=== PATIENT | male | born 1945 | race Caucasian/White ===

== ENCOUNTER 2017-01-19 01:19 | Emergency (ER) | payer OTHER ==
[~2017-01-19] VITALS: Ht 170.2 cm; Wt 82.2 kg
[~2017-01-19 01:19] MED LIST: ASPI81TA28 PO; ATEN50TA PO; CETI10TA10 PO; CYCL10TA6 PO; EPP3/2 INJ; IPRA17AE2 INH; MULTCHW PO; OMEP20CA9 PO; OXYC-57 PO; RIVA1TAB4 PO; TRIA0.1C20 TOP; XRL15 PO
[2017-01-19 01:32] VITALS: TEMP 36.7; Ht 170.2 cm; Wt 82.2 kg
--- NOTE | 2017-01-19 02:01 | EMERGENCY ROOM VISIT NOTE ---
History Report prepared by Ericka: Brian Douglas Under the Supervision of: Dr. Brynn Kinney D.O. First contact with patient: 01:38 Chief Complaint: CALF PAIN Stated Complaint: RIGHT CALF BRUISED History of Present Illness The patient is a 71 year old male who presents to the Emergency Room with complaints of right calf pain that he recently noticed. He describes this pain as a soreness. 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 Since his prior DVT, he was started on Xarelto. He states that he has not missed any dosages. He denies any chest pain or shortness of breath. He does not remember injuring this area. He denies any other bruising to other areas. Source of History: patient Onset: recently Position: leg (right) Symptom Intensity: mild Quality: other (Soreness) Timing: constant Associated Symptoms: No chest pain, No SOB Note: He denies any other abnormal bruising to his body or other symptoms. Review of Systems See HPI for pertinent positives & negatives. A total of 10 systems reviewed and were otherwise negative. Past Medical & Surgical Medical Problems: (1) Hypertension Family History Patient reports no known family medical history. Social History Smoking Status: Never Smoker Smokeless Tobacco Use: No Alcohol Use: occasionally Drug Use: none Marital Status: Housing Status: lives with significant other Occupation Status: retired Current/Historical Medications Scheduled Aspirin (Aspirin Ec), 81 MG PO 3XWK Atenolol (Tenormin), 25 MG PO BID Cetirizine Hcl (Zyrtec), 10 MG PO DAILY Multiple Vitamins W/ Minerals (Centrum Silver), 1 TAB PO DAILY Omeprazole (Prilosec), 20 MG PO DAILY Rivaroxaban (Xarelto), 20 MG PO DAILY Scheduled PRN Triamcinolone Acet 0.1% (Aristocort 0.1%), 1 APPLN TOP BID PRN for Allergies Coded Allergies: BEE STING (Verified Allergy, Severe, HIVES, 12/03/14) Aminoglycosides (Verified Allergy, Unknown, 07/06/13) Gentamicin (Verified Allergy, Unknown, HIVES, 12/03/14) Metronidazole (Verified Allergy, Unknown, 07/06/13) Tramadol (Verified Allergy, Unknown, INSOMNIA/SOB, 12/03/14) Physical Exam Vital Signs Date Time Temp Pulse Resp B/P (MAP) Pulse Ox O2 Delivery O2 Flow Rate FiO2 01/19/17 04:16 70 18 128/76 97 01/19/17 01:32 36.7 74 20 131/80 96 Room Air Physical Exam HEENT: Head - normocephalic and atraumatic Pupils are equal, round, and reactive to light. Extraocular eye muscles are intact, and sclera are anicteric. Nose - moist nasal mucosa without discharge. Mouth - moist buccal mucosa. Oropharynx is nonerythematous and there is no tonsillar exudate or edema noted. Neck: Supple; no JVD, nuchal rigidity, cervical lymphadenopathy. Heart: Regular rate and rhythm. There is a normal S1 and S2 with no murmurs, clicks, or gallops appreciated. Lungs: Clear to auscultation bilaterally with no wheezes, rales, or rhonchi. Abdomen: Soft, completely nontender, nondistended, with good bowel sounds. There are no palpable pulsatile masses or hepatosplenomegaly. There is no guarding, rigidity, or rebound noted. Extremities: There is an area of ecchymosis to the right mid calf. There is no fullness in that area or palpable cord. The area is nontender to palpation. There are easily palpable peripheral pulses. Skin: warm and dry with good turgor and no rashes. Medical Decision & Procedures ER Provider Diagnostic Interpretation: Radiology results as stated below per my review and the radiologist's interpretation: US VENOUS RIGHT LOWER EXTREMITY: Comparison: Ultrasound December 06, 2014 Nonocclusive thrombus likely in the right posterior tibial veins. No other evidence of deep venous thrombosis in the right lower extremity. Radiologist: Lance Sood M.D. ED Course 0138: Past medical records reviewed. The patient was evaluated in room B7. A complete history and physical exam was performed. The patient will go for ultrasound of the right lower extremity. 0338: I reassessed the patient at this time. He is doing well. 0412: Upon reevaluation, the patient is resting. I discussed findings and results with him. He verbalized agreement of the treatment plan. He was discharged home. Medical Decision The patient is a 71 year old male who presents to the ED with right calf pain. Differential diagnosis includes calf hematoma, occlusive DVT, and contusion. This is a 71-year-old male patient had a history of a previous right lower extremity DVT and PE. He was placed on Xarelto a couple of years ago. The patient happened to notice some ecchymosis to the right calf this evening. He initially denied any trauma to his leg but then remembered that he had been out in the bush moving a tree stand today and could have traumatized that leg. Ultrasound of the right lower extremity showed some nonocclusive DVT. On physical exam, there was just evidence of some ecchymosis but no obvious clinical findings consistent with a DVT. As the patient is already on anticoagulation, we will not change that at this time. I have asked the patient to follow-up with his PCP on Saturday for recheck. Medication Reconcilliation Current Medication List: was personally reviewed by me Blood Pressure Screening Patient's blood pressure: Normal blood pressure Blood pressure disposition: Did not require urgent referral Impression Primary Impression: Hematoma of right lower extremity Additional Impression: DVT (deep venous thrombosis) Scribe Attestation The scribe's documentation has been prepared under my direction and personally reviewed by me in its entirety. I confirm that the note above accurately reflects all work, treatment, procedures, and medical decision making performed by me. Departure Information Dispostion Home / Self-Care Referrals Eliud Orta M.D. Forms HOME CARE DOCUMENTATION FORM, IMPORTANT VISIT INFORMATION Patient Instructions My [facility] Additional Instructions Rest with the right leg elevated. You can apply ice or heat for comfort. 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
[2017-01-19] MEDS ORDERED: RIVA1TAB4 PO (02:45)
[2017-01-19 04:16] VITALS: BP 128/76; PULSE 70; O2SAT 97
--- NOTE | 2017-01-19 07:03 | DIAGNOSTIC IMAGING REPORT ---
R VENOUS DOPP LOWER EXT UNILAT CLINICAL HISTORY: 71 years-old Male presenting with eval for dvt. TECHNIQUE: Real-time grayscale and color and spectral Doppler ultrasound imaging of the veins of the right lower extremity was performed. Compression and augmentation were also utilized. COMPARISON: None. FINDINGS: Right: Common femoral vein: Patent. Femoral vein: Patent. Greater saphenous vein: Patent. Popliteal vein: Patent. Calf veins: Nonocclusive filling defect consistent with thrombus in the duplicated posterior tibial veins. Remaining calf veins patent. Other: None. IMPRESSION: Nonocclusive deep venous thrombosis in the duplicated posterior tibial veins. No evidence of more proximal extension. Electronically signed by: Eliud Burgess M.D. 01/19/2017 7:02 AM Dictated Date/Time: 01/19/2017 7:01 AM
== END 2017-01-19 04:17 | disposition home or self-care (01) ==
LOC: C.EDB 01:21
DX: I82.4Z1 Acute embolism and thrombosis of unspecified deep veins of right distal lower extremity (principal); S80.11XA Contusion of right lower leg, initial encounter; X58.XXXA Exposure to other specified factors, initial encounter; I10 Essential (primary) hypertension; Z79.82 Long term (current) use of aspirin; Z79.899 Other long term (current) drug therapy; Z88.8 Allergy status to other drugs, medicaments and biological substances; Z91.030 Bee allergy status

== ENCOUNTER 2024-04-25 06:47 | Inpatient (IN) ==
--- OUTSIDE RECORDS SUMMARY | 2024-04-25 07:09 | External Medical Summary ---
Author Name Unknown Address Unknown Organization [id number]:LABORATORY [facility] [place] - [address] [facility] [place] [address] Laboratory Report Ordering Provider Test Date Status ROHIT TOMAS 04/21/2024 07:54:00 Final Observation Date Value Abnormality Reference (Units ) Status BUN 04/21/2024 07:54:00 17 6-20 (mg/dL) Final Creatinine 04/21/2024 07:54:00 1.3 Above high normal 0.6-1.2 (mg/dL) Final Glomerular filtration rate/1.73 sq M.predicted [Volume Rate/Area] in Serum, Plasma or Blood by Creatinine-based formula (CKD-EPI) 04/21/2024 07:54:00 54 Below low normal >=60 (mL/min) Final eGFR is calculated based on the CKD-EPI 2020 equation. Sodium 04/21/2024 07:54:00 136 135-146 (m mol/L) Final Potassium 04/21/2024 07:54:00 3.6 3.5-5.1 (m mol/L) Final Cl 04/21/2024 07:54:00 99 98-107 (mm ol/L) Final CO2 04/21/2024 07:54:00 25 22-32 (mmo l/L) Final Anion gap 04/21/2024 07:54:00 12 7-15 (mmol /L) Final Glucose 04/21/2024 07:54:00 118 70-120 (mg /dL) Final Albumin 04/21/2024 07:54:00 3.5 Below low normal 3.8 -5.0 (g/dL) Final AST (Aspartate aminotransferase) 04/21/2024 07:54:00 25 10-50 (U/L) Fin al Alk Phos 04/21/2024 07:54:00 91 35-130 (U/ L) Final Bilirubin, Total 04/21/2024 07:54:00 0.5 <=1 .2 (mg/dL) Final Calcium 04/21/2024 07:54:00 8.8 8.4-10.2 ( mg/dL) Final Protein 04/21/2024 07:54:00 6.0 6.0-8.3 (g /dL) Final ALT (Alanine aminotransferase) 04/21/2024 07:54:00 33 10-50 (U/L) Ernesto craft Performing Location LABORATORY [facility] [place] - [address] [facility] [address]
--- OUTSIDE RECORDS SUMMARY | 2024-04-25 07:09 | External Medical Summary ---
Author Name Unknown Address Unknown Organization [id number]:LABORATORY [facility] [place] - [facility] [address] [place] [address] Laboratory Report Ordering Provider Test Date Status ROHIT TOMAS 04/22/2024 08:53:00 Final Observation Date Value Abnormality Reference (Units ) Status WBC, Total 04/22/2024 08:53:00 4.15 4.00-10.80 (K/uL) Final RBC 04/22/2024 08:53:00 3.73 4.50-5.25 (M/uL) Final Hemoglobin 04/22/2024 08:53:00 11.1 Below low normal 14.0-16.8 (g/dL) Final HCT 04/22/2024 08:53:00 33.6 Below low normal 40.0-48.4 (%) Final MCV 04/22/2024 08:53:00 90.1 82.0-99.5 (fL) Final MCH 04/22/2024 08:53:00 29.8 27.0-34.0 (pg) Final MCHC 04/22/2024 08:53:00 33.0 32.0-36.0 (g/dL) Final RDW 04/22/2024 08:53:00 13.1 11.5-15.5 (%) Final Platelets 04/22/2024 08:53:00 95 Below low normal 140-400 (K/uL) Final MPV 04/22/2024 08:53:00 11.3 6.6-11.1 (fL) Final Nucleated erythrocytes/100 leukocytes [Ratio] in Blood by Automated count 04/22/2024 08:53:00 0 <=0 (/100 WBCs) Final Performing Location LABORATORY [facility] [place] - [address] [place] [address]
--- OUTSIDE RECORDS SUMMARY | 2024-04-25 07:09 | External Medical Summary ---
Author Name Unknown Address Unknown Organization [id number]:[facility] [place] [address] [facility] [address] Laboratory Report Ordering Provider Test Date Status CORBY WILLIAMSON 04/21/2024 18:50:50 Final Observation Date Value Abnormality Reference (Units ) Status Color of Urine by Auto 04/21/2024 18:50:50 Yellow Colorless, Light Yellow, Yellow, Dark Yellow Final Clarity, Urine 04/21/2024 18:50:50 Clear Clear Final Glucose [Mass/volume] in Urine by Automated test strip 04/21/2024 18:50:50 Negative Negative (mg/dL) Final Bilirubin.total [Presence] in Urine by Automated test strip 04/21/2024 18:50:50 Negative Negative Final Ketones [Mass/volume] in Urine by Automated test strip 04/21/2024 18:50:50 Negative Negative (mg/dL) Final Specific gravity, Urine 04/21/2024 18:50:50 1.030 1.003-1.030 Final Hemoglobin [Presence] in Urine by Automated test strip 04/21/2024 18:50:50 Negative Negative Final pH, Urine 04/21/2024 18:50:50 6.0 5.0-7.5 (Units) Final Protein [Mass/volume] in Urine by Automated test strip 04/21/2024 18:50:50 30 Abnormal Negative (mg/dL) Final Urobilinogen [Mass/volume] in Urine by Automated test strip 04/21/2024 18:50:50 Normal Normal (mg/dL) Final Nitrite [Presence] in Urine by Automated test strip 04/21/2024 18:50:50 Negative Negative Final Leukocyte esterase [Presence] in Urine by Automated test strip 04/21/2024 18:50:50 Negative Negative Final RBC, Urine 04/21/2024 18:50:50 0-2 0-2 (/HPF) Final WBC, Urine 04/21/2024 18:50:50 0-2 0-2 (/HPF) Final Bacteria [#/area] in Urine sediment by Microscopy high power field 04/21/2024 18:50:50 51-100 Abnormal 0-25 (/HPF) Final Hyaline casts, Urine 04/21/2024 18:50:50 1-4 Abnormal None (/LPF) Final CULTURE, URINE - [facility] 04/21/2024 18:50:50 Final Quantitative urine culture t o be performed Performing Location [facility]ORY [facility] [place] [address] [place] [facility] [address]
--- OUTSIDE RECORDS SUMMARY | 2024-04-25 07:09 | External Medical Summary ---
Author Name Unknown Address Unknown Organization K01:LABORATORY [facility] [place] - [address] [place] [address] Laboratory Report Ordering Provider Test Date Status CORBY WILLIAMSON 04/21/2024 18:50:50 Final Observation Date Value Abnormality Reference (Units) Status Bacteria identified in Specimen by Culture 04/21/2024 18:50:50 No significant growth Final Test: Culture, Urine, Quanti tative
Specimen Source: Urine, Clean Catch
Specimen Type: Urine
Specimen Date: 04/21/2024 1850
Result Date: 04/22/2024 1412
Result Status: Final result
Resulting Lab: LABORATORY [facility] [place]
[address]
[place] [address]

CULTURE

No significant growth

null Performing Location LABORATORY [facility] [place] - [address] [facility] [address]
--- OUTSIDE RECORDS SUMMARY | 2024-04-25 07:09 | External Medical Summary ---
Author Name Unknown Address Unknown Organization K01:[facility]ORY [facility] [place] - [address] [place] [address] Laboratory Report Ordering Provider Test Date Status ROHIT TOMAS 04/22/2024 08:53:00 Final Observation Date Value Abnormality Reference (Units ) Status Phosphate 04/22/2024 08:53:00 2.1 Below low normal 2.5 -4.8 (mg/dL) Final Performing Location LABORATORY [facility] - [address] [place] [address]
--- OUTSIDE RECORDS SUMMARY | 2024-04-25 07:09 | External Medical Summary ---
Author Name Unknown Address Unknown Organization K01:LAB[facility]ORY [facility] [place] - [address] [place] [address] Laboratory Report Ordering Provider Test Date Status CORBY WILLIAMSON 04/21/2024 19:03:00 Preliminary Observation Date Value Abnormality Reference (Units) Status Bacteria identified in Specimen by Culture 04/21/2024 19:03:00 No growth to date Preliminary Test: Culture, Blood
Rosemary victoria Source: Blood, Venous
Specimen Type: Blood
Specimen Date: 04/21/2024 190
Result Date: 04/22/2024 0202
Result Status: Preliminary result
Resulting Lab: LAB[facility]ATORY [facility] [place]
[address]
[place] [address]

CULTURE

No growth to date

null Performing Location LABORATORY [facility] [place] - [address] [facility] [address]
--- OUTSIDE RECORDS SUMMARY | 2024-04-25 07:09 | External Medical Summary ---
Author Name Unknown Address Unknown Organization K01:LABORATORY [facility] - [address] [place] [address] Laboratory Report Ordering Provider Test Date Status ROHIT TOMAS 04/21/2024 07:54:00 Final Observation Date Value Abnormality Reference (Units ) Status Phosphate 04/21/2024 07:54:00 3.0 2.5-4.8 (m g/dL) Final Performing Location LABORATORY [facility] - [address] [place] [address]
--- OUTSIDE RECORDS SUMMARY | 2024-04-25 07:09 | External Medical Summary | Summary of Care ---
Author Name Unknown Organization [facility] Address [address] [facility] [place] [address] Phone [phone] Care Team Providers Care Swimming Pool Servicer Name Role Phone Eliud Orta MD Primary Care Provider + Reason for Visit * Reason Onset Date Comments [facility]: Screening 04/23/2024 Encounter Details Date Type Department Care Team (Late st Contact Info) Description 04/23/2024 Telephone [facility] [place] [address] [place] [address] Mildred Mckeon LPN [address] [place] [address] [facility]: Screening Allergies Active Allergy Reactions Criticality Noted Date Comments Bee Stings Hives Medium 07/26/2008 Gentamicin Sulfate 06/05/2001 pt was on gentamycin,unasyn,ibjipg-qnygg-my t sure which med documented as of this encounter (statuses as of 04/23/2024) Medications CENTRUM SILVER OR TABS Take 1 Tablet by mouth in the morning. 0 0 07/08/200 4 Active PRILOSEC 20 MG PO CPDR Take 1 Capsule by mouth in the morning. Active Cetirizine HCl 10 MG Oral Tablet Take 1 Tablet by mouth. Active Acetaminophen 500 MG Oral Tablet Take 1 Tablet by mouth every 8 hours as needed for Pain. Active Triamcinolone Acetonide 0.1 % External Cream (Aristocort)Ind ications:Rosace a Apply to affected area(s) twice daily as directed 80 g 2 12/28/2022 10:06 AM EDT 3 Active Rivaroxaban 20 MG Oral Tablet (Xarelto)Indica tions:Pulmonary embolism and infarction (HCC) Take 1 Tablet by mouth daily with dinner. 100 Tablet 3 03/24/2024 3:46 PM EST 4 Active Alfuzosin HCl ER 10 MG Oral Tablet Extended Release 24 Hour (Uroxatral)Mally cations:BPH with obstruction/low er urinary tract symptoms Take 1 Tablet by mouth in the morning. 100 Tablet 3 03/31/2024 5:28 PM EST 4 Active Additional Information Patient taking differently:10 mg OralHS, Reported on 04/20/2024 Finasteride 5 MG Oral Tablet (Proscar)Indica tions:BPH with obstruction/low er urinary tract symptoms TAKE ONE TABLET BY MOUTH EVERY DAY IN THE MORNING 90 Tablet 3 03/31/2024 2:56 PM EST 5 03/26/19 26 Active Atenolol 25 MG Oral Tablet (Tenormin)Indic ations:SVT (supraventricul ar tachycardia) ([facility]),Palpitati ons Take 1 and 1/2 Tablets by mouth in the morning and before bedtime. 300 Tablet 3 03/31/2024 2:56 PM EST 5 03/30/19 26 Active oxyCODONE HCl 10 MG Oral Tablet (Roxicodone) Take 1 Tablet by mouth every 6 hours as needed for Pain, Severe. 20 Tablet 5 Active Hospital, Clinic, or Other Facility Administered Medication Ordered Dose Route Frequency Start Date End Date Status albuterol sulfate (PROVENTIL) (2.5 MG/3ML) 0.083% inhalation solution 2.5 mgIndications:Adenocarcin chrystal of left lung (HCC) 2.5 mg NEBULIZER Q4H PRN 06/13/2018 Ac tive documented as of this encounter (statuses as of 04/23/2024) Active Problems Problem Noted Date Diagnosed Date Acute pancreatitis 04/20/2024 History of cholecystectomy 04/20/2024 Pancreatic mass 04/20/2024 History of lung cancer 02/28/2024 Overview (02/28/2024): T2 N2 non-small cell lung cancer s/p resection followed by 4 cycles of adjuvant chemotherapy including combination of Alimta and carboplatin. Last dose of chemotherapy was in 11/2018. PET scan done on 04/07/19 w/ FNA of lesion done - positive for metastatic carcinoma 3-4 mm lesion on the right side of the brain & received adiation therapy. Tumor was positive for PDL1 and expression (1-2%) S/p SBRT to right hilum, 3400cGy in 5 fractions, on 10/14/2020 and continued nivolumab. Received Opdivo between 05/25/2019 to 11/22/2021. PET scan done 10/17/23 & follow up CT scan was done with increasing size of the left lung apex nodule. S/p SBRT and received total of 5000 cGy radiation completed on 12/19/2023. 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 Minimum 6mo anticoag, heme rec lifelong ICD-10 update of inactive term History of DVT (deep vein thrombosis) 12/06/2014 Overview (04/11/2015): 12/03/14 new dx with PE--rec lifelong therapy History of pulmonary embolism 12/06/2014 Overview (01/21/2017): 01/25 nonocclusive DVT [facility] doppler while on xarelto 12/03/14 [facility] w/DVT leg. Minimum 6mo anticoag-Heme rec lifelong. +Factor V Heterozygous SVT (supraventricular tachycardia) 12/27/2013 Overview (12/27/2013): On beta-rena Routine general medical exam ination at a health care facility 09/01/2013 Overview (04/20/2024): Prefers [facility] . -[facility]. 05/05 EGD +gastric polyps 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 01/23 PFT Ratnor. Look ok? 12/22 outside BMP, UA, microalb WNL. Scanned. 08/22 PSA 0.6. S/p total colectomy due to UC Parastomal hernia without obstruction or gangren e 09/16/2012 Trigeminal neuralgia 06/14/2011 Dyslipidemia, goal LDL below 100 05/10/[address] 10/02/2002 Overview (07/27/2019): High output ostomy discharge. Acute. BPH with obstruction/lower urinary tract symptom s 12/03/2001 LIPOMA SKIN NEC 02/05/2001 Overview (03/09/2014): Mult all over.a Gastroesophageal reflux disease without esophagi tis Rosacea documented as of this encounter (statuses as of 04/23/2024) Resolved Problems Problem Noted Date Diagnosed Date Resolved Date Disorder of arteries and arterioles 09/06/2022 12/27/2022 Pulmonary embolism and infarction 09/19/2021 11/02/2021 Overview (11/02/2021): Hx on PL Lung cancer metastatic to brain 04/27/2020 02/28/2024 Overview (02/28/2024): T2 N2 non-small cell lung cancer s/p resection followed by 4 cycles of adjuvant chemotherapy including combination of Alimta and carboplatin. Last dose of chemotherapy was in 11/2018. PET scan done on 04/07/19 w/ FNA of lesion done - positive for metastatic carcinoma 3-4 mm lesion on the right side of the brain & received adiation therapy. Tumor was positive for PDL1 and expression (1-2%) S/p SBRT to right hilum, 3400cGy in 5 fractions, on 10/14/2020 and continued nivolumab. Received Opdivo between 05/25/2019 to 11/22/2021. PET scan done 10/17/23 & follow up CT scan was done with increasing size of the left lung apex nodule. S/p SBRT and received total of 5000 cGy radiation completed on 12/19/2023. Stage 3a chronic kidney disease 01/18/2020 03/24/2020 Overview: Per CKD protocol - Per CKD protocol Kidney disease, chronic, sta ge III (GFR 30-59 ml/min) 10/19/2019 01/21/2020 Overview: Per CKD protocol Prediabetes 09/28/2019 06/21/2022 Type 2 diabetes mellitus wit h stage 3 chronic kidney disease, without long-term current use of insulin 09/15/2019 09/28/2019 Overview (09/15/2019): DM2 + CKD III - conditions have assumed relationship per current coding guidelines. COPD, group A, by GOLD 2017 classification 01/19/2019 02/22/2022 Overview (11/10/2021): PFT 2014 Dr Wills were ok Type 2 diabetes mellitus wit h hemoglobin A1c goal of less than 8.0% 12/17/2018 09/28/2019 Overview (12/17/2018): 12/27 new dx a1c 6.6. On chemo. Artificial opening status 07/08/2018 Pulmonary embolism and infarction 07/08/2018 11/13/2018 Preoperative clearance 07/07/201811/13 Malignant neoplasm of upper lobe of left lung 07/08/19 19 02/28/2024 Cancer Staging:Clinical stage from 07/16/2018:Stage IIB(cT3, cN0, cM0) - Signed by Kevin Mehta MD on 07/16/2018 Pathologic stage from 08/21/2018:Stage IIIA(pT2b, pN2, cM0) - Signed by Kevin Mehta MD on 08/21/2018 Overview (02/28/2024): T2 N2 non-small cell lung cancer s/p resection followed by 4 cycles of adjuvant chemotherapy including combination of Alimta and carboplatin. Last dose of chemotherapy was in 11/2018. PET scan done on 04/07/19 w/ FNA of lesion done - positive for metastatic carcinoma 3-4 mm lesion on the right side of the brain & received adiation therapy. Tumor was positive for PDL1 and expression (1-2%) S/p SBRT to right hilum, 3400cGy in 5 fractions, on 10/14/2020 and continued nivolumab. Received Opdivo between 05/25/2019 to 11/22/2021. PET scan done 10/17/23 & follow up CT scan was done with increasing size of the left lung apex nodule. S/p SBRT and received total of 5000 cGy radiation completed on 12/19/2023. COPD, severity to be determined 07/07/2018 01/23/2019 Overview: Per COPD GOLD Classification Kidney disease, chronic, sta ge III (GFR 30-59 ml/min) 06/18/2017 09/24/2019 Overview: Per CKD protocol #1 Thrombocytopenia 03/08/2016 09/04/2016 Overview (03/08/2016): 02/23, jsoeph 3mo Altered bowel elimination du e to intestinal ostomy 03/15/2015 05/22/2022 Postoperative nausea 06/01/2013 016 Calf pain 11/11/2012 03/06/2016 Tachycardia 10/23/2012 10/27/2012 Atrial fibrillation with RVR 10/23/2012 11/05/2012 Respiratory failure, acute 10/21/2012 0 10/27/2012 Acute respiratory failure re quiring reintubation 10/21/2012 10/27/2012 Atypical chest pain 10/06/2012 03/06/20 16 Ulcerative colitis, unspecified 09/16/2012 09/01/2013 Kidney disease, chronic, sta ge III (GFR 30-59 ml/min) 05/10/2009 11/25/2014 Overview (02/01/2014): 12/[address] Castro [id number] Toxic effect of venom 07/26/20082013 Overview (12/13/2015): ICD-10 update of inactive term ADVANCE DIRECTIVE INFORMATION 07/04/2005 01/13/2024 Overview (07/04/2005): Yes, Patient instructed to provide copy of advance directive for provider to review and to be scanned into Electronic Medical Record Dyslipidemia, goal to be determined 12/03/2001 05/10/2009 Ulcerative colitis 02/05/2001 0 documented as of this encounter (statuses as of 04/23/2024) Immunizations Name Administration Dates Next Due COVID-19 mRNA, LNP-s, No Pre serve, 2-Dose Series (Otelic) 11/08/2020,05/31/2020,05/10/2020 COVID-19, LNP-s, No Preserve , Jose E-sucrose, Ages 12+ (Pfizer) 05/16/2021 COVID-19, MRNA-LNP, PF, 30 M CG/0.3 mL, 12 YRS AND ABOVE, IM (ALEXANDALEXA-Comirnat) 01/13/2024,01/21/2023 Covid-19, Mrna, Lnp-s, Pf, B ivalent, 30 Mcg, IM, 12 yrs and above (Otelic) 12/26/2021 Pneumococcal Conjugate Vacc, 13 Valent (Prevnar) 09/05/2015 Pneumococcal Polysaccharide PPV23 (Pneumovax) 11/11/2009 RSV Vac., Bivalent, Perfusio n F, Pf,0.5 Ml (Abrysvo) 01/02/2023 Seasonal Influenza Vac., MDV , IM, 0.5 mL (Fluzone) 12/16/2013,11/27/2012,12/26/2011,07/2010,12/15/2009,01/12/2009,12/18/19 08,12/11/2006,12/12/2005 Seasonal Influenza, High Dos e, Trivalent, PF, IM (Fluzone HD) 11/13/2023 Seasonal Influenza, PF, 6 M & above, IM , (FluLaval or Fluzone) 11/05/2019,12/23/2018,12/03/2017,12/0912/03/2018 Seasonal Influenza, Quadriva lent Hd (Fluzone Hd) 11/13/2023,12/27/2022,11/10/2021,03/2020 Seasonal Influenza, Quadriva lent, No Preserve, IM 01/17/2016,12/13/2014 TDAP (age 10 and older)(Boostrix) 10/14/2017 TDAP, Age 7 and older, IM (Adacel) 08/28/2007 Varicella Zoster Vaccine (Adult) 06/23/2012 Zoster Vaccine Recombinant (Shingrix) 07/03/2019 ,05/07/2019 documented as of this encounter Social History Tobacco Use Types Packs/Day Years Used Date Smoking Tobacco: Former Cigarettes 2 15 0 03/11/1959 - 03/11/1974 Smokeless Tobacco: Current Chew Comments:chews when outside- cut way back Alcohol Use Standard Drinks/Week Comments Yes 0 (1 standard drink = 0.6 oz pur e alcohol) every couple of days AUDIT-C Answer Date Recorded Frequency of Alcohol Consumption Never 06/12/2018 Average Number of Drinks Not on file 019 Frequency of Binge Drinking Not on file 06/2018 PHQ-2 Answer Date Recorded PHQ Adult Total Score 0 12/27/2022 Hunger Vital Sign Answer Date Recorded Within the past 12 months, y ou worried that your food would run out before you got the money to buy more. Never true 09/07/19 23 Within the past 12 months, t he food you bought just didn't last and you didn't have money to get more. Never true 09/06/2022 Sex and Gender Information Value Date Recorded Sex Assigned at Male 11/10/2021 12:21 PM EDT Legal Sex Male 5:27 AM EST Gender Identity Male 11/10/2021 12:21 PM EDT Sexual Orientation Straight 11/10/2021 12 :21 PM EDT documented as of this encounter Functional Status * Are you deaf or do you have serious difficulty hearing? Answer Date of Assessment Author No 08/01/2018 10:47 PM EDT Colby Franco RN * Are you blind or do you have serious difficulty seeing, even when wearing glasses? Answer Date of Assessment Author No 08/01/2018 10:47 PM EDT Colby Franco RN * Do you have serious difficulty walking or climbing stairs? (5 years old or older) Answer Date of Assessment Author No 08/01/2018 10:47 PM EDT Colby Franco RN * Do you have difficulty dressing or bathing? (5 years old or older) Answer Date of Assessment Author No 08/01/2018 10:47 PM EDT Colby Fracno RN * Because of a physical, mental, or emotional condition, do you have difficulty doing errands alone such as visiting a doctors office or shopping? (15 years old or older) Answer Date of Assessment Author No 08/01/2018 10:47 PM EDT Colby Franco RN documented as of this encounter Mental Status * Because of a physical, mental, or emotional condition, do you have serious difficulty concentrating, remembering, or making decisions? (5 years old or older) Answer Entry Date Author No 08/01/2018 10:47 PM EDT Colby Franco RN documented in this encounter Miscellaneous Notes * Telephone Encounter - Mildred Mckeon LPN - 04/23/2024 2:26 PM EST Jason Alexander was referred as a potential candidate for enrollment for [facility]. A review of this chart was completed and: Jason meets criteria for [facility]. Jump to Initiation Mildred Mckeon LPN [facility] 04/23/2024,2:26 PM documented in this encounter Plan of Treatment Upcoming Encounters Date Type Department Care Team (Late st Contact Info) Description 04/29/2024 10:15 AM EST Office Visit Hematology/Oncology [facility] [address] [place] [phone] Hemanth Monk MD [address] [place] [address] 04/29/2024 2:40 PM EST Office Visit [facility] ([place], [place]) [address] [place] [address] Eliud Orta MD [address] [place] [address] 05/01/2024 12:30 PM EST Home Visit [facility], [facility] [address] [place] [address] Taisha Nicholas RN [address] [place] [address] 06/02/2024 11:30 AM EDT Office Visit Cardiology [address] [place] [address] Alessandro Dozier PA-C [address] [place] [address] 06/22/2024 1:00 PM EDT Home Visit [facility] [place], [facility] [address] [place] [address] Daniel Moses PA-C [address] [place] [address] 08/19/2024 9:00 AM EDT Office Visit [facility] ([place], [place]) [address] [place] [address] Eliud Orta MD [address] [place] [address] 08/20/2024 11:00 AM EDT Imaging Radiology [address] [place] [address] 08/27/2024 11:00 AM EDT Telemedicine Radiation Oncology, [address] [place] [address] Rubi Mart MD [address] [place] [address] [place] [address] 02/19/2025 11:40 AM EST Office Visit Family [facility] [address] [place] [address] Eliud Orta MD [address] [place] [address] Health Maintenance Due Date Last Done Comments Alpha-1 Antitrypsin 1963 Adult Wellness Visit 04/27/2017 04/27/2016 Albumin/Creatinine Ratio 12/28/2023 023, 01/16/2022, 05/10/2021, Additional history exists Depression Screening 12/28/2023 12/27/2022, 09/04/2016 (Declined) GFR 10/20/2024 04/22/2024, 04/11, 04/20/2024, Additional history exists O2 ASSESSMENT COMPLETED IN PAST YEAR FOR COPD 04/15/2025 04/15/2024 CKD HGB USE SMARTSET 65873 04/22/202504/22, 04/21/2024, 04/20/2024, Additional history exists CKD PHOS USE SMARTSET 81405 04/22/202504/11, 04/21/2024, 01/18/2023, Additional history exists DTap/Tdap Vaccines (3 - Td or Tdap) 10/15/2027 10/14/2017, 08/28/2007 Pneumococcal Vaccine: 50+ Years Completed 09/05/2015, 11/11/2009 Zoster Vaccines Completed 07/03/2019, 04/12, 06/23/2012 Influenza Vaccine (FLU shot) Completed 11/13/2023, 11/13/2023, 12/27/2022, Additional history exists COVID-19 Vaccine Completed 01/13/2024, , 12/26/2021, Additional history exists Colonoscopy Discontinued HPV (Gardasil) Vaccine Aged Out No lo nger eligible based on patient's age to complete this topic Hepatitis B Vaccine Aged Out No longe r eligible based on patient's age to complete this topic MENINGOCOCCAL (MENACTRA/MENVEO) Aged Out No longer eligible based on patient's age to complete this topic documented as of this encounter Medical Devices Implanted Type Area Support Specialist Device Identifier Shelf Expiration Date Model / Serial / Lot Phasix Mesh [id number] Implanted:Qty: 1 on 10/20/2012 at OR [facility] N/A: Abdomen CR BARD : DAVOL 02/07/2014 [id number] / / [id number] Description:Trial item Vitamesh Squ Blue 30cm X 30cm - [id number] Implanted:Qty: 1 on 05/29/2013 at OR [facility] N/A: Abdomen [employer] 12/08/2014 [id number] / / [id number] documented as of this encounter Advance Directives * Full Code (Latest Code Status on File) Date Activated Date Inactivated Comments 04/20/2024 6:55 PM 04/22/2024 4:30 PM This order r eflects the patients wishes and were consensually agreed upon. Question Answer Comments Discussion of Advance Directives occurred with: Patient * Full Code Date Activated Date Inactivated Comments 08/01/2018 7:11 PM 08/06/2018 6:37 PM Question Answer Comments Discussion of Advance Directives occurred with: Not Discussed * Full Code Date Activated Date Inactivated Comments 08/01/2018 7:07 PM 08/01/2018 7:11 PM Question Answer Comments Discussion of Advance Directives occurred with: Not Discussed * Full Code Date Activated Date Inactivated Comments 05/29/2013 10:56 AM 06/07/2013 4:47 PM Question Answer Comments Discussion of Advance Directives occurred with: Not Discussed Does the patient have a Living Will? No Does the patient have Health Care Power of Attor sarah? No * Full Code Date Activated Date Inactivated Comments 05/29/2013 6:07 AM 05/29/2013 10:56 AM Question Answer Comments Discussion of Advance Directives occurred with: Not Discussed Does the patient have a Living Will? No Does the patient have Health Care Power of Attor sarah? No Care Teams Swimming Pool Servicer Relationship Specialty Start Date End Date Eliud Orta MD [address] [place] [address] PCP - General Family Medicine 03/09/14 documented as of this encounter
--- OUTSIDE RECORDS SUMMARY | 2024-04-25 07:09 | External Medical Summary ---
Author Name Unknown Address Unknown Organization [id number]:LABORATORY [facility] [place] - [address] [place] [place] [address] Laboratory Report Ordering Provider Test Date Status ROHIT TOMAS 04/21/2024 07:54:00 Final Observation Date Value Abnormality Reference (Units ) Status Magnesium 04/21/2024 07:54:00 2.0 1.5-2.6 (m g/dL) Final Performing Location LABORATORY [facility] - [address] [place] [id number]
--- OUTSIDE RECORDS SUMMARY | 2024-04-25 07:09 | External Medical Summary ---
Author Name Unknown Address Unknown Organization [id number][place] [place] [address] [facility] [place] [address] Laboratory Report Ordering Provider Test Date Status ROHIT TOMAS 04/22/2024 08:53:00 Final Observation Date Value Abnormality Reference (Units ) Status BUN 04/22/2024 08:53:00 11 6-20 (mg/dL) Final Creatinine 04/22/2024 08:53:00 1.2 0.6-1.2 (mg/dL) Final Glomerular filtration rate/1.73 sq M.predicted [Volume Rate/Area] in Serum, Plasma or Blood by Creatinine-based formula (CKD-EPI) 04/22/2024 08:53:00 63 >=60 (mL/min) Final eGFR is calculated based on the CKD-EPI 2020 equation. Sodium 04/22/2024 08:53:00 138 135-146 (m mol/L) Final Potassium 04/22/2024 08:53:00 3.5 3.5-5.1 (m mol/L) Final Cl 04/22/2024 08:53:00 101 98-107 (mm ol/L) Final CO2 04/22/2024 08:53:00 25 22-32 (mmo l/L) Final Anion gap 04/22/2024 08:53:00 12 7-15 (mmol /L) Final Glucose 04/22/2024 08:53:00 142 Above high normal 70 -120 (mg/dL) Final Albumin 04/22/2024 08:53:00 3.3 Below low normal 3.8 -5.0 (g/dL) Final AST (Aspartate aminotransferase) 04/22/2024 08:53:00 23 10-50 (U/L) Fin al Alk Phos 04/22/2024 08:53:00 122 35-130 (U/ L) Final Bilirubin, Total 04/22/2024 08:53:00 0.5 <=1 .2 (mg/dL) Final Calcium 04/22/2024 08:53:00 8.6 8.4-10.2 ( mg/dL) Final Protein 04/22/2024 08:53:00 5.8 Below low normal 6.0 -8.3 (g/dL) Final ALT (Alanine aminotransferase) 04/22/2024 08:53:00 30 10-50 (U/L) Ernesto craft Performing Location [facility] [place] [address] [place] [facility] [address]
--- OUTSIDE RECORDS SUMMARY | 2024-04-25 07:09 | External Medical Summary | Summary of Care ---
Author Name Unknown Organization [facility] Address [address] [place] [place] [address] Phone [phone] Care Team Providers Care Fuel Handler Name Role Phone Eliud Orta MD Primary Care Provider + Reason for Visit * Reason Onset Date Comments Advice 04/24/2024 Encounter Details Date Type Department Care Team (Late st Contact Info) Description 04/24/2024 Telephone Gastroenterology, [address] [phone] Ofelia Somers, DO [address] [place] [address] Advice Allergies Active Allergy Reactions Criticality Noted Date Comments Bee Stings Hives Medium 07/26/2008 Gentamicin Sulfate 06/05/2001 pt was on gentamycin,unasyn,uzwsjp-hgwjp-qz t sure which med documented as of this encounter (statuses as of 04/24/2024) Medications CENTRUM SILVER OR TABS Take 1 Tablet by mouth in the morning. 0 0 4 Active PRILOSEC 20 MG PO CPDR [...] Oral Tablet (Tenormin)Indic ations:SVT (supraventricul ar tachycardia) ([facility]),Palpitati ons Take 1 and 1/2 Tablets [...] as of this encounter (statuses as of 04/24/2024) Active Problems Problem Noted Date Diagnosed Date [...] dysfunction 03/19/2017 Alcohol dependence in remission 09/05/2016 assisted current use of anticoagulant therapy 0 12/06/2014 Overview (06/25/2017): 12/03/14 admit w/DVT/PE. Minimum 6mo anticoag, heme rec lifelong ICD-10 update of inactive term History of DVT (deep vein thrombosis) 12/06/2014 Overview (04/11/2015): 12/03/14 new dx with PE--rec lifelong therapy History of pulmonary embolism 12/06/2014 Overview (01/21/2017): 01/25 nonocclusive DVT [facility] doppler while on xarelto 12/03/14 [facility] w/DVT leg. Minimum 6mo anticoag-Heme [...] as of this encounter (statuses as of 04/24/2024) Resolved Problems Problem Noted Date Diagnosed Date [...] #1 Thrombocytopenia 03/08/2016 09/04/2016 Overview (03/08/2016): 02/23, joseph 3mo Altered bowel elimination du e to [...] Overview (02/01/2014): 12/22 Cr [address] Matthew BreenGouwo-fvslv-[id number] Toxic effect of venom 07/26/20082013 Overview (12/13/2015): ICD-10 update of inactive term ADVANCE DIRECTIVE INFORMATION 07/04/2005 01/13/2024 Overview (07/04/2005): Yes, Patient instructed to provide copy of advance directive for provider to review and to be scanned into Electronic Medical Record Dyslipidemia, goal to be determined 12/03/2001 05/10/2009 Ulcerative colitis 02/05/2001 0 documented as of this encounter (statuses as of 04/24/2024) Immunizations Name Administration Dates Next Due COVID-19 mRNA, LNP-s, No Pre serve, 2-Dose Series (Pixonic) 11/08/2020,05/31/2020,05/10/2020 COVID-19, LNP-s, No Preserve , Jose E-sucrose, Ages 12+ (Pfizer) 05/16/2021 COVID-19, MRNA-LNP, PF, 30 M CG/0.3 mL, 12 YRS AND ABOVE, IM (PFIZER-Comirnaty) 01/13/2024,01/21/2023 Covid-19, Mrna, Lnp-s, Pf, B ivalent, 30 Mcg, IM, 12 yrs and above (Pfizer) 12/26/2021 Pneumococcal Conjugate Vacc, 13 Valent (Prevnar) [...] of Assessment Author No 08/01/2018 10:47 PM MARIAMT Colby Franco RN * Do you have difficulty dressing or bathing? (5 years old or older) Answer Date of Assessment Author No 08/01/2018 10:47 PM EDT Colby Franco RN * Because of a physical, mental, or emotional condition, do you have difficulty doing errands alone such as visiting a doctors office or shopping? (15 years old or older) Answer Date of Assessment Author No 08/01/2018 10:47 PM MARIAMT Colby Franco RN documented as of this encounter Mental Status * Because of a physical, mental, or emotional condition, do you have serious difficulty concentrating, remembering, or making decisions? (5 years old or older) Answer Entry Date Author No 08/01/2018 10:47 PM Colby Marcelino RN documented in this encounter Miscellaneous Notes * Telephone Encounter - Ofelia Somers, - 04/24/2024 1:00 PM EST The patient's pancreatic cytology is suggestive of underlying adenocarcinoma. Given his history I wonder if it is metastatic lung cancer to his pancreas. The patient was admitted to [facility] week for postprocedural discomfort in his now at home, he notes that he still is not feelingup to his normal self yet. The patient is to be seen by Medical Oncology early next week or determination of the next step in his care Plan Patient to continue follow up with Medical Oncology Cytology results A. Pancreas, Uncinate process, EUS guided fine needle aspiration: Adequacy: Satisfactory for evaluation. Category: Suspicious for malignancy (WHO International System). Interpretation: Suspicious for adenocarcinoma. See comment. Other: Cellblock: The histological sections of the cellblock preparation show similar findings. Comment: The atypical epithelial cells are positive for CK7, weakly positive for maspin, S100P, andnegative for KOC, TTF-1, and synaptophysin. Intact expression of SMAD4 is noted. An immunostain forp53 appears to be overexpressed. BCL10 highlights background benign acinar cells. The paucity of the atypical epithelial cells precludes a definitive diagnosis. Clinical-radiologic correlation is essential. documented in this encounter Plan of Treatment Upcoming Encounters Date Type Department Care Team (Late st Contact Info) Description 04/29/2024 10:15 AM EST Office Visit Hematology/Oncology [facility] [address] [place] [phone] Hemanth Monk MD [address] [place] [address] 04/29/2024 2:40 PM EST Office Visit Family Practice [facility] [address] [place] [address] Eliud Orta MD [address] [place] [address] 05/01/2024 12:30 PM EST Home Visit [facility] [address] [place] [address] Taisha Nicholas RN [address] [place] [address] 06/02/2024 11:30 AM EDT Office Visit Cardiology [address] [place] [address] Alessandro Dozier PA-C [address] [place] [address] 06/22/2024 1:00 PM EDT [facility] [place] [address] [address] Daniel Moses PA-C [address] [place] [address] 08/19/2024 9:00 AM EDT Office Visit [facility] [address] [address] Eliud Orta MD [address] [place] [address] 08/20/2024 11:00 AM EDT Imaging Radiology [address] [place] [address] 08/27/2024 11:00 AM EDT Telemedicine Radiation Oncology, [address] [place] [address] Rubi Mart MD [address] [place] [address] [place] [address] 02/19/2025 11:40 AM EST Office Visit [facility] [address] [address] [address] Eliud Orta MD [address] [place] [address] Health Maintenance Due Date Last Done Comments Alpha-1 Antitrypsin 1963 Adult Wellness Visit 04/27/2017 04/27/2016 Albumin/Creatinine Ratio 12/28/2023 023, 01/16/2022, 05/10/2021, Additional history exists Depression Screening 12/28/2023 12/27/2022, 09/04/2016 (Declined) COVID-19 Vaccine ( season) 2024 01/13/2024, 01/21/2023, 12/26/2021, Additional history exists GFR 10/20/2024 04/22/2024, 04/11, 04/20/2024, Additional history exists O2 ASSESSMENT COMPLETED IN PAST YEAR FOR COPD 04/15/2025 04/15/2024 CKD HGB USE SMARTSET 63700 04/22/202504/22, 04/21/2024, 04/20/2024, Additional history exists CKD PHOS USE SMARTSET 50235 04/22/202504/11, 04/21/2024, 01/18/2023, Additional history exists DTap/Tdap Vaccines (3 - Td or Tdap) 10/15/2027 10/14/2017, 08/28/2007 Pneumococcal Vaccine: 50+ Years Completed 09/05/2015, 11/11/2009 Zoster Vaccines Completed 07/03/2019, 04/12, 06/23/2012 Influenza Vaccine (FLU shot) Completed 11/13/2023, 11/13/2023, 12/27/2022, Additional history exists Colonoscopy Discontinued HPV (Gardasil) Vaccine Aged Out No lo nger eligible based on patient's age to complete this topic Hepatitis B Vaccine Aged Out No longe r eligible based on patient's age to complete this topic MENINGOCOCCAL (MENACTRA/MENVEO) Aged Out No longer eligible based on patient's age to complete this topic Meningitis B Vaccine (Bexsero/Trumemba) Aged Out No longer eligible based on patient's age to complete this topic documented as of this encounter Medical Devices Implanted Type Area Billing Control Clerk Device Identifier Shelf Expiration Date Model / Serial / Lot Phasix Mesh [id number] Implanted:Qty: 1 on 10/20/2012 [place] [facility] [place] Abdomen CR BARD : DAVOL 02/07/2014 [id number] / / [id number] Description:Trial item Vitamesh Squ Blue 30cm X 30cm - [id number] Implanted:Qty: 1 on 05/29/2013 [place] [facility] [place]: Abdomen [employer] 12/08/2014 [id number] / / [id number] documented as of this encounter Advance Directives [...] Power of Attor sarah? No Care Teams Fuel Handler Relationship Specialty Start Date End Date Eliud Orta MD [address] [place] [address] PCP - General Family Medicine 03/09/14 documented as of this encounter
--- OUTSIDE RECORDS SUMMARY | 2024-04-25 07:09 | External Medical Summary ---
Author Name Unknown Address Unknown Organization K01:[facility] [place] [address] [place] [address] Laboratory Report Ordering Provider Test Date Status CORBY WILLIAMSON 04/21/2024 18:50:50 Final Observation Date Value Abnormality Reference (Units) Status Source 04/21/2024 18:50:50 Liquid Final Clostridioides difficile toxin and BI-[id number] strain DNA panel - Stool by [facility] with probe detection 04/21/2024 18:50:50 Negative. No C. difficile toxin B gene DNA detected by PCR (Amplified Probe). Negative Final Performing Location [facility] [place] [address] [place] [address]
--- OUTSIDE RECORDS SUMMARY | 2024-04-25 07:09 | External Medical Summary ---
Author Name Unknown Address Unknown Organization K01:[facility] [place] - [facility] [address] [place] [address] Laboratory Report Ordering Provider Test Date Status ROHIT TOMAS 04/21/2024 07:54:00 Final Observation Date Value Abnormality Reference (Units ) Status WBC, Total 04/21/2024 07:54:00 4.99 4.00-10.80 (K/uL) Final RBC 04/21/2024 07:54:00 3.74 4.50-5.25 (M/uL) Final Hemoglobin 04/21/2024 07:54:00 10.9 Below low normal 14.0-16.8 (g/dL) Final HCT 04/21/2024 07:54:00 33.2 Below low normal 40.0-48.4 (%) Final MCV 04/21/2024 07:54:00 88.8 82.0-99.5 (fL) Final MCH 04/21/2024 07:54:00 29.1 27.0-34.0 (pg) Final MCHC 04/21/2024 07:54:00 32.8 32.0-36.0 (g/dL) Final RDW 04/21/2024 07:54:00 13.1 11.5-15.5 (%) Final Platelets 04/21/2024 07:54:00 103 Below low normal 140-400 (K/uL) Final MPV 04/21/2024 07:54:00 10.4 6.6-11.1 (fL) Final Nucleated erythrocytes/100 leukocytes [Ratio] in Blood by Automated count 04/21/2024 07:54:00 0 <=0 (/100 WBCs) Final Performing Location [facility] [place] - [address] [place] [address]
--- OUTSIDE RECORDS SUMMARY | 2024-04-25 07:09 | External Medical Summary | Summary of Care ---
Author Name Unknown Organization [facility] Address [address] [place] [address] Phone [phone] Care Team Providers Care Retail Area Manager Name Role Phone Eliud Orta MD Primary Care Provider + Reason for Visit * Reason Onset Date Comments Appointment 04/23/2024 Encounter Details Date Type Department Care Team (Late st Contact Info) Description 04/23/2024 Telephone [facility] [address] [place], [place] [id number] Chet Crowell, MICA [address] [place] [address] Appointment (//) Allergies Active Allergy Reactions Criticality Noted Date Comments Bee Stings Hives Medium 07/26/2008 Gentamicin Sulfate 06/05/2001 pt was on gentamycin,unasyn,owasme-dvksk-ah t sure which med documented as of [...] Oral Tablet (Tenormin)Indic ations:SVT (supraventricul ar tachycardia) ([facility]),Palpitati ons Take 1 and 1/2 Tablets by [...] dysfunction 03/19/2017 Alcohol dependence in remission 09/05/2016 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 Minimum 6mo anticoag, heme rec lifelong ICD-10 update of inactive term History of DVT (deep vein thrombosis) 12/06/2014 Overview (04/11/2015): 12/03/14 new dx with PE--rec lifelong therapy History of pulmonary embolism 12/06/2014 Overview (01/21/2017): 01/25 nonocclusive DVT [facility] doppler while on xarelto 12/03/14 [facility] w/DVT leg. Minimum 6mo anticoag-Heme [...] 2017 classification 01/19/2019 02/22/2022 Overview (11/10/2021): PFT 2015 Dr Wills were ok Type 2 diabetes [...] (02/01/2014): 12/[address] Cr [address] Matthew BreenLucbm-ztzop-[id number] Toxic effect of venom 07/26/20082013 Overview (12/13/2015): [...] mRNA, LNP-s, No Pre serve, 2-Dose Series ([employer]) 11/08/2020,05/31/2020,05/10/2020 COVID-19, LNP-s, No Preserve , Jose E-sucrose, Ages 12+ (Pfizer) 05/16/2021 COVID-19, MRNA-LNP, PF, 30 M CG/0.3 mL, 12 YRS AND ABOVE, IM (SceneDoc-Comirnaty) 01/13/2024,01/21/2023 Covid-19, Mrna, Lnp-s, Pf, B ivalent, [...] Entry Date Author No 08/01/2018 10:47 PM MARIAMT Colby Franco RN documented in this encounter Miscellaneous Notes * Telephone Encounter - Chet Crowell OSA - 04/23/2024 2:50 PM EST Date Scheduled: 04/23 Time: 250pm In Person RNCM Special Instructions: enrollment appts scheduled - is already a [facility] pt documented in this encounter Plan of Treatment Upcoming Encounters Date Type Department Care Team (Late st Contact Info) Description 04/29/2024 10:15 AM EST Office Visit Hematology/Oncology [place] [place] [address] [phone] Hemanth Monk MD [address] [facility] [place] [address] 04/29/2024 2:40 PM EST Office Visit [facility] [address] [place] [address] Eliud Orta MD [address] [place] [address] 05/01/2024 12:30 PM EST [facility] Visit [facility] [address] [place] [address] Taisha Nicholas RN [address] [place] [address] 06/02/2024 11:30 AM EDT Office Visit Cardiology [address] [place] [address] Alessandro Dozier PA-C [address] [place] [address] 06/22/2024 1:00 PM EDT Home Visit [facility] [place] [address] [place] [address] Daniel Moses PA-C [address] [place] [address] 08/19/2024 9:00 AM EDT Office Visit [facility] [address] [place] [address] Eliud Orta MD [address] [place] [address] 08/20/2024 11:00 AM EDT Imaging Radiology [address] [place] [address] 08/27/2024 11:00 AM EDT Telemedicine Radiation Oncology, [address] [place] [address] Rubi Mart MD [address] [place] [address] [place] [address] 02/19/2025 11:40 AM EST Office Visit [facility] [address] [place] [address] Eliud Orta MD [address] [place] [address] Health Maintenance Due Date Last Done Comments Alpha-1 Antitrypsin 1963 Adult Wellness Visit 04/27/2017 04/27/2016 Albumin/Creatinine Ratio 12/28/2023 023, 01/16/2022, 05/10/2021, Additional history exists Depression Screening 12/28/2023 12/27/2022, 09/04/2016 (Declined) GFR 10/20/2024 04/22/2024, 04/11, 04/20/2024, Additional history exists O2 ASSESSMENT COMPLETED IN PAST YEAR FOR COPD 04/15/2025 04/15/2024 CKD HGB USE SMARTSET 09041 04/22/202504/22, 04/21/2024, 04/20/2024, Additional history exists CKD PHOS USE SMARTSET 01968 04/22/202504/11, 04/21/2024, 01/18/2023, Additional history exists DTap/Tdap [...] this encounter Medical Devices Implanted Type Area Police Magistrate Device Identifier Shelf Expiration Date Model / Serial / Lot Phasix Mesh [id number] Implanted:Qty: 1 on 10/20/2012 [place] [facility] [place] Abdomen CR BARD : DAVOL 02/07/2014 [id number] / / [id number] Description:Trial item Vitamesh Squ Blue 30cm X 30cm - [id number] Implanted:Qty: 1 on 05/29/2013 at [place] [facility] [place]: Abdomen [employer] 12/08/2014 [id number] / / [id number] documented as of this encounter Advance Directives [...] Power of Attor sarah? No Care Teams Retail Area Manager Relationship Specialty Start Date End Date Eliud Orta MD [address] [place] [address] PCP - General Family Medicine 03/09/14 documented as of this encounter
--- OUTSIDE RECORDS SUMMARY | 2024-04-25 07:09 | External Medical Summary | Summary of Care ---
Author Name Unknown Organization [facility] Address [address] [place] [address] Phone [phone] Care Team Providers Care Nursing Home Aide Name Role Phone Eliud Orta MD Primary Care Provider + Reason for Visit * Reason Comments Abdominal Pain * Auth/Cert Specialty Diagnoses / Procedures Referred By Parul martinez Referred To Contact Diagnoses abdominal pain [facility] [address] [place] [address] Phone: tel:[phone] [facility]) Emergency Department (C) [address] [place] [address] Phone: tel: fax: Referral ID Status Reason Start Date Expiration Date Visits Re quested Visits Authorized [id number] Encounter Details Date Type Department Care Team (Latest Contact Info) Description 04/20/2024 4:09 PM EST - 04/22/2024 12:30 PM EST Hospital Encounter [id number] [facility], Scotty Schneider 7th [address], [place] [id number] Hansel Snow DO [address] [place] [address] Jerry Perry MD [address] [facility] [place] [place] [address] Ashley Mahmood MD [address] [facility] [place] [place] [address] Terence Forde MD [address] [facility] [place] [address] Pt Handout (on AVS) Discharge Disposition: Home - Self Care Allergies Active Allergy Reactions Criticality Noted Date Comments Bee Stings Hives Medium 07/26/2008 Gentamicin Sulfate 06/05/2001 pt was on gentamycin,unasyn,loaxiw-spfuv-dq t sure which med documented as of [...] Oral Tablet (Tenormin)Indic ations:SVT (supraventricul ar tachycardia) (HCC),Palpitati ons Take 1 and 1/2 Tablets by mouth in the morning and before bedtime. 300 Tablet 3 03/31/2024 2:56 PM EST 5 03/30/19 26 Active oxyCODONE HCl 10 MG Oral Tablet (Roxicodone) Take 1 Tablet by mouth every 6 hours as needed for Pain, Severe. 20 Tablet Active Hospital, Clinic, or Other Facility Administered [...] dysfunction 03/19/2017 Alcohol dependence in remission 09/05/2016 [employer] current use of anticoagulant therapy 0 12/06/2014 Overview (06/25/2017): 12/03/14 admit w/DVT/PE. Minimum 6mo anticoag, heme rec lifelong ICD-10 update of inactive term History of DVT (deep vein thrombosis) 12/06/2014 Overview (04/11/2015): 12/03/14 new dx with PE--rec lifelong therapy History of pulmonary embolism 12/06/2014 Overview (01/21/2017): 01/25 nonocclusive DVT [facility] doppler while on xarelto 12/03/14 [facility] w/DVT leg. Minimum 6mo anticoag-Heme rec lifelong. +Factor V Heterozygous SVT (supraventricular tachycardia) 12/27/2013 Overview (12/27/2013): On beta-rena Routine general medical exam ination at a health care facility 09/01/2013 Overview (04/20/2024): Prefers Jason . -Dilma. 05/05 EGD +gastric polyps 07/27 Left upper [...] (02/01/2014): 12/[address] Matthew [id number] Toxic effect of venom 07/26/20082013 Overview (12/13/2015): [...] mRNA, LNP-s, No Pre serve, 2-Dose Series ([employer]) 11/08/2020,05/31/2020,05/10/2020 COVID-19, LNP-s, No Preserve , Jose E-sucrose, Ages 12+ (Pfizer) 05/16/2021 COVID-19, MRNA-LNP, PF, 30 M CG/0.3 mL, 12 YRS AND ABOVE, IM (adicate timeads-[facility]) 01/13/2024,01/21/2023 Covid-19, Mrna, Lnp-s, Pf, B ivalent, 30 Mcg, IM, 12 yrs and above (EBDSoft) 12/26/2021 Pneumococcal Conjugate Vacc, 13 Valent (Prevnar) [...] 03/11/1959 - 03/11/1974 Smokeless Tobacco: Current Chew Tobacco Cessation:Ready to Q uit: Not Asked; Counseling Given: Not Answered Comments:chews when outside- cut way back Alcohol [...] PM EDT documented as of this encounter Last Filed Vital Signs Vital Sign Reading Time Taken Comments Blood Pressure 106/62 04/22/2024 10:21 AM EST Pulse 78 04/22/2024 10:21 AM EST Temperature 37.3 C (99.1 F) 04/22/2024 10:[address] Respiratory Rate 16 04/22/2024 10:21 AM EST Oxygen Saturation 94% 04/22/2024 10:21 AM EST Inhaled Oxygen Concentration - - Weight 77.1 kg (170 lb) 04/21/2024 7:51 AM EST Height 170.2 cm (5' 7.01") 04/21/2024 7:51 AM ES T Body Mass Index 26.62 04/21/2024 7:51 AM EST documented in this encounter Functional Status * Are you deaf or do you have serious difficulty hearing? Answer Date of Assessment Author No 08/01/2018 10:47 PM Colby Marcelino RN * Are you blind or do you have serious difficulty seeing, even when wearing glasses? Answer Date of Assessment Author No 08/01/2018 10:47 PM Colby Marcelino RN * Do you have serious difficulty walking or climbing stairs? (5 years old or older) Answer Date of Assessment Author No 08/01/2018 10:47 PM Colby Marcelino RN * Do you have difficulty dressing or bathing? (5 years old or older) Answer Date of Assessment Author No 08/01/2018 10:47 PM Colby Marcelino RN * Because of a physical, mental, or emotional condition, do you have difficulty doing errands alone such as visiting a doctors office or shopping? (15 years old or older) Answer Date of Assessment Author No 08/01/2018 10:47 PM Colby Marcelino RN documented as of this encounter Mental Status * Because of a physical, mental, or emotional condition, do you have serious difficulty concentrating, remembering, or making decisions? 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 ADMISSION HISTORY & PHYSICAL EXAM (focused): " Patient is a 78 year old male with PMH of Pancreatic mass (s/p recent EUS biopsy 04/15 - likely adenocarcinoma), recent recurrence of prior Lung cancer s/p radiation, Colostomy status, CKD3b, Factor V Leiden, DVT/PE on Xarelto, GERD, BPH, DLD that presents to [facility] for abdominal pain. Patient reports undergoing EUS with biopsy of newly found pancreatic mass this past Saturday on 04/15. Since then reports epigastric pain that began the day after. Admits to eating a meat loaf and eggsandwich, then developed sudden on set epigastric pain and nausea, but did not vomit. Pain continued to progressively worsen until this morning. Notes his pain is still significant, but is now a 8/10from a 10/10. Remains nauseous but now wants to try drinking some water or trey kacie. For the lastfew days he has not been able to tolerate any PO intake whatsoever. Denies any recent alcohol consumption. Only drinks occasionally during social events. Of note, cytology showing likely adenocarcinoma. Ca 19-9 864. This is in the setting of recent recurrence of Adenocarcinoma of the Lung September 2023. Final biopsy results are pending. Received last radiation treatment for this in December 2023. PHYSICAL EXAM General: Elderly male resting in bed, no acute distress HEENT: Sclera white, extraocular muscles intact, oral mucosa pink and moist Neck: No obvious thyromegaly or JVD Cardiovascular: RRR, no murmur, rubs, or gallops Respiratory: CTAB, no wheezes, rales, or rhonchi; no increased respiratory effort Abdomen:epigastric TTP, non-distended, LLQ ileostomy in place, normal bowel sounds Musculoskeletal: No joint deformity Extremities: No lower extremity edema bilaterally, 2/4 pedal pulses bilaterally Neuro: Moves all extremities equally, no focal deficits Psych: normal affect, responds to questions appropriately Skin: No rashes, no skin lesions" HOSPITAL COURSE (focused): DMISSION HISTORY & PHYSICAL EXAM (focused): Patient is a 78 year old male with PMH of Pancreatic mass (s/p recent EUS biopsy 04/15 - likely adenocarcinoma), recent recurrence of prior Lung cancer s/p radiation, Colostomy status, CKD3b, Factor V Leiden, DVT/PE on Xarelto, GERD, BPH who presented with abdominal pain and was found to have an elevated lipase and imaging finding concerning for acute pancreatitis. He remained hemodynamically stable. He had one episode of low grade fever of 100.6. Infectious workup was negative. He was treated conservatively with intravenous fluids, pain control and bowel rest.His symptoms improved and he tolerated a diet prior to his discharge. Day of Discharge Physical Exam: BP 106/62 | Pulse 78 | Temp 37.3 C (99.1 F) (Tympanic) | Resp 16 | Ht 1.702 m (5' 7.01") | Wt 77.1 kg (170 lb) | SpO2 94% | BMI 26.62 kg/m | BSA 1.91 m Constitutional: no acute distress, resting comfortably in bed, speaking in full sentences HENT: NCAT, MMM Eyes: sclera and conjunctiva normal Neck: normal range of motion CV: normal rate and rhythm, no murmur, gallops or rub Chest: normal respiratory effort, lungs clear to auscultation Abdomen: soft, colostomy with loose brown output, mild diffuse tenderness, no guarding Extremities: no clubbing, cyanosis, or edema, otherwise grossly normal, warm, and dry Psych: normal mood and affect Operations & Procedures: none Complications: none applicable Significant Lab and Imaging Results: CT ABD/PELVIS W IV CONTRAST - WO ORAL CONTRAST 04/20/2024 IMPRESSION Findings consistent with pancreatitis with inflammation extending laterally into the duodenum with duodenal wall thickening and luminal narrowing Results Pending at Discharge: Lab Results Pending at Discharge: CULTURE, URINE, QUANTITATIVE STAT GASTROINTESTINAL PATHOGEN PANEL, STOOL STAT Placed in "And" Linked Group COMPREHENSIVE METABOLIC PANEL Routine CBC Routine MAGNESIUM Routine PHOSPHORUS Routine MEDICATION UPDATES AT DISCHARGE START taking these medications INSTRUCTIONS oxyCODONE 10 MG Tablet Commonly known as: Roxicodone Take 1 Tablet by mouth every 6 hours as needed for Pain, Severe. CHANGE how you take these medications INSTRUCTIONS Alfuzosin ER 10 MG Tb24 Commonly known as: Uroxatral What changed: when to take this Take 1 Tablet by mouth in the morning. CONTINUE taking these medications INSTRUCTIONS Acetaminophen 500 MG Tablet Commonly known as: Tylenol Take 1 Tablet by mouth every 8 hours as needed for Pain. Atenolol 25 MG Tablet Commonly known as: Tenormin Take 1 and 1/2 Tablets by mouth in the morning and before bedtime. Centrum Silver Tablet Take 1 Tablet by mouth in the morning. Cetirizine 10 MG Tablet Commonly known as: ZyrTEC Take 1 Tablet by mouth. Finasteride 5 MG Tablet Commonly known as: Proscar TAKE ONE TABLET BY MOUTH EVERY DAY IN THE MORNING PriLOSEC 20 MG Cpdr Generic drug: omeprazole Take 1 Capsule by mouth in the morning. Triamcinolone Acetonide 0.1 % cream Commonly known as: Aristocort Apply to affected area(s) twice daily as directed Xarelto 20 MG Tablet Generic drug: Rivaroxaban Take 1 Tablet by mouth daily with dinner. SCHEDULED FOLLOW-UP: Future Appointments Appt Date/Time Provider Department 04/29/2024 10:15 AM Hemanth Monk MD Hematology/Oncology [facility] 04/29/2024 2:40 PM Eliud Orta MD [facility] 06/02/2024 11:30 AM Alessandro Dozier PA-C Cardiology [facility] 08/19/2024 9:00 AM Eliud Orta MD [facility] 08/20/2024 11:00 AM MR1 MOBILE ALTOONA Radiology [facility] 08/27/2024 11:00 AM Rubi Mart MD Radiation Oncology, [place] Arrive at: Patient's Home 02/19/2025 11:40 AM Eliud Orta MD [facility] Other Information Indwelling Devices: LINES ALL Duration Colostomy LLQ -- days Vital Signs (last recorded): Most Recent Systolic BP: 106 mmHg (04/22/24 1021) Most Recent Diastolic BP: 62 mmHg (04/22/24 1021) Pulse: 78 (04/22/24 1021) Resp: 16 (04/22/24 1021) Most Recent Temperature: 37.28 C (04/22/24 1021) Weight: 77.1 kg (170 lb) (04/21/24 0751) SpO2: 94 % (04/22/24 1021) Allergies: Bee stings and Gentamicin sulfate Activity: as tolerated Diet: low fat Code Status: Full Code Condition on Discharge: stable Isolation status: None Cognition: normal HOSPITAL CONSULTS ORDERED: ADULT PHYSICAL THERAPY CONSULT IP ADULT OCCUPATIONAL THERAPY CONSULT IP REFERRING PHYSICIAN: REF: SELF [address] STRE[address] ADDRESS AVAILABLE PRIMARY CARE PROVIDER: PCP: Eliud Orta MD [address] [facility] / [place] [address] (office) [phone] (fax) Note: To contact a physician responsible for this patients hospital care, please call [employer] [phone]. I spent a total of ### minutes coordinating, documenting, and providing care for this patient excluding time spent in the performance of separately billed services. Cosigned by Terence Forde MD at 04/22/2024 3:06 PM EST Associated attestation - Terence Forde MD - 04/22/2024 3:06 PM EST I saw and evaluated the patient today. I have reviewed the resident/fellow physician note and agree. 36mins documented in this encounter Discharge Instructions * Discharge Instr - AVS* Catalino Thacker MD - 04/21/2024 4:41 PM EST Discharge Date: 04/22/2024 The information below provides you with the instructions and the list of medications you need to betaking following discharge from the hospital. If you have any questions, please ask before leaving. If you have questions after leaving, you can reach us at the numbers below. YOUR HOSPITAL PROVIDERS: Discharging Provider: Terence Ponce MD Provider Department: Hospital Medicine To reach this Provider Saturday through Saturday (8:00 AM to 4:30 PM) for any questions or test results: Call [phone] For after-hours concerns: Call [phone] and have your provider paged, or the provider dirt contractor for the Department of Hospital Medicine paged. Please note, the discharging provider will not be able to provide you with any medications refills.Please discuss these with your primary care provider. Worsening Symptoms: If you have new symptoms, or your symptoms get worse, please contact your Discharge Provider or Primary Care Provider (PCP). If these providers are not available, you can go to your local [facility] or [facility] Care Clinic during their business hours. In an EMERGENCY situation: Call 911 or go to the nearest emergency room. A BRIEF SUMMARY OF YOUR HOSPITAL STAY: You came to the hospital with: abdominal pain. You were found to have inflammation of the pancreatitis. You were treated conservatively with fluids and pain control. Your symptoms improved and you were discharged home. Your main diagnosis at discharge was: acute pancreatitis Operations & Procedures performed: none Complications: none applicable Inpatient test results that are pending at discharge: none Advance Directive Documented: Advance Directive Does the Patient have an Advance Directive? No YOUR FOLLOW UP APPOINTMENTS: Primary Care Provider Information: PCP: Eliud Orta MD [address] [facility] / [place] [address] (office) [phone] (fax) An appointment was requested with your PCP (Eliud Orta MD) within 7 days. (Please take this form to this visit with your primary care physician.) You need the following studies in the future: none MEDICATIONS: Oxycodone: every 6 hours as needed for severe pain INSTRUCTIONS: Diet: Low fat diet for 4 weeks Activity: No strenuous activity for 2 weeks Additional Instructions: - Call your primary care physician or seek medical attention if your symptoms worsen or do not improve. documented in this encounter Progress Notes * Catalino Thacker MD - 04/21/2024 7:50 AM EST Images from the original note were not included. [facility] B732/A INTERVAL HISTORY: Admitted overnight with abdominal pain. This morning reports his abdominal pain is improved. He tolerated a clear liquid diet last night and this morning. He denies nausea or vomiting. Objective Physical Exam Most Recent Vital Signs: BP: 117 mmHg/60 mmHg (04/21/24 0600) Pulse: 79 (04/21/24599) Resp: 18 (04/21/24599) Temp: 37.72 C (04/21/24599) Temp Summary: Temp Min: 36.6 C (97.9 F) Max: 37.7 C (99.9 F) SpO2: 95 % (04/21/24599) O2 flow rate: Supplemental O2 Delivery: Room Air, None (04/21/24599) Constitutional: elderly male, not in acute distress, speaking in full sentences HENT: NCAT, MMM Eyes: sclera and conjunctiva normal Neck: normal range of motion CV: normal rate and rhythm, no murmurs Chest: normal respiratory effort, lungs clear to auscultation Abdomen: soft, mild tenderness to palpation in the periumbilical and LLQ areas, no guarding, LLQ colostomy with loose brown output Extremities: no clubbing, cyanosis, or edema, otherwise grossly normal, warm, and dry Psych: normal mood and affect Colostomy LLQ (Active) Number of days: Peripheral Line Left;Lower Arm 20 Gauge (Active) Number of days: 0 STUDIES: Encounter Orders Labs and other studies reviewed with pertinent findings noted below: Reviewed in Epic Assessment and Plan IMPRESSION : Principal Problem: Acute pancreatitis Active Problems: 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 * DIFFERENTIAL AND PLAN: 78 year old male with a PM Hx of ulcerative colitis s/p colostomy (1999), Hx of DVT and PE on Xeralto, heterozygous for factor 5 Leiden mutation, CKD, Hx of left lung adenocarcinoma s/p treatment with evidence of recurrence with metastasis, pancreatic mass s/p EUS with biopsy 04/15 who presented withabdominal pain and was found to have an elevated lipase and imaging finding concerning for acute pancreatitis. Acute pancreatitis post EGD and EUS Pancreatic mass Afebrile, hemodynamically stable, elevated lipase and imaging findings consistent with pancreatitis - c/w clear liquid diet, advance as tolerated - c/w IV fluids at 100mL/hr, will discontinue when PO intake is adequate - pain management: Tylenol for mild pain, oxycodone for moderate and severe pain, Dilaudid for breakthrough pain - c/w BRINE TANK SEPARATOR OPERATOR omeprazole Acute on chronic anemia Chronic thrombocytopenia - anemia likely hemodilutional in the setting of fluid resuscitation - daily CBC Chronic medical conditions: BPH: c/w BRINE TANK SEPARATOR OPERATOR Flomax and Proscar DVT and PE: c/w BRINE TANK SEPARATOR OPERATOR Xeralto SVT: c/w BRINE TANK SEPARATOR OPERATOR atenolol CKD: daily BMP PHARMACOLOGIC VTE PROPHYLAXIS: Rivaroxaban CODE STATUS: Full Code EXPECTED DISCHARGE DATE: No information available Patient was discussed with Dr. Mahmood, attending physician. Cosigned by Ashley Mahmood MD at 04/21/2024 2:37 PM EST Associated attestation - Ashley Mahmood MD - 04/21/2024 2:37 PM EST I saw and evaluated the patient today. I have reviewed the resident/fellow physician note and agree. * Maria Isabel North, RN - 04/20/2024 8:32 PM EST VIRTUAL RN [facility]-[address] [address] Name: Jason Thornton Location: [facility] B732/A Date: 04/20/2024 Time: 8:32 PM I completed the Admission Navigator. The patient was in the hospital. I was in a private office space at a [facility] location. After connecting through [employer], the patient was identified by name and date of and / or wristband checked. Patient (or authorized legal accounts receivable representative) was then in formed that this was a Virtual Nurse visit and was being conducted confidentially over secure lines. I used a headset and other methods to ensure confidentiality for the patient. My office door was closed. No one else was in the room with me. Patient acknowledged consent and understanding of privacy and security of the Virtual Nurse visit. I presented the opportunity for the patient or authorizedlegal accounts receivable representative to ask any questions regarding the visit today. The patient or authorized legal accounts receivable representative agreed to participate. documented in this encounter H&P Notes * Faisal Garcia, - 04/20/2024 6:33 PM EST GENERAL HISTORY AND PHYSICAL EXAMINATION - HOSPITAL MEDICINE [address] [address] Name: Jason Thornton Location: H01/X Date: 04/20/2024 Time: 6:35 PM Date of Admission: 04/20/2024 Presenting Problem: Abdominal baker HPI: Patient is a 78 year old male with PMH of Pancreatic mass (s/p recent EUS biopsy 04/15 - likely adenocarcinoma), recent recurrence of prior Lung cancer s/p radiation, Colostomy status, CKD3b, Factor V Leiden, DVT/PE on Xarelto, GERD, BPH, DLD that presents to [facility] for abdominal pain. Patient reports undergoing EUS with biopsy of newly found pancreatic mass this past Saturday on 04/15. Since then reports epigastric pain that began the day after. Admits to eating a meat loaf and eggsandwich, then developed sudden on set epigastric pain and nausea, but did not vomit. Pain continued to progressively worsen until this morning. Notes his pain is still significant, but is now a 8/10from a 10/10. Remains nauseous but now wants to try drinking some water or trey kacie. For the lastfew days he has not been able to tolerate any PO intake whatsoever. Denies any recent alcohol consumption. Only drinks occasionally during social events. Of note, cytology showing likely adenocarcinoma. Ca 19-9 864. This is in the setting of recent recurrence of Adenocarcinoma of the Lung September 2023. Final biopsy results are pending. Received last radiation treatment for this in December 2023. Wishes to be a FULL CODE History mainly obtained from Patient. I reviewed patient's electronic medical record including lastprimary care note to review chronic medical conditions and last discharge summary from most recent hospitalization. Review of Systems: Review of systems was conducted with pertinent positives and negatives as statedabove, otherwise negative. ED Course: Presenting Vitals: Afebrile, Normotensive, nontachy, saturating well on RA Significant Labs: Lipase 569, LFTs wnl, lactate wnl Imaging: CT AP w/ pancreatitis, known mass unchanged Meds Given: Morphine 4 IV, 500 isolyte bolus, started on maintenance fluids 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 Altered bowel elimination due to intestinal ostomy (HCC) 03/15/2015 Altered bowel elimination due to intestinal ostomy (HCC) 03/15/2015 BPH without obstruction/lower urinary tract symptoms DVT (deep venous thrombosis) ([facility]) 12/06/2014 12/03/14 new dx with PE Dyslipidemia, goal LDL below 100 Erectile dysfunction 03/19/2017 Esophageal reflux 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 Minimum 6mo anticoag Rosacea SVT (supraventricular tachycardia) ([facility]) 12/27/2013 On beta-rena Ulcerative colitis, unspecified Past Surgical History: Past Surgical History: Procedure Laterality Date APPENDECTOMY W/OTHER PROCEDURE 1999 BRONCHOSCOPY, DIAGNOSTIC N/A 04/27/2019 BRONCHOSCOPY DIAGNOSTIC WITH OR WITHOUT WASHING performed by Chuck Mcelroy MD at ENDOSCOPY [facility] BRONCHOSCOPY, DIAGNOSTIC N/A 09/14/2020 BRONCHOSCOPY DIAGNOSTIC WITH OR WITHOUT WASHING performed by Chuck Mcelroy MD at ENDOSCOPY [facility] BX SKIN LESION SINGLE 02/2017 Dr Ravi Le-irritated xavier K ?-waistline EGD, W/ENDOSCOPIC US 04/15/2024 ESOPHAGOGASTRODUODENOSCOPY (EGD), FLEXIBLE, TRANSORAL, ENDOSCOPIC ULTRASOUND performed by Ofelia Somers DO at ENDOSCOPY [facility] INFORMATION ileostomy revisions-[facility] LYMPHADENECTOMY VIA THORACOSCOPY Left 08/01/2018 ROBOTIC THORACOSCOPY WITH LYMPHADENECTOMY performed by Kevin Mehta MD at [facility] MEDIASTINOSCOPY; WITH LYMPH NODE BIOPSY Left 08/01/2018 MEDIASTINOSCOPY; WITH LYMPH NODE BIOPSY(IES) performed by Kevin Mehta MD at [facility] [place] CHOLECYSTECTOMY REMOVAL OF COLON/ILEOSTOMY 1999 [facility]. REMOVE TONSILS & ADENOIDS, UNDER 12 REPAIR INITIAL INCISIONAL OR VENTRAL HERNIA; REDUCIBLE 05/29/2013 REPAIR INITIAL INCISIONAL /VENTRAL HERNIA REDUCIBLE performed by Celine Vivas MD at [facility] REPAIR RECURRENT INCISIONAL HERNIA 10/20/2012 REPAIR RECURRENT INCISIONAL HERNIA REDUCIBLE performed by Celine Vivas MD at [facility] REVISION OF COLOSTOMY/HERNIA REPAIR 10/20/2012 REVISION OF COLOSTOMY WITH REPAIR PARACOLOSTOMY HERNIA performed by Haley Law MD at [facility] Thoracoscopy w/ Lobectomy Left 08/01/2018 ROBOTIC THORACOSCOPY WITH LOBECTOMY performed by Kevin Mehta MD at [facility] Family Medical History: obtained and not relevant in this case Family History Problem Relation Name Age of Onset Diabetes Father Heart Disorder Father Hypertension Father Stroke Father age 60's Social History: Social History Tobacco Use Smoking status: Former Current packs/day: 0.00 Average packs/day: 2.0 packs/day for 15.0 years (30.0 ttl pk-yrs) Types: Cigarettes Start date: 03/11/1959 Quit date: 03/11/1974 Years since quittin.1 Smokeless tobacco: Current Types: Chew Tobacco comments: chews when outside- which is all the time Vaping Use Vaping status: Never Used Substance Use Topics Alcohol use: Yes Comment: every couple of days Drug use: No Allergies: Bee stings and Gentamicin sulfate Home Medications: reviewed Prior to Admission medications Medication Sig Last Dose Discont. Atenolol 25 MG Oral Tablet (Tenormin) Take 1 and 1/2 Tablets by mouth in the morning and before bedtime. 04/20/2024 Morning Finasteride 5 MG Oral Tablet (Proscar) TAKE ONE TABLET BY MOUTH EVERY DAY IN THE MORNING 04/20/2024 Alfuzosin HCl ER 10 MG Oral Tablet Extended Release 24 Hour (Uroxatral) Take 1 Tablet by mouth in the morning. Patient taking differently: Take 1 Tablet by mouth at bedtime. 04/20/2024 Rivaroxaban 20 MG Oral Tablet (Xarelto) Take 1 Tablet by mouth daily with dinner. 04/19/2024 Triamcinolone Acetonide 0.1 % External Cream (Aristocort) Apply to affected area(s) twice daily as directed 04/20/2024 Acetaminophen 500 MG Oral Tablet Take 1 Tablet by mouth every 8 hours as needed for Pain. 04/20/2024 Cetirizine HCl 10 MG Oral Tablet Take 1 Tablet by mouth. 04/20/2024 PRILOSEC 20 MG PO CPDR daily 04/20/2024 CENTRUM SILVER OR TABS 1 TABLET DAILY 04/20/2024 Objective: BP 130/61 | Pulse 88 | Temp 36.6 C (97.9 F) (Tympanic) | Resp 17 | Ht 1.702 m (5' 7") | Wt 77.1kg (170 lb) | SpO2 97% | BMI 26.63 kg/m | BSA 1.91 m Vitals: -- Last 24 Hours -- Systolic BP: Most Recent Systolic BP Av.3 mmHg Min: 123 mmHg Max: 130 mmHg Temperature: Most Recent Temperature Av.7 C Min: 36.61 C Max: 36.78 C Pulse: Pulse Av Min: 78 Max: 88 Respirations: Resp Av Min: 17 Max: 17 SpO2: SpO2 Av.3 % Min: 97 % Max: 100 % No intake or output data in the 24 hours ending 04/20/242000 Wt Readings from Last 3 Encounters: 04/20/24 77.1 kg (170 lb) 04/20/24 77.2 kg (170 lb 1.6 oz) 04/15/24 77.1 kg (170 lb) PHYSICAL EXAM General: Elderly male resting in bed, no acute distress HEENT: Sclera white, extraocular muscles intact, oral mucosa pink and moist Neck: No obvious thyromegaly or JVD Cardiovascular: RRR, no murmur, rubs, or gallops Respiratory: CTAB, no wheezes, rales, or rhonchi; no increased respiratory effort Abdomen:epigastric TTP, non-distended, LLQ ileostomy in place, normal bowel sounds Musculoskeletal: No joint deformity Extremities: No lower extremity edema bilaterally, 2/4 pedal pulses bilaterally Neuro: Moves all extremities equally, no focal deficits Psych: normal affect, responds to questions appropriately Skin: No rashes, no skin lesions Laboratory Values: reviewed Recent Results (from the past 24 hours) LIPASE Collection Time: 04/20/24 11:11 AM Result Value Ref Range Lipase 569 (H) 13 - 60 U/L LACTATE Collection Time: 04/20/24 11:11 AM Result Value Ref Range Lactate 1.2 0.4 - 2.0 mmol/L COMPREHENSIVE METABOLIC PANEL Collection Time: 04/20/24 11:11 AM Result Value Ref Range BUN 18 6 - 20 mg/dL CREATININE 1.5 (H) 0.6 - 1.2 mg/dL EGFR 47 (L) >=60 mL/min SODIUM 133 (L) 135 - 146 mmol/L POTASSIUM 3.6 3.5 - 5.1 mmol/L CHLORIDE 97 (L) 98 - 107 mmol/L CO2 24 22 - 32 mmol/L ANION GAP 12 7 - 15 mmol/L GLUCOSE 134 (H) 70 - 120 mg/dL Albumin 4.0 3.8 - 5.0 g/dL AST 37 10 - 50 U/L Alkaline Phosphatase 98 35 - 130 U/L Bilirubin, Total 0.6 <=1.2 mg/dL CALCIUM 9.3 8.4 - 10.2 mg/dL Protein 6.7 6.0 - 8.3 g/dL ALT 46 10 - 50 U/L CBC Collection Time: 04/20/24 11:11 AM Result Value Ref Range WBC 6.42 4.00 - 10.80 K/uL RBC 4.18 4.50 - 5.25 M/uL HGB 12.4 (L) 14.0 - 16.8 g/dL HCT 37.4 (L) 40.0 - 48.4 % MCV 89.5 82.0 - 99.5 fL MCH 29.7 27.0 - 34.0 pg MCHC 33.2 32.0 - 36.0 g/dL RDW 13.0 11.5 - 15.5 % PLT 115 (L) 140 - 400 K/uL MPV 11.1 6.6 - 11.1 fL nRBCs 0 <=0 /100 WBCs DIFFERENTIAL, AUTOMATED Collection Time: 04/20/24 11:11 AM Result Value Ref Range WBC 6.42 4.00 - 10.80 K/uL Neutrophils % 86.6 (H) 40.0 - 75.0 % Lymphocytes % 6.5 (L) 18.0 - 42.0 % Monocytes % 6.1 1.0 - 11.0 % Eosinophils % 0.3 0.0 - 6.0 % Basophils % 0.2 0.0 - 2.0 % Immature Granulocytes % 0.3 0.0 - 2.0 % Absolute Neutrophils 5.56 1.80 - 7.70 K/uL Absolute Lymphocytes 0.42 (L) 1.00 - 4.80 K/ul Absolute Monocytes 0.39 0.00 - 1.10 K/uL Absolute Eosinophils 0.02 0.00 - 0.70 K/uL Absolute Basophils 0.01 0.00 - 0.20 K/uL Absolute Immature Granulocytes 0.02 0.00 - 0.20 K/uL Radiographic & Other Studies: reviewed CT ABD/PELVIS W IV CONTRAST - WO ORAL CONTRAST Result Date: 04/20/2024 IMPRESSION Findings consistent with pancreatitis with inflammation extending laterally into the duodenum with duodenal wall thickening and luminal narrowing Uncinate process mass better visualized onPET scan and MRI I have personally reviewed this examination and agree with the resident/fellow physician's interpretation. 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 * POA = Present On Admission Jason Thornton is a 78 year old male with PMH of Pancreatic mass (s/p recent EUS biopsy 04/15 showingadenocarcinoma), recent recurrence of prior Lung cancer s/p radiation, Colostomy status, CKD3b, Factor V Leiden, DVT/PE on Xarelto, GERD, BPH, DLD that presents to [facility] for abdominal pain. Found to have acute pancreatitis in the setting of recent EUS w/ biopsy. Acute Pancreatitis Pancreatic Mass (likely adenocarcinoma) - S/p EUS w/ biopsy 04/25/24 Hx of Lung Adenocarcinoma s/p recent recurrence & radiation Jan 01 Likely in setting of recent EUS/biopsy. 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 Grammatical errors, missed words, incorrect word insertion may occur when dictating using this software. Should there be any questions, concerns or confusion about the information contained in this note, please reach out to the keno writer/runner for clarification via TT or phone number below. Thank you. Cosigned by Jerry Perry MD at 04/20/2024 8:47 PM EST Associated attestation - Jerry Perry MD - 04/20/2024 8:47 PM EST I saw and evaluated the patient today. I have reviewed the resident/fellow physician note and agree. 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 Acute. SVT (supraventricular tachycardia) (HCC) (POA: Yes) Overview: On beta-rena [employer] current use of anticoagulant therapy (POA: Yes) Overview: 12/03/14 admit w/DVT/PE. Minimum 6mo anticoag, heme rec lifelong ICD-10 update of inactive term Stage 3b chronic kidney disease (POA: Yes) Overview: Per CKD protocol - Per CKD protocol - Per CKD protocol History of lung cancer (POA: Yes) Overview: T2 N2 non-small cell lung cancer s/p [...] of 5000 cGy radiation completed on 12/19/2023. History of cholecystectomy (POA: Yes) Pancreatic mass (POA: Yes) POA = Present On Admission Acute pancreatitis likely procedure induced (underwent EUS with biopsy of pancreatic uncinate process mass on 04/15). No history of significant alcoholism. History of cholecystectomy. S/p LLQ end ileostomy. Stage III CKD-stable. -IV fluid hydration, clear liquid diet-advance as tolerated. Pancreatic uncinate process pathology suspicious for adenocarcinoma in setting of prior history of lung cancer. Oncology appointment is already scheduled on 04/29/24. I spent a total of 77 minutes coordinating, documenting, and providing care for this patient excluding time spent in the performance of separately billed services or time spent by another provider/QHP. documented in this encounter Consult Notes * Ivonne Mares, PT - 04/21/2024 1:50 PM ESTAssociated Order(s): ADULT PHYSICAL THERAPY CONSULT IP Physical Therapy - General Evaluation [address] [id number] Name: Jason Thornton Location: [facility] B732/A Date: 04/21/2024 Time: 1:50 PM Jason Thornton is a/an 78 year old male. Patient Status: Inpatient Insurance: Payor: [facility] [employer] Plan: [facility] GOLD CLASSIC 1 PART D MC-LD Product Type: *No Product type* Patient Seen: at bedside, nursing cleared patient for therapy Patient Identified By: Name, ID Band and Date Diagnosis: acute pancreatitis (04/21/24 1350) Status of treatment: Discontinue services on evaluation (04/21/24 1350) Orders: PT evaluation and treatment;OOB (04/21/24 1350) Total Treatment Time--free text: 10 (04/21/24 1350) Subjective: Patient supine in bed upon therapist entering room. Patient agreeable to PT evaluation. 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 Minimum 6mo anticoag Rosacea SVT (supraventricular tachycardia) ([facility]) 12/27/2013 On beta-rena Ulcerative colitis, unspecified Past Surgical History: Past Surgical History: Procedure Laterality Date APPENDECTOMY W/OTHER PROCEDURE 1999 BRONCHOSCOPY, DIAGNOSTIC N/A 04/27/2019 BRONCHOSCOPY DIAGNOSTIC WITH OR WITHOUT WASHING performed by Chuck Mcelroy MD at ENDOSCOPY [facility] BRONCHOSCOPY, DIAGNOSTIC N/A 09/14/2020 BRONCHOSCOPY DIAGNOSTIC WITH OR WITHOUT WASHING performed by Chuck Mcelroy MD at ENDOSCOPY [facility] BX SKIN LESION SINGLE 02/2017 Dr Ravi Barger [place]-irritated xavier K ?-waistline EGD, W/ENDOSCOPIC US 04/15/2024 ESOPHAGOGASTRODUODENOSCOPY (EGD), FLEXIBLE, TRANSORAL, ENDOSCOPIC ULTRASOUND performed by Ofelia Somers DO at ENDOSCOPY [facility] INFORMATION ileostomy revisions-[facility] LYMPHADENECTOMY VIA THORACOSCOPY Left 08/01/2018 ROBOTIC THORACOSCOPY WITH LYMPHADENECTOMY performed by Kevin Mehta MD at [facility] MEDIASTINOSCOPY; WITH LYMPH NODE BIOPSY Left 08/01/2018 MEDIASTINOSCOPY; WITH LYMPH NODE BIOPSY(IES) performed by Kevin Mehta MD at [facility] [place] CHOLECYSTECTOMY REMOVAL OF COLON/ILEOSTOMY 1999 [facility]. REMOVE TONSILS & ADENOIDS, UNDER 12 REPAIR INITIAL INCISIONAL OR VENTRAL HERNIA; REDUCIBLE 05/29/2013 REPAIR INITIAL INCISIONAL /VENTRAL HERNIA REDUCIBLE performed by Celine Vivas MD at [facility] REPAIR RECURRENT INCISIONAL HERNIA 10/20/2012 REPAIR RECURRENT INCISIONAL HERNIA REDUCIBLE performed by Celine Vivas MD at [facility] REVISION OF COLOSTOMY/HERNIA REPAIR 10/20/2012 REVISION OF COLOSTOMY WITH REPAIR PARACOLOSTOMY HERNIA performed by Haley Law MD at [facility] Thoracoscopy w/ Lobectomy Left 08/01/2018 ROBOTIC THORACOSCOPY WITH LOBECTOMY performed by Kevin Mehta MD at [facility] Social History/Disposition Lives with: Spouse (04/21/241349) Assistance available: Yes (04/21/241349) Dwelling type: Multi-story home (04/21/241349) Entry steps: 1 (04/21/241349) Inside steps: 10 - 15 (04/21/241349) Bedroom location: 1st floor (04/21/241349) Bath location: 1st floor full bath (04/21/241349) Prior Level of Function Reported by: Patient (04/21/24 135) Ambulation: Ambulatory without device (04/21/241349) Observations Consciousness: Alert (04/21/241349) Orientation: Oriented times 4 (04/21/241349) Psychosocial: Patient can converse in a social setting (04/21/241349) Other Findings: Yes (04/21/241349) Findings: Light touch sensation (04/21/241349) Light Touch Sensation Results: Intact;LLE;RLE (04/21/24 135) Sitting Posture: Normal (04/21/24 135) Standing Posture: Normal (04/21/241349) Pain: No complaints of pain Range of Motion Range of Motion: WFL (bilateral LE) (04/21/241349) Strength Assessment Strength Assessment: (bilateral LE 4+/5) (04/21/241349) P.T. Bed Mobility Supine-Sit: Independent (04/21/241349) Sit-Supine: Independent (04/21/241349) Transfers Sit-Stand: Independent (04/21/241349) Stand-Sit: Independent (04/21/241349) Ambulation Assist: Independent (04/21/241349) Distance Ambulated (feet): 400 (04/21/241349) Assistive Device: No device (04/21/241349) Number of Stairs: (patient declined; has no comcerns with stairclimbing) (04/21/241349) Ambulatory safety: Patient verbalizes insight of current deficits;Patient demonstrates carryover ofinsight during functional tasks (04/21/241349) Balance Sit (Static): Good (04/21/241349) Sit (Dynamic): Good (04/21/241349) Stand (Static): Good (04/21/241349) Stand (Dynamic): Good (04/21/241349) Patient and or Family Goal(s): to get some rest Patient Education Review of Precautions: (role of PT) (04/21/241349) Safety Awareness: Patient verbalizes insight of current deficits;Patient demonstrates carryover of insight during functional tasks (04/21/241349) Preferred learning method: Combination (04/21/241349) Barriers to learning: None (04/21/241349) Method of Education: Verbalized to patient (04/21/241349) Topic of Education: Goals/plan of care and role of PT Treatment Provided: Evaluation Low Complexity 10 minutes - 06227: Patient was alert during treatment session. Low complexity evaluation performed with indication of no personal factors or comorbidities that impact plan of care. Alarm Status Patient positioned in: Bed (04/21/241349) With: Call diane in reach (04/21/241349) Treatment Status: Treatment at bedside (04/21/241349) Assessment: Patient is a 78 y/o male with dx acute pancreatitis who presents at an independent level with functional mobility. Patient expresses no concerns in regard to return to home at current functional level. No further skilled PT services deemed necessary at this time. Treatment Plan: Discontinue from Physical Therapy Services AM-PAC Score With Stairs : 24 (04/21/24 1350) A portion of this AM-PAC assessment not scored based on functional assessment; rather clinical decision making utilized based on current findings and/or prior level of function. Please refer to future AM-PAC calculations of functional ability as they become available. documented in this encounter Nursing Notes * Leah Suresh RN - 04/22/2024 12:18 PM EST VIRTUAL RN [facility]-[address] [id number] Name: Jason Thornton Location: [facility] B732/A Date: 04/22/2024 Time: 12:19 PM I completed the Discharge Navigator. The patient was in the hospital. I was not in a hospital or clinic location. After connecting through [employer], the patient was identified by name and date of and / or wristband checked. Patient (or authorized legal accounts receivable representative) was then informed that this was a Virtual Nurse visit and was being conducted confidentially over secure lines. I used a headset and other methods to ensure confidentiality for the patient. Patient acknowledged consent and understanding of privacy and security of the Virtual Nurse visit. I presented the opportunity for the patient or authorized legal accounts receivable representative to ask any questions regarding the visit today. The patient or authorized legal accounts receivable representative agreed to participate. documented in this encounter ED Notes * Hansel Snow, - 04/20/2024 6:00 PM EST HISTORY OF PRESENT ILLNESS Jason Thornton is a 78 year old male who presents to the ED for evaluation of Abdominal Pain. The patient was seen at 04/20/241740. Abdominal Pain Patient is a 78 yr old male with pmh significant for CKD 3b, hx lung cancer, COPD, and hx of PE on anticoagulation. Patient was transferred to [facility] from [facility] after patient was found to have acute pancreatitis. Patient is presenting to ED for abdominal pain that has been present since 04/16. On 04/15 patient had EUS biopsy for pancreatic mass. Since then has had epigastric pain. Does not that he has been nauseous and has not had an appetite. Denies any fever, vomiting, diarrhea, chest pain, SOB, or dysuria. The patient's allergies, past history, and medications were reviewed. PHYSICAL EXAM Initial Vitals (see all): BP 123/88 | Pulse 78 | Resp 17 | Temp 98.2 | O2 98 %, Room Air, None | Weight 77.11 kg | Height 170.2 cm | BMI 26.62 kg/m2 Initial Pain Assessment (see all): 5 (moderate pain)/10, Unable to verbalize, location: abd ([facility] Adult Scale 0-10 (18 years and older)) Physical Exam Vitals and nursing note reviewed. Constitutional: General: He is not in acute distress. Appearance: He is well-developed. He is not ill-appearing. HENT: Head: Normocephalic and atraumatic. Eyes: Conjunctiva/sclera: Conjunctivae normal. Cardiovascular: Rate and Rhythm: Normal rate and regular rhythm. Heart sounds: No murmur heard. Pulmonary: Effort: Pulmonary effort is normal. No respiratory distress. Breath sounds: Normal breath sounds. Abdominal: General: There is no distension. Palpations: Abdomen is soft. Tenderness: There is abdominal tenderness in the right lower quadrant, periumbilical area and suprapubic area. Musculoskeletal: General: No swelling. Cervical back: Neck supple. Skin: General: Skin is warm and dry. Capillary Refill: Capillary refill takes less than 2 seconds. Neurological: General: No focal deficit present. Mental Status: He is alert and oriented to person, place, and time. Motor: No weakness. Psychiatric: Mood and Affect: Mood normal. PROCEDURES AND TREATMENTS ED Orders | ED Results MEDICAL DECISION MAKING Nursing notes and vital signs were reviewed. ED consults were placed. Differential Diagnoses Based on my history, physical exam, and evaluation, the differential includes, but is not limited, to the following diagnoses: acute pancreatitis. In summary, patient is a 78 yr old male with pmh significant for CKD 3b, hx lung cancer, COPD, and hx of PE on anticoagulation. Transferred here for pancreatitis s/p EUS 04/15. Patient was hemodynamically stable and in no acute distress. Was having abdominal pain and nausea. Labs prior showed lipase of 569, and CT showing acute pancreatitis. Patient was given zofran, morphine, 500 ml bolus, and started on 1.5 mg/kg/hr maintenance. Given diagnosis of acute pancreatitis I reached out to hospital medicine and patient was admitted for further management. Clinical Impressions Acute pancreatitis Disposition Admitted. I discussed the management of this patient with the admitting provider and I made a decision to admit the patient. Admission Order Ordered Status . 04/20/24 1830 Admit for Inpatient Services (incl ZPO) ONCE Completed Hansel Snow was the attending physician who supervised the care of this patient. Brian Bell MD ATTENDING ATTESTATION I have seen and examined this patient on the 04/20/2024 visit. I have discussed the patient's management with the provider listed above and agree with the note, findings, and plan of care. * Marcia Ortiz RN - 04/20/2024 1:25 PM EST Pt presents to ED from home with c/o abd pain. Pt states this has been going on since Saturday. Hehad a scan done today and his provider called him telling him to come to ED for possible pancreatitis. documented in this encounter Miscellaneous Notes * Pt Handout (on AVS) - Isabella Amanda RN - 04/22/2024 12:02 PM EST [id number] Oxycodone Brand Name(s): Oxaydo, Oxycontin, Roxicodone, Roxybond, Xtampza ER, Combunox (as a combination product containing Ibuprofen, Oxycodone), Narvox (as a combination product containing Acetaminophen, Oxycodone), Oxycet (as a combination product containing Acetaminophen, Oxycodone), Percocet (as a combination product containing Acetaminophen, Oxycodone), Percodan (as a combination product containing Aspirin, Oxycodone), Roxicet (as a combination product containing Acetaminophen, Oxycodone), Roxilox (as a combination product containing Acetaminophen, Oxycodone), Roxiprin (as a combination product containing Aspirin, Oxycodone), Targiniq ER (as a combination product containing naloxone, oxycodone), Troxyca ER (as a combination product containing Naltrexone, Oxycodone), Tylox (as a combination product containing Acetaminophen, Oxycodone), Xartemis XR (as a combination product containing Acetaminophen, Oxycodone); also available generically IMPORTANT WARNING: Oxycodone may be habit-forming. Take oxycodone exactly as directed. Do not take more of it, take itmore often, or take it in a different way than directed by your doctor. While taking oxycodone, discuss with your healthcare provider your pain treatment goals, length of treatment, and other ways tomanage your pain. Tell your doctor if you or anyone in your family drinks or has ever drunk large amounts of alcohol, uses or has ever used street drugs, or has overused prescription medications, or has had an overdose, or if you have or have ever had depression or another mental illness. There is a greater risk that you will overuse oxycodone if you have or have ever had any of these conditions.Talk to your healthcare provider immediately and ask for guidance if you think that you have an opioid addiction or call the [place] Substance Abuse and Mental Health Services Administration (SAMHSA) National Helpline at 7-795-487-CDIB. Oxycodone may cause serious or life-threatening breathing problems, especially during the first 24 to 72 hours of your treatment and any time your dose is increased. Your doctor will monitor you carefully during your treatment. Tell your doctor if you have or have ever had slowed breathing or asthma. Your doctor will probably tell you not to take oxycodone. Also tell your doctor if you have or have ever had lung disease such as chronic obstructive pulmonary disease (COPD; a group of diseases that affect the lungs and airways), a head injury a brain tumor, or any condition that increases the amount of pressure in your brain. The risk that you will develop breathing problems may be higher if you are an older adult or are weak or malnourished due to disease. If you experience any of the following symptoms, call your doctor immediately or get emergency medical treatment: slowed breathing, long pauses between breaths, or shortness of breath. Do not allow anyone else to take your medication. Oxycodone may harm or cause to other peoplewho take your medication, especially children. Keep oxycodone in a safe place so that no one else can take it accidentally or on purpose. Be especially careful to keep oxycodone out of the reach of children. Keep track of how many capsules, tablets, or oral solution is left so you will know if any medication is missing. Taking certain other medications with oxycodone may increase the risk of serious or life-threatening breathing problems, sedation, or coma. Tell your doctor and pharmacist what other prescription andnonprescription medications, vitamins, nutritional supplements, and herbal products you are taking or plan to take. Your doctor may need to change the doses of your medication and will monitor you carefully. If you take oxycodone with other medications and you develop any of the following symptoms,call your doctor immediately or seek emergency medical care: unusual dizziness, lightheadedness, extreme sleepiness, slowed or difficult breathing, or unresponsiveness. Be sure that your caregiver orfamily members know which symptoms may be serious so they can call the doctor or emergency medical care if you are unable to seek treatment on your own. Drinking alcohol, taking prescription or nonprescription medications that contain alcohol, or usingstreet drugs during your treatment with oxycodone increases the risk that you will experience serious, life-threatening side effects. Do not drink alcohol, take prescription or nonprescription medications that contain alcohol, or use street drugs during your treatment. If you are taking the oxycodone extended-release tablets, swallow them whole; do not chew, break, divide, crush, or dissolve them. Do not presoak, lick or otherwise wet the tablet prior to placing inthe mouth. Swallow each tablet right after you put it in your mouth. If you swallow broken, chewed,crushed, or dissolved extended-release tablets, you may receive too much oxycodone at once instead of slowly over 12 hours. This may cause serious problems, including overdose and . Oxycodone comes as a regular solution (liquid) and as a concentrated solution that contains more oxycodone in each milliliter of solution. Be sure that you know whether your doctor has prescribed theregular or concentrated solution and the dose in milliliters that your doctor has prescribed. Use the dosing cup, oral syringe, or dropper provided with your medication to carefully measure the number of milliliters of solution that your doctor prescribed. Read the directions that come with your medication carefully and ask your doctor or pharmacist if you have any questions about how to measure your dose or how much medication you should take. You may experience serious or life threatening side effects if you take an oxycodone solution with a different concentration or if you take a different amount of medication than prescribed by your doctor. Store oxycodone in a safe place so that no one else can take it accidentally or on purpose. Be especially careful to keep oxycodone out of the reach of children. Keep track of how many tablets or capsules, or how much liquid is left so you will know if any medication is missing. Dispose of unwantedcapsules, tablets, extended-release tablets, extended-release capsules, and liquid properly according to instructions. (See STORAGE and DISPOSAL). Tell your doctor if you are or plan to become . If you take oxycodone regularly during your , your baby may experience life- threatening withdrawal symptoms after . Tellyour baby's doctor right away if your baby experiences any of the following symptoms: irritability, hyperactivity, abnormal sleep, high-pitched cry, uncontrollable shaking of a part of the body, vomiting, diarrhea, or failure to gain weight. Talk to your doctor about the risks of taking oxycodone. Your doctor or pharmacist will give you the geospatial program management officer's patient information sheet (Medication Guide) when you begin your treatment with oxycodone and each time you fill your prescription. Read theinformation carefully and ask your doctor or pharmacist if you have any questions. You can also visit the Food and Drug Administration (FDA) website (https://www.fda.gov/Drugs/DrugSafety/jdq971594.htm) or the geospatial program management officer's website to obtain the Medication Guide. WHY is this medicine prescribed? Oxycodone immediate-release tablets, capsules, and oral solution are used to relieve severe, acute pain (pain that begins suddenly, has a specific cause, and is expected to go away when the cause of the pain is healed) in people who are expected to need an opioid pain medication and who cannot be treated with other pain medications. Oxycodone extended-release tablets and extended-release capsulesare used to relieve severe pain in people who are expected to need pain medication around the clockfor a long time and who cannot be treated with other medications. Oxycodone extended-release tablets and extended-release capsules should not be used to treat pain that can be controlled by medication that is taken as needed. Oxycodone concentrated solution should only be used to treat people who are tolerant (used to the effects of the medication) to opioid medications because they have taken this type of medication for at least one week. Oxycodone is in a class of medications called opiate (narcotic) analgesics. It works by changing the way the brain and nervous system respond to pain. Oxycodone is also available in combination with acetaminophen (Oxycet, Percocet, others) and aspirin (Percodan). This monograph only includes information about the use of oxycodone alone. If you are taking an oxycodone combination product, be sure to read information about all the ingredients in the product you are taking and ask your doctor or pharmacist for more information. HOW should this medicine be used? Oxycodone comes as a solution (liquid), a concentrated solution, a tablet, a capsule, an extended-release (long-acting) tablet (Oxycontin), and an extended- release capsule (Xtampza ER) to take by mouth. The solution, concentrated solution, tablet, and capsule are taken usually with or without food every 4 to 6 hours, either as needed for pain or as regularly scheduled medications. The extended-release tablets (Oxycontin) are taken every 12 hours with or without food. The extended-release capsules (Xtampza ER) are taken every 12 hours with food; eat the same amount of food with each dose. Follow the directions on your prescription label carefully, and ask your doctor or pharmacist to explainany part you do not understand. Take oxycodone exactly as directed. If you are taking the extended-release tablets (Oxycontin), swallow the tablets one at a time with plenty of water. Swallow the tablet or right after putting it in your mouth. Do not presoak, wet, orlick the tablets before you put them in your mouth. Do not chew or crush extended-release tablets. If you have trouble swallowing extended-release capsules (Xtampza ER), you can carefully open the capsule and sprinkle the contents on soft foods such as applesauce, pudding, yogurt, ice cream, or jam, then consume the mixture immediately. Dispose of the empty capsule shells right away by flushing them down a toilet. Do not store the mixture for future use. If you have a feeding tube, the extended-release capsule contents can be poured into the tube. Ask your doctor how you should take the medication and follow these directions carefully. Your doctor may adjust your dose of oxycodone during your treatment, depending on how well your pain is controlled and on the side effects that you experience. Talk to your doctor about how you are feeling during your treatment with oxycodone. Tell your doctor if you feel that your pain is not controlled or if your pain increases, becomes worse, or if you have new pain or an increased sensitivityto pain during your treatment with oxycodone. Do not take more of it or take it more often than prescribed by your doctor. Do not stop taking oxycodone without talking to your doctor. If you stop taking oxycodone suddenly,you may experience withdrawal symptoms such as restlessness, watery eyes, runny nose, sneezing, yawning, sweating, chills, muscle or joint aches or pains, weakness, irritability, anxiety, depression,difficulty falling asleep or staying asleep, cramps, nausea, vomiting, diarrhea, loss of appetite, fast heartbeat, and fast breathing. Your doctor will probably decrease your dose gradually. Are there OTHER USES for this medicine? This medication may be prescribed for other uses; ask your doctor or pharmacist for more information. What SPECIAL PRECAUTIONS should I follow? Before taking oxycodone, tell your doctor and pharmacist if you are allergic to oxycodone, any other medications, or any of the ingredients in the oxycodone product you plan to take. Ask your pharmacist or check the Medication Guide for a list of the ingredients. tell your doctor or pharmacist if you are taking the following medications or have stopped taking them within the past two weeks: isocarboxazid (Marplan), linezolid (Zyvox), methylene blue, phenelzine (Nardil), selegiline (Emsam, Zelapar), or tranylcypromine (Parnate). The following nonprescription or herbal products may interact with oxycodone: [employer]'s wort and tryptophan. Be sure to let your doctor and pharmacist know that you are taking these medications before you start taking oxycodone. Do not start these medications while taking oxycodone without discussing it with your healthcare provider. tell your doctor if you have or have ever had any of the conditions mentioned in the IMPORTANT WARNING section, a blockage or narrowing of your stomach or intestines, or paralytic ileus (conditionin which digested food does not move through the intestines). Your doctor may tell you not to take oxycodone. Also tell your doctor if you have or have ever had low blood pressure; seizures; adrenal insufficiency (condition in which the adrenal glands do not produce enough of certain hormones needed for important body functions); seizures; urethral stricture (blockage of the tube that allows urine to leave the body), problems urinating; or heart, kidney, liver, pancreas, thyroid, or gall bladder disease. If you will be taking the extended-release tablets or extended-release capsules, also tell your doctor if you have or have ever had difficulty swallowing, diverticulitis (condition in which small pouches form in the intestines and become swollen and infected), colon cancer (cancer that begins inthe large intestine), or esophageal cancer (cancer that begins in the tube that connects the mouth and stomach). tell your doctor if you are . You should not breastfeed while you are taking oxycodone. Oxycodone can cause shallow breathing, difficulty or noisy breathing, confusion, more than usual sleepiness, trouble , or limpness in breastfed infants. you should know that this medication may decrease fertility in men and women. Talk to your doctor about the risks of taking oxycodone. if you are having surgery, including dental surgery, tell the doctor or dentist that you are taking oxycodone. you should know that this medication may make you drowsy. Do not drive a car, operate heavy machinery, or participate in any other possibly dangerous activities until you know how this medication affects you. you should know that oxycodone may cause dizziness, lightheadedness, and fainting when you get up too quickly from a lying position. To help avoid this problem, get out of bed slowly, resting yourfeet on the floor for a few minutes before standing up. you should know that oxycodone may cause constipation. Talk to your doctor about changing your diet or using other medications to prevent or treat constipation while you are taking oxycodone. What SPECIAL DIETARY instructions should I follow? Unless your doctor tells you otherwise, continue your normal diet. What should I do IF I FORGET to take a dose? If you are taking oxycodone on a regular schedule, take the missed dose as soon as you remember it.However, if it is almost time for the next dose, skip the missed dose and continue your regular dosing schedule. Do not take a double dose to make up for a missed one. Do not take more than one dose of the extended- release tablets or capsules in 12 hours. What SIDE EFFECTS can this medicine cause? Some side effects can be serious. If you experience any of these symptoms or those mentioned in theIMPORTANT WARNING section, call your doctor immediately or get emergency medical help: changes in heartbeat agitation, hallucinations (seeing things or hearing voices that do not exist), fever, sweating, confusion, fast heartbeat, shivering, severe muscle stiffness or twitching, loss of coordination, ordiarrhea nausea, vomiting, loss of appetite, weakness, or dizziness inability to get or keep an erection irregular menstruation decreased sexual desire chest pain rash; itching; hives; hoarseness; difficulty breathing or swallowing; or swelling of the face, mouth, tongue, lips, or throat swelling of the hands, feet, ankles, or lower legs seizures extreme drowsiness If you experience a serious side effect, you or your doctor may send a report to the Food and Drug Administration's (FDA) [employer] Adverse Event Reporting program online (https://www.fda.gov/Safety/MedWatch) or by phone ( ). Oxycodone may cause other side effects. Call your doctor if you have any unusual problems while youare taking this medication. What should I know about STORAGE and DISPOSAL of this medication? Keep this medication in the container it came in, tightly closed, and out of reach of children, andin a location that is not easily accessible by others, including visitors to the home. Store it at room temperature and away from light and excess heat and moisture (not in the bathroom). You must immediately dispose of any medication that is outdated or no longer needed through a medicine take-back program. If you do not have a take-back program nearby or one that you can access promptly, flush any medication that is outdated or no longer needed down the toilet so that others will not take it.Talk to your pharmacist about the proper disposal of your medication. It is important to keep all medication out of sight and reach of children as many containers (such as weekly pill minders and those for eye drops, creams, patches, and inhalers) are not child-resistant and young children can open them easily. To protect young children from poisoning, always lock safety caps and immediately place the medication in a safe location - one that is up and away and out of their sight and reach. https://www.upandaway.org What should I do in case of OVERDOSE? In case of overdose, call the poison control helpline at . Information is also available online at https://www.poisonhelp.org/help. If the victim has collapsed, had a seizure, has trouble breathing, or can't be awakened, immediately call emergency services at 911. While taking oxycodone, you should talk to your doctor about having a rescue medication called naloxone readily available (e.g., home, office). Naloxone is used to reverse the life-threatening effects of an overdose. It works by blocking the effects of opiates to relieve dangerous symptoms caused by high levels of opiates in the blood. Your doctor may also prescribe you naloxone if you are livingin a household where there are small children or someone who has abused street or prescription drugs. You should make sure that you and your family members, caregivers, or the people who spend time with you know how to recognize an overdose, how to use naloxone, and what to do until emergency medical help arrives. Your doctor or pharmacist will show you and your family members how to use the medication. Ask your pharmacist for the instructions or visit the geospatial program management officer's website to get the instructions. If symptoms of an overdose occur, a caregiver or family member should give the first dose of naloxone, call 911 immediately, and stay with you and watch you closely until emergency medical help arrives.Your symptoms may return within a few minutes after you receive naloxone. If your symptoms return, the person should give you another dose of naloxone. Additional doses may be given every 2 to 3 minutes, if symptoms return before medical help arrives. Symptoms of overdose may include the following: difficulty breathing slowed or shallow breathing excessive sleepiness limp or weak muscles narrowing or widening of the pupils (dark [place] in the eye) cold, clammy skin unable to respond or wake up slowed heartbeat unusual snoring What OTHER INFORMATION should I know? Keep all appointments with your doctor. Your doctor may order certain lab tests to check your body's response to oxycodone. Before having any laboratory test (especially those that involve methylene blue), tell your doctor and the laboratory personnel that you are taking oxycodone. This prescription is not refillable. If you continue to have pain after you finish the oxycodone, call your doctor. It is important for you to keep a written list of all of the prescription and nonprescription (zlab-alo-tlexrmt) medicines you are taking, as well as any products such as vitamins, minerals, or otherdietary supplements. You should bring this list with you each time you visit a doctor or if you areadmitted to a hospital. It is also important information to carry with you in case of emergencies. This report on medications is for your information only, and is not considered individual patient advice. Because of the changing nature of drug information, please consult your physician or pharmacist about specific clinical use. The [employer] represents that the information provided hereunder was formulated with a reasonable standard of care, and in conformity with professional standards in the field. The [employer] makes no representations or warranties, express or implied, including, but not limited to, any implied warranty of merchantability and/or fitness for a particular purpose, with respect to such information and specifically disclaims all such warranties. Users are advised that decisions regarding drug therapy are complex medical decisions requiring the independent, informed decision of an appropriate health care coordinator, and the information is provided for informational purposes only. The entire monograph for a drug should be reviewed for a thorough understanding of the drug's actions, uses and side effects. The [employer] does not endorse or recommend the use of any drug.The information is not a substitute for medical care. [facility] Patient Medication Information?. Copyright, 2023. The [employer], [address], [address], [place], [place]. All Rights Reserved. Duplication for commercial use must be authorized by [facility]. Selected Revisions: May 24, 2023. [facility] Patient Medication Information?. Copyright, 2024 * Pt Handout (on AVS) - Isabella Amanda RN - 04/22/2024 12:02 PM EST [id number] Understanding Opioid Medicines for Pain Management Opioids are medicines that can help ease pain. They are stronger than most pebs-bwm-mjzaahk pain relievers and must be prescribed by a healthcare provider. They can be used to treat both acute and chronic pain that ranges from moderate to severe. Opioids can be safe and effective when used correctly. But they do come with serious risks and side effects. For this reason, they should be used only if other medicines or treatments have not done enough to ease or manage pain. What is pain? Pain is your body?s way of telling you something is wrong. It makes you pull your hand away from a flame or avoid walking on an injured leg. Pain starts in receptor cells found beneath the skin and in organs throughout the body. When you are sick or injured, these receptor cells send signals along nerve pathways to the spinal cord, which then sends the signals to the brain. The brain interprets the signals as pain. In response, it sends back signals to protect the body. The brain also releases its own natural painkillers called endorphins to help reduce pain. Once the source of the pain heals, the pain often goes away. Types of pain Pain can one be of two types: acute or chronic. Both types respond to treatment. Acute pain typically lasts fewer than 3 months. It goes away when the cause is treated. Common causes of acute pain include injury or illness. Surgery can lead to short-term pain during healing. And women have acute pain during and after childbirth. In some cases, acute pain can lead to chronic pain over time. Chronic pain often lasts longer than 3 months. This includes pain that comes and goes or that iscontinuous. Chronic pain may be due to an ongoing health problem, such as arthritis. Or it may linger after an injury that has healed, such as a broken bone. Problems with the body?s pain-control system may also lead to chronic pain. Sometimes, chronic pain can occur with no clear cause. The pain cycle Pain can affect all aspects of your life. For example, sleep, mood, activity, and energy level are all affected by pain. Being tired, depressed, or inactive makes the pain worse and harder to cope with. This leads to a cycle of pain. How opioids work Opioids work by attaching to special receptors found in the brain, spinal cord, and other organs. When opioids attach to these receptors, they can block or suppress how you feel pain. Opioids can also make you feel good or relaxed. They affect areas of the brain that produce feelings of pleasure. Types of opioids There are two types of opioids: short-acting/immediate-release (SA/IR) and long-acting/extended-release (LA/ER). Short-acting opioids work faster than long-acting opioids. But they give pain relief for only short periods. Long- acting opioids work slower than short-acting opioids. But they ease painfor longer periods. Many opioids come in both short- and long-acting formulas. They include: Codeine with acetaminophen Fentanyl Hydrocodone (with or without acetaminophen) Hydromorphone Meperidine Methadone Morphine Oxycodone (with or without acetaminophen) Tramadol If you are prescribed opioids, you will likely be started on a short-acting type at the lowest dose. The dose may then be adjusted as needed based on your response to the medicine and follow-up with your healthcare provider. If appropriate, you may start using a long-acting type opioid. In some cases, you may be prescribed both types of opioids to help manage different types of pain. Any changes will also depend on how you handle pain and side effects from the medicine. Side effects of opioids Side effects of opioid medicines include the following: Constipation Feeling sleepy (drowsy) Nausea Some side effects of opioid medicines can be life-threatening. Symptoms of opioid overdose include the following: Slow heart rate Shallow or slowed breathing Loss of consciousness When taking opioids, there is a possibility of abusing the medicine, physical dependence, and addiction. Take opioid medicines only as directed by your healthcare provider. Don't take opioids with benzodiazepines, such as alprazolam or lorazepam. Combining these medicinescan have serious risks. These include extreme sleepiness, slowed breathing, and . Tell your healthcare provider if you are taking benzodiazepines. Note Studies show that opioids provide short-term help for moderate to severe pain. But the benefits of long-term use of opioids for treating pain remain unclear. You should only stay on opioids if they continue to improve pain and function without raising the risks to your health. How opioids are given Most opioids are taken by mouth. They often come in pill form. But some may come in the form of liquids and even sweetened lozenges. Certain opioids also may be injected under the skin, into a muscle, or into a vein. Or they may be absorbed through the skin via a patch. Know your options Keep in mind that opioids are not the only option for treating pain. Nonopioid options may work just as well. They may have fewer risks and side effects. Talk with your healthcare provider about which treatment plan is right for you. Nonopioid options can include: Other pain relievers, such as acetaminophen or nonsteroidal anti-inflammatory drugs (NSAIDs) such as ibuprofen or naproxen Other classes of medicines such as anticonvulsants, antidepressants, and muscle relaxers Exercise and physical therapy Cognitive behavioral therapy, which can help you learn different ways to respond and cope with pain Mind/body therapies such as deep breathing, distraction, visualization, meditation, or biofeedback Complementary therapies such as massage, acupuncture and acupressure, or medicare specialist Various procedures, such as transcutaneous electrical nerve stimulation (TENS), implantation of a spinal pump, and nerve ablation Last Reviewed Date: 2022 00:00:00 [id number] [employer]. All rights reserved. This information is not intended as a substitute for professional medical care. Always follow your healthcare professional's instructions. * Ancillary Progress Note - Lebron Plascencia RN - 04/22/2024 11:05 AM EST CARE MANAGEMENT - ADULT DISCHARGE NOTE [facility]-[address] [address] Name: Jason Thornton Location: [facility] B732/A Date: 04/22/2024 Time: 11:05 AM The following coordination of care and discharge plan has been coordinated with the care team, patient, family and/or caregiver according to the patients needs and preferences. Discharge Discharge Second Notice Important Message from Medicare delivered: Yes (04/22/241103) Date Delivered: 04/22/24 (04/22/241103) Retain copy in EHR: Yes (04/22/241103) Was Caregiver/Family/Facility contacted regarding discharge: Yes (04/22/241103) Discharge Transportation: Family/Friends drive (04/22/241103) Final Discharge Plan (Complete only at time of Discharge): Home - Self Care (oxygen BRINE TANK SEPARATOR OPERATOR) (04/22/241103) Destination - Admitted Since 04/20/2024 No services have been selected for the patient. Narrative: Pt to be discharged home with no further needs. Pt's family transporting pt home at discharge. Pt declined need for HH services at this time. Pt resume oxygen therapy at home when discharged, pt receiving oxygen services BRINE TANK SEPARATOR OPERATOR. Reviewed IMM with patient and informed that patient is medically stable for discharge, however, mayhave 4 hours to consider whether they want to appeal discharge. Patient waived waiting those 4 hours and wishes for discharge to occur prior to that time. * Ancillary Progress Note - Maria Isabel Saeed OT - 04/21/2024 2:52 PM EST Occupational Therapy Jason Thornton [id number] [facility] B732/A 3:02 PM 04/21/2024 78 year old Attempted to see patient for OT evaluation. Patient was lying in bed and resting. Patient was educated on role of OT and purpose of eval, but politely declined secondary to fatigue. Will complete eval as able. * Ancillary Progress Note - Rosaura Ryan RDN - 04/21/2024 11:38 AM EST CLINICAL NUTRITION ADULT RISK ASSESSMENT [address] [address] Name: Jason Thornton Location: [facility] B732/A Date: 04/21/2024 Time: 11:38 AM How patient was identified (select 2): Medical record number and date Jason Thornton is a 78 year old male being assessed for clinical nutrition risk related to reduced dietary intake, skin breakdown, and significant unintentional weight loss Primary diagnosis: for evaluation of Abdominal Pain. 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 Other pertinent information: Patient is seen at bedside. Reported that not able to eat well past 2-3 days due to abdominal pain. He was able to eat well prior to this episode. He does follow low sodium diet at home. Not consuming any oral supplements. Currently feeling better. Denies nausea, emesis. Brown liquid documented in Ileostomy. UBW - 174 lbs. No significant wt loss noted per EHR. Monitorfor diet advancement Anthropometrics Measurements Admission weight (for dietitians): 77.111 kg (170 lb) Height: 170.2 cm (5' 7.01") (04/21/[address] [facility]) Weight: 77.1 kg (170 lb) (04/21/24 0751) BMI: 26.62 (04/21/24 075) Usual Body Weight or EDW for Dialysis Patients: 79 kg per pt, 77 - 80 kg per EHR Diet: Clear Liquid Previously followed diet: Low sodium Food Allergies/Intolerances: None Pertinent medications/vitamins/minerals/supplements: Isolyte, Prilosec, potassium chloride RISK FACTORS: Adult Energy Intake: No significant decrease Interpretation of Weight Change: No recent/significant weight change Skin: Intact NUTRITION RISK CATEGORY: Nutrition Risk Category: Low/Moderate (0-1 factors) Clinical Nutrition Recommendations: Diet: Advance diet when clinically feasible NUTRITION INTERVENTION/PLAN: Continue to monitor NPO/clear liquid status Will follow and adjust nutritional plan as medical condition requires. Please contact for change(s)in patient condition requiring earlier intervention. Rosaura Ryan MS, RDN, LDN Clinical Dietitian [facility] [place] text * Ancillary Progress Note - Lebron Plascencia RN - 04/21/2024 9:49 AM EST CARE MANAGEMENT - ADULT INITIAL SCREENING [address] [address] Name: Jason Thornton Location: [facility] B732/A Date: 04/21/2024 Time: 9:50 AM Discussed patient with the interdisciplinary care team. This Data Operations Leader performed a chart review and met with patient at bedside to complete admission screen and assessed needs for transition planning. The cardiac care nurse role and services were explained and emotional support was provided. Chief Complaint: Abdominal Pain Prior Living Arrangements What was your living situation prior to admission/observation?: Independently;With Spouse () Living Quarters: House (04/21/24945) Number of steps to enter living quarters:: RAIN-1, steps to go upstairs-13 (04/21/24945) History of falling: No (04/21/24948) Prior Level of Functioning Describe the patient's ability prior to admission/observation to perform ADLs: Performs independently (04/21/24945) Describe the patient's mobility status prior to admission: Patient ambulates independently (04/21/24945) Patient uses assistive device: No (04/21/24945) Caregiver Information Emergency Contacts None on File Other Contacts Name Relation Home Work Mobile DILMA THORNTON Spouse [phone] JUAN THORNTON Adult Child [phone] JOVANI THORNTON Adult Child [phone] Risk Stratification/Psychosocial/Care Gaps Risk Stratification Psycho Social / Medical Concerns Identified: Adjustment to illness/injury;Multiple Comorbidities;New serious diagnosis (04/21/24945) Accessed Neighborly to connect patients to social care resources: No (04/21/24945) OBRA or OPTIONS needed for placement: No (04/21/24945) Readmission Risk Score: 10.57 (04/21/24800) AM-PAC Score With Stairs : 19 (04/21/24841) Prior to Admission Services Services Prior to Admission BRINE TANK SEPARATOR OPERATOR Services (Services received within the last 30 days with exception, Psych within last two years): Durable Medical Equipment;[facility] (04/21/24945) BRINE TANK SEPARATOR OPERATOR Durable Medical Equipment (DME) in home: Oxygen (name) - Comment;Shower chair/bench;Cane;Bedside commode (04/21/24945) DME Name: oxygen company unknown (04/21/24945) [place] Dept[employer] of Aging (PDA) Waiver Program: N/A (04/21/24945) BRINE TANK SEPARATOR OPERATOR Transportation (Services received within the last 30 days): Family/Friends Personal Vehicle;Patient drives self (04/21/24945) Outpatient Data Operations Leader: No care sales team manager to display Patient/Family Expectations: CM met with pt. CM role/services explained. Pt admitted with acute pancreatitis. Pt lives with spouse-supportive/assists pt at home. Pt active with [facility]. Pt has oxygen at home BRINE TANK SEPARATOR OPERATOR. Pt has at home: rolling walker, cane, BSC, shower bench/chair. CM will continue to follow pt to assess discharge needs. Encouraged pt to contact CM with any questions/concerns. Pt denies inpatient rehab stays for ETOH, drugs related within the last 2 years. For further screening information, please refer to the Care Management flow document. * Pt Handout (on AVS) - Britany Ruiz RN - 04/20/2024 11:03 PM EST [id number] Discharge Instructions for Acute Pancreatitis You have been diagnosed with acute pancreatitis. The pancreas is an organ that makes digestive juices and hormones. Your pancreas is inflamed or swollen. Gallstones are a common cause of pancreatitis. These hard stones form in the gallbladder. The gallbladder shares a tube with the pancreas into the small intestine. If gallstones block this tube, fluid can?t leave the pancreas. The fluid backs upand causes redness and swelling (inflammation). Alcohol use is another very common cause of pancreatitis. There are other causes. Make sure you understand the cause of your pancreatitis. Then you cantry to stop it from happening again. Immediate home care Find someone to drive you to appointments. Acute pancreatitis is a serious condition, and you should never drive if you have symptoms. Stop drinking if your illness was caused by alcohol. o Ask your healthcare provider about alcohol abuse programs and support groups such as Alcoholics Anonymous. o Ask your provider about prescription medicines that can help you stop drinking. o Tell your provider about the alcohol withdrawal symptoms you have when you stop drinking. This isvery important. You may need close medical supervision and special medicines when you stop drinking. This will depend on your alcohol withdrawal history. Take your medicines exactly as directed. Don?t skip doses. Eat a low-fat diet. Ask your provider for menus and other diet information. Stop smoking. Smoking increases problems if you have pancreatitis. Learn to take your own pulse. Keep a record of your results. Ask your provider which readings mean that you need medical attention. Ongoing care Tell your provider about any medicines you are taking. Some medicines can cause this condition. Before starting any new medicine, ask your provider if it will harm your pancreas. This includesany new [id number]-[id number] medicines, vitamins, or herbal supplements. Tell your provider if you lose weight without dieting. Be aware of symptoms that may mean your pancreatitis has come back. These symptoms include bellypain, nausea and vomiting, and fever. Keep all follow-up appointments with your provider. Problems can often show up later. If your pancreatitis was caused by gallstones, gallbladder removal will likely be advised. Follow-up Follow up with your healthcare provider as advised. When to call your healthcare provider Call your healthcare provider right away or seek immediate medical attention if you have any of thefollowing: Fever of 100.4 F ( 38.0C) or higher, or as advised by your provider Chills Severe pain from your upper belly to your back Nausea and vomiting Feel dizzy or lightheaded Yellowing of your skin or eyes (jaundice) Bruises on your belly or back Belly swelling and tenderness Rapid pulse Shallow, fast breathing Last Reviewed Date: 2021 00:00:00 [id number] [employer]. All rights reserved. This information is not intended as a substitute for professional medical care. Always follow your healthcare professional's instructions. * Care Plan - Kacy Ponce RN - 04/20/2024 11:01 PM EST Problem: Pain & Impaired Comfort Goal: Patient's pain & discomfort is manageable. Outcome: Progressing Problem: Safety & Risk for Injury Goal: Patient will remain free from injury. Outcome: Progressing Clinical Goal(s): safety (04/20/241999) Possible barriers to meeting goal(s)/advancing plan of care: generalized weakness Stability of the patient: Moderately stable - low risk of patient condition declining or worsening Summary regarding today's goal(s): Met: yes Recommendations: safety measures and fall precautions * Communication - Chuck Palomino RN - 04/20/2024 6:48 PM EST Hand-Off - Nurse Communication Note Name: [facility]: [facility]20[facility] Time: 6:48 PM Sending to: BP732 Safety Concerns: Fall Risk Allergies: Bee stings and Gentamicin sulfate Code Status: Prior Isolation: None Isolation flowsheet: Special Needs: Special Needs comments: Attention to: Kacy Ponce Report from: Chuck Palomino RN Phone extension: [phone] Patient arriving via: Stretcher Reason for SBAR handoff: Admission Situation/Background Patient arrives to ED from home with complaints of abd pain. Patient expresses pain beginning on Saturday. Recent abd scan completed and advised to go to the emergency department. Admission date: 04/20/2024 Patient Service: Medicine Admit 1 [[id number]] Attending Provider: Jerry Perry MD Admitting diagnosis: Acute pancreatitis Chief Complaint: Abdominal Pain Problem list: Active Problems: * No active hospital problems. * Resolved Problems: * No resolved hospital problems. * Level of Care: Med Surg [3] Assessment Vital Signs: BP: 126/64 (04/20/241699) Temp: 36.8 C (98.2 F) (04/20/241323) Pulse: 83 (04/20/241699) Resp: 17 (04/20/241323) SpO2: 100 % (04/20/241699) Weight: 77.1 kg (170 lb) (04/20/241323) Height: 170.2 cm (5' 7") (04/20/241323) Fall Scale: Neurological: [place] Coma Scale - For patients greater than two years old Eyes Open: Spontaneous (04/20/241842) Best Verbal Response: Verbally appropriate for age (04/20/241842) Best Motor Response: Obeys commands appropriate for age (04/20/241842) Coma Score: 15 (04/20/241842) Additional Neurological Information: Respiratory: Respiratory WNL: WNL- within normal limits (04/20/241842) Left Breath Sounds: Clear (04/20/241842) Oxygen therapy/ Mechanical vent Supplemental O2 Delivery: Room Air, None (04/20/241699) Additional Respiratory Information: Cardiac: Cardiovascular WNL: WNL - within normal limits (04/20/241843) Capillary Refill: 1-2 seconds (04/20/241323) Additional Cardiac Information: GI/: Abdomen: Non-distended;Soft;Tender (04/20/241842) Additional GI/ Information: Integumentary: Integumentary WNL: WNL - within normal limits (04/20/241843) Skin Description: Warm;Dry (04/20/241843) Skin Color: Flesh Tone (04/20/241843) Additional Integumentary Information: C-Diff: Restraints: No orders of the defined types were placed in this encounter. Lines: Peripheral Line Right Antecubital 20 Gauge (Active) Number of days: 0 Labs: Labs This Encounter - No data to display Diet: No orders of the defined types were placed in this encounter. Additional Diet Information: Intake and Output: No intake or output data in the 24 hours ending 04/20/241847 Patient Belongings and Home Medications Recommendations/Follow up Goals/Plan of Care: Consults not completed: Anticipated tests/studies/procedures: Medication Reconcilliation completed for this Admission? Yes * Medical Necessity - Maricel Lewis RN - 04/20/2024 6:43 PM EST AdmissionCare Guideline: Pancreatitis, Inpatient Based on the indications selected for the patient, the bed status of Inpatient was determined to beMET The following indications were selected as present at the time of evaluation of the patient: - Clinical Indications for Admission to Inpatient Care - Admission is indicated for 1 or more of the following: - Acute pancreatitis, as indicated by 2 or more of the following: - Abdominal pain - Serum lipase greater than 3 times the upper limit of normal, or urinary trypsinogen-2 greater than 50 ng/mL AdmissionCare documentation entered by: Maricel Lewis [facility], 28th edition, Copyright 2023 [facility] HospitalHyper Urban Level User [place] [facility] All Rights Reserved. [id number]:43:17-05:00 Solely for purpose of utilization review and payment; not a diagnostic tool documented in this encounter Plan of Treatment Upcoming Encounters Date Type Department Care Team (Late st Contact Info) Description 04/29/2024 10:15 AM EST Office Visit Hematology/Oncology [facility] [address] [facility] [place] [phone] Hemanth Monk MD [address] [facility] [place] [address] 04/29/2024 2:40 PM EST Office Visit Family Practice [facility] [address] [place] [address] [address] Eliud Orta MD [address] [place] [address] 06/02/2024 11:30 AM EDT Office Visit Cardiology [address] [place] [address] Alessandro Dozier PA-C [address] [place] [address] 08/19/2024 9:00 AM EDT Office Visit [facility] [address] [place] [address] Eliud Orta MD [address] [place] [address] 08/20/2024 11:00 AM EDT Imaging Radiology [address] [place] [address] 08/27/2024 11:00 AM EDT Telemedicine Radiation Oncology, [address] [place] [address] Rubi Mart MD [address] [place] [address] [place] [address] 02/19/2025 11:40 AM EST Office Visit [facility] [address] [place] [address] Eliud Orta MD [address] [place] [address] Pending Results Name Type Priority Associated Diagnoses Date /Time CULTURE, BLOOD Lab STAT 04/21/2024 7:03 PM EST CULTURE, BLOOD Lab Routine 04/21/2024 7:03 PM EST GASTROINTESTINAL PATHOGEN PANEL, STOOL Lab STAT 04/21/2024 6:50 PM EST GASTROINTESTINAL PATHOGEN PANEL CULTURE Lab STAT 04/21/2024 6:50 PM EST Scheduled Orders Name Type Priority Associated Diagnoses Orde r Schedule GASTROINTESTINAL PATHOGEN PANEL, STOOL Lab STAT One Time for 1 Occurrences starting 04/21/2024 until 04/21/2024 Health Maintenance Due Date Last Done Comments Alpha-1 Antitrypsin 1963 Adult Wellness Visit 04/27/2017 04/27/2016 Albumin/Creatinine Ratio 12/28/2023 023, 01/16/2022, 05/10/2021, Additional history exists Depression Screening 12/28/2023 12/27/2022, 09/04/2016 (Declined) GFR 10/20/2024 04/22/2024, 04/11, 04/20/2024, Additional history exists O2 ASSESSMENT COMPLETED IN PAST YEAR FOR COPD 04/15/2025 04/15/2024 CKD HGB USE SMARTSET 07949 04/22/202504/22, 04/21/2024, 04/20/2024, Additional history exists CKD PHOS USE SMARTSET 00098 04/22/202504/11, 04/21/2024, 01/18/2023, Additional history exists DTap/Tdap [...] this encounter Medical Devices Implanted Type Area Environmental Analyst Device Identifier Shelf Expiration Date Model / Serial / Lot Phasix Mesh [id number] Implanted:Qty: 1 on 10/20/2012 at OR [facility] N/A: Abdomen CR BARD : DAVOL 02/07/2014 [id number] / / [id number] Description:Trial item Vitamesh Squ Blue 30cm X 30cm - [id number] Implanted:Qty: 1 on 05/29/2013 at OR [facility] N/A: Abdomen [employer] 12/08/2014 [id number] / / [id number] documented as of this encounter Procedures Procedure Name Priority Date/Time Associated Diagnosis Comments COMPREHENSIVE METABOLIC PANEL Routine 04/22/2024 8:53 AM EST PHOSPHORUS Routine 04/22/2024 8:53 AM EST CBC Routine 04/22/2024 8:53 AM EST MAGNESIUM Routine 04/22/2024 8:53 AM EST CULTURE, BLOOD Routine 04/21/2024 7:03 PM EST CULTURE, BLOOD STAT 04/21/2024 7:03 PM EST URINALYSIS, REFLEX TO CULTURE STAT 04/21/2024 6:50 PM EST URINALYSIS, REFLEX TO CULTURE (CUP ONLY) STAT 04/21/2024 6:50 PM EST URINALYSIS, REFLEX TO CULTURE (NOT FOR NEUTROPENIC PATIENTS) STAT 04/21/2024 6:50 PM EST GASTROINTESTINAL PATHOGEN PANEL CULTURE STAT 04/21/2024 6:50 PM EST GASTROINTESTINAL PATHOGEN PANEL PCR STAT 04/21/2024 6:50 PM EST CLOSTRIDIUM DIFFICILE, PCR STAT 04/21/2024 6:50 PM EST CULTURE, URINE, QUANTITATIVE STAT 04/21/2024 6:50 PM EST COMPREHENSIVE METABOLIC PANEL Routine 04/21/2024 7:54 AM EST PHOSPHORUS Routine 04/21/2024 7:54 AM EST CBC Routine 04/21/2024 7:54 AM EST MAGNESIUM Routine 04/21/2024 7:[address] ABD/PELVIS W IV CONTRAST - WO ORAL CONTRAST STAT 04/20/2024 4:20 PM EST documented in this encounter Results * (ABNORMAL) PHOSPHORUS (04/22/2024 8:53 AM EST) Phosphorus 2.1(L) 2.5 - 4.8 mg/dL 04/22/2024 9:40 AM EST LABORATORY [facility] Blood Venous blood specimen / Unknown Venipuncture / Unknown 04/22/2024 8:53 AM EST 04/22/2024 9:12 AM EST Faisal Waddell [facility] LAB BLOOD ORDERABLES Final Result Performing Organization Address City/[facility]/ZIP Co de Phone Number LABORATORY [facility] [address] [place] [address] * MAGNESIUM (04/22/2024 8:53 AM EST) Magnesium 2.0 1.5 - 2.6 mg/dL 04/22/2024 9:40 AM EST LABORATORY [facility] Blood Venous blood specimen / Unknown Venipuncture / Unknown 04/22/2024 8:53 AM EST 04/22/2024 9:12 AM EST Faisal Waddell [facility] LAB BLOOD ORDERABLES Final Result Performing Organization Address City/[facility]/ZIP Co de Phone Number LABORATORY [facility] [address] [place] [address] * (ABNORMAL) CBC (04/22/2024 8:53 AM EST) WBC 4.15 4.00 - 10.80 K/uL 04/22/2024 11:16 AM EST LABORATORY [facility] RBC 3.73 4.50 - 5.25 M/uL 04/22/2024 11:16 AM EST LABORATORY [facility] HGB 11.1(L) 14.0 - 16.8 g/dL 04/22/2024 11:16 AM EST LABORATORY [facility] HCT 33.6(L) 40.0 - 48.4 % 04/22/2024 11:16 AM EST LABORATORY [facility] MCV 90.1 82.0 - 99.5 fL 04/22/2024 11:16 AM EST LABORATORY [facility] MCH 29.8 27.0 - 34.0 pg 04/22/2024 11:16 AM EST LABORATORY [facility] MCHC 33.0 32.0 - 36.0 g/dL 04/22/2024 11:16 AM EST LABORATORY [facility] RDW 13.1 11.5 - 15.5 % 04/22/2024 11:16 AM EST LABORATORY [facility] PLT 95(L) 140 - 400 K/uL 04/22/2024 11:16 AM EST LABORATORY [facility] MPV 11.3 6.6 - 11.1 fL 04/22/2024 11:16 AM EST LABORATORY [facility] nRBCs 0 <=0 /100 WBCs 04/22/2024 11:16 AM EST LABORATORY GM Blood Venous blood specimen / Unknown Venipuncture / Unknown 04/22/2024 8:53 AM EST 04/22/2024 9:15 AM EST Faisal Garcia DO LAB BLOOD ORDERABLES Final Result LABORATORY [facility] [address] [place] [address] * (ABNORMAL) COMPREHENSIVE METABOLIC PANEL (04/22/2024 8:53 AM EST) BUN 11 6 - 20 mg/dL 04/22/2024 9:40 AM EST LABORATORY [facility] CREATININE 1.2 0.6 - 1.2 mg/dL 04/22/2024 9:40 AM EST LABORATORY [facility] EGFR 63 >=60 mL/min 04/22/2024 9:40 AM EST LABORATORY [facility] Comment:eGFR is calculated b ased on the CKD-EPI 2020 equation. SODIUM 138 135 - 146 mmol/L 04/22/2024 9:40 AM EST LABORATORY [facility] POTASSIUM 3.5 3.5 - 5.1 mmol/L 04/22/2024 9:40 AM EST LABORATORY [facility] CHLORIDE 101 98 - 107 mmol/L 04/22/2024 9:40 AM EST LABORATORY [facility] CO2 25 22 - 32 mmol/L 04/22/2024 9:40 AM EST LABORATORY [facility] ANION GAP 12 7 - 15 mmol/L 04/22/2024 9:40 AM EST LABORATORY [facility] GLUCOSE 142(H) 70 - 120 mg/dL 04/22/2024 9:40 AM EST LABORATORY [facility] Albumin 3.3(L) 3.8 - 5.0 g/dL 04/22/2024 9:40 AM EST LABORATORY [facility] AST 23 10 - 50 U/L 04/22/2024 9:40 AM EST LABORATORY [facility] Alkaline Phosphatase 122 35 - 130 U/L 04/22/2024 9:40 AM EST LABORATORY [facility] Bilirubin, Total 0.5 <=1.2 mg/dL 04/22/2024 9:40 AM EST [facility] CALCIUM 8.6 8.4 - 10.2 mg/dL 04/22/2024 9:40 AM EST [facility] Protein 5.8(L) 6.0 - 8.3 g/dL 04/22/2024 9:40 AM EST [facility] ALT 30 10 - 50 U/L 04/22/2024 9:40 AM EST [facility] Blood Venous blood specimen / Unknown Venipuncture / Unknown 04/22/2024 8:53 AM EST 04/22/2024 9:12 AM EST us Faisal Garcia DO LAB BLOOD ORDERABLES Final Result LABORATORY [facility] [address] [place] [address] * CULTURE, URINE, QUANTITATIVE (04/21/2024 6:50 PM EST) Pathologist [facility] Culture Growth No significant growth 04/22/2024 2:12 PM EST LABORATORY [facility] Urine Urine specimen obtained by clean catch procedure / Unknown Non-blood Collection / Unknown 04/21/2024 6:50 PM EST 04/21/2024 7:05 PM EST us Catalino Thacker MD LAB MICRO - GENERAL ORD ERABLES Final Result LABORATORY [facility] [address] [place] [address] * GASTROINTESTINAL PATHOGEN PANEL PCR (04/21/2024 6:50 PM EST) Campylobacter group by PCR Negative Negative 04/22/2024 9:57 AM EST [facility] Salmonella species by PCR Negative Negative 04/22/2024 9:57 AM EST [facility] Shigella species by PCR Negative Negative 04/22/2024 9:57 AM EST [facility] Vibrio group by PCR Negative Negative 04/22/2024 9:57 AM EST [facility] Yersinia enterocolitica by PCR Negative Negative 04/22/2024 9:57 AM EST [facility] Shiga Toxin 1 Gene by PCR Negative Negative 04/22/2024 9:57 AM EST [facility] Shiga Toxin 2 Gene by PCR Negative Negative 04/22/2024 9:57 AM EST [facility] Norovirus by PCR Negative Negative 04/22/19 9:57 AM EST [facility] Rotavirus by PCR Negative Negative 04/22/19 9:57 AM EST LABORATORY [facility] Stool Stool specimen / Unknown Non-blood Collection / Unknown 04/21/2024 6:50 PM EST 04/21/2024 7:23 PM EST Catalino Thacker MD LAB MICRO - GENERAL ORD ERABLES Final Result Performing Organization Address City/State/[facility] Co de Phone Number LABORATORY [facility] [address] [place] [address] * (ABNORMAL) URINALYSIS, REFLEX TO CULTURE (04/21/2024 6:50 PM EST) Color, Urine Yellow Colorless, Light Yellow, Yellow, Dark Yellow 04/21/2024 7:35 PM EST [facility] Clarity, Urine Clear Clear 04/21/2024 7:35 PM EST [facility] Glucose, Urine Negative Negative mg/dL 04/21/2024 7:35 PM EST [facility] Bilirubin, Urine Negative Negative 04/21/2024 7:35 PM EST [facility] Ketone, Urine Negative Negative mg/dL 04/21/2024 7:35 PM EST [facility] Specific Boss, Urine 1.030 1.003 - 1.030 04/21/2024 7:35 PM EST [facility] Blood, Urine Negative Negative 04/21/2024 7:35 PM EST [facility] pH, Urine 6.0 5.0 - 7.5 Units 04/21/2024 7:35 PM EST [facility] Protein, Urine 30(A) Negative mg/dL 04/21/2024 7:35 PM EST [facility] Urobilinogen, Urine Normal Normal mg/dL 04/21/2024 7:35 PM EST [facility] Nitrite, Urine Negative Negative 04/21/2024 7:35 PM EST [facility] Esterase, Urine Negative Negative 04/21/2024 7:35 PM EST [facility] RBC, Urine 0-2 0 - 2 /HPF 04/21/2024 7:35 PM EST [facility] WBC, Urine 0-2 0 - 2 /HPF 04/21/2024 7:35 PM EST [facility] Bacteria, Urine 51-100(A) 0 - 25 /HPF 04/21/2024 7:35 PM EST [facility] Hyaline, Cast, Urine 1-4(A) None /LPF 04/21/2024 7:35 PM EST [facility] Culture, Urine 04/21/2024 7:35 PM EST [facility] Comment:Quantitative urine c ulture to be performed Urine Urine specimen obtained by clean catch procedure / Unknown Non-blood Collection / Unknown 04/21/2024 6:50 PM EST 04/21/2024 7:05 PM EST Catalino Thacker MD LAB URINE ORDERABLES Fi nal Result Performing Organization Address City/[facility]/ZIP Co de Phone Number LABORATORY [facility] [address] [place] [address] * URINALYSIS, REFLEX TO CULTURE (CUP ONLY) (04/21/2024 6:50 PM EST) Urinalysis, Reflex to Culture Specimen Specimen collected and received 04/21/2024 9:02 PM EST LABORATORY [facility] Urine Urine specimen obtained by clean catch procedure / Unknown Non-blood Collection / Unknown 04/21/2024 6:50 PM EST 04/21/2024 7:05 PM EST Catalino Thacker MD LAB URINE ORDERABLES Fi nal Result Performing Organization Address City/[facility]/ZIP Co de Phone Number LABORATORY [facility] [address] [place] [address] * CLOSTRIDIUM DIFFICILE, PCR (04/21/2024 6:50 PM EST) Stool Consistency Liquid 04/21/2024 10:39 PM EST LABORATORY [facility] Clostridium difficile Result Negative. No C. difficile toxin B gene DNA detected by PCR (Amplified Probe). Negative 04/21/2024 10:39 PM EST LABORATORY C Stool Stool specimen / Unknown Non-blood Collection / Unknown 04/21/2024 6:50 PM EST 04/21/2024 7:23 PM EST Catalino Thacker MD LAB MICRO - GENERAL ORD ERABLES Final Result Performing Organization Address City/[facility]/ZIP Co [place] [address] * PHOSPHORUS (04/21/2024 7:54 AM EST) Phosphorus 3.0 2.5 - 4.8 mg/dL 04/21/2024 8:42 AM EST LABORATORY C Blood Venous blood specimen / Unknown Venipuncture / Unknown 04/21/2024 7:54 AM EST 04/21/2024 8:13 AM EST Faisal Garcia DO LAB BLOOD ORDERABLES Final Result Performing Organization Address [facility] Co de Phone Number LABORATORY [facility] [address] [place] [address] * MAGNESIUM (04/21/2024 7:54 AM EST) Pathologist [facility] Magnesium 2.0 1.5 - 2.6 mg/dL 04/21/2024 8:42 AM EST LABORATORY C Blood Venous blood specimen / Unknown Venipuncture / Unknown 04/21/2024 7:54 AM EST 04/21/2024 8:13 AM EST Faisal Garcia DO LAB BLOOD ORDERABLES Final Result Performing Organization Address City/[facility] Co de Phone Number LABORATORY [facility] [address] [place] [address] * (ABNORMAL) CBC (04/21/2024 7:54 AM EST) WBC 4.99 4.00 - 10.80 K/uL 04/21/2024 8:22 AM EST [facility] RBC 3.74 4.50 - 5.25 M/uL 04/21/2024 8:22 AM EST [facility] HGB 10.9(L) 14.0 - 16.8 g/dL 04/21/2024 8:22 AM EST [facility] HCT 33.2(L) 40.0 - 48.4 % 04/21/2024 8:22 AM EST [facility] MCV 88.8 82.0 - 99.5 fL 04/21/2024 8:22 AM EST [facility] MCH 29.1 27.0 - 34.0 pg 04/21/2024 8:22 AM EST [facility] MCHC 32.8 32.0 - 36.0 g/dL 04/21/2024 8:22 AM EST [facility] RDW 13.1 11.5 - 15.5 % 04/21/2024 8:22 AM EST [facility] PLT 103(L) 140 - 400 K/uL 04/21/2024 8:22 AM EST [facility] MPV 10.4 6.6 - 11.1 fL 04/21/2024 8:22 AM EST [facility] nRBCs 0 <=0 /100 WBCs 04/21/2024 8:22 AM EST [facility] Blood Venous blood specimen / Unknown Venipuncture / Unknown 04/21/2024 7:54 AM EST 04/21/2024 8:13 AM EST Faisal Garcia DO LAB BLOOD ORDERABLES Final Result LABORATORY [facility] [address] [place] [address] * (ABNORMAL) COMPREHENSIVE METABOLIC PANEL (04/21/2024 7:54 AM EST) BUN 17 6 - 20 mg/dL 04/21/2024 8:42 AM EST [facility] CREATININE 1.3(H) 0.6 - 1.2 mg/dL 04/21/2024 8:42 AM EST [facility] EGFR 54(L) >=60 mL/min 04/21/2024 8:42 AM EST [facility] Comment:eGFR is calculated b ased on the CKD-EPI 2020 equation. SODIUM 136 135 - 146 mmol/L 04/21/2024 8:42 AM EST [facility] POTASSIUM 3.6 3.5 - 5.1 mmol/L 04/21/2024 8:42 AM EST [facility] CHLORIDE 99 98 - 107 mmol/L 04/21/2024 8:42 AM EST [facility] CO2 25 22 - 32 mmol/L 04/21/2024 8:42 AM EST [facility] ANION GAP 12 7 - 15 mmol/L 04/21/2024 8:42 AM EST [facility] GLUCOSE 118 70 - 120 mg/dL 04/21/2024 8:42 AM EST [facility] Albumin 3.5(L) 3.8 - 5.0 g/dL 04/21/2024 8:42 AM EST [facility] AST 25 10 - 50 U/L 04/21/2024 8:42 AM EST [facility] Alkaline Phosphatase 91 35 - 130 U/L 04/21/2024 8:42 AM EST [facility] Bilirubin, Total 0.5 <=1.2 mg/dL 04/21/2024 8:42 AM EST [facility] CALCIUM 8.8 8.4 - 10.2 mg/dL 04/21/2024 8:42 AM EST [facility] Protein 6.0 6.0 - 8.3 g/dL 04/21/2024 8:42 AM EST [facility] ALT 33 10 - 50 U/L 04/21/2024 8:42 AM EST [facility] Blood Venous blood specimen / Unknown Venipuncture / Unknown 04/21/2024 7:54 AM EST 04/21/2024 8:13 AM EST Faisal Garcia DO LAB BLOOD ORDERABLES Final Result [facility] [address] [place] [address] * CT ABD/PELVIS W IV CONTRAST - WO ORAL CONTRAST (04/20/2024 4:20 PM EST) Anatomical Region Laterality Modality Body, Abdomen, Pelvis Computed T omography 04/20/2024 4:44 PM EST Impressions 04/20/2024 4:56 PM EST IMPRESSION Findings consistent with pancreatitis with inflammation extending laterally into the duodenum with duodenal wall thickening and luminal narrowing Uncinate process mass better visualized on PET scan and MRI I have personally reviewed this examination and agree with the resident/fellow physician's interpretation. Narrative 04/20/2024 4:56 PM EST EXAM EXAM: CT ABD/PELVIS W IV CONTRAST - WO ORAL CONTRAST DATE TIME: 04/20/2024 4:20 pm HISTORY abd pain TECHNIQUE Oral Contrast: not administered. IV Contrast: administered. COMPARISON PET CT 03/16/2024, MR abdomen 03/27/2024 FINDINGS LINES AND DEVICES: None. LOWER CHEST: Within normal limits. LIVER: Multiple scattered hepatic cyst. BILE DUCTS: Within normal limits. GALLBLADDER: Cholecystectomy. PANCREAS: Focal area of stranding around the pancreatic head/uncinate process. Known mass in the uncinate process appears unchanged, measuring 1.9 x 1.8 cm. There is inflammatory change and bowel wall thickening along the medial aspect of the duodenal bulb and sweep. There is increased density within this area. The duodenal wall is thickened with luminal narrowing. SPLEEN: Within normal limits. ADRENALS: Within normal limits. KIDNEYS/URETERS: Punctate left renal calculus. No hydronephrosis bilaterally. BOWEL: Not dilated. Postsurgical changes with left lower quadrant end ileostomy. BLADDER: Within normal limits. REPRODUCTIVE ORGANS: Within normal limits. LYMPH NODES: Within normal limits. VESSELS: Aortic atherosclerotic calcifications. No aneurysm. PERITONEUM/RETROPERITONEUM: No ascites, free air, or fluid collections. ABDOMINAL WALL/SOFT TISSUES: Bilateral fat containing inguinal hernias, left greater than right. Left anterior abdominal wall ileostomy. BONES: Within normal limits. Procedure Note Hodan Golden MD - 04/20/2024 EXAM EXAM: CT ABD/PELVIS W IV CONTRAST - WO ORAL CONTRAST DATE TIME: 04/20/2024 4:20 pm HISTORY abd pain TECHNIQUE Oral Contrast: not administered. IV Contrast: administered. COMPARISON PET CT 03/16/2024, MR abdomen 03/27/2024 FINDINGS LINES AND DEVICES: None. LOWER CHEST: Within normal limits. LIVER: Multiple scattered hepatic cyst. BILE DUCTS: Within normal limits. GALLBLADDER: Cholecystectomy. PANCREAS: Focal area of stranding around the pancreatic head/uncinateprocess. Known mass in the uncinate process appears unchanged, measuring1.9 x 1.8 cm. There is inflammatory change and bowel wall thickeningalong the medial aspect of the duodenal bulb and sweep. There isincreased density within this area. The duodenal wall is thickened withluminal narrowing. SPLEEN: Within normal limits. ADRENALS: Within normal limits. KIDNEYS/URETERS: Punctate left renal calculus. No hydronephrosisbilaterally. BOWEL: Not dilated. Postsurgical changes with left lower quadrant endileostomy. BLADDER: Within normal limits. REPRODUCTIVE ORGANS: Within normal limits. LYMPH NODES: Within normal limits. VESSELS: Aortic atherosclerotic calcifications. No aneurysm. PERITONEUM/RETROPERITONEUM: No ascites, free air, or fluid collections. ABDOMINAL WALL/SOFT TISSUES: Bilateral fat containing inguinal hernias,left greater than right. Left anterior abdominal wall ileostomy. BONES: Within normal limits. IMPRESSION IMPRESSION Findings consistent with pancreatitis with inflammation extendinglaterally into the duodenum with duodenal wall thickening and luminalnarrowing Uncinate process mass better visualized on PET scan and MRI I have personally reviewed this examination and agree with the resident/fellow physician's interpretation. us Naomi Goldman PA-C RAD CT Final Resu lt documented in this encounter Visit Diagnoses Diagnosis Acute pancreatitis- Primary Acute pancreatitis Chest pain Chest pain, unspecified Stage 3b chronic kidney disease senior care current use of anticoagulant therapy History of lung cancer Personal history of malignant neoplasm of bronchus and lung SVT (supraventricular tachycardia) (HCC) Other specified cardiac dysrhythmias Ileostomy in place (HCC) Ileostomy status History of cholecystectomy Other acquired absence of organ Pancreatic mass Unspecified disease of pancreas documented in this encounter Administered Medications Inactive Administered Medications - up to 3 most recent administrations Medication Order MAR Action Action Date Dose Rate Site Acetaminophen (Tylenol) tab 975 mg 975 mg, Oral, Q8H, First dose on Sat04/20/24 at 2200, Until Discontinued, Maximum of 4 grams (4000 mg) per day. Given 04/21/2024 6:43 AM EST 975 mg Given 04/20/2024 9:01 PM EST 975 mg Acetaminophen (Tylenol) tab 975 mg 975 mg, Oral, Q6H PRN Pain, Mild, Fever >38C(100.5F), Starting on Sat04/21/24 at 0945, Until Sat04/22/24 at 1630, Maximum of 4 grams (4000 mg) per day. Given 04/21/2024 7:08 PM EST 975 mg Atenolol (Tenormin) tab 37.5 mg 37.5 mg, Oral, BID (.AM/PM), First dose on Sat04/21/24 at 0900, Until Discontinued, Hold for HR less than 60 or SBP below 100 and notify service if dose is held Given 04/22/2024 9:28 AM EST 37.5 mg Given 04/21/2024 8:12 PM EST 37.5 mg Given 04/21/2024 8:10 AM EST 37.5 mg Finasteride (Proscar) tab 5 mg 5 mg, Oral, Daily(AM), First dose on Sat04/21/24 at 0900, Until Discontinued Given 04/22/2024 9:28 AM EST 5 mg Given 04/21/2024 8:11 AM EST 5 mg HYDROmorphone (Dilaudid) inj 0.2 mg 0.2 mg, IV Push, Q4H PRN Pain, Breakthrough, Starting on Sat04/20/24 at 1905, Until Sat04/22/24 at 1630 Given 04/21/2024 5:42 AM EST 0.2 mg Iopamidol (Isovue 370) inj 80 mL 80 mL, Intravenous, ONCE, On Sat04/20/24 at 1700, For 1 dose, Radiology Medication Routing (Non-IR) Given 04/20/2024 5:00 PM EST 80 mL isolyte 500 mL bolus infusion Intravenous, Administer entire volume within 60 minutes or less. Plasma-LYTE 148, isolyte-S, and isolyte-S pH 7.4 are considered equivalent - including for MAR barcode scanning., ONCE, 1 dose, On Sat04/20/24 at 1830 Rate Change 04/20/2024 6:37 PM EST 500 mL/hr Isolyte-S pH 7.4 infusion Intravenous, at 125 mL/hr, Plasma-LYTE 148, isolyte-S, and isolyte-S pH 7.4 are considered equivalent - including for MAR barcode scanning., CONTINUOUS, Starting on Sat04/20/24 at 1830, Until Sat04/20/24 at 1944 New Bag 04/20/2024 6:42 PM EST 125 mL/hr Isolyte-S pH 7.4 infusion Intravenous, at 125 mL/hr, Plasma-LYTE 148, isolyte-S, and isolyte-S pH 7.4 are considered equivalent - including for MAR barcode scanning., CONTINUOUS, Starting on Sat04/20/24 at 2015, Until Sat04/21/24 at 1041 Restarted 04/21/2024 5:40 AM EST 125 mL/hr Rate Verify 04/21/2024 5:20 AM EST 125 mL/hr Restarted 04/21/2024 4:39 AM EST 125 mL/hr Isolyte-S pH 7.4 infusion Intravenous, at 100 mL/hr, Plasma-LYTE 148, isolyte-S, and isolyte-S pH 7.4 are considered equivalent - including for MAR barcode scanning., CONTINUOUS, Starting on Sat04/21/24 at 1015, Until Sat04/21/24 at 2214 Rate Verify 04/21/2024 3:35 PM EST 100 m L/hr Restarted 04/21/2024 2:44 PM EST 100 mL/hr New Bag 04/21/2024 11:56 AM EST 100 mL/hr Morphine Sulfate (PF) inj 4 mg 4 mg, Intravenous, ONCE, On Sat04/20/24 at 1845, For 1 dose Given 04/20/2024 6:28 PM EST 4 mg omeprazole (PriLOSEC) cap 20 mg 20 mg, Oral, Daily(AM), First dose on Sat04/21/24 at 0900, Until Discontinued, This med should NOT be Crushed or Chewed Given 04/22/2024 9:28 AM EST 20 mg Given 04/21/2024 8:11 AM EST 20 mg ondansetron (Zofran) inj 4 mg 4 mg, IV Push, ONCE, On Sat04/20/24 at 1830, For 1 dose Given 04/20/2024 6:32 PM EST 4 mg ondansetron (Zofran) inj 4 mg 4 mg, IV Push, Q6H PRN Nausea, Vomiting, Starting on Sat04/20/24 at 2001, Until Sat04/22/24 at 1630 oxyCODONE (Oxy IR) tab 10 mg 10 mg, Oral, Q6H PRN Pain, Severe, Starting on Sat04/20/24 at 1921, Until Sat04/22/24 at 1630 Given 04/21/2024 3: 53 AM EST 10 mg oxyCODONE (Oxy IR) tab 5 mg 5 mg, Oral, Q4H PRN Pain, Moderate, Pain, Mild, Starting on Sat04/20/24 at 1905, Until Sat04/21/24 at 0935 Given 04/21/2024 9:31 AM EST 5 mg oxyCODONE (Oxy IR) tab 5 mg 5 mg, Oral, Q4H PRN Pain, Moderate, Starting on Sat04/21/24 at 0935, Until Sat04/22/24 at 1630 Given 04/22/2024 1:46 AM EST 5 mg Given 04/21/2024 2:04 PM EST 5 mg potassium and sodium phosphate (Phos-Nak) oral powder 1 Packet 1 Packet, Oral, BID (.AM/PM), First dose on Sat04/22/24 at 1600, Last dose on Sat04/23/24 at 0900, For 2 doses, Mix 1 packet in 2.5 ounces (75 mL) of water, stir well and administer promptly. 1 packet contains Phosphorus 250 mg (~8 mMoles) + potassium 280 mg (~7.125 mEq) + sodium 160mg (~7.125 mEq) potassium chloride ER tab 40 mEq 40 mEq, Oral, ONCE, On Sat04/21/24 at 1000, For 1 dose, This med should NOT be Crushed or Chewed Given 04/21/2024 9:33 AM EST 40 mEq Rivaroxaban (Xarelto) tab 20 mg 20 mg, Oral, DINNER, First dose (after last modification) on Sat04/21/24 at 1700, Until Discontinued, TAKE WITH FOOD Given 04/21/2024 5:14 PM EST 20 mg sodium chloride 0.9 % flush/inj 3 mL 3 mL, IV Push, PRN Other, Line Patency, Starting on Sat04/20/24 at 1854, Until Sat04/22/24 at 1630, Do not flush if lock, PICC, or central line not in place, IV infusing or unable to flush tamsulosin (Flomax) cap 0.4 mg 0.4 mg, Oral, Daily(AM), First dose on Sat04/21/24 at 0900, Until Discontinued Given 04/22/2024 9:28 AM EST 0.4 mg Given 04/21/2024 8:10 AM EST 0.4 mg documented in this encounter Active and Recently Administered Medications Times are shown in EST. Scheduled Medication Order 04/20/2024 04/21/2024 04/22/2024 Acetaminophen (Tylenol) tab 975 mg (CANCELED) 975 mg, Oral, Q8H, First dose on Sat04/20/24 at 2200, Until Discontinued, Maximum of 4 grams (4000 mg) per day. 2100 (Given - Provider: Kacy Ponce, ALEXI) 642 (Given - Provider: Kacy Ponce, ALEXI) Atenolol (Tenormin) tab 37.5 mg 37.5 mg, Oral, BID (.AM/PM), First dose on Sat04/21/24 at 0900, Until Discontinued, Hold for HR less than 60 or SBP below 100 and notify service if dose is held 809 (Given - Provider: Shira Wesley, ALEXI)2011 (Given - Provider: Jonna Lopez, ALEXI) 927 (Given - Provider: Colt Dubose, RN) Finasteride (Proscar) tab 5 mg 5 mg, Oral, Daily(AM), First dose on Sat04/21/24 at 0900, Until Discontinued 810 (Given - Provider: Shira Wesley, ALEXI) 927 (Given - Provider: Colt Dubose, RN) Iopamidol (Isovue 370) inj 80 mL (COMPLETED) 80 mL, Intravenous, ONCE, On Sat04/20/24 at 1700, For 1 dose, Radiology Medication Routing (Non-IR) 1700 (Given - Provider: Clark Watson, RT) isolyte 500 mL bolus infusion () Intravenous, Administer entire volume within 60 minutes or less. Plasma-LYTE 148, isolyte-S, and isolyte-S pH 7.4 are considered equivalent - including for MAR barcode scanning., ONCE, 1 dose, On Sat04/20/24 at 1830 183 (Stopped - Provider: Chuck Palomino RN)1836 (Rate Change - Provider: Kacy Ponce, ALEXI)1838 (Stopped - Provider: Kacy Ponce, ALEXI) Morphine Sulfate (PF) inj 4 mg (COMPLETED) 4 mg, Intravenous, ONCE, On Sat04/20/24 at 1845, For 1 dose 1827 (Given - Provider: Chuck Palomino RN) omeprazole (PriLOSEC) cap 20 mg 20 mg, Oral, Daily(AM), First dose on Sat04/21/24 at 0900, Until Discontinued, This med should NOT be Crushed or Chewed 08 (Given - Provider: Shira Wesley, ALEXI) 09 (Given - Provider: Colt Dubose RN) ondansetron (Zofran) inj 4 mg (COMPLETED) 4 mg, IV Push, ONCE, On Sat04/20/24 at 1830, For 1 dose 1831 (Given - Provider: Chuck Palomino RN) potassium and sodium phosphate (Phos-Nak) oral powder 1 Packet 1 Packet, Oral, BID (.AM/PM), First dose on Sat04/22/24 at 1600, Last dose on Sat04/23/24 at 0900, For 2 doses, Mix 1 packet in 2.5 ounces (75 mL) of water, stir well and administer promptly. 1 packet contains Phosphorus 250 mg (~8 mMoles) + potassium 280 mg (~7.125 mEq) + sodium 160mg (~7.125 mEq) potassium chloride ER tab 40 mEq (COMPLETED) 40 mEq, Oral, ONCE, On Sat04/21/24 at 1000, For 1 dose, This med should NOT be Crushed or Chewed 09 (Given - Provider: Shira Wesley, ALEXI) Rivaroxaban (Xarelto) tab 20 mg 20 mg, Oral, DINNER, First dose (after last modification) on Sat04/21/24 at 1700, Until Discontinued, TAKE WITH FOOD 171 (Given - Provider: Jonna Lopez, ALEXI) tamsulosin (Flomax) cap 0.4 mg 0.4 mg, Oral, Daily(AM), First dose on Sat04/21/24 at 0900, Until Discontinued 0810 (Given - Provider: Shira Wesley, RN) 0928 (Given - Provider: Colt Dubose RN) Continuous Medication Order 04/20/2024 04/21/2024 04/22/2024 Isolyte-S pH 7.4 infusion (CANCELED) Intravenous, at 125 mL/hr, Plasma-LYTE 148, isolyte-S, and isolyte-S pH 7.4 are considered equivalent - including for MAR barcode scanning., CONTINUOUS, Starting on Sat04/20/24 at 1830, Until Sat04/20/24 at 1944 1842 (New Bag - Provider: Chuck Palomino RN)1944 (Stopped - Provider: Kacy Ponce RN) Isolyte-S pH 7.4 infusion (CANCELED) Intravenous, at 125 mL/hr, Plasma-LYTE 148, isolyte-S, and isolyte-S pH 7.4 are considered equivalent - including for MAR barcode scanning., CONTINUOUS, Starting on Sat04/20/24 at 2015, Until Sat04/21/24 at 1041 2104 (New Bag - Provider: Kacy Ponce RN)2134 (Paused - Provider: Kacy Ponec RN)2223 (Restarted - Provider: Kacy Ponce RN)2300 (Rate Verify - Provider: Kacy Ponce RN) 0328 (Stopped - Provider: Kacy Ponce RN)0339 (New Bag - Provider: James Alvarez RN)0435 (Paused - Provider: Kacy Ponce RN)0439 (Restarted - Provider: Kacy Ponce RN)0520 (Rate Verify - Provider: Kacy Ponce RN)0537 (Paused - Provider: Jonna Lopez, ALEXI)0540 (Restarted - Provider: Jonna Lopez, ALEXI)1041 (Stopped - Provider: Shira Wesley RN) Isolyte-S pH 7.4 infusion () Intravenous, at 100 mL/hr, Plasma-LYTE 148, isolyte-S, and isolyte-S pH 7.4 are considered equivalent - including for MAR barcode scanning., CONTINUOUS, Starting on Sat04/21/24 at 1015, Until Sat04/21/24 at 2214 1011 (New Bag - Provider: Shira Wesley, RN)1037 (Paused - Provider: Jonna Lopez RN)1041 (Restarted - Provider: Jonna Lopez RN)1156 (New Bag - Provider: Jonna Lopez RN)1406 (Paused - Provider: Jonna Lopez RN)1444 (Restarted - Provider: Jonna Lopez RN)1535 (Rate Verify - Provider: Jonna Lopez RN) 0146 (Stopped - Provider: Bob Palomino RN) PRN Medication Order 04/20/2024 04/21/2024 04/22/2024 Acetaminophen (Tylenol) tab 975 mg 975 mg, Oral, Q6H PRN Pain, Mild, Fever >38C(100.5F), Starting on Sat04/21/24 at 0945, Until Sat04/22/24 at 1630, Maximum of 4 grams (4000 mg) per day. 1908 (Given - Provider: Jonna Lopez RN - Comment: fever) HYDROmorphone (Dilaudid) inj 0.2 mg 0.2 mg, IV Push, Q4H PRN Pain, Breakthrough, Starting on Sat04/20/24 at 1905, Until Sat04/22/24 at 1630 0542 (Given - Provider: Kacy Ponce, ALEXI) ondansetron (Zofran) inj 4 mg 4 mg, IV Push, Q6H PRN Nausea, Vomiting, Starting on Sat04/20/24 at 2001, Until Sat04/22/24 at 1630 oxyCODONE (Oxy IR) tab 10 mg 10 mg, Oral, Q6H PRN Pain, Severe, Starting on Sat04/20/24 at 1921, Until Sat04/22/24 at 1630 0353 (Given - Provider: Kacy Ponce RN) oxyCODONE (Oxy IR) tab 5 mg (CANCELED) 5 mg, Oral, Q4H PRN Pain, Moderate, Pain, Mild, Starting on Sat04/20/24 at 1905, Until Sat04/21/24 at 0935 0931 (Given - Provider: Shira Wesley RN) oxyCODONE (Oxy IR) tab 5 mg 5 mg, Oral, Q4H PRN Pain, Moderate, Starting on Tu04/21/24 at 0935, Until Sat04/22/24 at 1630 1404 (Given - Provider: Jonna Lopez, RN) 0146 (Given - Provider: Bob Palomino RN) sodium chloride 0.9 % flush/inj 3 mL 3 mL, IV Push, PRN Other, Line Patency, Starting on Sat04/20/24 at 1854, Until Sat04/22/24 at 1630, Do not flush if lock, PICC, or central line not in place, IV infusing or unable to flush documented in this encounter Additional Health Concerns Infection Onset Date Last Indicated Resolved Time C. difficile Rule-Out 04/21/2024 04/21/20242024 10:39 PM EST Gastrointestinal Rule-Out 04/21/2024 04/21/2024 9:57 AM EST documented as of this encounter Advance Directives [...] Power of Attor sarah? No Care Teams Nursing Home Aide Relationship Specialty Start Date End Date Eliud Orta MD [address] [place] [address] PCP - General Family Medicine 03/09/14 documented as of this encounter
--- OUTSIDE RECORDS SUMMARY | 2024-04-25 07:09 | External Medical Summary | Summary of Care ---
Author Name Unknown Organization [facility] Address [address] [place] [facility] [place] [address] Phone [phone] Care Team Providers Care Train Operator Name Role Phone Eliud Orta MD Primary Care Provider + Reason for Visit * Reason Onset Date Comments Advice 04/24/2024 Encounter Details Date Type Department Care Team (Late st Contact Info) Description 04/24/2024 Telephone Gastroenterology, [address] [address] Ofelia Somers, DO [address] [facility] [place] [address] Advice Allergies Active Allergy Reactions Criticality Noted Date Comments Bee Stings Hives Medium 07/26/2008 Gentamicin Sulfate 06/05/2001 pt was on gentamycin,unasyn,eaqfeg-ldqti-pp t sure which med documented as of [...] Oral Tablet (Tenormin)Indic ations:SVT (supraventricul ar tachycardia) ([facility]),Palpitati ons Take 1 and 1/2 Tablets [...] dysfunction 03/19/2017 Alcohol dependence in remission 09/05/2016 custodial current use of anticoagulant therapy 0 12/06/2014 Overview (06/25/2017): 12/03/14 admit w/DVT/PE. Minimum 6mo anticoag, heme rec lifelong ICD-10 update of inactive term History of DVT (deep vein thrombosis) 12/06/2014 Overview (04/11/2015): 12/03/14 new dx with PE--rec lifelong therapy History of pulmonary embolism 12/06/2014 Overview (01/21/2017): 01/25 nonocclusive DVT [facility] doppler while on xarelto 12/03/14 [facility] w/DVT leg. Minimum 6mo anticoag-Heme rec lifelong. [...] (02/01/2014): 12/[address] Matthew [id number] Toxic effect of venom 07/26/20082013 Overview (12/13/2015): [...] mRNA, LNP-s, No Pre serve, 2-Dose Series ([employer] [facility]) 11/08/2020,05/31/2020,05/10/2020 COVID-19, LNP-s, No Preserve , Jose [...] his pancreas. The patient was admitted to [facility] week for postprocedural discomfort in his now [...] 04/29/2024 10:15 AM EST Office Visit Hematology/Oncology [facility] [address] [place] [phone] Hemanth Monk MD [address] [place] [address] 04/29/2024 2:40 PM EST Office Visit Family Practice [facility] [address] [address] Eliud Orta MD [address] [address] 05/01/2024 12:30 PM EST Home Visit [facility] [address] [address] Taisha Nicholas RN [address] [place] [address] 06/02/2024 11:30 AM EDT Office Visit Cardiology [address] [place] [address] Alessandro Dozier PA-C [address] [address] 06/22/2024 1:00 PM EDT [facility] [place] [address] [address] Daniel Moses PA-C [address] [address] 08/19/2024 9:00 AM EDT Office Visit [facility] [address] [address] Eliud Orta MD [address] [address] 08/20/2024 11:00 AM EDT Imaging Radiology [address] [place] [address] 08/27/2024 11:00 AM EDT Telemedicine Radiation Oncology, [address] [place] [address] Rubi Mart MD [address] [place] [address] [place] [address] 02/19/2025 11:40 AM EST Office Visit [facility] [address] [address] Eliud Orta MD [address] [place] [address] Health Maintenance Due Date Last Done Comments Alpha-1 Antitrypsin 1963 Adult Wellness Visit 04/27/2017 04/27/2016 Albumin/Creatinine Ratio 12/28/2023 023, 01/16/2022, 05/10/2021, Additional history exists Depression Screening 12/28/2023 12/27/2022, 09/04/2016 (Declined) COVID-19 Vaccine ( season) 2024 01/13/2024, 01/21/2023, 12/26/2021, Additional history exists GFR 10/20/2024 04/22/2024, 04/11, 04/20/2024, Additional history exists O2 ASSESSMENT COMPLETED IN PAST YEAR FOR COPD 04/15/2025 04/15/2024 CKD HGB USE SMARTSET 46555 04/22/202504/22, 04/21/2024, 04/20/2024, Additional history exists CKD PHOS USE SMARTSET 92342 04/22/202504/11, 04/21/2024, 01/18/2023, Additional history exists DTap/Tdap [...] this encounter Medical Devices Implanted Type Area Construction Stonemason Device Identifier Shelf Expiration Date Model / Serial / Lot Phasix Mesh [id number] Implanted:Qty: 1 on 10/20/2012 [place] [facility] [place]: Abdomen CR BARD : DAVOL 02/07/2014 [id number] / / [id number] Description:Trial item Vitamesh Squ Blue 30cm X 30cm - [id number] Implanted:Qty: 1 on 05/29/2013 at [place] [facility] N/A: Abdomen [employer] 12/08/2014 [id number] / / [id number] documented as of this encounter Advance Directives [...] Power of Attor sarah? No Care Teams Train Operator Relationship Specialty Start Date End Date Eliud Orta MD [address] [place] [address] PCP - General Family Medicine 03/09/14 documented as of this encounter
--- OUTSIDE RECORDS SUMMARY | 2024-04-25 07:09 | External Medical Summary ---
Author Name Unknown Address Unknown Organization K01:[facility]ATORY [facility] [place] [address] [place] [address] Laboratory Report Ordering Provider Test Date Status CORBY WILLIAMSON 04/21/2024 19:03:00 Preliminary Observation Date Value Abnormality Reference (Units) Status Bacteria identified in Specimen by Culture 04/21/2024 19:03:00 No growth to date Preliminary Test: Culture, Blood (Site 2 )
Specimen Source: Blood, Venous
Specimen Type: Blood
Specimen Date: 04/21/2024 190
Result Date: 04/22/2024 0202
Result Status: Preliminary result
Resulting Lab: [facility]ATORY [facility]
[address]
[place] [address]

CULTURE

No growth to date

null Performing Location LAB[facility]ATORY [facility] [place] [address] [place] [address]
--- OUTSIDE RECORDS SUMMARY | 2024-04-25 07:09 | External Medical Summary ---
Author Name Unknown Address Unknown Organization K01:LABORATORY [facility] [place] - [address] [place] [id number] Laboratory Report Ordering Provider Test Date Status CORBY WILLIAMSON 04/21/2024 18:50:50 Final Observation Date Value Abnormality Reference (Units) Status Bacteria identified in Specimen by Culture 04/21/2024 18:50:50 No Aeromonas species or Plesiomonas species isolated. Final Test: Gastrointestinal Patho gen Panel Culture
Specimen Source: Stool
Specimen Type: Stool
Specimen Date: 04/21/2024 1850
Result Date: 04/23/2024 1247
Result Status: Final result
Resulting Lab: LABORATORY [facility]
[address]
[place] [id number]

CULTURE

No Aeromonas species or Plesiomonas species isolated.

null Performing Location LABORATORY [facility] - [address] [facility] [address]
--- OUTSIDE RECORDS SUMMARY | 2024-04-25 07:09 | External Medical Summary ---
Author Name Unknown Address Unknown Organization K01:LABORATORY [place] [address] [address] [facility] [address] [facility] [address] Laboratory Report Ordering Provider Test Date Status CORBY WILLIAMSON 04/21/2024 18:50:50 Final Observation Date Value Abnormality Reference (Units ) Status Campylobacter sp DNA.diarrheagenic [Presence] in Stool by [place] with probe detection 04/21/2024 18:50:50 Negative Negative Final Salmonella sp rpoD gene [Presence] in Stool by [place] with probe detection 04/21/2024 18:50:50 Negative Negative Final Shigella species+EIEC invasion plasmid antigen H ipaH gene [Presence] in Stool by [place] with probe detection 04/21/2024 18:50:50 Negative Negative Final Vibrio sp DNA [Identifier] in Specimen by [place]ENTINA with probe detection 04/21/2024 18:50:50 Negative Negative Final Yersinia enterocolitica recN gene [Presence] in Stool by [place]ENT[place] with probe detection 04/21/2024 18:50:50 Negative Negative Final Escherichia coli Stx1 toxin stx1 gene [Presence] in Stool by [place] with probe detection 04/21/2024 18:50:50 Negative Negative Final Escherichia coli Stx2 toxin stx2 gene [Presence] in Stool by VALENTINA with probe detection 04/21/2024 18:50:50 Negative Negative Final Norovirus genogroups I and II RNA panel - Stool by VALENTINA with probe detection 04/21/2024 18:50:50 Negative Negative Final Rotavirus A RNA [Presence] in Stool by VALENTINA with probe detection 04/21/2024 18:50:50 Negative Negative Final Performing Location LABORATORY [address] [facility] [address]
--- OUTSIDE RECORDS SUMMARY | 2024-04-25 07:09 | External Medical Summary ---
Author Name Unknown Address Unknown Organization K01:LABORATORY [facility] [place] - [address] [place] [address] Laboratory Report Ordering Provider Test Date Status ROHIT TOMAS 04/22/2024 08:53:00 Final Observation Date Value Abnormality Reference (Units ) Status Magnesium 04/22/2024 08:53:00 2.0 1.5-2.6 (m g/dL) Final Performing Location LAB[facility]ORY [facility] - [address] [place] [address]
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
--- OUTSIDE RECORDS SUMMARY | 2024-04-25 07:10 | External Medical Summary ---
Author Name Unknown Address Unknown Organization K01:[facility] [place] [address] [facility] [address] Laboratory Report Ordering Provider Test Date Status RORY WATKINS 04/20/2024 11:11:00 Final Observation Date Value Abnormality Reference (Units ) Status BUN 04/20/2024 11:11:00 18 6-20 (mg/dL) Final Creatinine 04/20/2024 11:11:00 1.5 Above high normal 0.6-1.2 (mg/dL) Final Glomerular filtration rate/1.73 sq M.predicted [Volume Rate/Area] in Serum, Plasma or Blood by Creatinine-based formula (CKD-EPI) 04/20/2024 11:11:00 47 Below low normal >=60 (mL/min) Final eGFR is calculated based on the CKD-EPI 2020 equation. Sodium 04/20/2024 11:11:00 133 Below low normal 135 -146 (mmol/L) Final Potassium 04/20/2024 11:11:00 3.6 3.5-5.1 (m mol/L) Final Cl 04/20/2024 11:11:00 97 Below low normal 98- 107 (mmol/L) Final CO2 04/20/2024 11:11:00 24 22-32 (mmo l/L) Final Anion gap 04/20/2024 11:11:00 12 7-15 (mmol /L) Final Glucose 04/20/2024 11:11:00 134 Above high normal 70 -120 (mg/dL) Final Albumin 04/20/2024 11:11:00 4.0 3.8-5.0 (g /dL) Final AST (Aspartate aminotransferase) 04/20/2024 11:11:00 37 10-50 (U/L) Fin al Alk Phos 04/20/2024 11:11:00 98 35-130 (U/ L) Final Bilirubin, Total 04/20/2024 11:11:00 0.6 <=1 .2 (mg/dL) Final Calcium 04/20/2024 11:11:00 9.3 8.4-10.2 ( mg/dL) Final Protein 04/20/2024 11:11:00 6.7 6.0-8.3 (g /dL) Final ALT (Alanine aminotransferase) 04/20/2024 11:11:00 46 10-50 (U/L) Ernesto craft Performing Location [facility] [place] [address] [facility] [address]
--- OUTSIDE RECORDS SUMMARY | 2024-04-25 07:10 | External Medical Summary ---
Author Name Unknown Address Unknown Organization K01:LABORATORY [facility] [place] - [address] [facility] [address] Laboratory Report Ordering Provider Test Date Status JUNEKAIDENJOAN 04/20/2024 11:11:00 Final Observation Date Value Abnormality Reference (Units ) Status Lipase 04/20/2024 11:11:00 569 Above high normal 13 -60 (U/L) Final Performing Location [facility]ORY [facility] - [address] [place] [address]
--- OUTSIDE RECORDS SUMMARY | 2024-04-25 07:10 | External Medical Summary | Summary of Care ---
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 Phone Eliud Orta MD Primary Care Provider + Reason for Visit * Reason Comments Follow Up Encounter Details Date Type Department Care Team (Late st Contact Info) Description 04/20/2024 11:00 AM EST Office Visit Radiation Oncology, [place] [address] [place], [place] [id number] Rubi Mart MD [address] [place] [address] [place] [address] Epigastric pain* Allergies Active Allergy Reactions Criticality Noted Date Comments Bee Stings Hives Medium 07/26/2008 Gentamicin Sulfate 06/05/2001 pt was on gentamycin,unasyn,qwfzvw-rtfxo-ah t sure which med documented as of this encounter (statuses as of 04/20/2024) Medications CENTRUM SILVER OR TABS 1 TABLET DAILY 0 0 4 Suspended PRILOSEC 20 MG PO CPDR daily Suspended Cetirizine HCl 10 MG Oral Tablet Take 1 Tablet by mouth. Suspended Acetaminophen 500 MG Oral Tablet Take 1 Tablet by mouth every 8 hours as needed for Pain. Suspended Triamcinolone Acetonide 0.1 % External Cream (Aristocort)In dications:Ariana cea Apply to affected area(s) twice daily as directed 80 g 2 12/28/2022 10:06 AM EDT 3 Suspended Rivaroxaban 20 MG Oral Tablet (Xarelto)Indic ations:Pulmona ry embolism and infarction (HCC) Take 1 Tablet by mouth daily with dinner. 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 Minimum 6mo anticoag, heme rec lifelong ICD-10 update of inactive term History of DVT (deep vein thrombosis) 12/06/2014 Overview (04/11/2015): 12/03/14 new dx with PE--rec lifelong therapy History of pulmonary embolism 12/06/2014 Overview (01/21/2017): 01/25 nonocclusive DVT [facility] doppler while on xarelto 12/03/14 [facility] w/DVT leg. Minimum 6mo [...] (02/01/2014): 12/[address] Matthew [id number] Toxic effect of venom 07/26/20082013 Overview (12/13/2015): [...] mRNA, LNP-s, No Pre serve, 2-Dose Series ([employer]) 11/08/2020,05/31/2020,05/10/2020 COVID-19, LNP-s, No Preserve , Jose E-sucrose, Ages 12+ (Pfizer) 05/16/2021 COVID-19, MRNA-LNP, PF, 30 M CG/0.3 mL, 12 YRS AND ABOVE, IM ([employer]) 01/13/2024,01/21/2023 Covid-19, Mrna, Lnp-s, Pf, B ivalent, 30 Mcg, IM, 12 yrs and above ([employer]) 12/26/2021 Pneumococcal Conjugate Vacc, 13 Valent (Prevnar) [...] Colby Franco RN documented in this encounter Progress Notes [...] Office Visit Hematology/Oncology [facility] [address] [place] [address] Hemanth Monk MD [address] [place] [address] 06/02/2024 11:30 AM EDT Office Visit Cardiology [address] [place] [address] Alessandro Dozier PA-C [address] [place] [address] 08/19/2024 9:00 AM EDT Office Visit [facility] [address] [place] [address] Eliud Orta MD [address] [facility] [place] [address] 08/20/2024 11:00 AM EDT Imaging Radiology [address] [place] [address] 08/27/2024 11:00 AM EDT Telemedicine Radiation Oncology, [address] [place] [address] Rubi Mart MD [address] [place] [address] [place] [address] 02/19/2025 11:40 AM EST Office Visit [facility] [address] [place] [address] Eliud Orta MD [address] [facility] [place] [address] Scheduled Orders Name Type Priority Associated Diagnoses Orde r Schedule CA 19-9 Lab Routine Epigastric pain Expected: 04/20/2024, Expires: Health Maintenance Due Date Last Done Comments Alpha-1 Antitrypsin 1963 Adult Wellness Visit 04/27/2017 04/27/2016 Albumin/Creatinine Ratio 12/28/2023 023, 01/16/2022, 05/10/2021, Additional history exists Depression Screening 12/28/2023 12/27/2022, 09/04/2016 (Declined) CKD PHOS USE SMARTSET 82850 01/19/202401/09, 07/18/2022, 01/16/2022, Additional history exists GFR 10/18/2024 04/20/2024, 12/09, 09/16/2023, Additional history exists O2 ASSESSMENT COMPLETED IN PAST YEAR FOR COPD 04/15/2025 04/15/2024 CKD HGB USE SMARTSET 61505 04/20/202504/20, 04/20/2024, 12/20/2023, Additional history exists DTap/Tdap [...] this encounter Medical Devices Implanted Type Area Director Of Publications Device Identifier Shelf Expiration Date Model / Serial / Lot Phasix Mesh [id number] Implanted:Qty: 1 on 10/20/2012 at [place] [facility] [place] N/A: Abdomen CR BARD : DAVOL 02/07/2014 [id number] / / [id number] Description:Trial item Vitamesh Squ Blue 30cm X 30cm - [id number] Implanted:Qty: 1 on 05/29/2013 at OR [facility] [place] N/A: Abdomen [employer] 12/08/2014 [id number] / / [id number] documented as of this encounter Procedures Procedure [...] Final Resul t LABORATORY [facility] [address] [place] [address] * (ABNORMAL) DIFFERENTIAL, AUTOMATED (04/20/2024 [...] ORDERABLES Final Resul t LAB[facility] [address] [place] [address] * (ABNORMAL) CBC (04/20/2024 11:11 [...] 34.0 pg 04/20/2024 12:08 PM EST LABORATORY [facility] [place] MCHC 33.2 32.0 - 36.0 g/dL 04/20/2024 12:08 PM EST LABORATORY [facility] [place] RDW 13.0 11.5 - 15.5 % 04/20/2024 12:08 PM EST LAB[facility]ATORY [facility] [place] PLT 115(L) 140 - 400 K/uL 04/20/2024 12:08 PM EST LAB[facility]ATORY [facility] [place] MPV 11.1 6.6 - 11.1 fL 04/20/2024 12:08 PM EST LABORATORY [facility] [place] nRBCs 0 <=0 /100 WBCs 04/20/2024 12:08 PM EST LAB[facility]ATORY [facility] [place] Blood Venous blood specimen / Unknown Venipuncture / Unknown 04/20/2024 11:11 AM EST 04/20/2024 11:33 AM EST Rubi Mart MD LAB BLOOD ORDERABLES Final Resul t Performing Organization Address City/[facility]/ZIP Co de Phone Number LABORATORY [place] [address] [place] [address] * (ABNORMAL) LIPASE (04/20/2024 11:11 AM EST) Lipase 569(H) 13 - 60 U/L 04/20/2024 12:27 PM EST LAB[facility]ATORY [facility] [place] Blood Venous blood specimen / Unknown Venipuncture / Unknown 04/20/2024 11:11 AM EST 04/20/2024 11:33 AM EST Rubi Mart MD LAB BLOOD ORDERABLES Final Resul t LABORATORY [facility] [place] [address] [place] [address] * LACTATE (04/20/2024 11:11 AM EST) Lactate 1.2 0.4 - 2.0 mmol/L 04/20/2024 12:18 PM EST LABORATORY [facility] [place] Blood Venous blood specimen / Unknown Venipuncture / Unknown 04/20/2024 11:11 AM EST 04/20/2024 11:33 AM EST us Rubi Mart MD LAB BLOOD ORDERABLES Final Resul t LABORATORY [facility] [address] [place] [address] * (ABNORMAL) COMPREHENSIVE METABOLIC PANEL [...] Final Resul t LAB[facility] [address] [facility] [place] [address] documented in this encounter Visit Diagnoses Diagnosis [...] Power of Attor sarah? No Care Teams Wall Covering Contractor Relationship Specialty Start Date End Date Eliud Orta MD [address] [place] [id number] PCP - General Family Medicine 03/09/14 documented as of this encounter"
--- OUTSIDE RECORDS SUMMARY | 2024-04-25 07:10 | External Medical Summary | Summary of Care ---
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) [C34.90, C79.31] Procedures EGD, W/ENDOSCOPIC US ESOPHAGOGASTRODUODENOSCOPY (EGD), FLEXIBLE, TRANSORAL, ENDOSCOPIC ULTRASOUND Ofelia Somers, [address] [place] [address] Phone: tel: fax: ENDO [facility], Endoscopy Room [facility] [address] [place] [address] Phone: tel: Referral ID Status Reason Start Date Expiration Date Visits Re quested Visits Authorized [id number] Encounter Details Date Type Department Care Team (Latest Contact Info) Description 04/15/2024 8:17 AM EST - 04/15/2024 11:02 AM EST Hospital Encounter [facility], Endoscopy Room [facility] [address] [place] [id number] Ofelia Somers, DO [address] [place] [address] Various: UEUS,UGI Discharge Disposition: Home - Self Care Allergies Active Allergy Reactions Criticality Noted Date Comments Bee Stings Hives Medium 07/26/2008 Gentamicin Sulfate 06/05/2001 pt was on gentamycin,unasyn,quusdt-spwwg-tv t sure which med documented as of this encounter (statuses as of 04/16/2024) Medications CENTRUM SILVER OR TABS 1 TABLET [...] 2:56 PM EST 5 03/30/19 26 Active documented as of this encounter (statuses as of 04/16/2024) Active Problems Problem Noted Date Diagnosed Date History of lung cancer 02/28/2024 Overview (02/28/2024): [...] dysfunction 03/19/2017 Alcohol dependence in remission 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 Minimum 6mo anticoag, heme rec lifelong ICD-10 update of inactive term History of DVT (deep vein thrombosis) 12/06/2014 Overview (04/11/2015): 12/03/14 new dx with PE--rec lifelong therapy History of pulmonary embolism 12/06/2014 Overview (01/21/2017): 01/25 nonocclusive DVT [facility] doppler while on xarelto 12/03/14 [facility] w/DVT leg. Minimum 6mo anticoag-Heme rec lifelong. [...] as of this encounter (statuses as of 04/16/2024) Resolved Problems Problem Noted Date Diagnosed Date [...] (02/01/2014): 12/[address] Matthew [id number] Toxic effect of venom 07/26/20082013 Overview (12/13/2015): [...] as of this encounter (statuses as of 04/16/2024) Immunizations Name Administration Dates Next Due COVID-19 mRNA, LNP-s, No Pre serve, 2-Dose Series (baseclick) 11/08/2020,05/31/2020,05/10/2020 COVID-19, LNP-s, No Preserve , Jose E-sucrose, Ages 12+ (Pfizer) 05/16/2021 COVID-19, MRNA-LNP, PF, 30 M CG/0.3 mL, 12 YRS AND ABOVE, IM (Scrybe-Comirnat) 01/13/2024,01/21/2023 Covid-19, Mrna, Lnp-s, Pf, B ivalent, 30 Mcg, IM, 12 yrs and above (baseclick) 12/26/2021 Pneumococcal Conjugate Vacc, 13 Valent (Prevnar) [...] Sign Reading Time Taken Comments Blood Pressure 119/62 04/15/2024 10:45 AM EST Pulse 64 04/15/2024 10:45 AM EST Temperature 36.3 C (97.3 F) 04/15/2024 10:[address] Respiratory Rate 18 04/15/2024 10:45 AM EST Oxygen Saturation 100% 04/15/2024 10:45 AM EST Inhaled Oxygen Concentration - - Weight 77.1 kg (170 lb) 04/15/2024 8:23 AM EST Height 170.2 cm (5' 7.01") 04/15/2024 8:23 AM ES T Body Mass Index 26.62 04/15/2024 8:23 AM EST documented in this [...] Colby Marcelino RN documented in this encounter H&P Notes * Ofelia Smoers, - 04/15/2024 8:56 AM EST Endoscopy Pre-Procedure Assessment Name: Jason Alexander Date: 04/15/2024 Time: 8:56 AM Procedure(s): Upper GI Endoscopy; with Indication(s) of evaluation of abnormal radiologic study Endoscopic Ultrasound; with Indication(s) of staging of tumors of the GI tract, pancreas, bile ducts and mediastinum and evaluation of abnormalities on radiologic study Endoscopy Pre-Procedure Assessment: Prior to the procedure, the patient is identified. The patient's history, medications and allergieshave been reviewed. The patient is competent. The risks and benefits of the proposed procedure and the planned sedation have been discussed with the patient. All questions have been answered and informed consent for the procedure has been obtained. Prior to Admission medications Medication Sig Last Dose Discont. Atenolol 25 MG Oral Tablet (Tenormin) Take 1 and 1/2 Tablets by mouth in the morning and before bedtime. 04/15/2024 Morning Finasteride 5 MG Oral Tablet (Proscar) TAKE ONE TABLET BY MOUTH EVERY DAY IN THE MORNING 04/14/2024 Alfuzosin HCl ER 10 MG Oral Tablet Extended Release 24 Hour (Uroxatral) Take 1 Tablet by mouth in the morning. Patient taking differently: Take 1 Tablet by mouth at bedtime. 04/14/2024 Rivaroxaban 20 MG Oral Tablet (Xarelto) Take 1 Tablet by mouth daily with dinner. 04/13/2024 Morning Triamcinolone Acetonide 0.1 % External Cream (Aristocort) Apply to affected area(s) twice daily as directed 04/12/2024 Acetaminophen 500 MG Oral Tablet Take 1 Tablet by mouth every 8 hours as needed for Pain. Past Week Cetirizine HCl 10 MG Oral Tablet Take 1 Tablet by mouth. 04/15/2024 Morning PRILOSEC 20 MG PO CPDR daily 04/15/2024 Morning CENTRUM SILVER OR TABS 1 TABLET DAILY 04/14/2024 Review of patient's allergies indicates: Allergen Reactions Bee Stings Hives Gentamicin Sulfate pt was on gentamycin,unasyn,lllyio-vokzs-ilk sure which med BP 114/61 | Pulse 67 | Temp 36.3 C (97.4 F) (Tympanic) | Resp 15 | Ht 1.702 m (5' 7.01") | Wt 77.1 kg (170 lb) | SpO2 100% | BMI 26.62 kg/m | BSA 1.91 m Physical Exam: Mental Status Examination: alert and oriented. Airway Examination: normal oropharyngeal airway and neck mobility. Respiratory Examination: poor air movement. CV Examination: regular rate and rhythm. ASA Grade: III - A patient with severe systemic disease. Abdomen: nontender MRI 03/27/24 A 1.9 cm pancreatic mass in the uncinate process without pancreatic or biliary ductal dilatation. Findings may represent a metastatic lesion or less likely pancreatic adenocarcinoma. EUS/FNA is recommended for definite diagnosis. Latest Reference Range & Units 12/20/23 11:14 SODIUM 135 - 146 mmol/L 141 POTASSIUM 3.5 - 5.1 mmol/L 4.0 CHLORIDE 98 - 107 mmol/L 107 CO2 22 - 32 mmol/L 21 (L) BUN 6 - 20 mg/dL 18 CREATININE 0.6 - 1.2 mg/dL 1.4 (H) EGFR >=60 mL/min 49 (L) ANION GAP 7 - 15 mmol/L 13 GLUCOSE 70 - 120 mg/dL 140 (H) CALCIUM 8.4 - 10.2 mg/dL 9.3 Protein 6.0 - 8.3 g/dL 6.6 CBC Rpt ! WBC 4.00 - 10.80 K/uL 4.19 RBC 4.50 - 5.25 M/uL 4.39 HGB 14.0 - 16.8 g/dL 13.2 (L) HCT 40.0 - 48.4 % 39.7 (L) MCV 82.0 - 99.5 fL 90.4 MCH 27.0 - 34.0 pg 30.1 MCHC 32.0 - 36.0 g/dL 33.2 RDW 11.5 - 15.5 % 13.5 PLT 140 - 400 K/uL 101 (L) MPV 6.6 - 11.1 fL 10.5 CBC WITH WBC DIFFERENTIAL Rpt ! Absolute Neutrophils 1.80 - 7.70 K/uL 3.24 Absolute Lymphocytes 1.00 - 4.80 K/ul 0.68 (L) Absolute Monocytes 0.00 - 1.10 K/uL 0.25 Absolute Eosinophils 0.00 - 0.70 K/uL 0.01 Absolute Basophils 0.00 - 0.20 K/uL 0.01 Albumin 3.8 - 5.0 g/dL 4.1 AST 10 - 50 U/L 30 ALT 10 - 50 U/L 24 Alkaline Phosphatase 35 - 130 U/L 51 Bilirubin, Total <=1.2 mg/dL 0.5 (L): Data is abnormally low (H): Data is abnormally high !: Data is abnormal Rpt: View report in Results Review for more information This patient has undergone a preprocedural evaluation. A determination has been made to proceed with the planned procedure under [facility] procedural guidelines and the [facility] Non-Emergent, Elective Medical Services and Treatment Recommendations (published on 06-16-19). The community and hospital prevalence of COVID-19 has been discussed as well as this patient's specific risks associated with SARS-CoV-19 infection. Based upon the clinical acuity and patient-specific care considerations, this procedure is deemed a Tier II - Intermediate acuity treatment or service with either progression or the threat of progressive disease related to the delay in treatment. Not providing the service has the potential for increasing morbidity or mortality. After reviewing the risks and benefits, the patient is deemed in satisfactory condition to undergo the procedure. The anesthesia plan is to use general anesthesia. We have discussed the risks and benefits of upper endoscopy to include bleeding, infection, perforation, discomfort, aspiration and need for follow-up studies. I have discussed the risks and benefits of EUS to include (not limited to) bleeding, infection, perforation, pain, aspiration, cardiac complications, pancreatitis and insufficient cellularity. Ofelia Somers DO 04/15/2024 documented in this encounter Procedure Notes * Hemanth Monk MD - 04/15/2024 9:08 AM ESTAssociated Order(s): UPPER ENDOSCOPIC U/S [facility] Patient Name: Jason Alexander Procedure Date: 04/15/2024 9:08 AM Date of : 1945 Admit Type: Outpatient Note Status: Finalized Date of : 1945 Admit Type: Outpatient Age: 78 Room: Advanced Endo Gender: Male Note Status: Finalized Procedure: Upper EUS Indications: Suspected mass in pancreas on MRI Providers: Ofelia Somers DO (Doctor) Referring MD: Hemanth Monk MD (Referring MD), Eliud Orta MD (Referring MD) Medicines: General Anesthesia Complications: No immediate complications. Estimated blood loss: Minimal. Procedure: Pre-Anesthesia Assessment: - Prior to the procedure, a History and Physical was performed, and patient medications, allergies and sensitivities were reviewed. The patient's tolerance of previous anesthesia was reviewed. - The risks and benefits of the procedure and the sedation options and risks were discussed with the patient. All questions were answered and informed consent was obtained. - Patient identification and proposed procedure were verified prior to the procedure by the physician, the nurse and the mechanical assembly technician. The procedure was verified in the procedure room. - Pre-procedure physical examination revealed no contraindications to sedation. - ASA Grade Assessment: III - A patient with severe systemic disease. - The anesthesia plan was to use general anesthesia. - Immediately prior to administration of medications, the patient was re- assessed for adequacy to receive sedatives. - The heart rate, respiratory rate, oxygen saturations, blood pressure, adequacy of pulmonary ventilation, and response to care were monitored throughout the procedure. - The physical status of the patient was re-assessed after the procedure. After obtaining informed consent, the endoscope was passed under direct vision. All instruments were visually inspected immediately before and after removal from the patient to ensure they are fully intact. Throughout the procedure, the patient's blood pressure, pulse, and oxygen saturations were monitored continuously. The Endoscope was introduced through the mouth, and advanced to the third part of duodenum. The upper EUS was accomplished without difficulty. The patient tolerated the procedure well. Findings & Specimens: ENDOSONOGRAPHIC FINDING: : There was no sign of significant endosonographic abnormality in the ampulla. No pathologic lymphadenopathy and no masses were identified. There was no sign of significant endosonographic abnormality in the common bile duct. The maximum diameter of the duct was 6 mm. No masses, no stones, no biliary sludge and ducts of normal caliber were identified. A cyst was found in the right lobe of the liver and measured 12 mm by 10 mm in maximal cross-sectional diameter. The cyst was hypoechoic. It was without septae. The outer wall of the lesion was not seen. No lymphadenopathy seen. There was no sign of significant endosonographic abnormality in the left adrenal gland. No adrenal gland enlargement was identified. An irregular mass was identified in the uncinate process of the pancreas. The mass was hypoechoic. The mass measured 21 mm by 20 mm in maximal cross-sectional diameter. The endosonographic borders were poorly-defined. An intact interface was seen between the mass and the superior mesenteric artery, celiac trunk, hepatic artery, gastroduodenal artery, portal vein, superior mesenteric vein, splenic vein and splenoportal confluence suggesting a lack of invasion. The remainder of the pancreas was examined. The endosonographic appearance of parenchyma and the upstream pancreatic duct indicated duct dilation and a maximum duct diameter of 3 mm. Fine needle biopsy was performed. Color Doppler imaging was utilized prior to needle puncture to confirm a lack of significant vascular structures within the needle path. Four passes were made with the 25 gauge ultrasound core biopsy needle using a transduodenal approach ([employer] Acquire needle). A preliminary cytologic examination was performed. Final cytology results are pending. Estimated blood loss was minimal. Impression: - There was no sign of significant pathology in the ampulla. - There was no sign of significant pathology in the common bile duct. - A cyst was found in the right lobe of the liver and measured 12 mm by 10 mm. - Endosonographic images of the left adrenal gland were unremarkable. - A 21 m mass was identified in the uncinate process of the pancreas. This was staged T2 N0 M0 by endosonographic criteria. The staging applies if malignancy is confirmed. Fine needle biopsy performed. Recommendation: - The patient will be observed post-procedure, until all discharge criteria are met. - Advance diet as tolerated today. - Await cytology results. Ofelia Somers DO 04/15/2024 9:59:14 AM This report has been signed electronically. * Hemanth Monk MD - 04/15/2024 9:03 AM ESTAssociated Order(s): UPPER GI ENDOSCOPY [facility] Patient Name: Jason Alexander Procedure Date: 04/15/2024 9:03 AM Date of : 1945 Admit Type: Outpatient Note Status: Finalized Date of : 1945 Admit Type: Outpatient Age: 78 Room: Advanced Endo Gender: Male Note Status: Finalized Procedure: Upper GI endoscopy Indications: Abnormal MRI of the GI tract Providers: Ofelia Somers DO (Doctor) Referring MD: Hemanth Monk MD (Referring MD), Eliud Orta MD (Referring MD) Medicines: General Anesthesia Complications: No immediate complications. Estimated blood loss: Minimal. Procedure: Pre-Anesthesia Assessment: - Prior to the procedure, a History and Physical was performed, and patient medications, allergies and sensitivities were reviewed. The patient's tolerance of previous anesthesia was reviewed. - The risks and benefits of the procedure and the sedation options and risks were discussed with the patient. All questions were answered and informed consent was obtained. - Patient identification and proposed procedure were verified prior to the procedure by the physician, the nurse and the mechanical assembly technician. The procedure was verified in the procedure room. - Pre-procedure physical examination revealed no contraindications to sedation. - ASA Grade Assessment: III - A patient with severe systemic disease. - After reviewing the risks and benefits, the patient was deemed in satisfactory condition to undergo the procedure. - The anesthesia plan was to use general anesthesia. - Immediately prior to administration of medications, the patient was re- assessed for adequacy to receive sedatives. - The heart rate, respiratory rate, oxygen saturations, blood pressure, adequacy of pulmonary ventilation, and response to care were monitored throughout the procedure. - The physical status of the patient was re-assessed after the procedure. After obtaining informed consent, the endoscope was passed under direct vision. All instruments were visually inspected immediately before and after removal from the patient to ensure they are fully intact. Throughout the procedure, the patient's blood pressure, pulse, and oxygen saturations were monitored continuously. The [id number] Endoscope ([id number]) was introduced through the mouth, and advanced to the third part of duodenum. The upper GI endoscopy was accomplished without difficulty. The patient tolerated the procedure well. Findings & Specimens: The examined esophagus was normal. The Z-line was regular and was found 41 cm from the incisors. Diffuse moderate inflammation characterized by nodularity, congestion (edema), erythema and granularity was found in the entire examined stomach. Biopsies were taken with a cold forceps for histology. The pathology specimen was placed into Bottle Number 1. Estimated blood loss was minimal. The examined duodenum was normal. Impression: - Normal esophagus. - Z-line regular, 41 cm from the incisors. - Diffuse nodular appearing gastritis. Biopsied. - Normal examined duodenum. Recommendation: - Perform an upper endoscopic ultrasound (UEUS) today. - Await pathology results. Ofelia Somers DO 04/15/2024 10:01:27 AM This report has been signed electronically. documented in this encounter Nursing Notes * Derek Reeves RN - 04/15/2024 10:46 AM EST Patient is alert, pain free, passing flatus and tolerating po fluids prior to discharge. Patient has been visited by Dr. Ofelia Somers. Patient has received and demonstrates understanding of discharge instructions. Patient ambulated to private auto accompanied by endo staff. * Derek Reeves RN - 04/15/2024 9:54 AM EST Patient transferred to post endo s/p EGD/EUS. Patient awake, alert and oriented X4 Respirations are even and unlabored on room air. NSR in the 60's on the monitor. Abdomen soft and non distended. Vital signs stable. * Eliud Saez RN - 04/15/2024 9:37 AM EST See anesthesia record for medication administered during procedure. Eliud Saez RN Specimen(s) and location(s) verified with physician post procedure 9:37 AM Eliud Saez RN Pre cleaning of scope at the bedside started by electronics engineering technician. FNA performed on pancreatic mass by Dr Somesr using a [employer] 25 gauge acquire needle. Four passes made, four sets of slides and RPMI obtained per order. traffic control technician present. Pt tolerated well. * Ene Ortiz RN - 04/15/2024 8:33 AM EST The following pt discharge instructions reviewed with pt prior to prodedure: No driving today. No alcohol today. No signing of legal documents. Rest as much as possible today and can return to normal activities tomorrow. No operating any heavy equipment today. Diet as tolerated. Pt verbalized understanding. documented in this encounter Plan of Treatment Upcoming Encounters Date Type Department Care Team (Late st Contact Info) Description 04/20/2024 11:00 AM EST Office Visit Radiation Oncology[address] [address] Rubi Mart MD [address] [place] [address] [place] [id number] 04/29/2024 10:15 AM EST Office Visit Hematology/Oncology [facility] [address] [place] [id number] Hemanth Monk MD [address] [place] [address] 06/02/2024 11:30 AM EDT Office Visit Cardiology [address] [place] [address] Alessandro Dozier PA-C [address] [place] [address] 08/19/2024 9:00 AM EDT Office Visit [facility] [address] [place] [address] Eliud Orta MD [address] [place] [address] 08/20/2024 11:00 AM EDT Imaging Radiology [address] [place] [address] 08/27/2024 11:00 AM EDT Telemedicine Radiation Oncology, [address] [place] [address] Rubi Mart MD [address] [place] [address] [place] [phone] 02/19/2025 11:40 AM EST Office Visit 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) 04/15/2024 9:39 AM EST Scheduled Orders Name Type Priority Associated Diagnoses Orde r Schedule CYTOLOGY Pathology Routine One Time for 1 Occurrences starting 04/15/2024 until 04/15/2024, 1 completed SURGICAL PATHOLOGY Pathology Routine Pancreatic mass 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) Release Upon Ordering for 1 Occurrences starting 04/15/2024, 1 completed Health Maintenance Due Date Last Done Comments Alpha-1 Antitrypsin 1962 Adult Wellness Visit 04/27/2017 04/27/2016 Albumin/Creatinine Ratio 12/28/2023 023, 01/16/2022, 05/10/2021, Additional history exists Depression Screening 12/28/2023 12/27/2022, 09/04/2016 (Declined) CKD PHOS USE SMARTSET 72275 01/19/202401/09, 07/18/2022, 01/16/2022, Additional history exists GFR 06/19/2024 12/20/2023, 10/2023, 05/08/2023, Additional history exists CKD HGB USE SMARTSET 70654 12/19/202412/19, 12/20/2023, 09/16/2023, Additional history exists O2 ASSESSMENT COMPLETED IN PAST YEAR FOR COPD 04/15/2025 04/15/2024 DTap/Tdap Vaccines (3 - Td or Tdap) [...] this encounter Medical Devices Implanted Type Area Customer Experience Strategist Device Identifier Shelf Expiration Date Model / Serial / Lot Phasix Mesh [id number] Implanted:Qty: 1 on 10/20/2012 at [place] [facility] [place]: Abdomen CR BARD : DAVOL 02/07/2014 [id number] / / [id number] Description:Trial item Vitamesh Squ Blue 30cm X 30cm - [id number] Implanted:Qty: 1 on 05/29/2013 at [place] [facility] [place]A: Abdomen [employer] 12/08/2014 [id number] / / [id number] documented as of this encounter Procedures Procedure Name Priority Date/Time Associated Diagnosis Comments UPPER ENDOSCOPIC U/S 04/15/2024 9:08 AM EST UPPER GI ENDOSCOPY 04/15/2024 9: 03 AM EST documented in this encounter Results * UPPER ENDOSCOPIC U/S (04/15/2024 9:08 AM EST) 04/15/2024 9:08 AM EST Narrative Procedure Note Hemanth Monk MD - 04/15/2024 9:08 AM EST [facility] Patient Name: Jason Alexander Procedure Date: 04/15/2024 9:08 AM Date of : 1945 Admit Type: Outpatient Note Status:Finalized Date of : 1945 Admit Type: Outpatient Age: 78 Room: Advanced Endo Gender: Male Note Status: Finalized Procedure: Upper EUS Indications: Suspected mass in pancreas on MRI Providers: Ofelia Somers DO (Doctor) Referring MD: Hemanth Monk MD (Referring MD), MD Josie (Referring MD) Medicines: General Anesthesia Complications: No immediate complications. Estimated blood loss:Minimal. Procedure: Pre-Anesthesia Assessment: - Prior to the procedure, a History and Physicalwas performed, and patient medications, allergies and sensitivities werereviewed. The patient's tolerance of previous anesthesia was reviewed. - The risks and benefits of the procedure and thesedation options and risks were discussed with the patient. All questions wereanswered and informed consent was obtained. - Patient identification and proposed procedurewere verified prior to the procedure by the physician, the nurse and the mechanical assembly technician.The procedure was verified in the procedure room. - Pre-procedure physical examination revealed nocontraindications to sedation. - ASA Grade Assessment: III - A patient with severesystemic disease. - The anesthesia plan was to use generalanesthesia. - Immediately prior to administration ofmedications, the patient was re-assessed for adequacy to receive sedatives. - The heart rate, respiratory rate, oxygensaturations, blood pressure, adequacy of pulmonary ventilation, and response to care weremonitored throughout the procedure. - The physical status of the patient wasre-assessed after the procedure. After obtaining informed consent, the endoscope waspassed under direct vision. All instruments were visually inspected immediatelybefore and after removal from the patient to ensure they are fully intact. Throughout the procedure, the patient's bloodpressure, pulse, and oxygen saturations were monitored continuously. The Endoscope wasintroduced through the mouth, and advanced to the third part of duodenum. The upperEUS was accomplished without difficulty. The patient tolerated the procedurewell. Findings & Specimens: ENDOSONOGRAPHIC FINDING: : There was no sign of significant endosonographic abnormality in theampulla. No pathologic lymphadenopathy and no masses were identified. There was no sign of significant endosonographic abnormality in thecommon bile duct. The maximum diameter of the duct was 6 mm. No masses, no stones, no biliarysludge and ducts of normal caliber were identified. A cyst was found in the right lobe of the liver and measured 12 mm by10 mm in maximal cross-sectional diameter. The cyst was hypoechoic. It was without septae. The outerwall of the lesion was not seen. No lymphadenopathy seen. There was no sign of significant endosonographic abnormality in theleft adrenal gland. No adrenal gland enlargement was identified. An irregular mass was identified in the uncinate process of thepancreas. The mass was hypoechoic. The mass measured 21 mm by 20 mm in maximal cross-sectional diameter. Theendosonographic borders were poorly-defined. An intact interface was seen between the mass and thesuperior mesenteric artery, celiac trunk, hepatic artery, gastroduodenal artery, portal vein,superior mesenteric vein, splenic vein and splenoportal confluence suggesting a lack of invasion. Theremainder of the pancreas was examined. The endosonographic appearance of parenchyma and theupstream pancreatic duct indicated duct dilation and a maximum duct diameter of 3 mm. Fine needle biopsy wasperformed. Color Doppler imaging was utilized prior to needle puncture to confirm a lack ofsignificant vascular structures within the needle path. Four passes were made with the 25 gauge ultrasound corebiopsy needle using a transduodenal approach ([employer] Ac[employer] needle). Apreliminary cytologic examination was performed. Final cytology results are pending. Estimated blood losswas minimal. Impression: - There was no sign of significant pathology in theampulla. - There was no sign of significant pathology in thecommon bile duct. - A cyst was found in the right lobe of the liverand measured 12 mm by 10 mm. - Endosonographic images of the left adrenal glandwere unremarkable. - A 21 m mass was identified in the uncinateprocess of the pancreas. This was staged T2 N0 M0 by endosonographic criteria. The stagingapplies if malignancy is confirmed. Fine needle biopsy performed. Recommendation: - The patient will be observed post-procedure,until all discharge criteria are met. - Advance diet as tolerated today. - Await cytology results. Ofelia Somers DO 04/15/2024 9:59:14 AM This report has been signed electronically. us Hemanth Monk MD GASTRO UPPER Final Re sult * UPPER GI ENDOSCOPY (04/15/2024 9:03 AM EST) 04/15/2024 9:03 AM EST Narrative Procedure Note Hemanth Monk MD - 04/15/2024 9:03 AM EST [facility] Patient Name: Jason Alexander Procedure Date: 04/15/2024 9:03 AM Date of : 1945 Admit Type: Outpatient Note Status:Finalized Date of : 1945 Admit Type: Outpatient Age: 78 Room: Advanced [facility] Gender: Male Note Status: Finalized Procedure: Upper GI endoscopy Indications: Abnormal MRI of the GI tract Providers: Ofelia Somers DO (Doctor) Referring MD: Hemanth Monk MD (Referring MD), MD Josie (Referring MD) Medicines: General Anesthesia Complications: No immediate complications. Estimated blood loss:Minimal. Procedure: Pre-Anesthesia Assessment: - Prior to the procedure, a History and Physicalwas performed, and patient medications, allergies and sensitivities werereviewed. The patient's tolerance of previous anesthesia was reviewed. - The risks and benefits of the procedure and thesedation options and risks were discussed with the patient. All questions wereanswered and informed consent was obtained. - Patient identification and proposed procedurewere verified prior to the procedure by the physician, the nurse and the mechanical assembly technician.The procedure was verified in the procedure room. - Pre-procedure physical examination revealed nocontraindications to sedation. - ASA Grade Assessment: III - A patient with severesystemic disease. - After reviewing the risks and benefits, thepatient was deemed in satisfactory condition to undergo the procedure. - The anesthesia plan was to use generalanesthesia. - Immediately prior to administration ofmedications, the patient was re-assessed for adequacy to receive sedatives. - The heart rate, respiratory rate, oxygensaturations, blood pressure, adequacy of pulmonary ventilation, and response to care weremonitored throughout the procedure. - The physical status of the patient wasre-assessed after the procedure. After obtaining informed consent, the endoscope waspassed under direct vision. All instruments were visually inspected immediatelybefore and after removal from the patient to ensure they are fully intact. Throughout the procedure, the patient's bloodpressure, pulse, and oxygen saturations were monitored continuously. The [id number] ([id number]) was introduced through the mouth, and advanced to the third part ofduodenum. The upper GI endoscopy was accomplished without difficulty. The patienttolerated the procedure well. Findings & Specimens: The examined esophagus was normal. The Z-line was regular and was found 41 cm from the incisors. Diffuse moderate inflammation characterized by nodularity, congestion(edema), erythema and granularity was found in the entire examined stomach. Biopsies were taken with acold forceps for histology. The pathology specimen was placed into Bottle Number 1. Estimated bloodloss was minimal. The examined duodenum was normal. Impression: - Normal esophagus. - Z-line regular, 41 cm from the incisors. - Diffuse nodular appearing gastritis. Biopsied. - Normal examined duodenum. Recommendation: - Perform an upper endoscopic ultrasound (UEUS)today. - Await pathology results. Ofelia Somers DO 04/15/2024 10:01:27 AM This report has been signed electronically. 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 Continuous Medication Order 04/13/2024 04/14/2024 04/15/2024 Isolyte-S pH 7.4 infusion Intravenous, at 100 mL/hr, Plasma-LYTE 148, isolyte-S, and isolyte-S pH 7.4 are considered equivalent - including for MAR barcode scanning., CONTINUOUS, Starting on Sat04/15/24 at 0900, Until 04/15/24 at 1502, Pre-Op 0900 (Due)0936 (Anes Intra-Op Fluid - Provider: Gucci Rdedy CRNA) documented in this encounter Advance Directives * Full Code (Latest Code Status on File) Date Activated Date Inactivated Comments 08/01/2018 7:11 [...] Full Code Date Activated Date Inactivated Comments 10/21/2012 12:45 AM 10/26/2012 3:57 PM This order reflects the patients wishes and were consensually agreed upon. Question Answer Comments Discussion of Advance Direct ellen occurred with: Not Discussed Does the patient have a Living Will? No Does the patient have Health Care Power of Glass Forming Engineer? Yes, in chart and reviewed as current Care Teams Vice Chancellor Relationship Specialty Start Date End Date Eliud Orta MD [address] [place] [address] PCP - General Family Medicine 03/09/14 documented as of this encounter
--- OUTSIDE RECORDS SUMMARY | 2024-04-25 07:10 | External Medical Summary | Summary of Care ---
Author Name Unknown Organization [facility] Address [address] [place] [address] Phone [phone] Care Team Providers Care Marine Resource Economist Name Role Phone Eliud Orta MD Primary Care Provider + Reason for Visit * Reason Comments Follow Up Encounter Details Date Type Department Care Team (Late st Contact Info) Description 04/20/2024 11:00 AM EST Office Visit Radiation Oncology, [place] [address] [place], [place] [id number] Rubi Mart MD [address] [place] [address] [place] [id number] Epigastric pain* Allergies Active Allergy Reactions Criticality Noted Date Comments Bee Stings Hives Medium 07/26/2008 Gentamicin Sulfate 06/05/2001 pt was on gentamycin,unasyn,qineec-bwfaw-cz t sure which med documented as of [...] 03/19/2017 Alcohol dependence in remission 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 Minimum 6mo anticoag, heme rec lifelong ICD-10 update of inactive term History of DVT (deep vein thrombosis) 12/06/2014 Overview (04/11/2015): 12/03/14 new dx with PE--rec lifelong therapy History of pulmonary embolism 12/06/2014 Overview (01/21/2017): 01/25 nonocclusive DVT [facility] doppler while on xarelto 12/03/14 [facility] w/DVT leg. Minimum 6mo anticoag-Heme rec [...] (02/01/2014): 12/[address] Matthew [id number] Toxic effect of venom 07/26/20082013 Overview (12/13/2015): [...] mRNA, LNP-s, No Pre serve, 2-Dose Series (instruMagic) 11/08/2020,05/31/2020,05/10/2020 COVID-19, LNP-s, No Preserve , Jose E-sucrose, Ages 12+ (Pfizer) 05/16/2021 COVID-19, MRNA-LNP, PF, 30 M CG/0.3 mL, 12 YRS AND ABOVE, IM (Perminova-Comirnaty) 01/13/2024,01/21/2023 Covid-19, Mrna, Lnp-s, Pf, B ivalent, 30 Mcg, IM, 12 yrs and above (instruMagic) 12/26/2021 Pneumococcal Conjugate Vacc, 13 Valent (Prevnar) [...] Hemanth Monk MD [address] [place] [address] 06/02/2024 11:30 AM EDT Office Visit Cardiology [address] [place] [address] Alessandro Dozier PA-C [address] [place] [address] 08/19/2024 9:00 AM EDT Office Visit [facility] [address] [place] [address] Eliud Orta MD [address] [place] [address] 08/20/2024 11:00 AM EDT Imaging Radiology [address] [place] [address] 08/27/2024 11:00 AM EDT Telemedicine Radiation Oncology, [address] [place] [address] Rubi Mart MD [address] [place] [address] [place] [address] 02/19/2025 11:40 AM EST Office Visit [facility] [address] [place] [address] Eliud Orta MD [address] [place] [address] Scheduled Orders Name Type Priority Associated Diagnoses Orde r Schedule CA 19-9 Lab Routine Epigastric pain Expected: 04/20/2024, Expires: Health Maintenance Due Date Last Done Comments Alpha-1 Antitrypsin 1963 Adult Wellness Visit 04/27/2017 04/27/2016 Albumin/Creatinine Ratio 12/28/2023 023, 01/16/2022, 05/10/2021, Additional history exists Depression Screening 12/28/2023 12/27/2022, 09/04/2016 (Declined) CKD PHOS USE SMARTSET 53432 01/19/202401/09, 07/18/2022, 01/16/2022, Additional history exists GFR 10/18/2024 04/20/2024, 12/09, 09/16/2023, Additional history exists O2 ASSESSMENT COMPLETED IN PAST YEAR FOR COPD 04/15/2025 04/15/2024 CKD HGB USE SMARTSET 00189 04/20/202504/20, 04/20/2024, 12/20/2023, Additional history exists DTap/Tdap [...] this encounter Medical Devices Implanted Type Area District Court Reporter Device Identifier Shelf Expiration Date Model / Serial / Lot Phasix Mesh [id number] Implanted:Qty: 1 on 10/20/2012 [place] [facility] [place]: Abdomen CR BARD : DAVOL 02/07/2014 [id number] / / [id number] Description:Trial item Vitamesh Squ Blue 30cm X 30cm - [id number] Implanted:Qty: 1 on 05/29/2013 at [place] [facility] [place]/A: Abdomen [employer] 12/08/2014 [id number] / / [id number] documented as of this encounter Procedures Procedure [...] ORDERABLES Final Resul t [facility] [address] [place] [address] * (ABNORMAL) DIFFERENTIAL, AUTOMATED (04/20/2024 [...] Final Resul t LABORATORY [facility] [address] [place] [address] * (ABNORMAL) CBC (04/20/2024 11:11 [...] 36.0 g/dL 04/20/2024 12:08 PM EST LAB[facility] [place] RDW 13.0 11.5 - 15.5 % 04/20/2024 12:08 PM EST [facility] [place] PLT 115(L) 140 - 400 K/uL 04/20/2024 12:08 PM EST LAB[facility] [place] MPV 11.1 6.6 - 11.1 fL 04/20/2024 12:08 PM EST [facility] [place] nRBCs 0 <=0 /100 WBCs 04/20/2024 12:08 PM EST LAB[facility] [place] Blood Venous blood specimen / Unknown Venipuncture / Unknown 04/20/2024 11:11 AM EST 04/20/2024 11:33 AM EST Rubi Mart MD LAB BLOOD ORDERABLES Final Resul t Performing Organization Address [facility] Co de Phone Number LABORATORY [place] [address] [place] [address] * (ABNORMAL) LIPASE (04/20/2024 11:11 AM EST) Lipase 569(H) 13 - 60 U/L 04/20/2024 12:27 PM EST LAB[facility] [place] Blood Venous blood specimen / Unknown Venipuncture / Unknown 04/20/2024 11:11 AM EST 04/20/2024 11:33 AM EST us Rubi Mart MD LAB BLOOD ORDERABLES Final Resul t [facility] [place] [address] [place] [address] * LACTATE (04/20/2024 11:11 AM EST) Lactate 1.2 0.4 - 2.0 mmol/L 04/20/2024 12:18 PM EST LAB[facility] [place] Blood Venous blood specimen / Unknown Venipuncture / Unknown 04/20/2024 11:11 AM EST 04/20/2024 11:33 AM EST Rubi Mart MD LAB BLOOD ORDERABLES Final Resul t [facility] [address] [place] [address] * (ABNORMAL) COMPREHENSIVE METABOLIC PANEL [...] Final Resul t [facility]ORY [facility] [address] [facility] [place] [address] documented in this encounter Visit Diagnoses Diagnosis [...] Power of Attor sarah? No Care Teams Marine Resource Economist Relationship Specialty Start Date End Date Eliud Orta MD [address] [facility] [place] [address] PCP - General Family Medicine 03/09/14 documented as of this encounter"
--- OUTSIDE RECORDS SUMMARY | 2024-04-25 07:10 | External Medical Summary ---
Author Name Unknown Address Unknown Organization K01:LABORATORY [facility] [place] - [address] [facility] [address] Laboratory Report Ordering Provider Test Date Status RORY WATKINS 04/20/2024 11:11:00 Final Observation Date Value Abnormality Reference (Units ) Status SYNC LEUKOCYTES IN BLOOD BY AUTOMATED COUNT 04/20/2024 11:11:00 6.42 4.00-10.80 (K/uL) Final Segs 04/20/2024 11:11:00 86.6 Above high normal 40.0-75.0 (%) Final Lymphs % 04/20/2024 11:11:00 6.5 Below low normal 18.0-42.0 (%) Final Monos 04/20/2024 11:11:00 6.1 1.0-11.0 (%) Final Eosinophils 04/20/2024 11:11:00 0.3 0.0-6.0 (%) Final Basos 04/20/2024 11:11:00 0.2 0.0-2.0 (%) Final Immature Granulocyte, Percent 04/20/2024 11:11:00 0.3 0.0-2.0 (%) Final Absolute Segs 04/20/2024 11:11:00 5.56 1.80-7.70 (K/uL) Final Lymphs, absolute 04/20/2024 11:11:00 0.42 Below low normal 1.00-4.80 (K/ul) Final Monos, Abs 04/20/2024 11:11:00 0.39 0.00-1.10 (K/uL) Final Eos, Abs 04/20/2024 11:11:00 0.02 0.00-0.70 (K/uL) Final Basos, Abs 04/20/2024 11:11:00 0.01 0.00-0.20 (K/uL) Final Immature Granulocytes, Number 04/20/2024 11:11:00 0.02 0.00-0.20 (K/uL) Final Performing Location LABORATORY [facility] [place] - [facility] [address] [place], [place] [address]
--- OUTSIDE RECORDS SUMMARY | 2024-04-25 07:10 | External Medical Summary ---
Author Name Unknown Address Unknown Organization K01:LABORATORY [place] [address] [place] [address] Laboratory Report Ordering Provider Test Date Status RORY WATKINS 04/20/2024 11:11:00 Final Observation Date Value Abnormality Reference (Units ) Status WBC, Total 04/20/2024 11:11:00 6.42 4.00-10.80 (K/uL) Final RBC 04/20/2024 11:11:00 4.18 4.50-5.25 (M/uL) Final Hemoglobin 04/20/2024 11:11:00 12.4 Below low normal 14.0-16.8 (g/dL) Final HCT 04/20/2024 11:11:00 37.4 Below low normal 40.0-48.4 (%) Final MCV 04/20/2024 11:11:00 89.5 82.0-99.5 (fL) Final MCH 04/20/2024 11:11:00 29.7 27.0-34.0 (pg) Final MCHC 04/20/2024 11:11:00 33.2 32.0-36.0 (g/dL) Final RDW 04/20/2024 11:11:00 13.0 11.5-15.5 (%) Final Platelets 04/20/2024 11:11:00 115 Below low normal 140-400 (K/uL) Final MPV 04/20/2024 11:11:00 11.1 6.6-11.1 (fL) Final Nucleated erythrocytes/100 leukocytes [Ratio] in Blood by Automated count 04/20/2024 11:11:00 0 <=0 (/100 WBCs) Final Performing Location LABORATORY [facility] [place] - [address] [place] [address]
--- OUTSIDE RECORDS SUMMARY | 2024-04-25 07:10 | External Medical Summary ---
Author Name Unknown Address Unknown Organization K01[place] [place] [address] [place] [address] Laboratory Report Ordering Provider Test Date Status RORY WATKINS 04/20/2024 11:11:00 Final Observation Date Value Abnormality Reference (Units ) Status Lactic Acid 04/20/2024 11:11:00 1.2 0.4-2.0 (mmol/L) Final Performing Location [facility] [place] [address] [place] [address]
--- OUTSIDE RECORDS SUMMARY | 2024-04-25 07:10 | External Medical Summary | Summary of Care ---
Author Name Unknown Organization [facility] [address] [facility] [address] Phone [phone] Care Team Providers Care Technical Communicator Name Role Phone Eliud Orta MD Primary Care Provider + Reason for Visit * Reason Onset Date Comments Advice 04/13/2024 Encounter Details Date Type Department Care Team (Late st Contact Info) Description 04/13/2024 Telephone Family Practice [facility] [address] [place] [address] Eliud Orta MD [address] [place] [address] Advice Allergies Active Allergy Reactions Criticality Noted Date Comments Bee Stings Hives Medium 07/26/2008 Gentamicin Sulfate 06/05/2001 pt was on gentamycin,unasyn,rgrvrc-ayovp-jj t sure which med documented as of this encounter (statuses as of 04/14/2024) Medications CENTRUM SILVER OR TABS 1 TABLET [...] Patient taking differently:10 mg OralHS, Reported on 04/13/2024 Finasteride 5 MG Oral Tablet (Proscar)Indica tions:BPH [...] as of this encounter (statuses as of 04/14/2024) Active Problems Problem Noted Date Diagnosed Date [...] 03/19/2017 Alcohol dependence in remission 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 Minimum 6mo anticoag, heme rec lifelong ICD-10 update of inactive term History of DVT (deep vein thrombosis) 12/06/2014 Overview (04/11/2015): 12/03/14 new dx with PE--rec lifelong therapy History of pulmonary embolism 12/06/2014 Overview (01/21/2017): 01/25 nonocclusive DVT [facility] doppler while on xarelto 12/03/14 [facility] w/DVT leg. Minimum 6mo anticoag-Heme rec lifelong. [...] as of this encounter (statuses as of 04/14/2024) Resolved Problems Problem Noted Date Diagnosed Date [...] (02/01/2014): 12/[address] Matthew BreenDmgxt-bdoak-[id number] Toxic effect of venom 07/26/20082013 Overview (12/13/2015): [...] as of this encounter (statuses as of 04/14/2024) Immunizations Name Administration Dates Next Due COVID-19 mRNA, LNP-s, No Pre serve, 2-Dose Series ([employer]) 11/08/2020,05/31/2020,05/10/2020 COVID-19, LNP-s, No Preserve , Jose E-sucrose, Ages 12+ (Pfizer) 05/16/2021 COVID-19, MRNA-LNP, PF, 30 M CG/0.3 mL, 12 YRS AND ABOVE, IM (Winshuttle-Comirnaty) 01/13/2024,01/21/2023 Covid-19, Mrna, Lnp-s, Pf, B ivalent, 30 Mcg, IM, 12 yrs and above (Novogy) 12/26/2021 Pneumococcal Conjugate Vacc, 13 Valent (Prevnar) [...] encounter Miscellaneous Notes * Telephone Encounter - Rosalie Torres OSA - 04/14/2024 11:47 AM EST Called pt and he did not take anymore Xarelto after 2/3 morning dose. * Telephone Encounter - Ofelia Somers DO - 04/13/2024 1:25 PM EST As long as the Xarelto is stopped today we should be able to proceed on 04/15 * Telephone Encounter - Viki Emery RN - 04/13/2024 1:20 PM EST Pt took Xarelto at 0800 on 04/13. Procedure is scheduled for 0930 on 04/15. Dr Somers, Ok to proceed with procedure? Nurses, Please call and let pt know for sure. * Telephone Encounter - Ofelia Somers DO - 04/13/2024 10:36 AM EST Can we find out if the patient held his Xarelto. If not then he will need to have his procedures rescheduled for later this week. * Telephone Encounter - Eliud Orta MD - 04/13/2024 10:26 AM EST Reviewed chart. I can't quite tell , but looks like is scope for EUS/ possible pancreas biopsy? As he is an Xarelto, Cr Cl in 40s, would need a 48 hour hold on Xarelto before doing biopsy/procedure as is high risk. Will tiger text Dr Somers to confirm Cc: Dr Yonis Monk * Telephone Encounter - Alexa Hung LPN - 04/13/2024 9:52 AM EST Patient is calling. Patient is having endoscopy tomorrow. Told to call and check and see if it is okay to stop the xarelto. * Telephone Encounter - Sammy Raymond OSA - 04/13/2024 9:50 AM EST Reason for patient's call: Patient requesting to speak to nurse regarding medication he is taking and upcoming procedure. Caller was transferred to [facility] at the nurse line. documented in this encounter Plan of Treatment Upcoming Encounters Date Type Department Care Team (Latest Contact Info) Description 5 9:30 AM EST Hospital Encounter [facility]O [facility], Endoscopy Room [facility] [address] [place] [phone] Ofelia Somers, DO [address] [place] [address] 5 9:30 AM EST - 5 10:15 AM EST Surgery ENDO [facility], Endoscopy Room [facility] [address] [place] [phone] Ofelia Somers, DO [address] [place] [address] ESOPHAGOGASTRODUODENOSCOPY (EGD), FLEXIBLE, TRANSORAL, ENDOSCOPIC ULTRASOUND 5 11:00 AM EST Office Visit Radiation Oncology, [address] [place] [address] Rubi Mart MD [address] [place] [address] [place] [address] 5 10:15 AM EST Office Visit Hematology/Onco logy [facility] [address] [place] [phone] Hemanth Monk MD [address] [place] [address] 5 11:30 AM EDT Office Visit Cardiology [address] [place] [address] Alessandro Dozier PALidyaC [address] [place] [address] 5 9:00 AM EDT Office Visit [facility] [address] [place] [address] Eliud Orta MD [address] [place] [address] 5 11:00 AM EDT Imaging Radiology [address] [place] [address] 5 11:00 AM EDT Telemedicine Radiation Oncology, [address] [place] [address] Rubi Mart MD [address] [place] [address] [place] [address] 5 11:40 AM EST Office Visit [facility] [address] [place] [address] Eliud Orta MD [address] [place] [address] Scheduled Procedures Name Priority Associated Diagnoses Date/Ti me ESOPHAGOGASTRODUODENOSCOPY ( EGD), FLEXIBLE, TRANSORAL, ENDOSCOPIC ULTRASOUND Pancreatic mass 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) 04/15/2024 9:30 AM EST Health Maintenance Due Date Last Done Comments Alpha-1 Antitrypsin 1963 Adult Wellness Visit 04/27/2017 04/27/2016 Albumin/Creatinine Ratio 12/28/2023 023, 01/16/2022, 05/10/2021, Additional history exists Depression Screening 12/28/2023 12/27/2022, 09/04/2016 (Declined) CKD PHOS USE SMARTSET 99435 01/19/202401/09, 07/18/2022, 01/16/2022, Additional history exists GFR 06/19/2024 12/20/2023, 10/2023, 05/08/2023, Additional history exists CKD HGB USE SMARTSET 62299 12/19/202412/19, 12/20/2023, 09/16/2023, Additional history exists O2 ASSESSMENT COMPLETED IN PAST YEAR FOR COPD 04/08/2025 04/08/2024 DTap/Tdap Vaccines (3 - Td or Tdap) [...] this encounter Medical Devices Implanted Type Area Finance Specialist Device Identifier Shelf Expiration Date Model / Serial / Lot Phasix Mesh [id number] Implanted:Qty: 1 on 10/20/2012 at OR [facility] [facility] N/A: Abdomen CR BARD : DAVOL 02/07/2014 [id number] / / [id number] Description:Trial item Vitamesh Squ Blue 30cm X 30cm - [id number] Implanted:Qty: 1 on 05/29/2013 at OR [facility] N/A: Abdomen [employer] 12/08/2014 [id number] / / [id number] documented as of this encounter Advance Directives [...] the patient have Health Care Power of Can Filling Room Sweeper? Yes, in chart and reviewed as current Care Teams Technical Communicator Relationship Specialty Start Date End Date Eliud Orta MD [address] [place] [address] PCP - General Family Medicine 03/09/14 documented as of this encounter
--- OUTSIDE RECORDS SUMMARY | 2024-04-25 07:10 | External Medical Summary | Summary of Care ---
Author Name Unknown Organization [facility] Address [address] [place] [address] Phone [phone] Care Team Providers Care Cracking Still Operator Name Role Phone Eliud Orta MD Primary Care Provider + Reason for Visit * Reason Comments Follow Up Encounter Details Date Type Department Care Team (Late st Contact Info) Description 04/20/2024 11:00 AM EST Office Visit Radiation Oncology, [place] [address] [place], [place] [phone] Rubi Mart MD [address] [place] [address] [place] [address] Epigastric pain* Allergies Active Allergy Reactions Criticality Noted Date Comments Bee Stings Hives Medium 07/26/2008 Gentamicin Sulfate 06/05/2001 pt was on gentamycin,unasyn,eguicg-nhlbm-lt t sure which med documented as of [...] dysfunction 03/19/2017 Alcohol dependence in remission 09/05/2016 correction current use of anticoagulant therapy 0 12/06/2014 Overview (06/25/2017): 12/03/14 admit w/DVT/PE. Minimum 6mo anticoag, heme rec lifelong ICD-10 update of inactive term History of DVT (deep vein thrombosis) 12/06/2014 Overview (04/11/2015): 12/03/14 new dx with PE--rec lifelong therapy History of pulmonary embolism 12/06/2014 Overview (01/21/2017): 01/25 nonocclusive DVT [facility] doppler while on xarelto 12/03/14 [place] w/DVT leg. Minimum 6mo anticoag-Heme rec lifelong. [...] (02/01/2014): 12/22 [address] Matthew BreenCpwbx-fnulx-[id number] Toxic effect of venom 07/26/20082013 Overview (12/13/2015): [...] mRNA, LNP-s, No Pre serve, 2-Dose Series ([employer]) 11/08/2020,05/31/2020,05/10/2020 COVID-19, LNP-s, No Preserve , Jose E-sucrose, Ages 12+ (Pfizer) 05/16/2021 COVID-19, MRNA-LNP, PF, 30 M CG/0.3 mL, 12 YRS AND ABOVE, IM (SkyPower-Comirnat) 01/13/2024,01/21/2023 Covid-19, Mrna, Lnp-s, Pf, B ivalent, [...] of Assessment Author No 08/01/2018 10:47 PM EDColby Pace RN * Are you blind or do [...] [place] [phone] Hemanth Monk MD [address] [place] [address] 06/02/2024 11:30 AM EDT Office Visit Cardiology [address] [place] [address] Alessandro Dozier PA-C [address] [place] [address] 08/19/2024 9:00 AM EDT Office Visit [facility] [address] [place] [address] Eliud Orta MD [address] [place] [address] 08/20/2024 11:00 AM EDT Imaging Radiology [address] [place] [address] 08/27/2024 11:00 AM EDT Telemedicine Radiation Oncology, [address] [address] Rubi Mart MD [address] [place] [address] [place] [address] 02/19/2025 11:40 AM EST Office Visit [facility] [address] [place] [address] Eliud Orta MD [address] [place] [address] Scheduled Orders Name Type Priority Associated Diagnoses Orde r Schedule CA 19-9 Lab Routine Epigastric pain Expected: 04/20/2024, Expires: Health Maintenance Due Date Last Done Comments Alpha-1 Antitrypsin 1963 Adult Wellness Visit 04/27/2017 04/27/2016 Albumin/Creatinine Ratio 12/28/2023 023, 01/16/2022, 05/10/2021, Additional history exists Depression Screening 12/28/2023 12/27/2022, 09/04/2016 (Declined) CKD PHOS USE SMARTSET 82049 01/19/202401/09, 07/18/2022, 01/16/2022, Additional history exists GFR 10/18/2024 04/20/2024, 12/09, 09/16/2023, Additional history exists O2 ASSESSMENT COMPLETED IN PAST YEAR FOR COPD 04/15/2025 04/15/2024 CKD HGB USE SMARTSET 48101 04/20/202504/20, 04/20/2024, 12/20/2023, Additional history exists DTap/Tdap [...] this encounter Medical Devices Implanted Type Area Hedis Coordinator Device Identifier Shelf Expiration Date Model / Serial / Lot Phasix Mesh [id number] Implanted:Qty: 1 on 10/20/2012 at OR [facility] N/A: Abdomen CR BARD : DAVOL 02/07/2014 [id number] / / [id number] Description:Trial item Vitamesh Squ Blue 30cm X 30cm - [id number] Implanted:Qty: 1 on 05/29/2013 at OR [facility] N/A: Abdomen [employer] 12/08/2014 [id number] / / [id number] documented as of this encounter Procedures Procedure [...] 11:11 AM EST 04/20/2024 11:35 AM EST Rubi Mart MD LAB BLOOD ORDERABLES Final Resul t [facility] [address] [place] [address] * (ABNORMAL) DIFFERENTIAL, AUTOMATED (04/20/2024 11:11 AM [...] Final Resul t [facility] [address] [place] [address] * (ABNORMAL) CBC (04/20/2024 11:11 [...] 36.0 g/dL 04/20/2024 12:08 PM EST [facility] RDW 13.0 11.5 - 15.5 % 04/20/2024 12:08 PM EST [facility] PLT 115(L) 140 - 400 K/uL 04/20/2024 12:08 PM EST [facility] MPV 11.1 6.6 - 11.1 fL 04/20/2024 12:08 PM EST [facility] nRBCs 0 <=0 /100 WBCs 04/20/2024 12:08 PM EST [facility] Blood Venous blood specimen / Unknown Venipuncture / Unknown 04/20/2024 11:11 AM EST 04/20/2024 11:33 AM EST us Rubi Mart MD LAB BLOOD ORDERABLES Final Resul t Performing Organization Address City/[facility]/ZIP Co de Phone Number [facility] [place] [address] [place] [address] * (ABNORMAL) LIPASE (04/20/2024 11:11 AM EST) Lipase 569(H) 13 - 60 U/L 04/20/2024 12:27 PM EST LABORATORY [facility] Blood Venous blood specimen / Unknown Venipuncture / Unknown 04/20/2024 11:11 AM EST 04/20/2024 11:33 AM EST us Rubi Mart MD LAB BLOOD ORDERABLES Final Resul t Performing Organization Address City/[facility]/ZIP Co de Phone Number [facility] [place] [address] [place] [address] * LACTATE (04/20/2024 11:11 AM EST) Lactate 1.2 0.4 - 2.0 mmol/L 04/20/2024 12:18 PM EST [facility] Blood Venous blood specimen / Unknown Venipuncture / Unknown 04/20/2024 11:11 AM EST 04/20/2024 11:33 AM EST us Rubi Mart MD LAB BLOOD ORDERABLES Final Resul t [facility] [address] [place] [address] * (ABNORMAL) COMPREHENSIVE METABOLIC PANEL (04/20/2024 11:11 [...] BLOOD ORDERABLES Final Resul t LABORATORY [facility] [address] [place] [address] documented in this encounter Visit Diagnoses Diagnosis [...] the patient have Health Care Power of Research Epidemiologist? Yes, in chart and reviewed as current Care Teams Cracking Still Operator Relationship Specialty Start Date End Date Eliud Orta MD 132 [facility] [place] [address] PCP - General Family Medicine 03/09/14 documented as of this encounter"
--- OUTSIDE RECORDS SUMMARY | 2024-04-25 07:10 | External Medical Summary | Summary of Care ---
Author Name Unknown Organization [facility] Address [address] [facility] [address] Phone [phone] Care Team Providers Care Homicide Squad Commanding Officer Name Role Phone Eliud Orta MD Primary Care Provider + Reason for Visit * Reason Onset Date Comments Advice 04/13/2024 Encounter Details Date Type Department Care Team (Late st Contact Info) Description 04/13/2024 Telephone Family Practice [facility] [address] [place] [address] Eliud Orta MD [address] [place] [address] Advice Allergies Active Allergy Reactions Criticality Noted Date Comments Bee Stings Hives Medium 07/26/2008 Gentamicin Sulfate 06/05/2001 pt was on gentamycin,unasyn,msrtis-ktyum-kd t sure which med documented as of [...] dysfunction 03/19/2017 Alcohol dependence in 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 Minimum 6mo anticoag, heme rec lifelong ICD-10 update of inactive term History of DVT (deep vein thrombosis) 12/06/2014 Overview (04/11/2015): 12/03/14 new dx with PE--rec lifelong therapy History of pulmonary embolism 12/06/2014 Overview (01/21/2017): 01/25 nonocclusive DVT [facility] doppler while on xarelto 12/03/14 [facility] w/DVT leg. Minimum 6mo anticoag-Heme rec [...] (02/01/2014): 12/22 Cr [address] Matthew BreenGykdv-jmpnw-[id number] Toxic effect of venom 07/26/20082013 Overview (12/13/2015): [...] mRNA, LNP-s, No Pre serve, 2-Dose Series ([employer]) 11/08/2020,05/31/2020,05/10/2020 COVID-19, LNP-s, No Preserve , Jose E-sucrose, Ages 12+ (Pfizer) 05/16/2021 COVID-19, MRNA-LNP, PF, 30 M CG/0.3 mL, 12 YRS AND ABOVE, IM (Flaconi-Comirnaty) 01/13/2024,01/21/2023 Covid-19, Mrna, Lnp-s, Pf, B ivalent, 30 Mcg, IM, 12 yrs and above ([employer]) 12/26/2021 Pneumococcal Conjugate Vacc, 13 Valent (Prevnar) [...] of Assessment Author No 08/01/2018 10:47 PM Cobly Marcelino RN * Do you have difficulty [...] and upcoming procedure. Caller was transferred to [facility] at the nurse line. documented in this encounter Plan of Treatment Upcoming Encounters Date Type Department Care Team (Latest Contact Info) Description 5 9:30 AM EST Hospital Encounter [facility]O [facility], Endoscopy Room [facility] [address] [place] [phone] Ofelia Somers, DO [address] [place] [address] 5 9:30 AM EST - 5 10:15 AM EST Surgery ENDO [facility], Endoscopy Room [facility] [address] [place] [phone] Ofelia Somers, DO [address] [place] [address] ESOPHAGOGASTRODUODENOSCOPY (EGD), FLEXIBLE, TRANSORAL, ENDOSCOPIC ULTRASOUND 5 11:00 AM EST Office Visit Radiation Oncology, [address] [place] [address] Rubi Mart MD [address] [place] [address] [place] [address] 5 10:15 AM EST Office Visit Hematology/Onco logy [facility] [address] [place] [phone] Hemanth Monk MD [address] [place] [address] 5 11:30 AM EDT Office Visit Cardiology [address] [place] [address] Alessandro Dozier PALidyaC [address] [place] [address] 5 9:00 AM EDT Office Visit [facility] [address] [place] [address] Eliud Orta MD [address] [place] [address] 5 11:00 AM EDT Imaging Radiology [address] [place] [address] 5 11:00 AM EDT Telemedicine Radiation Oncology, [address] [place] [address] Rubi Mart MD [address] [place] [address] [place] [address] 5 11:40 AM EST Office Visit [facility] [address] [place] [address] Eliud Orta MD [address] [place] [address] Scheduled Procedures Name Priority Associated Diagnoses Date/Ti [...] 12/27/2022, 09/04/2016 (Declined) CKD PHOS USE SMARTSET 09407 01/19/202401/09, 07/18/2022, 01/16/2022, Additional history exists GFR 06/19/2024 12/20/2023, 10/2023, 05/08/2023, Additional history exists CKD HGB USE SMARTSET 03780 12/19/202412/19, 12/20/2023, 09/16/2023, Additional history exists O2 [...] this encounter Medical Devices Implanted Type Area Carving Machine Operator Device Identifier Shelf Expiration Date Model / Serial / Lot Phasix Mesh [id number] Implanted:Qty: 1 on 10/20/2012 at [place] [facility] N/A: Abdomen CR BARD : DAVOL 02/07/2014 [id number] / / [id number] Description:Trial item Vitamesh Squ Blue 30cm X 30cm - [id number] Implanted:Qty: 1 on 05/29/2013 at [place] [facility] N/A: Abdomen [employer] 12/08/2014 [id number] / / [id number] documented as of this encounter Advance Directives [...] the patient have Health Care Power of Wardrobe Mistress? Yes, in chart and reviewed as current Care Teams Homicide Squad Commanding Officer Relationship Specialty Start Date End Date Eliud Orta MD [address] [place] [address] PCP - General Family Medicine 03/09/14 documented as of this encounter
--- OUTSIDE RECORDS SUMMARY | 2024-04-25 07:11 | External Medical Summary | Summary of Care ---
Author Name Unknown Organization [facility] Address [address] [facility] [place] [address] Phone [phone] Care Team Providers Care Pan Dumper Name Role Phone Eliud Orta MD Primary Care Provider + Reason for Visit * Reason Onset Date Comments Preop Pt Assessment 04/08/2024 Encounter Details Date Type Department Care Team (Late st Contact Info) Description 04/08/2024 Telephone Pre Surgery Center, [facility] [address] [place] [address] Ofelia Somers, [address] [place] [address] Preop Pt Assessment Allergies Active Allergy Reactions Criticality Noted Date Comments Bee Stings Hives Medium 07/26/2008 Gentamicin Sulfate 06/05/2001 pt was on gentamycin,unasyn,tumyum-ljztx-kl t sure which med documented as of this encounter (statuses as of 04/13/2024) Medications CENTRUM SILVER OR TABS 1 TABLET [...] as of this encounter (statuses as of 04/13/2024) Active Problems Problem Noted Date Diagnosed Date [...] dysfunction 03/19/2017 Alcohol dependence in remission 09/05/2016 USP current use of anticoagulant therapy 0 12/06/2014 Overview (06/25/2017): 12/03/14 admit w/DVT/PE. Minimum 6mo anticoag, heme rec lifelong ICD-10 update of inactive term History of DVT (deep vein thrombosis) 12/06/2014 Overview (04/11/2015): 12/03/14 new dx with PE--rec lifelong therapy History of pulmonary embolism 12/06/2014 Overview (01/21/2017): 01/25 nonocclusive DVT [facility] doppler while on xarelto 12/03/14 [place] w/DVT [...] as of this encounter (statuses as of 04/13/2024) Resolved Problems Problem Noted Date Diagnosed Date [...] (02/01/2014): 12/22 Cr [address] Matthew BreenFemqb-dqife-Mzcguk-[id number] Toxic effect of venom 07/26/20082013 Overview (12/13/2015): [...] as of this encounter (statuses as of 04/13/2024) Immunizations Name Administration Dates Next Due COVID-19 mRNA, LNP-s, No Pre serve, 2-Dose Series ([employer]) 11/08/2020,05/31/2020,05/10/2020 COVID-19, LNP-s, No Preserve , Jose E-sucrose, Ages 12+ (Pfizer) 05/16/2021 COVID-19, MRNA-LNP, PF, 30 M CG/0.3 mL, 12 YRS AND ABOVE, IM ([facility]) 01/13/2024,01/21/2023 Covid-19, Mrna, Lnp-s, Pf, B ivalent, 30 Mcg, IM, 12 yrs and above ([employer]) 12/26/2021 Pneumococcal Conjugate Vacc, 13 Valent (Prevnar) [...] Colby Marcelino RN documented in this encounter Plan of Treatment Upcoming Encounters Date Type Department Care Team (Latest Contact Info) Description 5 9:30 AM [facility] Hospital Encounter ENDO [facility], Endoscopy Room [facility] [address] [place] [address] Ofelia Somers, [address] [place] [address] 5 9:30 AM EST - 5 10:15 AM EST Surgery ENDO [facility], Endoscopy Room [facility] [address] [place] [address] Ofelia Somers, [address] [place] [address] ESOPHAGOGASTRODUODENOSCOPY (EGD), FLEXIBLE, TRANSORAL, ENDOSCOPIC ULTRASOUND 5 11:00 AM EST Office Visit Radiation Oncology, [address] [place] [address] Rubi Mart MD [address] [place] [address] [place] [address] 5 10:15 AM EST Office Visit Hematology/Onco logy [facility] [address] [place] [phone] Hemanth Monk MD [address] [place] [address] 5 11:30 AM EDT Office Visit Cardiology [address] [place] [address] Alessandro Dozier PA-C [address] [place] [address] 5 9:00 AM EDT Office Visit [facility] [address] [place] [address] Eliud Orta MD [address] [place] [address] 5 11:00 AM EDT Imaging Radiology [address] [place] [address] 5 11:00 AM EDT Telemedicine Radiation Oncology, [address] [facility] [place] [address] Rubi Mart MD [address] [place] [address] [place] [address] 5 11:40 AM EST Office Visit [facility] [address] [place] [address] Eliud Orta MD [address] [place] [address] Scheduled Procedures Name Priority Associated Diagnoses Date/Ti [...] 12/27/2022, 09/04/2016 (Declined) CKD PHOS USE SMARTSET 41425 01/19/202401/09, 07/18/2022, 01/16/2022, Additional history exists GFR 06/19/2024 12/20/2023, 07/0 10/2023, 05/08/2023, Additional history exists CKD HGB USE SMARTSET 22695 12/19/202412/19, 12/20/2023, 09/16/2023, Additional history exists O2 [...] this encounter Medical Devices Implanted Type Area Supervisor Logging Device Identifier Shelf Expiration Date Model / Serial / Lot Phasix Mesh [id number] Implanted:Qty: 1 on 10/20/2012 [place] [facility] [place]: Abdomen CR BARD : DAVOL 02/07/2014 [id number] / / [id number] Description:Trial item Conchita Squ Blue 30cm X 30cm - [id number] Implanted:Qty: 1 on 05/29/2013 [place] [facility] [place]A: Abdomen [employer] 12/08/2014 [id number] / / [id number] documented as of this encounter Advance Directives [...] the patient have Health Care Power of Athletic Shoe Designer? Yes, in chart and reviewed as current Care Teams Pan Dumper Relationship Specialty Start Date End Date Eliud Orta MD 132 [facility] [place] [address] PCP - General Family Medicine 03/09/14 documented as of this encounter
--- OUTSIDE RECORDS SUMMARY | 2024-04-25 07:11 | External Medical Summary | Summary of Care ---
Author Name Unknown Organization [facility] Address [address] [place] [address] Phone [phone] Care Team Providers Care Pediatric Surgeon Name Role Phone Eliud Orta MD Primary Care Provider + Reason for Visit * Reason Onset Date Comments Test Results 03/28/2024 Unexpected or In determinate Result Encounter Details Date Type Department Care Team (Late st Contact Info) Description 03/28/2024 Telephone Laboratory, [place] [address] [place] [address] Michael Perry MD [address] [place] [address] [id number] Test Results (Unexpected or Indeterminate ... Allergies Active Allergy Reactions Criticality Noted Date Comments Bee Stings Hives Medium 07/26/2008 Gentamicin Sulfate 06/05/2001 pt was on gentamycin,unasyn,gyggoe-qvnjo-tg t sure which med documented as of this encounter (statuses as of 03/30/2024) Medications CENTRUM SILVER OR TABS 1 TABLET DAILY 0 0 07/09/2003 Active PRILOSEC 20 MG PO CPDR daily Active Cetirizine HCl 10 MG Oral Tablet Take 1 Tablet by mouth. Active Acetaminophen 500 MG Oral Tablet Take 1 Tablet by mouth every 8 hours as needed for Pain. Active Triamcinolone Acetonide 0.1 % External Cream (Aristocort)Ind ications:Rosace a Apply to affected area(s) twice daily as directed 80 g 2 12/28/2022 10:06 AM EDT 12/27/2022 Active Atenolol 25 MG Oral Tablet (Tenormin)Indic ations:SVT (supraventricul ar tachycardia) (HCC),Palpitati ons TAKE ONE AND ONE-HALF TABLETS BY MOUTH EVERY DAY IN THE MORNING AND TAKE ONE AND ONE-HALF TABLETS BEFORE BEDTIME 270 Tablet 3 01/04/2024 9:27 AM EDT 04/11/2023 04/10/19 25 Active Rivaroxaban 20 MG Oral Tablet (Xarelto)Indica tions:Pulmonary embolism and infarction (HCC) Take 1 Tablet by mouth daily with dinner. 100 Tablet 3 03/24/2024 3:46 PM EST 08/09/2023 Active Alfuzosin HCl ER 10 MG Oral Tablet Extended Release 24 Hour (Uroxatral)Mally cations:BPH with obstruction/low er urinary tract symptoms Take 1 Tablet by mouth in the morning. 100 Tablet 3 12/28/2023 1:11 PM EDT 08/09/2023 Active Finasteride 5 MG Oral Tablet (Proscar)Indica tions:BPH with obstruction/low er urinary tract symptoms TAKE ONE TABLET BY MOUTH EVERY DAY IN THE MORNING 90 Tablet 3 03/26/2024 03/26/19 26 Active Hospital, Clinic, or Other Facility Administered Medication Ordered Dose Route Frequency Start Date End Date Status albuterol sulfate (PROVENTIL) (2.5 MG/3ML) 0.083% inhalation solution 2.5 mgIndications:Adenocarcin chrystal of left lung (HCC) 2.5 mg NEBULIZER Q4H PRN 06/13/2018 Ac tive documented as of this encounter (statuses as of 03/30/2024) Active Problems Problem Noted Date Diagnosed Date [...] dysfunction 03/19/2017 Alcohol dependence in remission 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 0 12/06/2014 [...] as of this encounter (statuses as of 03/30/2024) Resolved Problems Problem Noted Date Diagnosed Date [...] IIIA(pT2b, pN2, cM0) - Signed by Kevin eMhta MD on 08/21/2018 Overview (02/28/2024): T2 N2 [...] (02/01/2014): 12/[address] Matthew BreenEkvlu-tfhsq-[id number] Toxic effect of venom 07/26/20082013 Overview (12/13/2015): [...] as of this encounter (statuses as of 03/30/2024) Immunizations Name Administration Dates Next Due COVID-19 mRNA, LNP-s, No Pre serve, 2-Dose Series ([employer]) 11/08/2020,05/31/2020,05/10/2020 COVID-19, LNP-s, No Preserve , Jose [...] Vac., MDV , IM, 0.5 mL (Fluzone) 12/16/2013,11/27/2012,12/26/2011,1007/2010,12/15/2009,01/12/2009,12/18/19 08,12/11/2006,12/12/2005,01/03/2005,1 05/08/2003,01/08/2003,12/29/2001,02/0512/29/2002 Seasonal Influenza, High Dos e, [...] encounter Miscellaneous Notes * Telephone Encounter - Irene Hatch OSA - 03/30/2024 9:52 AM EST Pt scheduled 04/15/24 MICA Díaz 03/30/2024 9:52 AM * Telephone Encounter - Parul Ortiz RN - 03/30/2024 8:25 AM EST Called patient, he verbalized understanding of plan. Gastro: please call patient to schedule. Thanks! * Telephone Encounter - Michael Perry MD - 03/30/2024 7:42 AM EST He knows that we are looking at the pancreatic lesion, there is no need to call from me regarding that. (When I saw his in the office, we talked about his imaging studies and my plan).There are no new findings. If he still has any question, will call him. * Telephone Encounter - Parul Ortiz RN - 03/30/2024 7:[address] Perry: "MRI of the abdomen done on 03/27/2023: - 1.9 cm pancreatic mass in the uncinate process without any pancreaticobiliary ductal dilatation. Would like to proceed with EUS evaluation." Dr Perry: was patient called with these results? These are new findings, when MRI was ordered patient asked to speak to a provider if MRI abnormal. * Telephone Encounter - Michael Perry MD - 03/30/2024 7:[address] Michael Perry Hem/Onc * Telephone Encounter - Amadou Green OSA - 03/28/2024 5:09 PM EST Hello- The radiologist discovered an unexpected or indeterminate finding on Jason A Benjamin ([id number]) and asks that you review the following report. Study Type:MRI ABDOMEN W WO CONTRAST Date of Study: 03/27/2024 IMPRESSION: A 1.9 cm pancreatic mass in the uncinate process without pancreatic or biliary ductal dilatation. Findings may represent a metastatic lesion or less likely pancreatic adenocarcinoma. EUS/FNA is recommended for definite diagnosis. Gastritis. Please respond to this encounter to acknowledge receipt of this message and take responsibility to ensure this report is reviewed. Thank you, MICA See Client Service [facility] documented in this encounter Plan of Treatment Upcoming Encounters Date Type Department Care Team (Latest Contact Info) Description 01/29/202 5 9:30 AM EST Office Visit Hematology/Onco logy [facility] [place] [address] [place] [phone] Hemanth Monk MD [address] [place] [address] 5 10:00 AM EST Hospital Encounter ENDO [facility], Endoscopy Room [facility] [address] [place] [phone] Ofelia Somers, DO [address] [place] [address] 5 10:00 AM EST - 5 10:45 AM EST Surgery ENDO [facility], Endoscopy Room [facility] [address] [place] [phone] Ofelia Somers, DO [address] [place] [address] ESOPHAGOGASTRODUODENOSCOPY (EGD), FLEXIBLE, TRANSORAL, ENDOSCOPIC ULTRASOUND 5 11:30 AM EDT Office Visit Cardiology [address] [place] [address] Alessandro Dozier PA-C [address] [place] [address] 5 9:00 AM EDT Office Visit [facility] [address] [place] [address] Eliud Orta MD [address] [place] [address] 5 11:00 AM EDT Imaging Radiology [address] [place] [address] 5 11:00 AM EDT Telemedicine Radiation Oncology, [address] [place] [address] Rubi Mart MD [address] [place] [address] [place] [address] 11:40 AM EST [facility] [place] [address] Eliud Orta MD [address] [place] [address] Scheduled Procedures Name Priority Associated Diagnoses Date/Ti me ESOPHAGOGASTRODUODENOSCOPY ( EGD), FLEXIBLE, TRANSORAL, ENDOSCOPIC ULTRASOUND Pancreatic mass 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) 04/15/2024 10:00 AM EST Health Maintenance Due Date Last Done Comments Alpha-1 Antitrypsin 1963 Adult Wellness Visit 04/27/2017 04/27/2016 Albumin/Creatinine Ratio 12/28/2023 023, 01/16/2022, 05/10/2021, Additional history exists Depression Screening 12/28/2023 12/27/2022, 09/04/2016 (Declined) CKD PHOS USE SMARTSET 55756 01/19/202401/09, 07/18/2022, 01/16/2022, Additional history exists GFR 06/19/2024 12/20/2023, 07/0 10/2023, 05/08/2023, Additional history exists CKD HGB USE SMARTSET 85695 12/19/202412/19, 12/20/2023, 09/16/2023, Additional history exists O2 ASSESSMENT COMPLETED IN PAST YEAR FOR COPD 03/02/2025 03/02/2024 DTap/Tdap Vaccines (3 - Td or Tdap) [...] this encounter Medical Devices Implanted Type Area Non Acoustic Operator Device Identifier Shelf Expiration Date Model / Serial / Lot Phasix Mesh [id number] Implanted:Qty: 1 on 10/20/2012 at [place] [facility] N/A: Abdomen CR BARD : DAVOL 02/07/2014 [id number] / / [id number] Description:Trial item Vitamesh Squ Blue 30cm X 30cm - [id number] Implanted:Qty: 1 on 05/29/2013 at [place] [facility] N/A: Abdomen [employer] 12/08/2014 [id number] / / [id number] documented as of this encounter Advance Directives [...] the patient have Health Care Power of Vendor Management Associate? Yes, in chart and reviewed as current Care Teams Pediatric Surgeon Relationship Specialty Start Date End Date Eliud Orta MD [address] [place] [address] PCP - General Family Medicine 03/09/14 documented as of this encounter
--- OUTSIDE RECORDS SUMMARY | 2024-04-25 07:11 | External Medical Summary | Summary of Care ---
Author Name Unknown Organization [facility] Address [address] [place] [address] Phone [phone] Care Team Providers Care Computer Forensics Analyst Name Role Phone Eliud Orta MD Primary Care Provider + Reason for Visit * Reason Onset Date Comments Test Results 03/28/2024 Unexpected or In determinate Result Encounter Details Date Type Department Care Team (Late st Contact Info) Description 03/28/2024 Telephone Laboratory, [place] [address] [place] [address] Michael Perry MD [address] [place] [address] [id number] Test Results (Unexpected or Indeterminate ... 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 Minimum 6mo anticoag, heme rec lifelong ICD-10 update of inactive term History of DVT (deep vein thrombosis) 12/06/2014 Overview (04/11/2015): 12/03/14 new dx with PE--rec lifelong therapy History of pulmonary embolism 12/06/2014 Overview (01/21/2017): 01/25 nonocclusive DVT [facility] doppler while on xarelto 12/03/14 [facility] w/DVT leg. Minimum 6mo anticoag-Heme rec lifelong. [...] (02/01/2014): 12/[address] Matthew BreenUzdoy-ypooe-[id number] Toxic effect of venom 07/26/20082013 Overview (12/13/2015): [...] mRNA, LNP-s, No Pre serve, 2-Dose Series ([employer]) 11/08/2020,05/31/2020,05/10/2020 COVID-19, LNP-s, No Preserve , Jose [...] encounter Miscellaneous Notes * Telephone Encounter - Parul Ortiz RN [...] will call him. * Telephone Encounter - aPrul Ortiz RN - 03/30/2024 7:37 AM EST [...] an unexpected or indeterminate finding on Jason Noemy Diao ([id number]) and asks that you review the following [...] reviewed. Thank you, MICA See Client Service [facility] documented in this encounter Plan of Treatment Upcoming Encounters Date Type Department Care Team (Late st Contact Info) Description 04/08/2024 9:30 AM EST Office Visit Hematology/Oncology [facility] [address] [place] [phone] Hemanth Monk MD [address] [place] [address] 06/02/2024 11:30 AM EDT Office Visit Cardiology [address] [place] [address] Alessandro Dozier PA-C [address] [place] [address] 08/19/2024 9:00 AM EDT Office Visit [facility] [address] [place] [address] Eliud Orta MD [address] [place] [address] 08/20/2024 11:00 AM EDT Imaging Radiology [address] [place] [address] 08/27/2024 11:00 AM EDT Telemedicine Radiation Oncology, [address] [place] [address] Rubi Mart MD [address] [place] [address] [place] [address] 02/19/2025 11:40 AM EST Office Visit [facility] [address] [place] [address] Eliud Orta MD [address] [place] [address] Health Maintenance Due Date Last Done Comments Alpha-1 Antitrypsin 1963 Adult Wellness Visit 04/27/2017 04/27/2016 Albumin/Creatinine Ratio 12/28/2023 023, 01/16/2022, 05/10/2021, Additional history exists Depression Screening 12/28/2023 12/27/2022, 09/04/2016 (Declined) CKD PHOS USE SMARTSET 07354 01/19/2024 11/, 07/18/2022, 01/16/2022, Additional history exists GFR 06/19/2024 12/20/2023, 07/10/2023, 05/08/2023, Additional history exists CKD HGB USE SMARTSET 90646 12/19/202412/19, 12/20/2023, 09/16/2023, Additional history exists O2 [...] encounter Medical Devices Implanted Type Area Supervisor Enrobing Device Identifier Shelf Expiration Date Model / Serial / Lot Phasix Mesh [id number] Implanted:Qty: 1 on 10/20/2012 at [place] [facility] N/A: Abdomen CR BARD : DAVOL 02/07/2014 [id number] / / [id number] Description:Trial item Vitamesh Squ Blue 30cm X 30cm - [id number] Implanted:Qty: 1 on 05/29/2013 at [place] [facility] N/A: Abdomen [employer] 12/08/2014 [id number] / / [id number] documented as of this encounter Advance Directives [...] the patient have Health Care Power of Hydraulic Rock Drill Operator? Yes, in chart and reviewed as current Care Teams Computer Forensics Analyst Relationship Specialty Start Date End Date Eliud Orta MD [address] [facility] [place] [address] PCP - General Family Medicine 03/09/14 documented as of this encounter
--- OUTSIDE RECORDS SUMMARY | 2024-04-25 07:11 | External Medical Summary | Summary of Care ---
Author Name Unknown Organization [facility] Address [address] [place] [address] Phone [phone] Care Team Providers Care Financial Sales Advisor Name Role Phone Eliud Orta MD Primary Care Provider + Reason for Visit * Reason Onset Date Comments Test Results 03/28/2024 Unexpected or In determinate Result Encounter Details Date Type Department Care Team (Late st Contact Info) Description 03/28/2024 Telephone Laboratory, [place] [address] [place] [address] Michael Perry MD [address] [place] [phone] Test Results (Unexpected or Indeterminate ... 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 Minimum 6mo anticoag, heme rec lifelong ICD-10 update of inactive term History of DVT (deep vein thrombosis) 12/06/2014 Overview (04/11/2015): 12/03/14 new dx with PE--rec lifelong therapy History of pulmonary embolism 12/06/2014 Overview (01/21/2017): 01/[address] [facility] doppler while on xarelto 12/03/14 [facility] w/DVT leg. Minimum 6mo anticoag-Heme rec [...] (02/01/2014): 12/[address] Matthew BreenGfaqf-odqcx-[id number] Toxic effect of venom 07/26/20082013 Overview (12/13/2015): [...] mRNA, LNP-s, No Pre serve, 2-Dose Series ([employer]) 11/08/2020,05/31/2020,05/10/2020 COVID-19, LNP-s, No Preserve , Jose [...] encounter Miscellaneous Notes * Telephone Encounter - Michael Perry MD [...] an unexpected or indeterminate finding on Jason Diao ([id number]) and asks that you review the following [...] reviewed. Thank you, MICA See Client Service [facility] documented in this encounter Plan of Treatment Upcoming Encounters Date Type Department Care Team (Late st Contact Info) Description 04/08/2024 9:30 AM EST Office Visit Hematology/Oncology [facility] [place] [address] [facility] [place] [phone] Hemanth Monk MD [address] [facility] [place] [address] 06/02/2024 11:30 AM EDT Office Visit Cardiology [address] [place] [address] Alessandro Dozier PA-C [address] [place] [address] 08/19/2024 9:00 AM EDT Office Visit [facility] [address] [place] [address] Eliud Orta MD [address] [place] [address] 08/20/2024 11:00 AM EDT Imaging Radiology [address] [place] [address] 08/27/2024 11:00 AM EDT Telemedicine Radiation Oncology, [address] [place] [address] Rubi Mart MD [address] [place] [address] [place] [address] 02/19/2025 11:40 AM EST Office Visit [facility] [address] [place] [address] Eliud Orta MD [address] [place] [address] Health Maintenance Due Date Last Done Comments Alpha-1 Antitrypsin 1963 Adult Wellness Visit 04/27/2017 04/27/2016 Albumin/Creatinine Ratio 12/28/2023 023, 01/16/2022, 05/10/2021, Additional history exists Depression Screening 12/28/2023 12/27/2022, 09/04/2016 (Declined) CKD PHOS USE SMARTSET 60114 01/19/202401/09, 07/18/2022, 01/16/2022, Additional history exists GFR 06/19/2024 12/20/2023, 10/2023, 05/08/2023, Additional history exists CKD HGB USE SMARTSET 13558 12/19/202412/19, 12/20/2023, 09/16/2023, Additional history exists O2 [...] this encounter Medical Devices Implanted Type Area Rn First Assist Device Identifier Shelf Expiration Date Model / Serial / Lot Phasix Mesh [id number] Implanted:Qty: 1 on 10/20/2012 at [place] [facility] N/A: Abdomen CR BARD : DAVOL 02/07/2014 [id number] / / [id number] Description:Trial item Vitamesh Squ Blue 30cm X 30cm - [id number] Implanted:Qty: 1 on 05/29/2013 at [place] [facility] N/A: Abdomen [employer] 12/08/2014 [id number] / / [id number] documented as of this encounter Advance Directives [...] the patient have Health Care Power of Conventions Assistant? Yes, in chart and reviewed as current Care Teams Financial Sales Advisor Relationship Specialty Start Date End Date Eliud Orta MD [address] [facility] [place] [address] PCP - General Family Medicine 03/09/14 documented as of this encounter
--- OUTSIDE RECORDS SUMMARY | 2024-04-25 07:11 | External Medical Summary | Summary of Care ---
Author Name Unknown Organization [facility] [address] [facility] [address] Phone [phone] Care Team Providers Care Convenience Store Manager Name Role Phone Eliud Orta MD Primary Care Provider + Reason for Visit * Reason Onset Date Comments Advice 04/13/2024 Encounter Details Date Type Department Care Team (Late st Contact Info) Description 04/13/2024 Telephone Family Practice [facility] [address] [place] [address] Eliud Orta MD [address] [place] [address] Advice Allergies Active Allergy Reactions Criticality Noted Date Comments Bee Stings Hives Medium 07/26/2008 Gentamicin Sulfate 06/05/2001 pt was on gentamycin,unasyn,ffgfbr-uxmeq-mk t sure which med documented as of [...] 03/19/2017 Alcohol dependence in remission 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 0 12/06/2014 [...] 08/21/2018:Stage IIIA(pT2b, 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, cM0) - Signed by eKvin Mehta MD on 08/21/2018 Overview (02/28/2024): T2 [...] (02/01/2014): 12/[address] Matthew BreenStgjy-pzoxm-[id number] Toxic effect of venom 07/26/20082013 Overview (12/13/2015): [...] mRNA, LNP-s, No Pre serve, 2-Dose Series ([employer]) 11/08/2020,05/31/2020,05/10/2020 COVID-19, LNP-s, No Preserve , Jose E-sucrose, Ages 12+ (Pfizer) 05/16/2021 COVID-19, MRNA-LNP, PF, 30 M CG/0.3 mL, 12 YRS AND ABOVE, IM ([employer]-Comirnaty) 01/13/2024,01/21/2023 Covid-19, Mrna, Lnp-s, Pf, B ivalent, 30 Mcg, IM, 12 yrs and above ([employer]) 12/26/2021 Pneumococcal Conjugate Vacc, 13 Valent (Prevnar) [...] Miscellaneous Notes * Telephone Encounter - Ofelia Somers DO [...] and upcoming procedure. Caller was transferred to [facility] at the nurse line. documented in this encounter Plan of Treatment Upcoming Encounters Date Type Department Care Team (Latest Contact Info) Description 9:30 AM EST Hospital Encounter ENDO [facility], Endoscopy Room [facility] [address] [place] [phone] Ofelia Somers DO [address] [place] [address] 5 9:30 AM EST - 5 10:15 AM EST Surgery ENDO [facility], Endoscopy Room [facility] [address] [place] [phone] Ofelia Somers DO [address] [place] [address] ESOPHAGOGASTRODUODENOSCOPY (EGD), FLEXIBLE, TRANSORAL, ENDOSCOPIC ULTRASOUND 5 11:00 AM EST Office Visit Radiation Oncology, [address] [place] [address] Rubi Mart MD [address] [place] [address] [place] [address] 5 10:15 AM EST Office Visit Hematology/Onco logy [facility] [address] [place] [phone] Hemanth Monk MD [address] [place] [address] 5 11:30 AM EDT Office Visit Cardiology [address] [place] [address] Alessandro Dozier PA-C [address] [place] [address] 5 9:00 AM EDT Office Visit Family Practice [facility] [address] [place] [address] Eliud Orta MD [address] [place] [address] 5 11:00 AM EDT Imaging Radiology [address] [place] [address] 5 11:00 AM EDT Telemedicine Radiation Oncology, [address] [place] [address] Rubi Mart MD [facility] [place] [place] [address] 5 11:40 AM EST Office Visit [facility] [address] [place] [address] Eliud Orta MD [address] [place] [address] Scheduled Procedures Name Priority Associated Diagnoses Date/Ti [...] 12/27/2022, 09/04/2016 (Declined) CKD PHOS USE SMARTSET 50623 01/19/202401/09, 07/18/2022, 01/16/2022, Additional history exists GFR 06/19/2024 12/20/2023, 07/10/2023, 05/08/2023, Additional history exists CKD HGB USE SMARTSET 75186 12/19/202412/19, 12/20/2023, 09/16/2023, Additional history exists O2 [...] this encounter Medical Devices Implanted Type Area Vp Product Marketing Device Identifier Shelf Expiration Date Model / Serial / Lot Phasix Mesh [id number] Implanted:Qty: 1 on 10/20/[address] [facility] [place]A: Abdomen CR BARD : DAVOL 02/07/2014 [id number] / / [id number] Description:Trial item Vitamesh Squ Blue 30cm X 30cm - [id number] Implanted:Qty: 1 on 05/29/[address] [facility] N/A: Abdomen [employer] 12/08/2014 [id number] / / [id number] documented as of this encounter Advance Directives [...] the patient have Health Care Power of Business Intelligence Director? Yes, in chart and reviewed as current Care Teams Convenience Store Manager Relationship Specialty Start Date End Date Eliud Orta MD [address] [place] [address] PCP - General Family Medicine 03/09/14 documented as of this encounter
--- OUTSIDE RECORDS SUMMARY | 2024-04-25 07:11 | External Medical Summary | Summary of Care ---
Author Name Unknown Organization [facility] [address] [facility] [address] Phone [phone] Care Team Providers Care Quarter Backer Name Role Phone Eliud Orta MD Primary Care Provider + Reason for Visit * Reason Onset Date Comments Advice 04/13/2024 Encounter Details Date Type Department Care Team (Late st Contact Info) Description 04/13/2024 Telephone Family Practice [facility] [address] [place] [address] Eliud Orta MD [address] [place] [address] Advice Allergies Active Allergy Reactions Criticality Noted Date Comments Bee Stings Hives Medium 07/26/2008 Gentamicin Sulfate 06/05/2001 pt was on gentamycin,unasyn,mfkhij-pjhvk-dm t sure which med documented as of [...] dysfunction 03/19/2017 Alcohol dependence in remission 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 Minimum 6mo anticoag, heme rec lifelong ICD-10 update of inactive term History of DVT (deep vein thrombosis) 12/06/2014 Overview (04/11/2015): 12/03/14 new dx with PE--rec lifelong therapy History of pulmonary embolism 12/06/2014 Overview (01/21/2017): 01/25 nonocclusive DVT [facility] doppler while on xarelto 12/03/14 [facility] w/DVT leg. Minimum 6mo anticoag-Heme rec [...] (02/01/2014): 12/22 Cr [address] Matthew BreenZbctf-aztat-[id number] Toxic effect of venom 07/26/20082013 Overview (12/13/2015): [...] mRNA, LNP-s, No Pre serve, 2-Dose Series ([employer]) 11/08/2020,05/31/2020,05/10/2020 COVID-19, LNP-s, No Preserve , Jose E-sucrose, Ages 12+ (Pfizer) 05/16/2021 COVID-19, MRNA-LNP, PF, 30 M CG/0.3 mL, 12 YRS AND ABOVE, IM ([employer]Comirnaty) 01/13/2024,01/21/2023 Covid-19, Mrna, Lnp-s, Pf, B ivalent, 30 Mcg, IM, 12 yrs and above ([employer]) 12/26/2021 Pneumococcal Conjugate Vacc, 13 Valent (Prevnar) [...] and upcoming procedure. Caller was transferred to [facility] at the nurse line. documented in this encounter Plan of Treatment Upcoming Encounters Date Type Department Care Team (Latest Contact Info) Description 9:30 AM EST Hospital Encounter ENDO [facility], Endoscopy Room [facility] [address] [place] [phone] Ofelia Somers DO [address] [place] [address] 5 9:30 AM EST - 5 10:15 AM EST Surgery ENDO [facility], Endoscopy Room [facility] [address] [place] [phone] Ofelia Somers DO [address] [place] [address] ESOPHAGOGASTRODUODENOSCOPY (EGD), FLEXIBLE, TRANSORAL, ENDOSCOPIC ULTRASOUND 5 11:00 AM EST Office Visit Radiation Oncology, [address] [place] [address] Rubi Mart MD [address] [place] [address] [place] [address] 5 10:15 AM EST Office Visit Hematology/Onco logy [facility] [address] [place] [phone] Hemanth Monk MD [address] [place] [address] 5 11:30 AM EDT Office Visit Cardiology [address] [place] [address] Alessandro Dozier PA-C [address] [place] [address] 5 9:00 AM EDT Office Visit Family Practice [facility] [address] [place] [address] Eliud Orta MD [address] [place] [address] 5 11:00 AM EDT Imaging Radiology [address] [place] [address] 5 11:00 AM EDT Telemedicine Radiation Oncology, [address] [place] [address] Rubi Mart MD Medical [place] [address] 5 11:40 AM EST Office Visit [facility] [address] [place] [address] Eliud Orta MD [address] [place] [address] Scheduled Procedures Name Priority Associated Diagnoses Date/Ti [...] 12/27/2022, 09/04/2016 (Declined) CKD PHOS USE SMARTSET 14134 01/19/202401/09, 07/18/2022, 01/16/2022, Additional history exists GFR 06/19/2024 12/20/2023, 07/10/2023, 05/08/2023, Additional history exists CKD HGB USE SMARTSET 85123 12/19/202412/19, 12/20/2023, 09/16/2023, Additional history exists O2 [...] this encounter Medical Devices Implanted Type Area High Worker Device Identifier Shelf Expiration Date Model / Serial / Lot Phasix Mesh [id number] Implanted:Qty: 1 on 10/20/2012 [place] [facility] [place]: Abdomen CR BARD : DAVOL 02/07/2014 [id number] / / [id number] Description:Trial item Vitamesh Squ Blue 30cm X 30cm - [id number] Implanted:Qty: 1 on 05/29/2013 at [place] [facility] [place]A: Abdomen [employer] 12/08/2014 [id number] / / [id number] documented as of this encounter Advance Directives [...] the patient have Health Care Power of Seismic Prospecting Supervisor? Yes, in chart and reviewed as current Care Teams Quarter Backer Relationship Specialty Start Date End Date Eliud Orta MD [address] [place] [address] PCP - General Family Medicine 03/09/14 documented as of this encounter
--- OUTSIDE RECORDS SUMMARY | 2024-04-25 07:11 | External Medical Summary | Summary of Care ---
Author Name Unknown Organization [facility] Address [address] [place] [facility] [place] [address] Phone [phone] Care Team Providers Care Funeral Arranger Name Role Phone Eliud Orta MD Primary Care Provider + Encounter Details Date Type Department Care Team (Late st Contact Info) Description 03/30/2024 Population Health External Data Unspecified Department Allergies Active Allergy Reactions Criticality Noted Date Comments Bee Stings Hives Medium 07/26/2008 Gentamicin Sulfate 06/05/2001 pt was on gentamycin,unasyn,divqcr-cwnjp-mj t sure which med documented as of [...] dysfunction 03/19/2017 Alcohol dependence in remission 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 Minimum 6mo anticoag, heme rec lifelong ICD-10 update of inactive term History of DVT (deep vein thrombosis) 12/06/2014 Overview (04/11/2015): 12/03/14 new dx with PE--rec lifelong therapy History of pulmonary embolism 12/06/2014 Overview (01/21/2017): 01/25 nonocclusive DVT [facility] doppler while on xarelto 12/03/14 [facility] w/DVT leg. Minimum 6mo anticoag-Heme [...] (02/01/2014): 12/[address] Matthew BreenZkdxl-qmlqr-Fpqkdp-[id number] Toxic effect of venom 07/26/20082013 Overview (12/13/2015): [...] mRNA, LNP-s, No Pre serve, 2-Dose Series ([employer]) 11/08/2020,05/31/2020,05/10/2020 COVID-19, LNP-s, No Preserve , Jose E-sucrose, Ages 12+ (Pfizer) 05/16/2021 COVID-19, MRNA-LNP, PF, 30 M CG/0.3 mL, 12 YRS AND ABOVE, IM [facility] 01/13/2024,01/21/2023 Covid-19, Mrna, Lnp-s, Pf, B ivalent, 30 Mcg, IM, 12 yrs and above ([employer]) 12/26/2021 Pneumococcal Conjugate Vacc, 13 Valent (Prevnar) [...] Colby Franco RN documented in this encounter Plan of Treatment Upcoming Encounters Date Type Department Care Team (Latest Contact Info) Description 5 9:30 AM EST Office Visit Hematology/Onco logy [facility] [place] [address] [place] [phone] Hemanth Monk MD [address] [place] [address] 5 9:30 AM EST Hospital Encounter ENDO [facility], Endoscopy Room [facility] [address] [place] [phone] Ofelia Somers, DO [address] [place] [address] 5 9:30 AM EST - 5 10:15 AM EST Surgery ENDO [facility], Endoscopy Room [facility] [address] [place] [phone] Ofelia Somers, DO [address] [place] [id number] ESOPHAGOGASTRODUODENOSCOPY (EGD), FLEXIBLE, TRANSORAL, ENDOSCOPIC ULTRASOUND 5 11:30 AM EDT Office Visit Cardiology [address] [place] [address] Alessandro Dozier PA-C [address] [place] [address] 5 9:00 AM EDT Office Visit [facility] [address] [place] [address] Eliud Orta MD [address] [place] [address] 5 11:00 AM EDT Imaging Radiology [address] [place] [phone] 5 11:00 AM EDT Telemedicine Radiation Oncology, [address] [place] [address] Rubi Mart MD [address] [place] [address] [place] [address] 5 11:40 AM EST Office Visit [facility] [address] [place] [address] Eliud Orta MD [address] [place] [address] Scheduled Procedures Name Priority Associated Diagnoses Date/Ti [...] 12/27/2022, 09/04/2016 (Declined) CKD PHOS USE SMARTSET 17316 01/19/202401/09, 07/18/2022, 01/16/2022, Additional history exists GFR 06/19/2024 12/20/2023, 07/0 10/2023, 05/08/2023, Additional history exists CKD HGB USE SMARTSET 25859 12/19/202412/19, 12/20/2023, 09/16/2023, Additional history exists O2 [...] this encounter Medical Devices Implanted Type Area Temper Mill Roller Device Identifier Shelf Expiration Date Model / Serial / Lot Phasix Mesh [id number] Implanted:Qty: 1 on 10/20/2012 [place] [facility] [place]A: Abdomen CR BARD : DAVOL 02/07/2014 [id number] / / [id number] Description:Trial item Vitamesh Squ Blue 30cm X 30cm - [id number] Implanted:Qty: 1 on 05/29/2013 at [place] [facility] [place]/A: Abdomen [employer] 12/08/2014 [id number] / / [id number] documented as of this encounter Advance Directives [...] the patient have Health Care Power of Rice Farmer? Yes, in chart and reviewed as current Care Teams Funeral Arranger Relationship Specialty Start Date End Date Eliud Orta MD [address] [place] [address] PCP - General Family Medicine 03/09/14 documented as of this encounter
--- OUTSIDE RECORDS SUMMARY | 2024-04-25 07:11 | External Medical Summary | Summary of Care ---
Author Name Unknown Organization [facility] Address [address] [place] [place] [place] [address] Phone [phone] Care Team Providers Care Nanotechnologist Name Role Phone Eliud Romero MD Primary Care Provider + Reason for Visit * Reason Comments Medication Refill Encounter Details Date Type Department Care Team (Late st Contact Info) Description 03/30/2024 Refill Family [facility] [address] [facility]ud [facility] [place] [phone] SVT (supraventricular tachycardia) ([facility]); Palpitations Allergies Active Allergy Reactions Criticality Noted Date Comments Bee Stings Hives Medium 07/26/2008 Gentamicin Sulfate 06/05/2001 pt was on gentamycin,unasyn,vkltlc-lstqt-cm t sure which med documented as of [...] 100 Tablet 3 12/28/2023 1:11 PM EDT 4 Active Finasteride 5 MG Oral Tablet (Proscar)Indica tions:BPH with obstruction/low er urinary tract symptoms TAKE ONE TABLET BY MOUTH EVERY DAY IN THE MORNING 90 Tablet 3 5 03/26/19 26 Active Atenolol 25 MG Oral Tablet (Tenormin)Indic ations:SVT (supraventricul ar tachycardia) (HCC),Palpitati ons Take 1.5 Tablets by mouth in the morning and 1.5 Tablets before bedtime. 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 0 12/06/2014 [...] (02/01/2014): 12/22 Cr [address] Matthew BreenDfaih-lqapm-Tczpiz-[id number] Toxic effect of venom 07/26/20082013 Overview (12/13/2015): [...] mRNA, LNP-s, No Pre serve, 2-Dose Series ([employer]) 11/08/2020,05/31/2020,05/10/2020 COVID-19, LNP-s, No Preserve , Jose E-sucrose, Ages 12+ (Pfizer) 05/16/2021 COVID-19, MRNA-LNP, PF, 30 M CG/0.3 mL, 12 YRS AND ABOVE, IM ([facility]) 01/13/2024,01/21/2023 Covid-19, Mrna, Lnp-s, Pf, B ivalent, 30 Mcg, IM, 12 yrs and above ([employer]) 12/26/2021 Pneumococcal Conjugate Vacc, 13 Valent (Prevnar) [...] encounter Miscellaneous Notes * Telephone Encounter - Rowena Baltazar RPh - 03/30/2024 1:28 PM ESTSigned Prescriptions: Disp Refills Atenolol 25 MG Oral Tablet (Tenormin) 300 Ta*3 Sig: Take 1.5 Tablets by mouth in the morning and 1.5 Tablets before bedtime.Authorizing Provider: LEIUD ROMERO User: ROWENA BALTAZAR documented in this encounter Plan of Treatment Upcoming Encounters Date Type Department Care Team (Latest Contact Info) Description 5 9:30 AM EST Office Visit Hematology/Onco logy Daphnie Franco [place] [address] [place] [phone] Hemanth Monk MD [address] [place] [address] 5 9:30 AM EST Hospital Encounter ENDO [facility], Endoscopy Room [facility] [address] [place] [phone] Ofelia Somers, DO [address] [place] [address] 5 9:30 AM EST - 5 10:15 AM EST Surgery ENDO [facility], Endoscopy Room [facility] [address] [place] [phone] Ofelia Somers, DO [address] [place] [address] ESOPHAGOGASTRODUODENOSCOPY (EGD), FLEXIBLE, TRANSORAL, ENDOSCOPIC ULTRASOUND 5 11:30 AM EDT Office Visit Cardiology [address] [place] [address] Alessandro Dozier PA-C [address] [place] [address] 5 9:00 AM EDT Office Visit Family Practice [facility] [address] [place] [address] Eliud Romero MD [address] [place] [address] 5 11:00 AM EDT Imaging Radiology [address] [place] [address] 5 11:00 AM EDT Telemedicine Radiation Oncology, [address] [place] [address] Rubi Mart MD [address] [place] [address] [place] [address] 5 11:40 AM EST Office Visit [facility] [address] [place] [address] Eliud Romero MD [address] [place] [address] Scheduled Procedures Name Priority Associated Diagnoses Date/Ti [...] 12/27/2022, 09/04/2016 (Declined) CKD PHOS USE SMARTSET 33707 01/19/202401/09, 07/18/2022, 01/16/2022, Additional history exists GFR 06/19/2024 12/20/2023, 0710/2023, 05/08/2023, Additional history exists CKD HGB USE SMARTSET 77927 12/19/202412/19, 12/20/2023, 09/16/2023, Additional history exists O2 [...] this encounter Medical Devices Implanted Type Area Repair Armature Winder Helper Device Identifier Shelf Expiration Date Model / Serial / Lot Phasix Mesh [id number] [place] [facility] [place]domen CR BARD : DAVOL 02/07/2014 [id number] / / [id number] Description:Trial item Vitamesh Squ Blue 30cm X 30cm - [id number] Implanted:[place] 1 [place] 05[place] [facility] [place] Abdomen [employer] [facility] 12/08/2014 [id number] / / [id number] documented as of this encounter Visit Diagnoses Diagnosis SVT (supraventricular tachycardia) (HCC) Other specified cardiac dysrhythmias Palpitations Pancreatic mass Unspecified disease of pancreas 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 Yes, in chart and reviewed as current Care Teams Nanotechnologist Relationship Specialty Start Date End Date Eliud Romero MD [address] [place] [address] PCP - General Family Medicine 03/09/14 documented as of this encounter
--- OUTSIDE RECORDS SUMMARY | 2024-04-25 07:11 | External Medical Summary | Summary of Care ---
Author Name Unknown Organization [facility] Address [address] [facility] [address] Phone [phone] Care Team Providers Care Skein Straightener Name Role Phone Eliud Orta MD Primary Care Provider + Reason for Visit * Reason Onset Date Comments Advice 04/13/2024 Encounter Details Date Type Department Care Team (Late st Contact Info) Description 04/13/2024 Telephone Family Practice [facility] [address] [place] [address] Eliud Orta MD [address] [place] [address] Advice Allergies Active Allergy Reactions Criticality Noted Date Comments Bee Stings Hives Medium 07/26/2008 Gentamicin Sulfate 06/05/2001 pt was on gentamycin,unasyn,fkdhwq-mbpaj-lt t sure which med documented as of [...] dysfunction 03/19/2017 Alcohol dependence in 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 Minimum 6mo anticoag, heme rec lifelong ICD-10 update of inactive term History of DVT (deep vein thrombosis) 12/06/2014 Overview (04/11/2015): 12/03/14 new dx with PE--rec lifelong therapy History of pulmonary embolism 12/06/2014 Overview (01/21/2017): 01/25 nonocclusive DVT [facility] doppler while on xarelto 12/03/14 [facility] w/DVT leg. Minimum 6mo anticoag-Heme rec [...] (02/01/2014): 12/22 Cr [address] Matthew BreenOfxmt-idtsb-[id number] Toxic effect of venom 07/26/20082013 Overview (12/13/2015): [...] mRNA, LNP-s, No Pre serve, 2-Dose Series ([employer]) 11/08/2020,05/31/2020,05/10/2020 COVID-19, LNP-s, No Preserve , Jose E-sucrose, Ages 12+ (Pfizer) 05/16/2021 COVID-19, MRNA-LNP, PF, 30 M CG/0.3 mL, 12 YRS AND ABOVE, IM ([employer]Comirnat[employer]) 01/13/2024,01/21/2023 Covid-19, Mrna, Lnp-s, Pf, B ivalent, 30 Mcg, IM, 12 yrs and above ([employer]) 12/26/2021 Pneumococcal Conjugate Vacc, 13 Valent (Prevnar) [...] and upcoming procedure. Caller was transferred to [facility] at the nurse line. documented in this encounter Plan of Treatment Upcoming Encounters Date Type Department Care Team (Latest Contact Info) Description 9:30 AM EST Hospital Encounter ENDO [facility], Endoscopy Room [facility] [address] [place] [phone] Ofelia Somers DO [address] [place] [address] 5 9:30 AM EST - 5 10:15 AM EST Surgery ENDO [facility], Endoscopy Room [facility] [address] [place] [phone] Ofelia Somers DO [address] [place] [address] ESOPHAGOGASTRODUODENOSCOPY (EGD), FLEXIBLE, TRANSORAL, ENDOSCOPIC ULTRASOUND 5 11:00 AM EST Office Visit Radiation Oncology, [address] [place] [address] Rubi Mart MD [address] [place] [address] [place] [address] 5 10:15 AM EST Office Visit Hematology/Onco logy [facility] [address] [place] [phone] Hemanth Monk MD [address] [place] [address] 5 11:30 AM EDT Office Visit Cardiology [address] [place] [address] Alessandro Dozier PA-C [address] [place] [address] 5 9:00 AM EDT Office Visit Family Practice [facility] [address] [place] [address] Eliud Orta MD [address] [place] [address] 5 11:00 AM EDT Imaging Radiology [address] [place] [address] 5 11:00 AM EDT Telemedicine Radiation Oncology, [address] [place] [address] Rubi Mart MD Medical [place] [address] 5 11:40 AM EST Office Visit [facility] [address] [place] [address] Eliud Orta MD [address] [place] [address] Scheduled Procedures Name Priority Associated Diagnoses Date/Ti [...] 12/27/2022, 09/04/2016 (Declined) CKD PHOS USE SMARTSET 55830 01/19/202401/09, 07/18/2022, 01/16/2022, Additional history exists GFR 06/19/2024 12/20/2023, 07/10/2023, 05/08/2023, Additional history exists CKD HGB USE SMARTSET 60965 12/19/202412/19, 12/20/2023, 09/16/2023, Additional history exists O2 [...] this encounter Medical Devices Implanted Type Area Gateman Device Identifier Shelf Expiration Date Model / Serial / Lot Phasix Mesh [id number] Implanted:Qty: 1 on 10/20/[address] [facility] [place] N/A: Abdomen CR BARD : DAVOL 02/07/2014 [id number] / / [id number] Description:Trial item Vitamesh Squ Blue 30cm X 30cm - [id number] Implanted:Qty: 1 on 05/29/[address] [facility] [place] N/A: Abdomen [employer] 12/08/2014 [id number] / / [id number] documented as of this encounter Advance Directives [...] the patient have Health Care Power of Captain Room Service? Yes, in chart and reviewed as current Care Teams Skein Straightener Relationship Specialty Start Date End Date Eliud Orta MD [address] [place] [address] PCP - General Family Medicine 03/09/14 documented as of this encounter
--- OUTSIDE RECORDS SUMMARY | 2024-04-25 07:12 | External Medical Summary | Summary of Care ---
Author Name Unknown Organization [facility] Address [address] [facility] [place] [address] Phone [phone] Care Team Providers Care General Helper Name Role Phone Eliud Romero MD Primary Care Provider + Reason for Visit * Reason Comments Medication Refill Encounter Details Date Type Department Care Team (Late st Contact Info) Description 03/26/2024 Refill [facility] [address] Eliud Romero MD [address] [facility] [phone] BPH with obstruction/lower urinary tract symptoms Allergies Active Allergy Reactions Criticality Noted Date Comments Bee Stings Hives Medium 07/26/2008 Gentamicin Sulfate 06/05/2001 pt was on gentamycin,unasyn,chovtm-mjodo-ul t sure which med documented as of this encounter (statuses as of 03/26/2024) Medications CENTRUM SILVER OR TABS 1 TABLET [...] 2 12/28/2022 10:06 AM EDT 3 Active Atenolol 25 MG Oral Tablet (Tenormin)Indic ations:SVT (supraventricul ar tachycardia) (HCC),Palpitati ons TAKE ONE AND ONE-HALF TABLETS BY MOUTH EVERY DAY IN THE MORNING AND TAKE ONE AND ONE-HALF TABLETS BEFORE BEDTIME 270 Tablet 3 01/04/2024 9:27 AM EDT 4 04/10/19 25 Active Rivaroxaban 20 MG Oral [...] 90 Tablet 3 5 03/26/19 26 Active Finasteride 5 MG Oral Tablet (Proscar)Indica tions:BPH with obstruction/low er urinary tract symptoms TAKE ONE TABLET BY MOUTH EVERY DAY IN THE MORNING 90 Tablet 3 12/30/2023 7:00 AM EDT 4 03/26/19 25 Discontinu ed(Refill) Hospital, Clinic, or Other Facility Administered Medication Ordered Dose Route Frequency Start Date End Date Status albuterol sulfate (PROVENTIL) (2.5 MG/3ML) 0.083% inhalation solution 2.5 mgIndications:Adenocarcin chrystal of left lung (HCC) 2.5 mg NEBULIZER Q4H PRN 06/13/2018 Ac tive documented as of this encounter (statuses as of 03/26/2024) Active Problems Problem Noted Date Diagnosed Date [...] dysfunction 03/19/2017 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 Minimum 6mo anticoag, heme rec lifelong ICD-10 update of inactive term History of DVT (deep vein thrombosis) 12/06/2014 Overview (04/11/2015): 12/03/14 new dx with PE--rec lifelong therapy History of pulmonary embolism 12/06/2014 Overview (01/21/2017): 01/25 nonocclusive DVT [facility] doppler while on xarelto 12/03/14 [facility] w/DVT leg. Minimum 6mo anticoag-Heme rec lifelong. [...] as of this encounter (statuses as of 03/26/2024) Resolved Problems Problem Noted Date Diagnosed Date [...] (02/01/2014): 12/[address] Castro [id number] Toxic effect of venom 07/26/20082013 Overview (12/13/2015): [...] as of this encounter (statuses as of 03/26/2024) Immunizations Name Administration Dates Next Due COVID-19 mRNA, LNP-s, No Pre serve, 2-Dose Series ([employer]) 11/08/2020,05/31/2020,05/10/2020 COVID-19, LNP-s, No Preserve , Jose E-sucrose, Ages 12+ ([employer]) 05/16/2021 COVID-19, MRNA-LNP, PF, 30 M CG/0.3 mL, 12 YRS AND ABOVE, IM ([employer]) 01/13/2024,01/21/2023 Covid-19, Mrna, Lnp-s, Pf, B ivalent, 30 Mcg, IM, 12 yrs and above ([employer]) 12/26/2021 Pneumococcal Conjugate Vacc, 13 Valent (Prevnar) 09/05/2015 Pneumococcal Polysaccharide PPV23 (Pneumovax) 11/11/2009 RSV Vac., Bivalent, Perfusio n F, Pf,0.5 Ml (Abrysvo) 01/02/2023 Seasonal Influenza Vac., MDV , IM, 0.5 mL (Fluzone) 12/16/2013,11/27/2012,12/26/2011,1007/2010,12/15/2009,01/12/2009,12/18/19 08,12/11/2006,12/12/2005 Seasonal Influenza, High Dos e, Trivalent, [...] No 08/01/2018 10:47 PM EDColby Pace RN documented as of this encounter Mental Status * Because of a physical, mental, or emotional condition, do you have serious difficulty concentrating, remembering, or making decisions? (5 years old or older) Answer Entry Date Author No 08/01/2018 10:47 PM Colby Marcelino RN documented in this encounter Miscellaneous Notes * Telephone Encounter - Dolly Rodriguez RPh - 03/26/2024 9:14 AM ESTSigned Prescriptions: Disp Refills Finasteride 5 MG Oral Tablet (Proscar) 90 Tab*3 Sig: TAKE ONE TABLET BY MOUTH EVERY DAY IN THE MORNINGAuthorizing Provider: ELIUD ROMERO User: DOLLY RODRIGUEZ documented in this encounter Plan of Treatment Upcoming Encounters Date Type Department Care Team (Late st Contact Info) Description 03/27/2024 2:00 PM EST Imaging Radiology [facility] [address] [place] [phone] 04/08/2024 9:30 AM EST Office Visit Hematology/Oncology [facility] [address] [place] [phone] Hemanth Monk MD [address] [place] [address] 06/02/2024 11:30 AM EDT Office Visit Cardiology [address] [place] [address] Alessandro Dozier PA-C [address] [place] [address] 08/19/2024 9:00 AM EDT Office Visit [facility] [address] [place] [address] Eliud Romero MD [address] [place] [address] 08/20/2024 11:00 AM EDT Imaging Radiology [address] [place] [address] 08/27/2024 11:00 AM EDT Telemedicine Radiation Oncology, [address] [place] [address] Rubi Mart MD [address] [place] [address] [place] [address] 02/19/2025 11:40 AM EST Office Visit [facility] [address] [place] [address] Eliud Romero MD [address] [place] [address] Health Maintenance Due Date Last Done Comments Alpha-1 Antitrypsin 1963 Adult Wellness Visit 04/27/2017 04/27/2016 Albumin/Creatinine Ratio 12/28/2023 023, 01/16/2022, 05/10/2021, Additional history exists Depression Screening 12/28/2023 12/27/2022, 09/04/2016 (Declined) CKD PHOS USE SMARTSET 27931 01/19/202401/09, 07/18/2022, 01/16/2022, Additional history exists GFR 06/19/2024 12/20/2023, 0710/2023, 05/08/2023, Additional history exists CKD HGB USE SMARTSET 71625 12/19/202412/19, 12/20/2023, 09/16/2023, Additional history exists O2 [...] this encounter Medical Devices Implanted Type Area Optoelectronic Technician Device Identifier Shelf Expiration Date Model / Serial / Lot Phasix Mesh [id number] Implanted:Qty: 1 on 10/20/2012 at OR [facility] [place] N/A: Abdomen CR BARD : DAVOL 02/07/2014 [id number] / / [id number] Description:Trial item Vitamesh Squ Blue 30cm X 30cm - [id number] Implanted:Qty: 1 on 05/29/2013 at OR [facility] [place] N/A: Abdomen [employer] 12/08/2014 [id number] / / [id number] documented as of this encounter Visit Diagnoses Diagnosis BPH with obstruction/lower urinary tract symptoms Hypertrophy of prostate with urinary obstruction and other lower urinary tract symptoms (LUTS) documented in this encounter Advance Directives * [...] the patient have Health Care Power of 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
--- OUTSIDE RECORDS SUMMARY | 2024-04-25 07:12 | External Medical Summary | Summary of Care ---
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) Allergies Active Allergy Reactions Criticality Noted Date Comments Bee Stings Hives Medium 07/26/2008 Gentamicin Sulfate 06/05/2001 pt was on gentamycin,unasyn,fkfuuh-fhpfz-pu t sure which med documented as of [...] 03/19/2017 Alcohol dependence in remission 09/05/2016 intermediate current use of anticoagulant therapy 0 12/06/2014 [...] #1 Thrombocytopenia 03/08/2016 09/04/2016 Overview (03/08/2016): 02/23, ojseph 3mo Altered bowel elimination du e to [...] (02/01/2014): 12/[address] Matthew BreenQujll-[id number] Toxic effect of venom 07/26/20082013 Overview (12/13/2015): [...] mRNA, LNP-s, No Pre serve, 2-Dose Series ([employer]) 11/08/2020,05/31/2020,05/10/2020 COVID-19, LNP-s, No Preserve , Jose [...] Author No 08/01/2018 10:47 PM EDT Colby Franco, RN * Are you blind or do [...] documented in this encounter Progress Notes * Michael Perry MD - 03/30/2024 7:08 AM EST MRI of the abdomen done on 03/27/2023: - 1.9 cm pancreatic mass in the uncinate process without any pancreaticobiliary ductal dilatation. Would like to proceed with EUS evaluation. documented in this encounter Plan of Treatment Upcoming Encounters Date Type Department Care Team (Late st Contact Info) Description 04/08/2024 9:30 AM EST Office Visit Hematology/Oncology [employer] [address] [facility] [place] [phone] Hemanth Monk MD [address] [facility] [place] [address] 06/02/2024 11:30 AM EDT Office Visit Cardiology [address] [place] [address] Alessandro Dozier PA-C [address] [place] [address] 08/19/2024 9:00 AM EDT Office Visit [facility] [address] [place] [address] Eliud Orta MD [address] [place] [address] 08/20/2024 11:00 AM EDT Imaging Radiology [address] [place] [address] 08/27/2024 11:00 AM EDT Telemedicine Radiation Oncology, [address] [place] [address] Rubi Mart MD [address] [place] [address] [place] [address] 02/19/2025 11:40 AM EST Office Visit [facility] [address] [place] [address] Eliud Orta MD [address] [place] [address] Scheduled Orders Name Type Priority Associated Diagnoses Orde r Schedule US ENDOSCOPIC Medical Imaging Routine 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) Pancreatic mass Expected: 04/06/2024, Expires: 04/30/2025 Health Maintenance Due Date Last Done Comments Alpha-1 Antitrypsin 1963 Adult Wellness Visit 04/27/2017 04/27/2016 Albumin/Creatinine Ratio 12/28/2023 023, 01/16/2022, 05/10/2021, Additional history exists Depression Screening 12/28/2023 12/27/2022, 09/04/2016 (Declined) CKD PHOS USE SMARTSET 31464 01/19/2024 11/1 , 07/18/2022, 01/16/2022, Additional history exists GFR 06/19/2024 12/20/2023, 07/0 10/2023, 05/08/2023, Additional history exists CKD HGB USE SMARTSET 71426 12/19/202412/19, 12/20/2023, 09/16/2023, Additional history exists O2 [...] this encounter Medical Devices Implanted Type Area Baggage Security Checker Device Identifier Shelf Expiration Date Model / Serial / Lot Phasix Mesh [id number] Implanted:Qty: 1 on 10/20/2012 at OR [facility] [place] N/A: Abdomen CR BARD : DAVOL 02/07/2014 [id number] / / [id number] Description:Trial item Vitamesh Squ Blue 30cm X 30cm - [id number] Implanted:Qty: 1 on 05/29/2013 at OR [facility] [place] N/A: Abdomen [employer] 12/08/2014 [id number] / / [id number] documented as of this encounter Visit Diagnoses Diagnosis Pancreatic mass- Primary Unspecified disease of pancreas Malignant neoplasm of [...] the patient have Health Care Power of Fructose Loader? Yes, in chart and reviewed as current Care Teams Dehorner Relationship Specialty Start Date End Date Eliud Orta MD [address] [place] [address] PCP - General Family Medicine 03/09/14 documented as of this encounter
--- OUTSIDE RECORDS SUMMARY | 2024-04-25 07:12 | External Medical Summary | Summary of Care ---
Author Name Unknown Organization [facility] Address [address] [place] [address] Phone [phone] Care Team Providers Care Engagement Quality Consultant Name Role Phone Eliud Orta MD Primary Care Provider + Reason for Referral * Precert (Within 10 days (routine)) - Authorized Specialty Diagnoses / Procedures Referred By Contac t Referred To Contact Radiology Diagnoses Malignant neoplasm of upper lobe of left lung (HCC) Pancreatic mass Procedures MRI ABDOMEN W WO CONTRAST Marquise Perry MD [address] [place] [address] Phone: tel: fax: Referral ID Status Reason Start Date Expiration Date V isits Requested Visits Authorized [id number] Authorized 03/30/2024 999 999 Reason for Visit * Reason Onset Date Comments Test Results 03/16/2024 Unexpected or In determinate Result Encounter Details Date Type Department Care Team (Late st Contact Info) Description 03/16/2024 Telephone Laboratory, [place] [address] [place] [address] Hemanth Monk MD [address] [place] [id number] Test Results (Unexpected or Indeterminate ... Allergies Active Allergy Reactions Criticality Noted Date Comments Bee Stings Hives Medium 07/26/2008 Gentamicin Sulfate 06/05/2001 pt was on gentamycin,unasyn,mlovie-lglio-tn t sure which med documented as of this encounter (statuses as of 03/16/2024) Medications CENTRUM SILVER OR TABS 1 TABLET [...] 2 12/28/2022 10:06 AM EDT 12/27/2022 Active Finasteride 5 MG Oral Tablet (Proscar)Indica tions:BPH with obstruction/low er urinary tract symptoms TAKE ONE TABLET BY MOUTH EVERY DAY IN THE MORNING 90 Tablet 3 12/30/2023 7:00 AM EDT 04/02/2023 04/03/19 25 Active Atenolol 25 MG Oral Tablet (Tenormin)Indic [...] mouth daily with dinner. 100 Tablet 3 02/15/2024 2:46 PM EST 08/09/2023 Active Alfuzosin HCl ER 10 MG Oral Tablet Extended Release 24 Hour (Uroxatral)Mally cations:BPH with obstruction/low er urinary tract symptoms Take 1 Tablet by mouth in the morning. 100 Tablet 3 12/28/2023 1:11 PM EDT 08/09/2023 Active Hospital, Clinic, or Other Facility Administered Medication Ordered Dose Route Frequency Start Date End Date Status albuterol sulfate (PROVENTIL) (2.5 MG/3ML) 0.083% inhalation solution 2.5 mgIndications:Adenocarcin chrystal of left lung (HCC) 2.5 mg NEBULIZER Q4H PRN 06/13/2018 Ac tive documented as of this encounter (statuses as of 03/16/2024) Active Problems Problem Noted Date Diagnosed Date [...] dysfunction 03/19/2017 Alcohol dependence in remission 09/05/2016 longterm current use of anticoagulant therapy 0 12/06/2014 Overview (06/25/2017): 12/03/14 admit w/DVT/PE. Minimum 6mo anticoag, heme rec lifelong ICD-10 update of inactive term History of DVT (deep vein thrombosis) 12/06/2014 Overview (04/11/2015): 12/03/14 new dx with PE--rec lifelong therapy History of pulmonary embolism 12/06/2014 Overview (01/21/2017): 01/25 nonocclusive DVT [facility] doppler while on xarelto 12/03/14 [facility] w/DVT leg. Minimum 6mo anticoag-Heme rec lifelong. [...] as of this encounter (statuses as of 03/16/2024) Resolved Problems Problem Noted Date Diagnosed Date [...] (02/01/2014): 12/[address] Cr [address] Matthew BreenUlgbq-omtns-[id number] Toxic effect of venom 07/26/20082013 Overview (12/13/2015): [...] as of this encounter (statuses as of 03/16/2024) Immunizations Name Administration Dates Next Due COVID-19 mRNA, LNP-s, No Pre serve, 2-Dose Series ([employer]) 11/08/2020,05/31/2020,05/10/2020 COVID-19, LNP-s, No Preserve , Jose E-sucrose, Ages 12+ (Pfizer) 05/16/2021 COVID-19, MRNA-LNP, PF, 30 M CG/0.3 mL, 12 YRS AND ABOVE, IM ([facility]) 01/13/2024,01/21/2023 Covid-19, Mrna, Lnp-s, Pf, B ivalent, 30 Mcg, IM, 12 yrs and above ([employer]) 12/26/2021 Pneumococcal Conjugate Vacc, 13 Valent (Prevnar) [...] 10:47 PM MAR[place]T Colby Franco RN * Because of a [...] Entry Date Author No 08/01/2018 10:47 PM Colyb Marcelino RN documented in this encounter Miscellaneous Notes * Telephone Encounter - Cam Camacho OSA - 03/16/2024 2:14 PM EST Patient scheduled and aware * Addendum Note - Donnie Ortiz RN - 03/16/2024 1:54 PM ESTAddended by: DONNIE ORTIZ on: 03/16/2024 01:54 PM Modules accepted: Orders * Telephone Encounter - Donnie Ortiz RN - 03/16/2024 1:52 PM EST Called patient, he verbalized understanding. He states that he will get lab work tomorrow at . Scheduling: - please add lab appt at tomorrow at 12:30 "Ca 19-9" - please schedule MRI for as soon as possible Thanks! * Addendum Note - Marquise Perry MD - 03/16/2024 1:39 PM ESTAddended by: MARQUISE PERRY on: 03/16/2024 01:39 PM Modules accepted: Orders * Telephone Encounter - Marquise Perry MD - 03/16/2024 1:38 PM EST PET-CT scan done on 03/16/2024: -new pancreatic head mass measuring 1.2 cm which is metabolically active -new metabolic active left apical nodule - Improved previously noted left apical subpleural nodule. Would like to get CA 19-9 level. Would like to get MRI of the abdomen and then he should have follow-up appointment Dr. Monk. * Telephone Encounter - Jayesh Carmen OSA - 03/16/2024 1:16 PM EST Hello- The radiologist discovered an unexpected or indeterminate finding on Jason Alexander ([id number]) and asks that you review the following report. Study Type: PET CT SKULL BASE TO MID-THIGH FDG Date of Study: 03/16/2024 IMPRESSION 1. New hypermetabolic pancreatic head mass concerning for malignancy. Recommend further evaluation with contrast-enhanced MRI. 2. New hypermetabolic left apical nodule concerning for malignancy. 3. Prior medial left apical subpleural nodule has improved. The more lateral 1.5 cm apical nodule seen on the prior chest CT is less conspicuous on this exam without abnormal metabolism. Please respond to this encounter to acknowledge receipt of this message and take responsibility to ensure this report is reviewed. Thank you, MICA Angulo Client Service Rep [facility] [place] documented in this encounter Plan of Treatment Upcoming Encounters Date Type Department Care Team (Late st Contact Info) Description 03/17/2024 12:30 PM EST Laboratory Laboratory, [facility] [place] [phone] [facility] [address] [place] [address] 04/03/2024 2:45 PM EST Imaging Radiology [facility] 1st [facility] [address] [place] [address] 04/08/2024 9:30 AM EST Office Visit Hematology/Oncology [facility] [address] [place] [phone] Hemanth Monk MD [address] [place] [address] 06/02/2024 11:30 AM EDT Office Visit Cardiology [address] [place] [address] Alessandro Dozier PA-C [address] [place] [address] 08/19/2024 9:00 AM EDT Office Visit Family Practice [facility] [address] [place] [address] Eliud Orta MD [address] [place] [address] 08/20/2024 11:00 AM EDT Imaging Radiology [address] [place] [address] 08/27/2024 11:00 AM EDT Telemedicine Radiation Oncology, [address] [place] [address] Rubi Mart MD [address] [place] [address] [place] [address] 02/19/2025 11:40 AM EST Office Visit [facility] [address] [place] [address] Eliud Orta MD [address] [facility] [place] [address] Scheduled Orders Name Type Priority Associated Diagnoses Orde r Schedule MRI ABDOMEN W WO CONTRAST Medical Imaging Routine Malignant neoplasm of upper lobe of left lung (HCC) Pancreatic mass Expected: 03/30/2024, Expires: 04/16/2025 CA 19-9 Lab STAT Malignant neoplasm of upper lobe of left lung (HCC) Pancreatic mass Expected: 03/16/2024, Expires: 03/16/2025 Health Maintenance Due Date Last Done Comments Alpha-1 Antitrypsin 1963 Adult Wellness Visit 04/27/2017 04/27/2016 Albumin/Creatinine Ratio 12/28/2023 023, 01/16/2022, 05/10/2021, Additional history exists Depression Screening 12/28/2023 12/27/2022, 09/04/2016 (Declined) CKD PHOS USE SMARTSET 11206 01/19/202401/09, 07/18/2022, 01/16/2022, Additional history exists GFR 06/19/2024 12/20/2023, 07/0 10/2023, 05/08/2023, Additional history exists CKD HGB USE SMARTSET 14860 12/19/202412/19, 12/20/2023, 09/16/2023, Additional history exists O2 [...] this encounter Medical Devices Implanted Type Area Clinical Resource Coordinator Device Identifier Shelf Expiration Date Model / Serial / Lot Phasix Mesh [id number] Implanted:Qty: 1 on 10/20/2012 at OR [facility] [place] N/A: Abdomen CR BARD : DAVOL 02/07/2014 [id number] / / [id number] Description:Trial item Vitamesh Squ Blue 30cm X 30cm - [id number] Implanted:Qty: 1 on 05/29/2013 at OR [facility] [place] N/A: Abdomen [employer] 12/08/2014 [id number] / / [id number] documented as of this encounter Visit Diagnoses Diagnosis Malignant neoplasm of upper lobe of left lung (HCC)- Primary Pancreatic mass Unspecified disease of pancreas documented in this encounter Advance Directives * [...] the patient have Health Care Power of Automotive Porter? Yes, in chart and reviewed as current Care Teams Engagement Quality Consultant Relationship Specialty Start Date End Date Eliud Orta MD [address] [facility] [place] [address] PCP - General Family Medicine 03/09/14 documented as of this encounter
--- OUTSIDE RECORDS SUMMARY | 2024-04-25 07:12 | External Medical Summary | Summary of Care ---
Author Name Unknown Organization [facility] Address [address] [place] [address] Phone [phone] Care Team Providers Care Mortgage Protection Sales Name Role Phone Eliud Orta MD Primary Care Provider + Reason for Visit * Reason Onset Date Comments Test Results 03/28/2024 Unexpected or In determinate Result Encounter Details Date Type Department Care Team (Late st Contact Info) Description 03/28/2024 Telephone Laboratory, [place] [address] [place] [address] Michael Perry MD [address] [place] [address] [id number] Test Results (Unexpected or Indeterminate ... 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 Minimum 6mo anticoag, heme rec lifelong ICD-10 update of inactive term History of DVT (deep vein thrombosis) 12/06/2014 Overview (04/11/2015): 12/03/14 new dx with PE--rec lifelong therapy History of pulmonary embolism 12/06/2014 Overview (01/21/2017): 01/25 nonocclusive DVT [facility] doppler while on xarelto 12/03/14 [facility] w/DVT leg. Minimum 6mo anticoag-Heme rec lifelong. [...] as of this encounter (statuses as of 03/28/2024) Resolved Problems Problem Noted Date Diagnosed Date [...] (02/01/2014): 12/[address] Matthew BreenOithv-yhimc-[id number] Toxic effect of venom 07/26/20082013 Overview (12/13/2015): [...] as of this encounter (statuses as of 03/28/2024) Immunizations Name Administration Dates Next Due COVID-19 mRNA, LNP-s, No Pre serve, 2-Dose Series (EcoVadis) 11/08/2020,05/31/2020,05/10/2020 COVID-19, LNP-s, No Preserve , Jose [...] Vac., MDV , IM, 0.5 mL (Fluzone) 12/16/2013,11/27/2012,12/26/2011,10/07/2010,12/15/2009,01/12/2009,12/18/19 08,12/11/2006,12/12/2005 Seasonal Influenza, High Dos e, Trivalent, [...] encounter Miscellaneous Notes * Telephone Encounter - Amadou Green OSA - 03/28/2024 5:09 PM EST Hello- The radiologist discovered an unexpected or indeterminate finding on Jason A Benjamin ([id number]) and asks that you review the following [...] reviewed. Thank you, MICA See Client Service Rep [facility] [place] documented in this encounter Plan of Treatment Upcoming Encounters Date Type Department Care Team (Late st Contact Info) Description 04/08/2024 9:30 AM EST Office Visit Hematology/Oncology [facility]nie Franco [address] [place] [phone] Hemanth Monk MD [address] [place] [address] 06/02/2024 11:30 AM EDT Office Visit Cardiology [address] [place] [address] Alessandro Dozier PA-C [address] [place] [address] 08/19/2024 9:00 AM EDT Office Visit [facility] [address] [place] [address] Eliud Orta MD [address] [place] [address] 08/20/2024 11:00 AM EDT Imaging Radiology [address] [place] [address] 08/27/2024 11:00 AM EDT Telemedicine Radiation Oncology, [address] [address] Rubi Mart MD [address] [place] [address] [place] [address] 02/19/2025 11:40 AM EST Office Visit [facility] [address] [place] [address] Eliud Orta MD [address] [place] [address] Health Maintenance Due Date Last Done Comments Alpha-1 Antitrypsin 1963 Adult Wellness Visit 04/27/2017 04/27/2016 Albumin/Creatinine Ratio 12/28/2023 023, 01/16/2022, 05/10/2021, Additional history exists Depression Screening 12/28/2023 12/27/2022, 09/04/2016 (Declined) CKD PHOS USE SMARTSET 26618 01/19/202401/09, 07/18/2022, 01/16/2022, Additional history exists GFR 06/19/2024 12/20/2023, 10/2023, 05/08/2023, Additional history exists CKD HGB USE SMARTSET 49382 12/19/202412/19, 12/20/2023, 09/16/2023, Additional history exists O2 [...] this encounter Medical Devices Implanted Type Area Shell Coremaker Device Identifier Shelf Expiration Date Model / Serial / Lot Phasix Mesh [id number] [place] [facility] [place]domen CR BARD : DAVOL 02/07/2014 [id number] / / [id number] Description:Trial item Vitamesh Squ Blue 30cm X 30cm - [id number] Implanted:Qty: 1 on 05/29/2013 [place] [facility] [place]: Abdomen [employer] 12/08/2014 [id number] / / [id number] documented as of this encounter Advance Directives [...] the patient have Health Care Power of Streaming Media Specialist? Yes, in chart and reviewed as current Care Teams Mortgage Protection Sales Relationship Specialty Start Date End Date Eliud Orta MD [address] [place] [address] PCP - General Family Medicine 03/09/14 documented as of this encounter
--- OUTSIDE RECORDS SUMMARY | 2024-04-25 07:12 | External Medical Summary | Summary of Care ---
Author Name Unknown Organization [facility] Address [address] [place] [address] Phone [phone] Care Team Providers Care Pouncer Name Role Phone Eliud Orta MD Primary Care Provider + Reason for Visit * Reason Onset Date Comments Test Results 03/28/2024 Unexpected or In determinate Result Encounter Details Date Type Department Care Team (Late st Contact Info) Description 03/28/2024 Telephone Laboratory, [place] [address] [place] [address] Michael Perry MD [address] [place] [address] [phone] Test Results (Unexpected or Indeterminate ... 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 0 12/06/2014 [...] (02/01/2014): 12/[address] Matthew BreenFbuqp-vxwis-[id number] Toxic effect of venom 07/26/20082013 Overview (12/13/2015): [...] mRNA, LNP-s, No Pre serve, 2-Dose Series ([employer]) 11/08/2020,05/31/2020,05/10/2020 COVID-19, LNP-s, No Preserve , Jose [...] Assessment Author No 08/01/2018 10:47 PM Colby aMrcelino RN * Do you have serious difficulty [...] unexpected or indeterminate finding on Jason Alexander ([id number]) and asks that you review the following [...] Thank you, MICA See Client Service Rep [facility] documented in this encounter Plan of Treatment Upcoming Encounters Date Type Department Care Team (Late st Contact Info) Description 04/08/2024 9:30 AM EST Office Visit Hematology/Oncology [facility] [address] [facility] [place] [phone] Hemanth Monk MD [address] [facility] [place] [address] 06/02/2024 11:30 AM EDT Office Visit Cardiology [address] [place] [address] Alessandro Dozier PA-C [address] [place] [address] 08/19/2024 9:00 AM EDT Office Visit Family Practice [facility] [address] [place] [address] Eliud Orta MD [address] [place] [address] 08/20/2024 11:00 AM EDT Imaging Radiology [address] [place] [address] 08/27/2024 11:00 AM EDT Telemedicine Radiation Oncology, [place] [address] [facility] [place] [address] Rubi Mart MD Medical [facility] [place] [address] 02/19/2025 11:40 AM EST Office Visit Family [facility] [address] [place] [address] Eliud Orta MD [address] [place] [address] Health Maintenance Due Date Last Done Comments Alpha-1 Antitrypsin 1963 Adult Wellness Visit 04/27/2017 04/27/2016 Albumin/Creatinine Ratio 12/28/2023 023, 01/16/2022, 05/10/2021, Additional history exists Depression Screening 12/28/2023 12/27/2022, 09/04/2016 (Declined) CKD PHOS USE SMARTSET 72983 01/19/202401/09, 07/18/2022, 01/16/2022, Additional history exists GFR 06/19/2024 12/20/2023, 10/2023, 05/08/2023, Additional history exists CKD HGB USE SMARTSET 38417 12/19/202412/19, 12/20/2023, 09/16/2023, Additional history exists O2 [...] this encounter Medical Devices Implanted Type Area Electrocardiograph Operator Device Identifier Shelf Expiration Date Model / Serial / Lot Phasix Mesh [id number] [place]ed:Q[place] 1 [place] 10[place]20[place] [facility] [place]domen CR BARD : DAVOL 02/07/2014 [id number] / / [id number] Description:Trial item Vitamesh Squ Blue 30cm X 30cm - [id number] Implanted:Qty[place] 1 on 05/29/[place] [facility] [place] Abdomen [employer] 12/08/2014 [id number] / / [id number] documented as of this encounter Advance Directives [...] the patient have Health Care Power of Gang Vibrator Operator? Yes, in chart and reviewed as current Care Teams Pouncer Relationship Specialty Start Date End Date Eliud Orta MD [address] [place] [address] PCP - General Family Medicine 03/09/14 documented as of this encounter
--- OUTSIDE RECORDS SUMMARY | 2024-04-25 07:12 | External Medical Summary ---
Author Name Unknown Address Unknown Organization K01:LABORATORY [facility] - [address] [place] [address] Laboratory Report Ordering Provider Test Date Status SHOBHA JURADO 03/17/2024 12:28:11 Final Observation Date Value Abnormality Reference (Units ) Status Cancer Ag 19-9 03/17/2024 12:28:11 864.6 Above high norm al <35.0 (U/mL) Final Performing Location LABORATORY [facility] - [address] [place] [address]
--- OUTSIDE RECORDS SUMMARY | 2024-04-25 07:12 | External Medical Summary | Summary of Care ---
Author Name Unknown Organization [facility] Address [address] [place] [address] Phone [phone] Care Team Providers Care Orderly Name Role Phone Eliud Orta MD Primary Care Provider + Reason for Referral * Precert (Within 10 days (routine)) - Authorized Specialty Diagnoses / Procedures Referred By Contac t Referred To Contact Radiology Diagnoses Malignant neoplasm of upper lobe of left lung (HCC) Pancreatic mass Procedures MRI ABDOMEN W WO CONTRAST Marquise Perry MD [address] [place] [address] Phone: tel: fax: Referral ID Status Reason Start Date Expiration Date V isits Requested Visits Authorized [id number] Authorized 03/30/2024 999 999 Reason for Visit * Reason Onset Date Comments Test Results 03/16/2024 Unexpected or In determinate Result Encounter Details Date Type Department Care Team (Late st Contact Info) Description 03/16/2024 Telephone Laboratory, [place] [address] [place] [address] Hemanth Monk MD [address] [place] [phone] Test Results (Unexpected or Indeterminate ... Allergies Active Allergy Reactions Criticality Noted Date Comments Bee Stings Hives Medium 07/26/2008 Gentamicin Sulfate 06/05/2001 pt was on gentamycin,unasyn,qjmawn-lkkeg-yw t sure which med documented as of [...] dysfunction 03/19/2017 Alcohol dependence in remission 09/05/2016 group home current use of anticoagulant therapy 0 12/06/2014 Overview (06/25/2017): 12/03/14 admit w/DVT/PE. Minimum 6mo anticoag, heme rec lifelong ICD-10 update of inactive term History of DVT (deep vein thrombosis) 12/06/2014 Overview (04/11/2015): 12/03/14 new dx with PE--rec lifelong therapy History of pulmonary embolism 12/06/2014 Overview (01/21/2017): 01/25 nonocclusive DVT [facility] doppler while on xarelto 12/03/14 [facility] w/DVT leg. Minimum 6mo anticoag-Heme rec lifelong. [...] (02/01/2014): 12/[address] Cr [address] Matthew BreenTsutz-hmccz-[id number] Toxic effect of venom 07/26/20082013 Overview (12/13/2015): [...] mRNA, LNP-s, No Pre serve, 2-Dose Series ([employer]) 11/08/2020,05/31/2020,05/10/2020 COVID-19, LNP-s, No Preserve , Jose E-sucrose, Ages 12+ (Pfizer) 05/16/2021 COVID-19, MRNA-LNP, PF, 30 M CG/0.3 mL, 12 YRS AND ABOVE, IM ([facility] 01/13/2024,01/21/2023 Covid-19, Mrna, Lnp-s, Pf, B ivalent, 30 Mcg, IM, 12 yrs and above ([employer]) 12/26/2021 Pneumococcal Conjugate Vacc, 13 Valent (Prevnar) [...] documented in this encounter Miscellaneous Notes * Addendum Note - Marquise Perry MD [...] unexpected or indeterminate finding on Jason Noemy Alexander ([id number]) and asks that you review the following [...] Thank you, MICA Angulo Client Service Rep [facility] documented in this encounter Plan of Treatment Upcoming Encounters Date Type Department Care Team (Late st Contact Info) Description 04/08/2024 9:30 AM EST Office Visit Hematology/Oncology [facility] [place] [phone] Hemanth Monk MD [address] [place] [address] 06/02/2024 11:30 AM EDT Office Visit Cardiology [address] [place] [address] Alessandro Dozier PA-C [address] [place] [address] 08/19/2024 9:00 AM EDT Office Visit [facility] [address] [place] [address] Eliud Orta MD [address] [place] [address] 08/20/2024 11:00 AM EDT Imaging Radiology [address] [place] [address] 08/27/2024 11:00 AM EDT Telemedicine Radiation Oncology, [address] [place] [address] Rubi Mart MD [address] [place] [address] [place] [address] 02/19/2025 11:40 AM EST Office Visit [facility] [address] [place] [address] Eliud Orta MD [address] [place] [address] Scheduled Orders Name Type Priority Associated Diagnoses Orde r Schedule MRI ABDOMEN W WO CONTRAST Medical Imaging Routine Malignant neoplasm of upper lobe of left lung (HCC) Pancreatic mass Expected: 03/30/2024, Expires: 04/16/2025 Health Maintenance Due Date Last Done Comments Alpha-1 Antitrypsin 1963 Adult Wellness Visit 04/27/2017 04/27/2016 Albumin/Creatinine Ratio 12/28/2023 023, 01/16/2022, 05/10/2021, Additional history exists Depression Screening 12/28/2023 12/27/2022, 09/04/2016 (Declined) CKD PHOS USE SMARTSET 29619 01/19/202401/09, 07/18/2022, 01/16/2022, Additional history exists GFR 06/19/2024 12/20/2023, 10/2023, 05/08/2023, Additional history exists CKD HGB USE SMARTSET 21101 12/19/202412/19, 12/20/2023, 09/16/2023, Additional history exists O2 [...] this encounter Medical Devices Implanted Type Area Pediatric Cns Device Identifier Shelf Expiration Date Model / Serial / Lot Phasix Mesh [id number] Implanted:Qty: 1 on 10/20/2012 [place] [facility] [place] Abdomen CR BARD : DAVOL 02/07/2014 [id number] / / [id number] Description:Trial item Vitamesh Squ Blue 30cm X 30cm - [id number] Implanted:Qty: 1 on 05/29/2013 [place] [facility] [place]: Abdomen [employer] 12/08/2014 [id number] / / [id number] documented as of this encounter Visit Diagnoses [...] the patient have Health Care Power of Director College? Yes, in chart and reviewed as current Care Teams Orderly Relationship Specialty Start Date End Date Eliud Orta MD [address] [place] [address] PCP - General Family Medicine 03/09/14 documented as of this encounter
--- OUTSIDE RECORDS SUMMARY | 2024-04-25 07:12 | External Medical Summary | Summary of Care ---
Author Name Unknown Organization [facility] Address [address] [place] [address] Phone [phone] Care Team Providers Care Real Estate Economist Name Role Phone Eliud Orta MD Primary Care Provider + Reason for Visit * Reason Onset Date Comments Test Results 03/16/2024 Unexpected or In determinate Result Encounter Details Date Type Department Care Team (Late st Contact Info) Description 03/16/2024 Telephone Laboratory, [place] [address] [place] [address] Hemanth Monk MD [address] [place] [address] Test Results (Unexpected or Indeterminate ... Allergies Active Allergy Reactions Criticality Noted Date Comments Bee Stings Hives Medium 07/26/2008 Gentamicin Sulfate 06/05/2001 pt was on gentamycin,unasyn,ajbxzm-yizpu-bx t sure which med documented as of [...] OF EARLY doppler while on xarelto 12/03/14 [facility] w/DVT leg. Minimum 6mo anticoag-Heme rec lifelong. [...] between 05/25/2019 to 11/22/2021. PET scan done 08/08/24 & follow up CT scan was done [...] (02/01/2014): 12/22 Cr [address] Matthew BreenDrhmz-qibtk-Srqpqq-[id number] Toxic effect of venom 07/26/20082013 Overview (12/13/2015): [...] mRNA, LNP-s, No Pre serve, 2-Dose Series ([employer]) 11/08/2020,05/31/2020,05/10/2020 COVID-19, LNP-s, No Preserve , Jose E-sucrose, Ages 12+ (Pfizer) 05/16/2021 COVID-19, MRNA-LNP, PF, 30 M CG/0.3 mL, 12 YRS AND ABOVE, IM ([employer]) 01/13/2024,01/21/2023 Covid-19, Mrna, Lnp-s, Pf, B ivalent, 30 Mcg, IM, 12 yrs and above ([employer]) 12/26/2021 Pneumococcal Conjugate Vacc, 13 Valent (Prevnar) [...] encounter Miscellaneous Notes * Telephone Encounter - Jayesh Carmen OSA - 03/16/2024 1:16 PM EST Hello- The radiologist discovered an unexpected or indeterminate finding on Jason Diao ([id number]) and asks that you review the following [...] reviewed. Thank you, MICA Angulo Client Service [facility] documented in this encounter Plan of Treatment Upcoming Encounters Date Type Department Care Team (Late st Contact Info) Description 04/08/2024 9:30 AM EST Office Visit Hematology/Oncology [facility] [place] [address] [place] [phone] Hemanth Monk MD [address] [place] [address] 06/02/2024 11:30 AM EDT Office Visit Cardiology [address] [place] [address] Alessandro Dozier PA-C [address] [place] [address] 08/19/2024 9:00 AM EDT Office Visit [facility] [address] [place] [address] Eliud Orta MD [address] [place] [address] 08/20/2024 11:00 AM EDT Imaging Radiology [address] [place] [address] 08/27/2024 11:00 AM EDT Telemedicine Radiation Oncology, [address] [address] Rubi Mart MD [address] [place] [address] [place] [address] 02/19/2025 11:40 AM EST Office Visit [facility] [address] [place] [address] Eliud Orta MD [address] [place] [address] Health Maintenance Due Date Last Done Comments Alpha-1 Antitrypsin 1963 Adult Wellness Visit 04/27/2017 04/27/2016 Albumin/Creatinine Ratio 12/28/2023 023, 01/16/2022, 05/10/2021, Additional history exists Depression Screening 12/28/2023 12/27/2022, 09/04/2016 (Declined) CKD PHOS USE SMARTSET 04415 01/19/202401/09, 07/18/2022, 01/16/2022, Additional history exists GFR 06/19/2024 12/20/2023, 10/2023, 05/08/2023, Additional history exists CKD HGB USE SMARTSET 80473 12/19/202412/19, 12/20/2023, 09/16/2023, Additional history exists O2 [...] this encounter Medical Devices Implanted Type Area Data Warehousing Specialist Device Identifier Shelf Expiration Date Model / Serial / Lot Phasix Mesh [id number] Implanted:Qty: 1 on 10/20/2012 [place] [facility] [place]A: Abdomen CR BARD : DAVOL 02/07/2014 [id number] / / [id number] Description:Trial item Vitamesh Squ Blue 30cm X 30cm - [id number] Implanted:Qty: 1 on 05/29/2013 at [place] [facility] [place] N/A: Abdomen [employer] 12/08/2014 [id number] / / [id number] documented as of this encounter Advance Directives [...] the patient have Health Care Power of Senior Hr Generalist? Yes, in chart and reviewed as current Care Teams Real Estate Economist Relationship Specialty Start Date End Date Eliud Orta MD [address] [place] [place] [address] PCP - General Family Medicine 03/09/14 documented as of this encounter
--- OUTSIDE RECORDS SUMMARY | 2024-04-25 07:12 | External Medical Summary | Summary of Care ---
Author Name Unknown Organization [facility] Address [address] [place] [address] Phone [phone] Care Team Providers Care Baggage And Mail Agent Name Role Phone Eliud Orta MD Primary Care Provider + Reason for Referral * Precert (Within 10 days (routine)) - Authorized Specialty Diagnoses / Procedures Referred By Contac t Referred To Contact Radiology Diagnoses Malignant neoplasm of upper lobe of left lung (HCC) Pancreatic mass Procedures MRI ABDOMEN W WO CONTRAST Marquise Perry MD [address] [place] [address] Phone: tel: fax: Referral ID Status Reason Start Date Expiration Date V isits Requested Visits Authorized [id number] Authorized 03/30/2024 999 999 Reason for Visit * Reason Onset Date Comments Test Results 03/16/2024 Unexpected or In determinate Result Encounter Details Date Type Department Care Team (Late st Contact Info) Description 03/16/2024 Telephone Laboratory, [place] [address] [place] [address] Hemanth Monk MD [address] [place] [id number] Test Results (Unexpected or Indeterminate ... Allergies Active Allergy Reactions Criticality Noted Date Comments Bee Stings Hives Medium 07/26/2008 Gentamicin Sulfate 06/05/2001 pt was on gentamycin,unasyn,ayruhg-tgeet-jw t sure which med documented as of [...] dysfunction 03/19/2017 Alcohol dependence in remission 09/05/2016 shelter current use of anticoagulant therapy 0 12/06/2014 Overview (06/25/2017): 12/03/14 admit w/DVT/PE. Minimum 6mo anticoag, heme rec lifelong ICD-10 update of inactive term History of DVT (deep vein thrombosis) 12/06/2014 Overview (04/11/2015): 12/03/14 new dx with PE--rec lifelong therapy History of pulmonary embolism 12/06/2014 Overview (01/21/2017): 01/25 nonocclusive DVT [facility] doppler while on xarelto 12/03/14 [facility] w/DVT leg. Minimum 6mo anticoag-Heme rec lifelong. [...] (02/01/2014): 12/[address] Matthew BreenAdktc-twyyv-[id number] Toxic effect of venom 07/26/20082013 Overview (12/13/2015): [...] mRNA, LNP-s, No Pre serve, 2-Dose Series ([employer]) 11/08/2020,05/31/2020,05/10/2020 COVID-19, LNP-s, No Preserve , Jose E-sucrose, Ages 12+ (Pfizer) 05/16/2021 COVID-19, MRNA-LNP, PF, 30 M CG/0.3 mL, 12 YRS AND ABOVE, IM ([facility] 01/13/2024,01/21/2023 Covid-19, Mrna, Lnp-s, Pf, B ivalent, 30 Mcg, IM, 12 yrs and above (SamEnrico) 12/26/2021 Pneumococcal Conjugate Vacc, 13 Valent (Prevnar) [...] 10:47 PM MARIAMT Colby Franco RN * Are you blind [...] encounter Miscellaneous Notes * Addendum Note - Donnie Ortiz RN [...] unexpected or indeterminate finding on Jason Alexander ([id number]) and asks that you review the following [...] reviewed. Thank you, MICA Angulo Client Service [facility] documented in this encounter Plan of Treatment Upcoming Encounters Date Type Department Care Team (Late st Contact Info) Description 04/08/2024 9:30 AM EST Office Visit Hematology/Oncology [facility] [address] [facility] [place] [phone] Hemanth Monk MD [address] [facility] [place] [address] 06/02/2024 11:30 AM EDT Office Visit Cardiology [address] [place] [address] Alessandro Dozier PA-C [facility] [place] [address] 08/19/2024 9:00 AM EDT Office Visit [facility] [address] [place] [address] Eliud Orta MD [address] [place] [address] 08/20/2024 11:00 AM EDT Imaging Radiology [address] [place] [address] 08/27/2024 11:00 AM EDT Telemedicine Radiation Oncology, [address] [place] [address] Rubi Mart MD [address] [place] [address] [place] [address] 02/19/2025 11:40 AM EST Office Visit [facility] [address] [place] [address] Eliud Orta MD [address] [place] [address] Scheduled Orders Name Type Priority Associated Diagnoses [...] 12/27/2022, 09/04/2016 (Declined) CKD PHOS USE SMARTSET 87546 01/19/202401/09, 07/18/2022, 01/16/2022, Additional history exists GFR 06/19/2024 12/20/2023, 0710/2023, 05/08/2023, Additional history exists CKD HGB USE SMARTSET 34509 12/19/202412/19, 12/20/2023, 09/16/2023, Additional history exists O2 [...] this encounter Medical Devices Implanted Type Area Instant Printer Operator Device Identifier Shelf Expiration Date Model / Serial / Lot Phasix Mesh [id number] [place]planted:Q[place] 1 [place] 10[place]20/[place] [facility] [place] Abdomen CR BARD : DAVOL 02/07/2014 [id number] / / [id number] Description:Trial item Vitamesh Squ Blue 30cm X 30cm - [id number] Implanted:Qty: 1 on 05/29/2013 [place] [facility] [place]: Abdomen [employer] 12/08/2014 [id number] / / [id number] documented as of this encounter Visit Diagnoses [...] patient have Health Care Power of Business Liaison Manager? Yes, in chart and reviewed as current Care Teams Baggage And Mail Agent Relationship Specialty Start Date End Date Eliud Orta MD [address] [place] [address] PCP - General Family Medicine 03/09/14 documented as of this encounter
--- OUTSIDE RECORDS SUMMARY | 2024-04-25 07:12 | External Medical Summary | Summary of Care ---
Author Name Unknown Organization [facility] Address [address] [place] [address] Phone [phone] Care Team Providers Care Rn Case Mgr Name Role Phone Eliud Orta MD Primary Care Provider + Reason for Visit * Reason Onset Date Comments Test Results 03/28/2024 Unexpected or In determinate Result Encounter Details Date Type Department Care Team (Late st Contact Info) Description 03/28/2024 Telephone Laboratory, [place] [address] [place] [address] Michael Perry MD [address] [place] [id number] Test Results (Unexpected or Indeterminate ... Allergies Active Allergy Reactions Criticality Noted Date Comments Bee Stings Hives Medium 07/26/2008 Gentamicin Sulfate 06/05/2001 pt was on gentamycin,unasyn,ceoiin-nvoby-rg t sure which med documented as of [...] dysfunction 03/19/2017 Alcohol dependence in remission 09/05/2016 intermission coordinator current use of anticoagulant therapy 0 12/06/2014 Overview (06/25/2017): 12/03/14 admit w/DVT/PE. Minimum 6mo anticoag, heme rec lifelong ICD-10 update of inactive term History of DVT (deep vein thrombosis) 12/06/2014 Overview (04/11/2015): 12/03/14 new dx with PE--rec lifelong therapy History of pulmonary embolism 12/06/2014 Overview (01/21/2017): 01/25 nonocclusive DVT [facility] doppler while on xarelto 12/03/14 [facility] w/DVT leg. Minimum 6mo anticoag-Heme rec lifelong. [...] (02/01/2014): 12/[address] Matthew BreenAjgct-mgtzs-Mnxmmc-[id number] Toxic effect of venom 07/26/20082013 Overview (12/13/2015): [...] mRNA, LNP-s, No Pre serve, 2-Dose Series ([employer]) 11/08/2020,05/31/2020,05/10/2020 COVID-19, LNP-s, No Preserve , Jose [...] or indeterminate finding on Jason Noemy Diao ([id number]) and asks that you review the following [...] ensure this report is reviewed. Thank you, Amadou Green, MICA Client Service Rep [facility] [place] documented in this encounter Plan of Treatment Upcoming Encounters Date Type Department Care Team (Late st Contact Info) Description 04/08/2024 9:30 AM EST Office Visit Hematology/Oncology [facility] [address] [place] [phone] Hemanth Monk MD 200 [facility] [place] [address] 06/02/2024 11:30 AM EDT Office Visit Cardiology [address] [place] [address] Alessandro Dozier PA-C [address] [place] [address] 08/19/2024 9:00 AM EDT Office Visit [facility] [address] [place] [address] Eliud Orta MD [address] [place] [address] 08/20/2024 11:00 AM EDT Imaging Radiology [address] [place] [address] 08/27/2024 11:00 AM EDT Telemedicine Radiation Oncology, [address] [address] Rubi Mart MD [address] [place] [address] [place] [address] 02/19/2025 11:40 AM EST Office Visit [facility] [address] [place] [address] Eliud Orta MD [address] [place] [address] Health Maintenance Due Date Last Done Comments Alpha-1 Antitrypsin 1963 Adult Wellness Visit 04/27/2017 04/27/2016 Albumin/Creatinine Ratio 12/28/2023 023, 01/16/2022, 05/10/2021, Additional history exists Depression Screening 12/28/2023 12/27/2022, 09/04/2016 (Declined) CKD PHOS USE SMARTSET 95742 01/19/202401/09, 07/18/2022, 01/16/2022, Additional history exists GFR 06/19/2024 12/20/2023, 10/2023, 05/08/2023, Additional history exists CKD HGB USE SMARTSET 34538 12/19/202412/19, 12/20/2023, 09/16/2023, Additional history exists O2 [...] this encounter Medical Devices Implanted Type Area Refrigerated Company Driver Device Identifier Shelf Expiration Date Model / Serial / Lot Phasix Mesh [id number] Implanted:Qty: 1 on 10/20/2012 [place] [facility] [place]: Abdomen CR BARD : DAVOL 02/07/2014 [id number] / / [id number] Description:Trial item Vitamesh Squ Blue 30cm X 30cm - [id number] Implanted:Qty: 1 on 05/29/2013 [place] [facility] [place]A: Abdomen [employer] 12/08/2014 [id number] / / [id number] documented as of this encounter Advance Directives [...] the patient have Health Care Power of Engraver Signature? Yes, in chart and reviewed as current Care Teams Rn Case Mgr Relationship Specialty Start Date End Date Eliud Orta MD [address] [place] [address] PCP - General Family Medicine 03/09/14 documented as of this encounter
--- OUTSIDE RECORDS SUMMARY | 2024-04-25 07:12 | External Medical Summary | Summary of Care ---
Author Name Unknown Organization [facility] Address [address] [facility] [address] Phone [phone] Care Team Providers Care Principal Archaeologist Name Role Phone Eliud Orta MD Primary Care Provider + Reason for Visit * Reason Comments Outpatient Testing Encounter Details Date Type Department Care Team (Late st Contact Info) Description 03/17/2024 12:30 PM EST Laboratory Laboratory, [facility] [address] [facility] [address] Malignant neoplasm of upper lobe of left lung (HCC); Pancreatic mass Allergies Active Allergy Reactions Criticality Noted Date Comments Bee Stings Hives Medium 07/26/2008 Gentamicin Sulfate 06/05/2001 pt was on gentamycin,unasyn,wiqpxc-kiinf-tj t sure which med documented as of this encounter (statuses as of 03/17/2024) Medications CENTRUM SILVER OR TABS 1 TABLET [...] as of this encounter (statuses as of 03/17/2024) Active Problems Problem Noted Date Diagnosed Date [...] 03/19/2017 Alcohol dependence in remission 09/05/2016 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 Minimum 6mo anticoag, heme rec lifelong ICD-10 update of inactive term History of DVT (deep vein thrombosis) 12/06/2014 Overview (04/11/2015): 12/03/14 new dx with PE--rec lifelong therapy History of pulmonary embolism 12/06/2014 Overview (01/21/2017): 01/25 nonocclusive DVT [facility] doppler while on xarelto 12/03/14 [place] w/DVT [...] as of this encounter (statuses as of 03/17/2024) Resolved Problems Problem Noted Date Diagnosed Date [...] (02/01/2014): 12/[address] Matthew BreenSfnlp-edqbl-Hkhtbx-[id number] Toxic effect of venom 07/26/20082013 Overview (12/13/2015): [...] as of this encounter (statuses as of 03/17/2024) Immunizations Name Administration Dates Next Due COVID-19 mRNA, LNP-s, No Pre serve, 2-Dose Series ([employer]) 11/08/2020,05/31/2020,05/10/2020 COVID-19, LNP-s, No Preserve , Jose E-sucrose, Ages 12+ (Pfizer) 05/16/2021 COVID-19, MRNA-LNP, PF, 30 M CG/0.3 mL, 12 YRS AND ABOVE, IM ([employer]-Comirnat) 01/13/2024,01/21/2023 Covid-19, Mrna, Lnp-s, Pf, B ivalent, [...] Seasonal Influenza, Quadriva lent Hd (Fluzone Hd) 11/13/2023,12/27/2022,11/10/2021,1003/2020 Seasonal Influenza, Quadriva lent, No Preserve, IM [...] Care Team (Late st Contact Info) Description 04/03/2024 2:45 PM EST Imaging Radiology [address] 132 [facility] [place] [address] 04/08/2024 9:30 AM EST Office Visit Hematology/Oncology [facility] [place] [phone] Hemanth Monk MD 200 [facility] [place] [address] 06/02/2024 11:30 AM EDT Office Visit Cardiology [address] [place] [address] Alessandro [place]zier PA-C 132 [facility] [place] [address] 08/19/2024 9:00 AM EDT Office Visit [facility] [address] [address] Eliud Orta MD 132 [place] [address] 08/20/2024 11:00 AM EDT Imaging Radiology [address] [place] [address] 08/27/2024 11:00 AM EDT Telemedicine Radiation Oncology, [address] [place] [address] Rubi Mart MD [address] [place] [address] [place] [address] 02/19/2025 11:40 AM EST Office Visit [facility] [address] [place] [address] Eliud Orta MD 132 [place] [address] Pending Results Name Type Priority Associated Diagnoses Date /Time CA 19-9 Lab STAT Malignant neoplasm of upper lobe of left lung (HCC) Pancreatic mass 03/17/2024 12:28 PM EST Health Maintenance Due Date Last Done Comments Alpha-1 Antitrypsin 1963 Adult Wellness Visit 04/27/2017 04/27/2016 Albumin/Creatinine Ratio 12/28/20232 023, 01/16/2022, 05/10/2021, Additional history exists Depression Screening 12/28/2023 12/27/2022, 09/04/2016 (Declined) CKD PHOS USE SMARTSET 02938 01/19/202401/09, 07/18/2022, 01/16/2022, Additional history exists GFR 06/19/2024 12/20/2023, 10/2023, 05/08/2023, Additional history exists CKD HGB USE SMARTSET 80110 12/19/202412/19, 12/20/2023, 09/16/2023, Additional history exists O2 [...] this encounter Medical Devices Implanted Type Area Floor Steward/Stewardess Device Identifier Shelf Expiration Date Model / Serial / Lot Phasix Mesh [id number] Implanted:Qty: 1 on 10/20/2012 [place] [facility] [place] Abdomen CR BARD : DAVOL 02/07/2014 [id number] / / [id number] Description:Trial item Vitamesh Squ Blue 30cm X 30cm - [id number] Implanted:Qty: 1 on 05/29/2013 [place] [facility] [place]A: Abdomen [employer] 12/08/2014 [id number] / / [id number] documented as of this encounter Visit Diagnoses Diagnosis Malignant neoplasm of upper lobe of left lung (HCC) Pancreatic mass Unspecified disease of pancreas documented [...] the patient have Health Care Power of Vice President Diversity? Yes, in chart and reviewed as current Care Teams Principal Archaeologist Relationship Specialty Start Date End Date Eliud Orta MD 132 [facility] [place] [address] PCP - General Family Medicine 03/09/14 documented as of this encounter
--- OUTSIDE RECORDS SUMMARY | 2024-04-25 07:13 | External Medical Summary | Summary of Care ---
Author Name Unknown Organization [facility] Address [address] [place] [address] Phone [phone] Care Team Providers Care House Mover Supervisor Name Role Phone Eliud Orta MD Primary Care Provider + Reason for Visit * Reason Onset Date Comments Test Results 03/16/2024 Unexpected or In determinate Result Encounter Details Date Type Department Care Team (Late st Contact Info) Description 03/16/2024 Telephone Laboratory, [place] [address] [place] [address] Hemanth Monk MD [address] [place] [address] Test Results (Unexpected or Indeterminate ... Allergies Active Allergy Reactions Criticality Noted Date Comments Bee Stings Hives Medium 07/26/2008 Gentamicin Sulfate 06/05/2001 pt was on gentamycin,unasyn,prurbx-dtskb-sh t sure which med documented as of [...] embolism 12/06/2014 Overview (01/21/2017): 01/25 nonocclusive DVT [facility] doppler while on xarelto 12/03/14 [facility] w/DVT [...] (02/01/2014): 12/[address] Matthew BreenFumds-nzeqy-Hbzzaw-[id number] Toxic effect of venom 07/26/20082013 Overview (12/13/2015): [...] mRNA, LNP-s, No Pre serve, 2-Dose Series ([employer]) 11/08/2020,05/31/2020,05/10/2020 COVID-19, LNP-s, No Preserve , Jose E-sucrose, Ages 12+ (Pfizer) 05/16/2021 COVID-19, MRNA-LNP, PF, 30 M CG/0.3 mL, 12 YRS AND ABOVE, IM ([employer]Comirnat) 01/13/2024,01/21/2023 Covid-19, Mrna, Lnp-s, Pf, B ivalent, 30 Mcg, IM, 12 yrs and above ([employer]) 12/26/2021 Pneumococcal Conjugate Vacc, 13 Valent (Prevnar) [...] unexpected or indeterminate finding on Jason Diao ([id number]) and asks that you review the following [...] reviewed. Thank you, MICA Angulo Client Service [facility] documented in this encounter Plan of Treatment Upcoming Encounters Date Type Department Care Team (Late st Contact Info) Description 04/08/2024 9:30 AM EST Office Visit Hematology/Oncology [facility] [place] [address] [place] [phone] Hemanth Monk MD [address] [place] [address] 06/02/2024 11:30 AM EDT Office Visit Cardiology [address] [place] [address] Alessandro [place] PA-C [address] [place] [address] 08/19/2024 9:00 AM EDT Office [facility] [address] [place] [address] Eliud Orta MD [address] [place] [address] 08/20/2024 11:00 AM EDT Imaging Radiology [address] [place] [address] 08/27/2024 11:00 AM EDT Telemedicine Radiation Oncology, [address] [address] Rubi Mart MD [address] [place] [address] [place] [address] 02/19/2025 11:40 AM EST Office Visit [facility] [address] [place] [address] Eliud Orta MD 132 [place] [address] Health Maintenance Due Date Last Done Comments Alpha-1 Antitrypsin 1963 Adult Wellness Visit 04/27/2017 04/27/2016 Albumin/Creatinine Ratio 12/28/2023 023, 01/16/2022, 05/10/2021, Additional history exists Depression Screening 12/28/2023 12/27/2022, 09/04/2016 (Declined) CKD PHOS USE SMARTSET 81967 01/19/202401/09, 07/18/2022, 01/16/2022, Additional history exists GFR 06/19/2024 12/20/2023, 10/2023, 05/08/2023, Additional history exists CKD HGB USE SMARTSET 69841 12/19/202412/19, 12/20/2023, 09/16/2023, Additional history exists O2 [...] this encounter Medical Devices Implanted Type Area Travel Trailer Components Assembler Device Identifier Shelf Expiration Date Model / Serial / Lot Phasix Mesh [id number] [place] [facility] [place]dom[place] CR BARD : DAVOL 02/07/2014 [id number] / / [id number] Description:Trial item Vitamesh Squ Blue 30cm X 30cm - [id number] Implanted:Q[place]: 1 [place] [facility] [place] Abdomen [employer] 12/08/2014 [id number] / / [id number] documented as of this encounter Advance Directives [...] the patient have Health Care Power of Radiology Assistant? Yes, in chart and reviewed as current Care Teams House Mover Supervisor Relationship Specialty Start Date End Date Eliud Orta MD [address] [place] [address] PCP - General Family Medicine 03/09/14 documented as of this encounter
--- OUTSIDE RECORDS SUMMARY | 2024-04-25 07:13 | External Medical Summary | Summary of Care ---
Author Name Unknown Organization [facility] Address [address] [facility] [address] Phone [phone] Care Team Providers Care Timber Faller Name Role Phone Eliud Orta MD Primary Care Provider + Reason for Visit * Reason Comments Return Visit 6 month return Encounter Details Date Type Department Care Team (Latest Contact Info) Description 02/14/2024 10:40 AM EST Office Visit Family Practice [facility] [address] [place] [address] Eliud Orta MD [address] [place] [address] Lung cancer metastatic to brain ([facility])*; Dyslipidemia, goal LDL below 100; Stage 3b chronic kidney disease; Colostomy status ([facility]); COPD, group B, by GOLD 2017 classification ([facility]) Allergies Active Allergy Reactions Criticality Noted Date Comments Bee Stings Hives Medium 07/26/2008 Gentamicin Sulfate 06/05/2001 pt was on gentamycin,unasyn,vdiwgb-fdyvt-mi t sure which med documented as of this encounter (statuses as of 03/10/2024) Medications CENTRUM SILVER OR TABS 1 TABLET [...] as of this encounter (statuses as of 03/10/2024) Active Problems Problem Noted Date Diagnosed Date [...] 03/19/2017 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 Minimum 6mo anticoag, heme rec lifelong ICD-10 update of inactive term History of DVT (deep vein thrombosis) 12/06/2014 Overview (04/11/2015): 12/03/14 new dx with PE--rec lifelong therapy History of pulmonary embolism 12/06/2014 Overview (01/21/2017): 01/25 nonocclusive DVT [place] doppler while on xarelto 12/03/14 [facility] w/DVT [...] as of this encounter (statuses as of 03/10/2024) Resolved Problems Problem Noted Date Diagnosed Date [...] (02/01/2014): 12/[address] Matthew BreenXghud-etldh-[id number] Toxic effect of venom 07/26/20082013 Overview (12/13/2015): [...] as of this encounter (statuses as of 03/10/2024) Immunizations Name Administration Dates Next Due COVID-19 mRNA, LNP-s, No Pre serve, 2-Dose Series ([employer]) 11/08/2020,05/31/2020,05/10/2020 COVID-19, LNP-s, No Preserve , Jose E-sucrose, Ages 12+ ([employer]) 05/16/2021 COVID-19, MRNA-LNP, PF, 30 M CG/0.3 mL, 12 YRS AND ABOVE, IM ([facility]) 01/13/2024,01/21/2023 Covid-19, Mrna, Lnp-s, Pf, B ivalent, 30 Mcg, IM, 12 yrs and above ([employer]) 12/26/2021 Pneumococcal Conjugate Vacc, 13 Valent (Prevnar) 09/05/2015 Pneumococcal Polysaccharide PPV23 (Pneumovax) 11/11/2009 RSV Vac., Bivalent, Perfusio n F, Pf,0.5 Ml (Abrysvo) 01/02/2023 Seasonal Influenza Vac., MDV , IM, 0.5 mL (Fluzone) 12/16/2013,11/27/2012,12/26/2011,1007/2010,12/15/2009,01/12/2009,12/18/19,12/11/2006,12/12/2005,01/03/2005,1 05/08/2003,01/08/2003,12/29/2001,02/0512/29/2002 Seasonal Influenza, High Dos e, Trivalent, [...] Sign Reading Time Taken Comments Blood Pressure 102/60 02/14/2024 10:50 AM EST Pulse 77 02/14/2024 10:50 AM EST Temperature - - Respiratory Rate 18 02/14/2024 10:50 AM EST Oxygen Saturation 97% 02/14/2024 10:50 AM EST Inhaled Oxygen Concentration - - Weight 83.1 kg (183 lb 3.2 oz) 02/14/2024 10:50 AM EST Height - - Body Mass Index 28.69 05/20/2023 10:34 AM EDT documented in this encounter Functional Status * Are you deaf or do you have serious difficulty hearing? Answer Date of Assessment Author No 08/01/2018 10:47 PM EDT Colby Franco RN * Are you blind or do you have serious difficulty seeing, even when wearing glasses? Answer Date of Assessment Author No 08/01/2018 10:47 PM Colyb Marcelino RN * Do you have serious [...] documented in this encounter Progress Notes * Eliud Orta MD - 02/14/2024 11:39 AM EST Images from the original note were not included. Subjective Jason A Benjamin is a 78 year old male presenting for Return Visit (6 month return) Here w/. History of Present Illness The patient, with a history of lung cancer and colostomy, here for f/u. Had SOB last week The symptoms are exacerbated by physical exertion, such as hiking in the snow . Carrying heavy loads seems ok. . The patient also reports feeling winded after walking on flat surfaces, such as when gathering wood yt. Today denies PINEDO, CP, chest tightness. He denies coughing but reports occasional mucus production. He also reports occasional abdominal pain, particularly in the morning. Ostomy working ok. The patient has a history of lung cancer, for which he completed radiation therapy in December for arecurrence. He reports occasional pain on the left side, where the radiation was administered. The patient also has a colostomy, which occasionally causes discomfort, particularly when he does not consume enough water. No fever/chills Objective Blood pressure 102/60, pulse 77, resp. rate 18, weight 183 lb 3.2 oz (83.1 kg), SpO2 97%. Physical Exam NECK: Glands normal. CHEST: Tiny wheeze noted on right lower lobe and right upper lobe. Left lung clear. No rales CARDIOVASCULAR: Heart sounds regular, no murmurs. ABDOMEN: Soft, nontender, no masses. Addendum +ostomy 03/10/2024 Eliud Orta MD EXTREMITIES: No swelling in feet. Results LABS Creatinine: 1.4 (12/2023) RADIOLOGY PET scan: reviewed DIAGNOSTIC Electrocardiogram: Normal in October 2023 Assessment and Plan Assessment & Plan Shortness of Breath Experiencing shortness of breath with exertion, such as hiking and carrying wood. No chest pain. Patient believes he is out of shape , not doing as much exercise last 1 year. -will monitor-if worsening or not improving, he will let me or cards know and will do stress test Patient instructed to go to ED via EMS if develops chest pain, dyspnea, diaphoresis, etc that lastsgreater than 15 minutes. Abdominal Pain Reports occasional abdominal pain, particularly in the morning. No tenderness on examination. -Continue to monitor symptoms. Lung Cancer Completed radiation treatment in December. Reports occasional pain on the left side. -Continue to monitor symptoms. Renal Function Stable creatinine levels, improvement noted from previous year. Patient reports occasional left-sided pain. -Continue to monitor renal function. General Health Maintenance -Next appointment scheduled for August 19. -No need for blood work at this time. -All vaccinations up to date. 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) (Primary) Dyslipidemia, goal LDL below 100 Stage 3b chronic kidney disease Colostomy status (HCC) COPD, group B, by GOLD 2017 classification (HCC) Wrap-Up Follow Up: Return in about 1 year (around 02/13/2025) for Return with Physician. | For: Return with Physician | Check-out note: Keep 6 mo with me Add 1 y as well. Time: I spent a total of 30-39 minutes (exact time 32 mins) on the date of service in preparation, delivery, and documentation of the care provided to Jason Alexander excluding any time spent in the performance of separately billed services. Text in this note was generated using an [employer] documentation service. I discussed the use of a device to record and summarize our discussion today. All persons present during the encounter consented to its use. documented in this encounter Nursing Notes * Jackelyn Merlos LPN - 02/14/2024 10:41 AM EST The patient has been properly identified by confirmation of name and date of . Chief Complaint Patient presents with Return Visit 6 month return documented in this encounter Plan of Treatment Upcoming Encounters Date Type Department Care Team (Late st Contact Info) Description 03/16/2024 10:45 AM EST Imaging Radiology [facility] [address] [facility] [place] [address] 04/08/2024 9:30 AM EST Office Visit Hematology/Oncology [facility] [address] [place] [address] [phone] Hemanth Monk MD [address] [place] [address] [address] 06/02/2024 11:30 AM EDT Office Visit Cardiology [address] [place] [address] Alessandro Dozier PA-C [address] [place] [address] 08/19/2024 9:00 AM EDT Office Visit [facility] [address] [place] [address] Eliud Orta MD [address] [place] [address] 08/20/2024 11:00 AM EDT Imaging Radiology [address] [place] [address] 08/27/2024 11:00 AM EDT Telemedicine Radiation Oncology, [address] [place] [address] Rubi Mart MD [address] [place] [address] [place] [address] 02/19/2025 11:40 AM EST Office Visit [facility] [address] [place] [address] Eliud Orta MD 132 [facility] [place] [address] Health Maintenance Due Date Last Done Comments Alpha-1 Antitrypsin 1963 Adult Wellness Visit 04/27/2017 04/27/2016 Albumin/Creatinine Ratio 12/28/2023 023, 01/16/2022, 05/10/2021, Additional history exists Depression Screening 12/28/2023 12/27/2022, 09/04/2016 (Declined) CKD PHOS USE SMARTSET 81560 01/19/2024 11/1 , 07/18/2022, 01/16/2022, Additional history exists GFR 06/19/2024 12/20/2023, 07/0 10/2023, 05/08/2023, Additional history exists CKD HGB USE SMARTSET 42449 12/19/202412/19, 12/20/2023, 09/16/2023, Additional history exists O2 [...] this encounter Medical Devices Implanted Type Area Social Services Aide Device Identifier Shelf Expiration Date Model / Serial / Lot Phasix Mesh [id number] Implanted:Qty: 1 on 10/20/2012 at [place] [facility] [place] N/A: Abdomen CR BARD : DAVOL 02/07/2014 [id number] / / [id number] Description:Trial item Vitamesh Squ Blue 30cm X 30cm - [id number] Implanted:Qty: 1 on 05/29/2013 at OR [facility] N/A: Abdomen [employer] 12/08/2014 [id number] / / [id number] documented as of this encounter Visit Diagnoses Diagnosis 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)- Primary Dyslipidemia, goal LDL below 100 Other and unspecified hyperlipidemia Stage 3b chronic kidney disease Colostomy status (HCC) Colostomy status COPD, group B, by GOLD 2017 classification (HCC) documented in this encounter Advance Directives [...] the patient have Health Care Power of Garden Labourer? Yes, in chart and reviewed as current Care Teams Timber Faller Relationship Specialty Start Date End Date Eliud Orta MD [address] [place] [address] PCP - General Family Medicine 03/09/14 documented as of this encounter"
--- OUTSIDE RECORDS SUMMARY | 2024-04-25 07:13 | External Medical Summary | Summary of Care ---
Author Name Unknown Organization [facility] Address [address] [facility] [place] [address] Phone [phone] Care Team Providers Care Snack Bar Cashier Name Role Phone Eliud Orta MD Primary Care Provider + Encounter Details Date Type Department Care Team (Late st Contact Info) Description 03/10/2024 Orders Only PATIENT PORTAL DO NOT DELETE THIS DEPT USED BY [place] [id number] Allergies Active Allergy Reactions Criticality Noted Date Comments Bee Stings Hives Medium 07/26/2008 Gentamicin Sulfate 06/05/2001 pt was on gentamycin,unasyn,jnioyw-bspew-ks t sure which med documented as of [...] dysfunction 03/19/2017 Alcohol dependence in remission 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 0 12/06/2014 [...] (02/01/2014): 12/[address] Matthew BreenMlojx-ikitl-[id number] Toxic effect of venom 07/26/20082013 Overview (12/13/2015): [...] mRNA, LNP-s, No Pre serve, 2-Dose Series ([employer]) 11/08/2020,05/31/2020,05/10/2020 COVID-19, LNP-s, No Preserve , Jose E-sucrose, Ages 12+ ([employer]) 05/16/2021 COVID-19, MRNA-LNP, PF, 30 M CG/0.3 mL, 12 YRS AND ABOVE, IM ([email or web address]) 01/13/2024,01/21/2023 Covid-19, Mrna, Lnp-s, Pf, B ivalent, 30 Mcg, IM, 12 yrs and above ([employer]) 12/26/2021 Pneumococcal Conjugate Vacc, 13 Valent (Prevnar) [...] Description 03/16/2024 10:45 AM EST Imaging Radiology [address] [place] [address] 04/08/2024 9:30 AM EST Office Visit Hematology/Oncology [facility] [address] [facility] [place] [phone] Hemanth Monk MD [address] [place] [address] 06/02/2024 11:30 AM EDT Office Visit Cardiology [address] [place] [address] Alessandro Dozier PA-C [address] [place] [address] 08/19/2024 9:00 AM EDT Office Visit Family Practice [facility] [address] [place] [address] Eliud Orta MD [address] [place] [address] 08/20/2024 11:00 AM EDT Imaging Radiology [address] [place] [address] 08/27/2024 11:00 AM EDT Telemedicine Radiation Oncology, [address] [place] [address] Rubi Mart MD [facility] [place] [address] 02/19/2025 11:40 AM EST Office Visit Family [facility] [address] [place] [address] Eliud Orta MD [address] [place] [address] Health Maintenance Due Date Last Done Comments Alpha-1 Antitrypsin 1963 Adult Wellness Visit 04/27/2017 04/27/2016 Albumin/Creatinine Ratio 12/28/2023 023, 01/16/2022, 05/10/2021, Additional history exists Depression Screening 12/28/2023 12/27/2022, 09/04/2016 (Declined) CKD PHOS USE SMARTSET 12887 01/19/202401/09, 07/18/2022, 01/16/2022, Additional history exists GFR 06/19/2024 12/20/2023, 0710/2023, 05/08/2023, Additional history exists CKD HGB USE SMARTSET 31356 12/19/202412/19, 12/20/2023, 09/16/2023, Additional history exists O2 [...] this encounter Medical Devices Implanted Type Area Pellet Post Inspector Device Identifier Shelf Expiration Date Model / Serial / Lot Phasix Mesh [id number] Implanted:Qty: 1 on 10/20/2012 [place] [facility] [place]A: Abdomen CR BARD : DAVOL 02/07/2014 [id number] / / [id number] Description:Trial item Vitamesh Squ Blue 30cm X 30cm - [id number] Implanted:Qty: 1 on 05/29/2013 at [place] [facility] [place] N/A: Abdomen [employer] 12/08/2014 [id number] / / [id number] documented as of this encounter Advance Directives [...] the patient have Health Care Power of Edm Operator? Yes, in chart and reviewed as current Care Teams Snack Bar Cashier Relationship Specialty Start Date End Date Eliud Orta MD [address] [place] [address] PCP - General Family Medicine 03/09/14 documented as of this encounter
--- OUTSIDE RECORDS SUMMARY | 2024-04-25 07:13 | External Medical Summary | Summary of Care ---
Author Name Unknown Organization [facility] Address [address] [place] [place] [address] Phone [phone] Care Team Providers Care Component Design Engineer Name Role Phone Eliud Orta MD Primary Care Provider + Reason for Visit * Reason Comments Emergency Department Follow-Up [facility] 1 04/23-Chest pain, back pain Encounter Details Date Type Department Care Team (Late st Contact Info) Description 03/02/2024 10:00 AM EST Office Visit Family [facility] 132 [facility] [place] [address] Eliud Orta MD [address] [place] [address] Stage 3b chronic kidney disease (HCC)* Allergies Active Allergy Reactions Criticality Noted Date Comments Bee Stings Hives Medium 07/26/2008 Gentamicin Sulfate 06/05/2001 pt was on gentamycin,unasyn,clficf-efpfm-pn t sure which med documented as of this encounter (statuses as of 03/02/2024) Medications CENTRUM SILVER OR TABS 1 TABLET [...] as of this encounter (statuses as of 03/02/2024) Active Problems Problem Noted Date Diagnosed Date [...] dysfunction 03/19/2017 Alcohol dependence in remission 09/05/2016 skilled nursing current use of anticoagulant therapy 0 12/06/2014 [...] as of this encounter (statuses as of 03/02/2024) Resolved Problems Problem Noted Date Diagnosed Date [...] (02/01/2014): 12/[address] Castro Mlzdn-vfbxa-Baqwke-[id number] Toxic effect of venom 07/26/20082013 Overview (12/13/2015): [...] as of this encounter (statuses as of 03/02/2024) Immunizations Name Administration Dates Next Due COVID-19 mRNA, LNP-s, No Pre serve, 2-Dose Series ([employer]) 11/08/2020,05/31/2020,05/10/2020 COVID-19, LNP-s, No Preserve , Jose E-sucrose, Ages 12+ ([employer]) 05/16/2021 COVID-19, MRNA-LNP, PF, 30 M CG/0.3 mL, 12 YRS AND ABOVE, IM ([facility]) 01/13/2024,01/21/2023 Covid-19, Mrna, Lnp-s, Pf, B ivalent, 30 Mcg, IM, 12 yrs and above ([employer]) 12/26/2021 Pneumococcal Conjugate Vacc, 13 Valent [...] Sign Reading Time Taken Comments Blood Pressure 108/62 03/02/2024 10:13 AM EST Pulse 66 03/02/2024 10:13 AM EST Temperature - - Respiratory Rate 18 03/02/2024 10:13 AM EST Oxygen Saturation 97% 03/02/2024 10:13 AM EST Inhaled Oxygen Concentration - - Weight - - Height - - Body Mass Index - - documented in this encounter Functional Status * [...] Progress Notes * Eliud Orta MD - 03/02/2024 10:56 AM EST Images from the original note were not included. Subjective Jasonmarni Alexander is a 78 year old male presenting for Emergency Department Follow- Up ([facility] 02/20-Chest pain, back pain) History of Present Illness The patient, with a history of an ostomy, presents after a recent ER visit [facility] 02/21/24 for left lower back pain and chest pain. The discomfort, initially located in the left lower back, radiated upto the armpit and across the chest. The patient describes it as a 'shooting pain' under the ribs. The pain began after a hunting trip where the patient had to carry heavy equipment and navigate steepterrain. No pain while hunting. The patient denies carrying anything on the side where the pain is located. The pain has since improved, with only a 'little bit of pain' remaining in the chest, and no more 'shooting' pain. ER ruled out ACS. +mskel tender, dx with strain Objective Blood pressure 108/62, pulse 66, resp. rate 18, SpO2 97%. Physical Exam NECK: Neck glands not enlarged. CARDIOVASCULAR: Heart sounds regular. ABDOMEN: Abdomen soft. +ostomy. nontender MUSCULOSKELETAL: Right side ribcage tenderness upon palpation. Results LABS Troponin: Normal (02/21/2024) RADIOLOGY Chest X-ray: Normal (02/21/2024) Assessment and Plan Assessment & Plan Musculoskeletal Pain (Jason) Left lower back pain radiating to the armpit, likely due to strain during hunting. Pain has improved and is no longer radiating. -Continue current management. General Health Maintenance ([place]) Recent ER visit for chest pain during hunting. Chest X-ray and troponin were normal. -Continue current management and report any new or worsening symptoms. Stage 3b chronic kidney disease (HCC) (Primary) - ALBUMIN / CREATININE RATIO, URINE; Future; Expected date: 03/02/2024 Wrap-Up Time: I spent a total of 24min on the date of service in preparation, delivery, and documentation of the care provided to Jason Alexander excluding any time spent in the performance of separately billed services. Text in this note was generated using an [employer] documentation service. I discussed the use of a device to record and summarize our discussion today. All persons present during the encounter consented to its use. * Jackelyn Merlos LPN - 03/02/2024 10:16 AM EST Urine albumin/creatinine ratio ordered today. Provider aware. documented in this encounter Nursing Notes * Jackelyn Merlos LPN - 03/02/2024 10:13 AM EST The patient has been properly identified by confirmation of name and date of . Chief Complaint Patient presents with Emergency Department Follow-Up [facility] 02/20-Chest pain, back pain documented in this encounter Plan of Treatment Upcoming Encounters Date Type Department Care Team (Late st Contact Info) Description 03/16/2024 10:45 AM EST Imaging Radiology [address] [place] [address] 04/08/2024 9:30 AM EST Office Visit Hematology/Oncology [facility] [address] [place] [phone] Hemanth Monk MD [address] [place] [address] 06/02/2024 11:30 AM EDT Office Visit Cardiology [address] [place] [address] Alessandro Dozier PA-C [address] [place] [address] 08/19/2024 9:00 AM EDT Office Visit Family Practice [facility] [address] [place] [address] Eliud Orta MD [address] [place] [address] 08/20/2024 11:00 AM EDT Imaging Radiology [address] [place] [address] 08/27/2024 11:00 AM EDT Telemedicine Radiation Oncology, [address] [place] [address] Rubi Mart MD [address] [place] [address] [place] [phone] 02/19/2025 11:40 AM EST Office Visit Family [facility] [address] [place] [address] Eliud Orta MD [address] [place] [address] Scheduled Orders Name Type Priority Associated Diagnoses Orde r Schedule ALBUMIN / CREATININE RATIO, URINE Lab Routine Stage 3b chronic kidney disease (HCC) Expected: 03/02/2024, Expires: 03/02/2025 Health Maintenance Due Date Last Done Comments Alpha-1 Antitrypsin 1963 Adult Wellness Visit 04/27/2017 04/27/2016 Albumin/Creatinine Ratio 12/28/2023 023, 01/16/2022, 05/10/2021, Additional history exists Depression Screening 12/28/2023 12/27/2022, 09/04/2016 (Declined) CKD PHOS USE SMARTSET 79578 01/19/202401/09, 07/18/2022, 01/16/2022, Additional history exists GFR 06/19/2024 12/20/2023, 0710/2023, 05/08/2023, Additional history exists CKD HGB USE SMARTSET 75983 12/19/202412/19, 12/20/2023, 09/16/2023, Additional history exists O2 ASSESSMENT COMPLETED IN PAST YEAR FOR COPD 03/02/2025 03/02/2024 DTap/Tdap Vaccines (3 - Td or Tdap) 10/15/2027 10/14/2017, 08/28/2007 Pneumococcal Vaccine: 65+ Years Completed 09/05/2015, 11/11/2009 Zoster Vaccines Completed [...] this encounter Medical Devices Implanted Type Area Commis Chef Device Identifier Shelf Expiration Date Model / Serial / Lot Phasix Mesh [id number] [place]ed:[place]20/[place] [facility] [place] Abdomen CR BARD : DAVOL 02/07/2014 [id number] / / [id number] Description:Trial item Vitamesh Squ Blue 30cm X 30cm - [id number] Implanted:Qty: 1 on 05/29/2013 [place] [facility] [place]A: Abdomen [employer] 12/08/2014 [id number] / / [id number] documented as of this encounter Visit Diagnoses Diagnosis Stage 3b chronic kidney disease (HCC)- Primary documented in this encounter Advance Directives * [...] the patient have Health Care Power of Aerial Gunner Superintendent? Yes, in chart and reviewed as current Care Teams Component Design Engineer Relationship Specialty Start Date End Date Eliud Orta MD [address] [place] [address] PCP - General Family Medicine 03/09/14 documented as of this encounter
--- NOTE | 2024-04-25 07:21 | Emergency Department Note ---
ED Provider Note History of Present Illness Chief Complaint: Respiratory Problems Stated Complaint: HARD TO BREATHE Time Seen by Provider: 04/25/24 07:04 Source: patient Mode of arrival: ambulatory Limitations: no limitations This patient is a 78-year-old male who presents to the emergency department for evaluation of abdominal pain. Patient reports that he had a biopsy of his pancreas performed at [facility] on 04/15. He states that since then he has been having some abdominal pain. He saw his physician at [facility] earlier this week and they did labs due to the pain and told him he had pancreatitis. He reports that he was admitted for a few days and then discharged. He reports that he continues to have abdominal pain. Pain is primarily on the right side, in the right upper quadrant and right lower quadrant. He denies nausea/vomiting but notes that he had some acid reflux today. He has an ostomy bag due to history of ulcerative colitis and reports that his output has been normal, although admittedly he has decreased intake. He reports his temperatures have been slightly elevated up to 100.7 F. Denies urinary symptoms. Home Medications Medication Instructions Recorded Confirmed Type atenolol 25 mg tablet 37.5 mg PO BID 06/25/20 04/25/24 History cetirizine 10 mg tablet (Zyrtec) 10 mg PO HS 06/25/20 04/25/24 History multivitamin,tx-minerals 1 tab PO QAM 06/25/20 04/25/24 History omeprazole magnesium 20 mg 20 mg PO QAM 06/25/20 04/25/24 History tablet,delayed release (Prilosec OTC) rivaroxaban 20 mg tablet (Xarelto) 20 mg PO QAM 06/25/20 04/25/24 History alfuzosin 10 mg tablet,extended 10 mg PO DAILY 04/25/24 04/25/24 History release 24 hr finasteride 5 mg tablet 5 mg PO DAILY 04/25/24 04/25/24 History oxycodone 10 mg tablet 10 mg PO DIRECTED PRN Pain 04/25/24 04/25/24 History Allergies Allergy/AdvReac Type Severity Reaction Status Date / Time bee venom protein (honey bee) Allergy Severe HIVES Verified 06/25/20 13:11 Aminoglycosides Allergy Unknown Verified 06/25/20 13:11 gentamicin Allergy Unknown HIVES Verified 06/25/20 13:11 metronidazole Allergy Unknown Verified 06/25/20 13:11 tramadol Allergy Unknown INSOMNIA/SO Verified 06/25/20 13:11 B Past Med/Surg History Problem List Pulmonary embolism (Acute) Hematoma of right lower extremity (Acute) DVT (deep venous thrombosis) (Acute) Chest pain (Acute) Hyperlipidemia (Acute) Hypertension (Chronic) Medical History Lung cancer COPD (chronic obstructive pulmonary disease) Surgical History History of ileostomy History of lobectomy of lung History of cholecystectomy History of appendectomy Social History Smoking Status: Former smoker Tobacco Type: Cigarettes Preferred Language: Spanish Feels Safe at Home: Yes Physical Exam Vital Signs Vital Signs - 24 hr 04/25/24 06:51 04/25/24 07:42 04/25/24 07:51 Temperature 36.9 C Temperature Source Temporal Artery Scan Pulse Rate 81 71 77 Pulse Rate [Apical] Pulse Rate from SpO2 Sensor Pulse Rhythm Regular Pulse Rhythm [Apical] Pulse Strength Normal Pulse Strength [Apical] Respiratory Rate 18 16 17 Respiratory Effort / Characteristics Non-Labored Spontaneous Respiratory Depth Normal Respiratory Pattern Regular Blood Pressure 115/70 Blood Pressure [Left Arm] Blood Pressure Mean 85 Blood Pressure Mean [Left Arm] Blood Pressure Position Sitting Pulse Oximetry 97 Oxygen Delivery Method Room Air Sepsis Recent Fever Within 48 Hours Yes Sepsis New/Unexplained Change in Mental Status No Sepsis Action Taken by Nursing No Action Required 04/25/24 07:55 04/25/24 08:21 04/25/24 08:23 Temperature Temperature Source Pulse Rate 73 76 Pulse Rate [Apical] Pulse Rate from SpO2 Sensor 74 Pulse Rhythm Pulse Rhythm [Apical] Pulse Strength Pulse Strength [Apical] Respiratory Rate 18 Respiratory Effort / Characteristics Respiratory Depth Respiratory Pattern Blood Pressure Blood Pressure [Left Arm] Blood Pressure Mean Blood Pressure Mean [Left Arm] Blood Pressure Position Pulse Oximetry 97 96 Oxygen Delivery Method Room Air Sepsis Recent Fever Within 48 Hours Sepsis New/Unexplained Change in Mental Status Sepsis Action Taken by Nursing 04/25/24 08:28 04/25/24 08:30 04/25/24 08:42 Temperature Temperature Source Pulse Rate 71 70 Pulse Rate [Apical] Pulse Rate from SpO2 Sensor 75 69 Pulse Rhythm Pulse Rhythm [Apical] Pulse Strength Pulse Strength [Apical] Respiratory Rate 15 15 Respiratory Effort / Characteristics Respiratory Depth Respiratory Pattern Blood Pressure Blood Pressure [Left Arm] Blood Pressure Mean Blood Pressure Mean [Left Arm] Blood Pressure Position Pulse Oximetry 97 97 92 Oxygen Delivery Method Room Air Sepsis Recent Fever Within 48 Hours Sepsis New/Unexplained Change in Mental Status Sepsis Action Taken by Nursing 04/25/24 08:48 04/25/24 08:48 04/25/24 08:57 Temperature Temperature Source Pulse Rate 75 Pulse Rate [Apical] 72 Pulse Rate from SpO2 Sensor 77 Pulse Rhythm Pulse Rhythm [Apical] Pulse Strength Pulse Strength [Apical] Respiratory Rate 20 20 Respiratory Effort / Characteristics Respiratory Depth Respiratory Pattern Blood Pressure 134/79 Blood Pressure [Left Arm] 134/79 Blood Pressure Mean 97 Blood Pressure Mean [Left Arm] 97 Blood Pressure Position Pulse Oximetry 98 97 Oxygen Delivery Method Room Air Sepsis Recent Fever Within 48 Hours Sepsis New/Unexplained Change in Mental Status Sepsis Action Taken by Nursing 04/25/24 08:57 04/25/24 08:57 04/25/24 09:03 Temperature Temperature Source Pulse Rate 71 Pulse Rate [Apical] Pulse Rate from SpO2 Sensor 71 Pulse Rhythm Pulse Rhythm [Apical] Pulse Strength Pulse Strength [Apical] Respiratory Rate 12 Respiratory Effort / Characteristics Respiratory Depth Respiratory Pattern Blood Pressure 134/79 134/79 Blood Pressure [Left Arm] Blood Pressure Mean 97 97 Blood Pressure Mean [Left Arm] Blood Pressure Position Pulse Oximetry 96 Oxygen Delivery Method Sepsis Recent Fever Within 48 Hours Sepsis New/Unexplained Change in Mental Status Sepsis Action Taken by Nursing 04/25/24 09:18 04/25/24 09:21 04/25/24 10:03 Temperature Temperature Source Pulse Rate 68 73 76 Pulse Rate [Apical] Pulse Rate from SpO2 Sensor 67 75 73 Pulse Rhythm Pulse Rhythm [Apical] Pulse Strength Pulse Strength [Apical] Respiratory Rate 15 18 15 Respiratory Effort / Characteristics Respiratory Depth Respiratory Pattern Blood Pressure Blood Pressure [Left Arm] Blood Pressure Mean Blood Pressure Mean [Left Arm] Blood Pressure Position Pulse Oximetry 96 99 97 Oxygen Delivery Method Sepsis Recent Fever Within 48 Hours Sepsis New/Unexplained Change in Mental Status Sepsis Action Taken by Nursing 04/25/24 10:21 04/25/24 10:24 04/25/24 10:33 Temperature Temperature Source Pulse Rate 71 81 Pulse Rate [Apical] 82 Pulse Rate from SpO2 Sensor 69 78 Pulse Rhythm Pulse Rhythm [Apical] Pulse Strength Pulse Strength [Apical] Respiratory Rate 16 17 17 Respiratory Effort / Characteristics Respiratory Depth Respiratory Pattern Blood Pressure Blood Pressure [Left Arm] 131/74 Blood Pressure Mean Blood Pressure Mean [Left Arm] 93 Blood Pressure Position Pulse Oximetry 97 97 98 Oxygen Delivery Method Room Air Sepsis Recent Fever Within 48 Hours Sepsis New/Unexplained Change in Mental Status Sepsis Action Taken by Nursing 04/25/24 11:03 04/25/24 11:03 04/25/24 11:03 Temperature Temperature Source Pulse Rate Pulse Rate [Apical] Pulse Rate from SpO2 Sensor Pulse Rhythm Pulse Rhythm [Apical] Pulse Strength Pulse Strength [Apical] Respiratory Rate Respiratory Effort / Characteristics Respiratory Depth Respiratory Pattern Blood Pressure 119/66 119/66 119/66 Blood Pressure [Left Arm] Blood Pressure Mean 75 75 75 Blood Pressure Mean [Left Arm] Blood Pressure Position Pulse Oximetry Oxygen Delivery Method Sepsis Recent Fever Within 48 Hours Sepsis New/Unexplained Change in Mental Status Sepsis Action Taken by Nursing 04/25/24 11:03 04/25/24 11:06 04/25/24 11:15 Temperature Temperature Source Pulse Rate 79 75 Pulse Rate [Apical] Pulse Rate from SpO2 Sensor Pulse Rhythm Pulse Rhythm [Apical] Pulse Strength Pulse Strength [Apical] Respiratory Rate 16 19 Respiratory Effort / Characteristics Respiratory Depth Respiratory Pattern Blood Pressure 119/66 Blood Pressure [Left Arm] Blood Pressure Mean 75 Blood Pressure Mean [Left Arm] Blood Pressure Position Pulse Oximetry Oxygen Delivery Method Sepsis Recent Fever Within 48 Hours Sepsis New/Unexplained Change in Mental Status Sepsis Action Taken by Nursing 04/25/24 11:21 04/25/24 11:30 04/25/24 12:00 Temperature Temperature Source Pulse Rate 74 75 73 Pulse Rate [Apical] Pulse Rate from SpO2 Sensor 74 73 Pulse Rhythm Pulse Rhythm [Apical] Pulse Strength Pulse Strength [Apical] Respiratory Rate 16 16 Respiratory Effort / Characteristics Respiratory Depth Respiratory Pattern Blood Pressure Blood Pressure [Left Arm] Blood Pressure Mean Blood Pressure Mean [Left Arm] Blood Pressure Position Pulse Oximetry 97 97 Oxygen Delivery Method Sepsis Recent Fever Within 48 Hours Sepsis New/Unexplained Change in Mental Status Sepsis Action Taken by Nursing 04/25/24 12:01 04/25/24 12:01 04/25/24 12:18 Temperature Temperature Source Pulse Rate 79 Pulse Rate [Apical] Pulse Rate from SpO2 Sensor 69 Pulse Rhythm Pulse Rhythm [Apical] Pulse Strength Pulse Strength [Apical] Respiratory Rate 15 Respiratory Effort / Characteristics Respiratory Depth Respiratory Pattern Blood Pressure 99/72 L 99/72 L Blood Pressure [Left Arm] Blood Pressure Mean 74 74 Blood Pressure Mean [Left Arm] Blood Pressure Position Pulse Oximetry 93 Oxygen Delivery Method Sepsis Recent Fever Within 48 Hours Sepsis New/Unexplained Change in Mental Status Sepsis Action Taken by Nursing 04/25/24 12:25 04/25/24 12:27 04/25/24 12:35 Temperature Temperature Source Pulse Rate 72 73 Pulse Rate [Apical] Pulse Rate from SpO2 Sensor 75 Pulse Rhythm Pulse Rhythm [Apical] Pulse Strength Pulse Strength [Apical] Respiratory Rate 20 Respiratory Effort / Characteristics Respiratory Depth Respiratory Pattern Blood Pressure 128/72 Blood Pressure [Left Arm] Blood Pressure Mean 89 Blood Pressure Mean [Left Arm] Blood Pressure Position Pulse Oximetry 94 Oxygen Delivery Method Sepsis Recent Fever Within 48 Hours Sepsis New/Unexplained Change in Mental Status Sepsis Action Taken by Nursing 04/25/24 12:35 04/25/24 12:39 04/25/24 12:54 Temperature Temperature Source Pulse Rate 73 69 Pulse Rate [Apical] Pulse Rate from SpO2 Sensor 73 70 Pulse Rhythm Pulse Rhythm [Apical] Pulse Strength Pulse Strength [Apical] Respiratory Rate 19 15 Respiratory Effort / Characteristics Respiratory Depth Respiratory Pattern Blood Pressure 128/72 Blood Pressure [Left Arm] Blood Pressure Mean 89 Blood Pressure Mean [Left Arm] Blood Pressure Position Pulse Oximetry 97 96 Oxygen Delivery Method Sepsis Recent Fever Within 48 Hours Sepsis New/Unexplained Change in Mental Status Sepsis Action Taken by Nursing 04/25/24 13:27 04/25/24 13:51 04/25/24 13:57 Temperature Temperature Source Pulse Rate 66 75 71 Pulse Rate [Apical] Pulse Rate from SpO2 Sensor 65 73 70 Pulse Rhythm Pulse Rhythm [Apical] Pulse Strength Pulse Strength [Apical] Respiratory Rate 16 19 24 Respiratory Effort / Characteristics Respiratory Depth Respiratory Pattern Blood Pressure Blood Pressure [Left Arm] Blood Pressure Mean Blood Pressure Mean [Left Arm] Blood Pressure Position Pulse Oximetry 94 96 98 Oxygen Delivery Method Sepsis Recent Fever Within 48 Hours Sepsis New/Unexplained Change in Mental Status Sepsis Action Taken by Nursing 04/25/24 14:00 04/25/24 14:00 04/25/24 14:00 Temperature Temperature Source Pulse Rate Pulse Rate [Apical] Pulse Rate from SpO2 Sensor Pulse Rhythm Pulse Rhythm [Apical] Pulse Strength Pulse Strength [Apical] Respiratory Rate Respiratory Effort / Characteristics Respiratory Depth Respiratory Pattern Blood Pressure 131/73 131/73 131/73 Blood Pressure [Left Arm] Blood Pressure Mean 81 81 81 Blood Pressure Mean [Left Arm] Blood Pressure Position Pulse Oximetry Oxygen Delivery Method Sepsis Recent Fever Within 48 Hours Sepsis New/Unexplained Change in Mental Status Sepsis Action Taken by Nursing 04/25/24 16:00 Temperature Temperature Source Pulse Rate Pulse Rate [Apical] 67 Pulse Rate from SpO2 Sensor Pulse Rhythm Pulse Rhythm [Apical] Regular Pulse Strength Pulse Strength [Apical] Normal Respiratory Rate 16 Respiratory Effort / Characteristics Non-Labored Respiratory Depth Normal Respiratory Pattern Blood Pressure Blood Pressure [Left Arm] 136/74 Blood Pressure Mean Blood Pressure Mean [Left Arm] 94 Blood Pressure Position Pulse Oximetry 96 Oxygen Delivery Method Room Air Sepsis Recent Fever Within 48 Hours Sepsis New/Unexplained Change in Mental Status Sepsis Action Taken by Nursing VITALS: Vitals are noted on the nurse's note and reviewed by myself. GENERAL: This is a 78-year-old male, in no acute distress, well-developed well- nourished. SKIN: The skin was without rashes. EYES: Pupils equal round and reactive to light and accommodation. No scleral icterus. MOUTH: Mucous membranes moist. Tonsils are not enlarged. Pharynx without erythema or exudate. NECK: Supple without nuchal rigidity. HEART: Regular rate and rhythm without murmurs gallops or rubs. LUNGS: Clear to auscultation bilaterally without wheezes, rales or rhonchi. ABDOMEN: Positive bowel sounds x 4. Tenderness in the right upper quadrant and right lower quadrant. No guarding or rebound tenderness. Ostomy in the left lower quadrant with no signs of infection. NEURO: Patient was alert and oriented to person place and time. Course Administered Medications Lactated Ringer's (Lr) 1,000 mls @ 80 mls/hr IV .[id number] ANNABELLE Stop: 04/26/24 10:44 Last Admin: 04/25/24 12:00 Dose: 80 mls/hr Documented By: ML Morphine Sulfate (Morphine Sulfate 2 Mg/Ml Carp) 2 mg IV Q1HWA PRN PRN Reason: Pain Stop: 05/09/24 10:35 Last Admin: 04/25/24 14:46 Dose: 2 mg Documented By: Admin: 04/25/24 12:34 Dose: 2 mg Documented By: Admin: 04/25/24 10:58 Dose: 2 mg Documented By: ML Discontinued Medications Sodium Chloride (Nss) 1,000 mls @ 999 mls/hr IV .Q1H1M ONE Stop: 04/25/24 09:39 Last Infusion: 04/25/24 10:01 Dose: Infused Documented By: Admin: 04/25/24 08:56 Dose: 999 mls/hr Documented By: ML Piperacillin Sod/Tazobactam Sod (Zosyn) 4.5 gm in 100 mls @ 200 mls/hr IV NOW ONE; Protocol Stop: 04/25/24 10:26 Last Infusion: 04/25/24 12:01 Dose: Infused Documented By: Admin: 04/25/24 10:58 Dose: 200 mls/hr Documented By: ML Ioversol (Optiray 320 100ml) 94 ml IV ONCE ONE Stop: 04/25/24 08:13 Last Admin: 04/25/24 08:12 Dose: 94 ml Documented By: JAR Morphine Sulfate (Morphine Sulfate 4 Mg/Ml 1 Ml Carp\Vial) 4 mg IV NOW STA Stop: 04/25/24 08:41 Last Admin: 04/25/24 08:55 Dose: 4 mg Documented By: ML Medical Decision Making Differential Diagnosis Appendicitis, testicular torsion, infections, diverticulitis, UTI, obstruction, mesenteric ischemia, aortic pathology, inflammatory bowel disease, renal colic, PUD, pancreatitis, biliary pathology, hernia, volvulus, constipation, as well as other pathologies. Laboratory Data Attestation: I reviewed the patient's lab results. 04/25/24 07:13 04/25/24 07:13 Lab Results 04/25/24 04/25/24 Range/Units 07:13 09:44 WBC 5.67 (4.8-10.8) K/ul RBC 3.97 L (4.70-6.10) M/uL Hgb 11.5 L (14.0-18.0) g/dl Hct 34.2 L (42.0-52.0) % MCV 86.1 (80.0-100.0) fL MCH 29.0 (25.0-34.0) pg MCHC 33.6 (32.0-36.0) g/dL RDW Std Deviation 40.9 (36.4-46.3) fL RDW Coeff of Lexii 12.9 (11.5-14.5) % Plt Count 152 (130-400) K/uL MPV 10.5 (9.4-12.4) fL Immature Gran % (Auto) 0.2 % Neut % (Auto) 88.9 % Lymph % (Auto) 6.3 % Burt % (Auto) 4.2 % Eos % (Auto) 0.2 % Baso % (Auto) 0.2 % Neut # (Auto) 5.04 (1.40-6.50) K/uL Lymph # (Auto) 0.36 L (1.20-3.40) K/uL Burt # (Auto) 0.24 (0.11-0.59) K/uL Eos # (Auto) 0.01 (0.00-0.50) K/uL Baso # (Auto) 0.01 (0.00-0.20) K/uL Immature Gran # (Auto) 0.01 (0.01-0.20) K/uL Sodium 137 (136-145) mmol/L Potassium 3.7 (3.5-5.1) mmol/L Chloride 102 (98-107) mmol/L Carbon Dioxide 26 (21-32) mmol/L Anion Gap 9 (3-11) BUN 15 (6-23) mg/dl Creatinine 1.11 (0.6-1.4) mg/dl Est Cr Clr Drug Dosing 50.5 ml/min eGFR 67.55 BUN/Creatinine Ratio 13.5 (10-20) Glucose 134 H (70-99(Fasting)) mg/dl Calcium 9.2 (8.6-10.3) mg/dl Total Bilirubin 0.7 (0.2-1.0) mg/dl AST 22 (13-39) U/L ALT 34 (7-52) U/L Alkaline Phosphatase 166 H (34-104) U/L Total Protein 6.5 (6.0-8.3) gm/dl Albumin 3.5 (3.4-5.0) gm/dl Globulin 3.0 (2.5-4.0) gm/dl Albumin/Globulin Ratio 1.2 (0.9-2) Lipase 517 H (11-82) U/L Urine Color Yellow Urine Appearance Clear (Clear) Urine pH 5.0 (4.5-7.5) Ur Specific Jackman > 1.045 H (1.000-1.030) Urine Protein Trace H (Negative) Urine Glucose (UA) Negative (Negative) Urine Ketones 1+ H (Negative) Urine Blood Negative (Negative) Urine Nitrite Negative (Negative) Urine Bilirubin Negative (Negative) Urine Urobilinogen Negative (Negative) Ur Leukocyte Esterase Negative (Negative) Urine WBC (Auto) 0-5 (0-5) /hpf Urine RBC (Auto) 0-2 (0-2) /hpf U Hyaline Cast (Auto) 0-2 (0-2) /lpf U Epithel Cells (Auto) 0-2 (0-2) /hpf Urine Bacteria (Auto) None Seen (None Seen) Imaging Data Attestation: I personally reviewed and interpreted this imaging study as follows: Radiologist's Impression: Abdomen/Pelvis CT 04/25/24 07:13 CT OF THE ABDOMEN AND PELVIS WITH CONTRAST CLINICAL HISTORY: Right sided abd pain, hx pancreatic mass. COMPARISON STUDY: PET/CT January 14, 2019. TECHNIQUE: Following IV administration of 94 mL of Optiray, axial images of the abdomen and pelvis were obtained from the lung bases to the proximal femurs. Images were reviewed in the axial, sagittal, and coronal planes. IV contrast was administered without complication. Automated exposure control was utilized for the study. A dose lowering technique was utilized adhering to the principles of ALARA. CT DOSE: 1227.37 mGy.cm FINDINGS: There is a trace pericardial effusion. No pneumatosis, free air or portal venous gas is present. A few hypodense hepatic lesions measuring up to 1.6 cm are suggestive of cysts. There are no suspicious hepatic lesions. There is no biliary ductal dilatation status post cholecystectomy. There is mild dilatation of the pancreatic duct, measuring 4 mm in caliber. Abrupt narrowing of the pancreatic duct within the pancreatic head on image 141 of 385. A hypodense lesion within the uncinate process of the pancreas measures 1.8 x 1.8 cm. There is also a multiloculated hypodense lesion along the medial wall of the duodenum and adjacent to the pancreatic head which measures 3.5 x 3.2 cm. Moderate inflammation adjacent to the distal stomach, proximal duodenum and pancreatic head is present. There is moderate wall thickening of the distal stomach and proximal duodenum. No free air is present. There is a suspected small diverticulum of the second portion the duodenum. Incidental note is made of a small lipoma within the distal stomach. No peripancreatic fluid collection is present. Spleen is slightly enlarged. There are upper abdominal collaterals. The adrenal glands and kidneys are unremarkable. There is no hydronephrosis. Postoperative findings consistent with proctocolectomy with left lower quadrant ostomy are present. There is no evidence for a bowel obstruction. No lymphadenopathy. Bilateral fat-containing hernias, left larger than right, are incidentally noted. IMPRESSION: 1. Moderate wall thickening of the distal stomach with adjacent inflammation. The findings suggest gastritis. The findings may be postprocedural however no extraluminal gas is present. 2. Inflammation adjacent to the pancreatic head which may be secondary to gastritis or represent pancreatitis. This could be correlated with serum lipase level. 3. 1.8 x 1.8 cm hypodense lesion within the uncinate process of the pancreas with abrupt cutoff of the pancreatic duct in mild pancreatic ductal dilatation. This is suspicious for pancreatic neoplasm. 4. 3.5 x 3.2 cm multiloculated hypodense lesion between the second portion the duodenum and pancreatic head. This is nonspecific and may represent a lesion or an inflammatory process given mild adjacent stranding. Sequela of previous pancreatitis is within the differential. ACT 112: Negative or not required by law. Electronically signed by: Joel Jean M.D. 04/25/2024 8:56 AM ECG Data Attestation: I personally reviewed and interpreted this ECG as follows: Indication: + abdominal pain Rate (beats per minute): 79 Rhythm: + sinus rhythm ECG Intervals/blocks: + Normal QT ECG ST segments: + Normal ST segments Change: no significant change MDM Narrative Continuous surveillance system monitor: Order was placed for continuous surveillance system monitor. Patient was placed on the surveillance system monitor. Patient was noted to be in normal sinus rhythm at an initial rate of 70 bpm. This patient is a 78-year-old male who presents to the emergency department for evaluation of abdominal pain. Patient had a recent EUS with pancreas biopsy on 04/15. 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 He had an admission from 04/20 to 04/22 at [facility] due to acute pancreatitis. He has had continued pain since then. Imaging today shows evidence of pancreatitis as well as a pancreatic mass and a multiloculated hypodense lesion between the duodenum and pancreatic head. Lipase is 517. Alkaline phosphatase is 166, remainder of LFTs within normal limits. There is no leukocytosis. Electrolytes are all within normal limits. Vital signs are stable. I spoke with GI here who initially felt the patient could be kept here, but after review of the CT they were concerned about pancreatic duct disruption. They recommended contacting [facility] about possible transfer. I did speak with Dr. Jennings of GI at [facility] who did recommend transfer for possible pancreatic stenting. Patient was given a dose of Zosyn here. He was given an initial bolus of normal saline and then started on maintenance lactated Ringer's. I spoke with Dr. Marley, the triage officer at [facility] who accepted the patient. Unfortunately there was no bed available at that time. I did wait for a few hours and then we reached out to the transfer center again to check on the bed status. There is still no bed available and they have no estimate of when a bed might be available. For this reason I spoke with the [facility] hospitalist who agreed to admit the patient here pending his transfer. Patient was informed of the plan throughout. Discharge Plan Visit Data Chief Complaint: Respiratory Problems Stated Complaint: HARD TO BREATHE ED Provider: Howie Lauren ED Midlevel Provider: Lenka Mena Forms Stand Alone Forms: My [facility] Prescriptions Prescriptions: No Action cetirizine [Zyrtec] 10 mg Tablet 10 mg PO HS Rx Instructions: otc unable to verify atenolol 25 mg tablet 37.5 mg PO BID Rx Instructions: filled 03/30 100 day supply multivitamin,tx-minerals Tablet 1 tab PO QAM Rx Instructions: otc unable to verify omeprazole magnesium [Prilosec OTC] 20 mg Tablet,Delayed Release (Dr/Ec) 20 mg PO QAM Rx Instructions: OTC unable to verify Xarelto 20 mg tablet 20 mg PO QAM Rx Instructions: filled 03/23 90 day supply alfuzosin 10 mg tablet extended release 24 hr 10 mg PO DAILY Rx Instructions: filled 03/31 100 day supply oxycodone 10 mg tablet 10 mg PO DIRECTED PRN (Reason: Pain) Rx Instructions: filled 04/22 5 day supply finasteride 5 mg tablet 5 mg PO DAILY Rx Instructions: filled 03/30 90 day supply Referrals Referrals: Eliud Orta MD [Primary Care Provider] -
[2024-04-25 08:00] LABS: Basophils # (auto) 0.01 K/uL (0.00-0.20); Basophils % (auto) 0.2 %; Eosinophils # (auto) 0.01 K/uL (0.00-0.50); Eosinophils % (auto) 0.2 %; Hematocrit (blood only) 34.2 % (42.0-52.0); Hemoglobin 11.5 g/dl (14.0-18.0); Immature Granulocytes # (auto) 0.01 K/uL (0.01-0.20); Immature Granulocytes % (auto) 0.2 %; Lymphocytes # (auto) 0.36 K/uL (1.20-3.40); Lymphocytes % (auto) 6.3 %; Mean Corpuscular Hgb Conc 33.6 g/dL (32.0-36.0); Mean Corpuscular Volume 86.1 fL (80.0-100.0); Mean Platelet Volume 10.5 fL (9.4-12.4); Monocytes # (auto) 0.24 K/uL (0.11-0.59); Monocytes % (auto) 4.2 %; Neutrophils # (auto) 5.04 K/uL (1.40-6.50); Neutrophils % (auto) 88.9 %; Platelet Count 152 K/uL (130-400); RDW Coefficient of Variation 12.9 % (11.5-14.5); RDW Standard Deviation 40.9 fL (36.4-46.3); Red Blood Count 3.97 M/uL (4.70-6.10); White Blood Count 5.67 K/ul (4.8-10.8)
[2024-04-25 08:04] LABS: Albumin Globulin Ratio 1.2 (0.9-2); Albumin Level 3.5 gm/dl (3.4-5.0); BUN Creatinine Ratio 13.5 (10-20); Bilirubin,Total 0.7 mg/dl (0.2-1.0); Calcium 9.2 mg/dl (8.6-10.3); Creatinine Clr Calc Pharmacy 50.5 ml/min; Potassium 3.7 mmol/L (3.5-5.1); Total Protein 6.5 gm/dl (6.0-8.3)
[2024-04-25] MEDS: OPTIRAY 320 100ml IV ONE (08:12)
[2024-04-25] MEDS: MoRPHine SULFATE 4 MG/ML 1 ML CARP\\VIAL IV STA (08:55)
[2024-04-25] MEDS: SODIUM CHLORIDE 0.9% 1,000 ML IV ONE (08:56)
--- NOTE | 2024-04-25 08:58 | CT Scan Report ---
CT OF THE ABDOMEN AND PELVIS WITH CONTRAST CLINICAL HISTORY: Right sided abd pain, hx pancreatic mass. COMPARISON STUDY: PET/CT January 14, 2019. TECHNIQUE: Following IV administration of 94 mL of Optiray, axial images of the abdomen and pelvis we re obtained from the lung bases to the proximal femurs. Images were reviewed in the axial, sagittal, and coronal planes. IV contrast was administered without complication. Automated exposure control wa s utilized for the study. A dose lowering technique was utilized adhering to the principles of ALARA . CT DOSE: 1227.37 mGy.cm FINDINGS: There is a trace pericardial effusion. No pneumatosis, free air or portal venous gas is pre sent. A few hypodense hepatic lesions measuring up to 1.6 cm are suggestive of cysts. There are no marr spicious hepatic lesions. There is no biliary ductal dilatation status post cholecystectomy. There is mild dilatation of the pancreatic duct, measuring 4 mm in caliber. Abrupt narrowing of the pancreati c duct within the pancreatic head on image 141 of 385. A hypodense lesion within the uncinate process of the pancreas measures 1.8 x 1.8 cm. There is also a multiloculated hypodense lesion along the med ial wall of the duodenum and adjacent to the pancreatic head which measures 3.5 x 3.2 cm. Moderate in flammation adjacent to the distal stomach, proximal duodenum and pancreatic head is present. There is moderate wall thickening of the distal stomach and proximal duodenum. No free air is present. There is a suspected small diverticulum of the second portion the duodenum. Incidental note is made of a sm all lipoma within the distal stomach. No peripancreatic fluid collection is present. Spleen is slight ly enlarged. There are upper abdominal collaterals. The adrenal glands and kidneys are unremarkable. There is no hydronephrosis. Postoperative findings consistent with proctocolectomy with left lower qu adrant ostomy are present. There is no evidence for a bowel obstruction. No lymphadenopathy. Bilatera l fat-containing hernias, left larger than right, are incidentally noted. IMPRESSION: 1. Moderate wall thickening of the distal stomach with adjacent inflammation. The findings suggest ga stritis. The findings may be postprocedural however no extraluminal gas is present. 2. Inflammation adjacent to the pancreatic head which may be secondary to gastritis or represent panc reatitis. This could be correlated with serum lipase level. 3. 1.8 x 1.8 cm hypodense lesion within the uncinate process of the pancreas with abrupt cutoff of th e pancreatic duct in mild pancreatic ductal dilatation. This is suspicious for pancreatic neoplasm. 4. 3.5 x 3.2 cm multiloculated hypodense lesion between the second portion the duodenum and pancreati c head. This is nonspecific and may represent a lesion or an inflammatory process given mild adjacent stranding. Sequela of previous pancreatitis is within the differential. ACT 112: Negative or not required by law. Electronically signed by: Joel Jean M.D. 04/25/2024 8:56 AM
[2024-04-25 10:08] LABS: Appearance Urine Clear (Clear); Bacteria Urine Automated None Seen (None Seen); Bilirubin Urine Negative (Negative); Blood Urine Negative (Negative); Cast Urine Automated 0-2 /lpf (0-2); Color Urine Yellow; Epithelial Cell Urine Auto 0-2 /hpf (0-2); Glucose Urine UA Negative (Negative); Ketones Urine 1+ (Negative); Leukocyte Esterase Urine Negative (Negative); Nitrite Urine Negative (Negative); Protein Urine Trace (Negative); RBC Urine Automated 0-2 /hpf (0-2); Specific Gravity Urine > 1.045 (1.000-1.030); Urobilinogen Urine Negative (Negative); WBC Urine Automated 0-5 /hpf (0-5)
[2024-04-25] MEDS: MoRPHine SULFATE 2 MG/ML CARP IV PRN (10:58)
[2024-04-25] MEDS: PIPERACILLIN/TAZOBACTAM 4.5 GM/100 ML BAG IV ONE (10:58)
--- NOTE | 2024-04-25 11:18 | Electrocardiogram Report ---
Test Reason : Blood Pressure : */* mmHG Vent. Rate : 79 BPM Atrial Rate : 79 BPM P-R Int : 150 ms QRS Dur : 86 ms QT Int : 384 ms P-R-T Axes : 91 -13 21 degrees QTcB Int : 440 ms Normal sinus rhythm Nonspecific ST abnormality When compared with ECG of 21-Feb-2024 19:17, Premature atrial complexes are no longer Present Confirmed by Colt Taylor ([id number]) on 04/25/2024 11:18:12 AM Referred By: REFERRED SELF Confirmed By: Colt Taylor
[2024-04-25] MEDS: LACTATED RINGER'S 1,000 ML IV SCH ×2 (12:00→20:24)
--- NOTE | 2024-04-25 13:02 | Emergency Department Note ---
ED Visit Note I was consulted by the Advanced Practice Provider, Lenka Mena PA-C. I personally made/approved the management plan and take responsibility for the patient management. I performed a substantive portion of the visit. This includes the aspects of: -History/Physical/Personally seeing the patient -MDM .
--- NOTE | 2024-04-25 13:42 | History & Physical Report ---
Date of Service April 25, 2024 Assessment & Plan (1) Acute pancreatitis: (2) Pancreatic mass: Plan: Patient is a 78 year old male with PMH of Pancreatic mass (s/p recent EUS biopsy 2 - likely adenocarcinoma), recent recurrence of prior Lung cancer s/p radi ation, Colostomy status, CKD3b, Factor V Leiden, DVT/PE on Xarelto, GERD, BPH, DLD Presenting with recurrence of abdominal pain. Recurrent pancreatitis In the setting of pancreatic mass Possible pancreatic duct obstruction Was admitted to [facility] earlier this month for an acute pancreatitis episode after a biopsy of pancreatic mass, newly found Returns today for abdominal pain, lipase 500s, CT abdomen and pelvis suggest acute pancreatitis, 3.5 cm lesion between the second portion of the duodenum and pancreatic head-lesion versus inflammatory process with mild adjacent stress concerning for pancreatic duct obstruction Accepted for transfer to [facility], awaiting bed availability N.p.o. IV LR at 125 cc/h Pain control with as needed morphine and as needed Dilaudid IV Zosyn to cover for possible evolving infection in light of mild stranding noted at the second portion of the duodenum and pancreatic head Protonix IV for gastritis Repeat CBC, BMP, liver panel, mag, Phos, lipase in the morning History of PE and DVT, factor V Leyden deficiency Patient may need urgent procedure for acute negatives, pancreatic obstruction Hold Xarelto, last dose last evening Start low-dose heparin drip Other chronic medical problems: History of SVT-continue atenolol History of BPH-continue finasteride, alfuzosin History of prior lung cancer status post radiation History of ulcerative colitis, status post colostomy CODE STATUS Full code Disposition Accepted for transfer, awaiting bed availability at [facility] plan of care discussed with patient in detail and at length all questions answered he is understanding, agreeable, comfortable with the plan of care History of Present Illness Primary Care Provider: Eliud Orta MD Patient is a 78 year old male with PMH of Pancreatic mass (s/p recent EUS biopsy 2 - likely adenocarcinoma), recent recurrence of prior Lung cancer s/p radiation, Colostomy status, CKD3b, Factor V Leiden, DVT/PE on Xarelto, GERD, BPH, DLD Presenting with recurrence of abdominal pain. Patient Under EUS with biopsy of newly found pancreatic mass last 2. The next day, patient developed abdominal pain and was found to have acute pancreatitis. He was admitted to [facility] for a few days and received conservative management including IV fluids, pain control and bowel rest. His symptoms improved and was discharged Since that time, patient had intermittent abdominal pain mostly central, right sided associated with some nausea. Today the pain got worse prompting consult to [facility] emergency room. Lipase found to be 517. CT abdomen and pelvis: 1. Moderate wall thickening of the distal stomach with adjacent inflammation. The findings suggest gastritis. The findings may be postprocedural however no extraluminal gas is present. 2. Inflammation adjacent to the pancreatic head which may be secondary to gastritis or represent pancreatitis. This could be correlated with serum lipase level. 3. 1.8 x 1.8 cm hypodense lesion within the uncinate process of the pancreas with abrupt cutoff of the pancreatic duct in mild pancreatic ductal dilatation. This is suspicious for pancreatic neoplasm. 4. 3.5 x 3.2 cm multiloculated hypodense lesion between the second portion the duodenum and pancreatic head. This is nonspecific and may represent a lesion or an inflammatory process given mild adjacent stranding. Sequela of previous pancreatitis is within the differential. Emergency room [place] Mena discussed the case with on-call clerical adviser Dr. Villatoro who advised transfer to [facility] for possible pancreatic obstruction secondary to pancreatic mass. [facility] accepted the patient, however bed is not available at this time. Hospitalist consulted for admission of the patient, until bed has become available at [facility] for transfer. On exam, patient seen resting in bed, comfortable, not in distress. States pain is currently moderate, relieved by morphine received earlier. No active shortness of breath, chest pain, nausea or vomiting. He reports having intermittent fevers and chills at home. No other new symptoms. Allergies Allergy/AdvReac Type Severity Reaction Status Date / Time bee venom protein (honey bee) Allergy Severe HIVES Verified 06/25/20 13:11 Aminoglycosides Allergy Unknown Verified 06/25/20 13:11 gentamicin Allergy Unknown HIVES Verified 06/25/20 13:11 metronidazole Allergy Unknown Verified 06/25/20 13:11 tramadol Allergy Unknown INSOMNIA/SO Verified 06/25/20 13:11 B Home Medications Medication Instructions Recorded Confirmed Type atenolol 25 mg tablet 37.5 mg PO BID 06/25/20 04/25/24 History cetirizine 10 mg tablet (Zyrtec) 10 mg PO HS 06/25/20 04/25/24 History multivitamin,tx-minerals 1 tab PO QAM 06/25/20 04/25/24 History omeprazole magnesium 20 mg 20 mg PO QAM 06/25/20 04/25/24 History tablet,delayed release (Prilosec OTC) rivaroxaban 20 mg tablet (Xarelto) 20 mg PO QAM 06/25/20 04/25/24 History alfuzosin 10 mg tablet,extended 10 mg PO DAILY 04/25/24 04/25/24 History release 24 hr finasteride 5 mg tablet 5 mg PO DAILY 04/25/24 04/25/24 History oxycodone 10 mg tablet 10 mg PO DIRECTED PRN Pain 04/25/24 04/25/24 History Past Med/Surg History Problem List (Updated 04/25/24 @ 17:54 by Wild Pittman MD) Pancreatic mass Acute pancreatitis Pulmonary embolism (Acute) Hematoma of right lower extremity (Acute) DVT (deep venous thrombosis) (Acute) Chest pain (Acute) Hyperlipidemia (Acute) Hypertension (Chronic) Medical History Lung cancer COPD (chronic obstructive pulmonary disease) Surgical History History of ileostomy History of lobectomy of lung History of cholecystectomy History of appendectomy Social History Smoking Status: Former smoker Tobacco Type: Cigarettes Preferred Language: Beninese Feels Safe at Home: Yes Review of Systems Review of Systems: all noted and negative except for above Physical Exam Physical Exam: General- oriented x 3, not in distress, speaks in sentences with no effort or accessory muscle use Head- atraumatic Eyes- PERRL, EOMI, anicteric ENT- oropharynx clear Neck- supple, no JVD, no adenopathy, no thyromegaly; carotids +2/2, no bruits appreciated Lungs- clear to auscultation bilaterally, no rales/wheezes Heart- normal rate, regular rhythm; no murmur, no gallop, no rub appreciated Abdomen- normal bowel sounds, Mild right-sided abdominal tenderness, soft, no masses or hepatosplenomegaly Extremities- no pretibial edema, no calf tenderness; peripheral pulses intact Neuro- alert, oriented x 3; CN 2-12 grossly intact; motor 5/5 bilaterally;sensation 100% on all extremities; no other gross focal neurologic deficits Skin- warm & dry Results & Data Results & Data Vital Signs (Past 12 Hours) Vital Signs Temp Pulse Pulse Resp BP BP Pulse Ox 04/25/24 12:25 72 04/25/24 12:00 73 16 97 04/25/24 11:30 75 16 97 04/25/24 11:21 74 04/25/24 11:15 75 19 04/25/24 11:06 79 16 04/25/24 11:03 119/66 04/25/24 11:03 119/66 04/25/24 11:03 119/66 04/25/24 11:03 119/66 04/25/24 10:33 81 17 98 04/25/24 10:24 82 17 131/74 97 04/25/24 10:21 71 16 97 04/25/24 10:03 76 15 97 04/25/24 09:21 73 18 99 04/25/24 09:18 68 15 96 04/25/24 09:03 71 12 96 04/25/24 08:57 134/79 04/25/24 08:57 134/79 04/25/24 08:57 134/79 04/25/24 08:48 75 20 97 04/25/24 08:48 72 20 134/79 98 04/25/24 08:42 70 15 92 04/25/24 08:30 71 15 97 04/25/24 08:28 97 04/25/24 08:23 76 04/25/24 08:21 73 18 96 04/25/24 07:55 97 04/25/24 07:51 77 17 04/25/24 07:42 71 16 04/25/24 06:51 36.9 C 81 18 115/70 97 O2 Del Method 04/25/24 12:25 04/25/24 12:00 04/25/24 11:30 04/25/24 11:21 04/25/24 11:15 04/25/24 11:06 04/25/24 11:03 04/25/24 11:03 04/25/24 11:03 04/25/24 11:03 04/25/24 10:33 04/25/24 10:24 Room Air 04/25/24 10:21 04/25/24 10:03 04/25/24 09:21 04/25/24 09:18 04/25/24 09:03 04/25/24 08:57 04/25/24 08:57 04/25/24 08:57 04/25/24 08:48 04/25/24 08:48 Room Air 04/25/24 08:42 04/25/24 08:30 04/25/24 08:28 Room Air 04/25/24 08:23 04/25/24 08:21 04/25/24 07:55 Room Air 04/25/24 07:51 04/25/24 07:42 04/25/24 06:51 Room Air all noted and reviewed including below Code Status & VTE Plan VTE Prophylaxis Plan VTE Prophylaxis will be ordered: Yes
[2024-04-25] MEDS ORDERED: MoRPHine SULFATE 4 MG/ML 1 ML CARP\\VIAL IV PRN (17:17)
[2024-04-25] MEDS ORDERED: Heparin IV Adult Wt-Based Low-Dose *NO* INITIAL Bolus Protocol IV STA (17:32)
[2024-04-25] MEDS: ACETAMINOPHEN 1,000 MG/100 ML VIAL IV SCH (18:35)
[2024-04-25] MEDS: HYDROmorphone INJ 0.5 MG/0.5 ML SYR IV PRN (18:35)
[2024-04-25] MEDS: PIPERACILLIN/TAZOBACTAM 4.5 GM/100 ML BAG IV SCH (19:27)
[2024-04-25 19:49] VITALS: RESP 20
[2024-04-25] MEDS ORDERED: Nursing to Pharmacy Communication SCH (20:00)
[2024-04-25] MEDS: PANTOprazole 40 MG/10 ML SYR IV SCH (20:24)
[2024-04-25] MEDS: HEPARIN 25000 UNIT/500 ML D5W 25,000 UNITS/500 ML BAG IV SCH (20:29)
[2024-04-25] MEDS: CETIRIZINE HCL 10 MG TABLET PO SCH (20:37)
[2024-04-25] MEDS: ATENOLOL 25 MG TABLET PO SCH (20:37)
[2024-04-26 02:40] LABS: Basophils # (auto) 0.01 K/uL (0.00-0.20); Basophils % (auto) 0.3 %; Eosinophils # (auto) 0.09 K/uL (0.00-0.50); Eosinophils % (auto) 2.3 %; Hematocrit (blood only) 30.8 % (42.0-52.0); Hemoglobin 10.2 g/dl (14.0-18.0); Immature Granulocytes # (auto) 0.01 K/uL (0.01-0.20); Immature Granulocytes % (auto) 0.3 %; Lymphocytes # (auto) 0.67 K/uL (1.20-3.40); Lymphocytes % (auto) 16.9 %; Mean Corpuscular Hgb Conc 33.1 g/dL (32.0-36.0); Mean Corpuscular Volume 87.5 fL (80.0-100.0); Mean Platelet Volume 10.9 fL (9.4-12.4); Monocytes # (auto) 0.31 K/uL (0.11-0.59); Monocytes % (auto) 7.8 %; Neutrophils # (auto) 2.87 K/uL (1.40-6.50); Neutrophils % (auto) 72.4 %; Platelet Count 129 K/uL (130-400); RDW Coefficient of Variation 13.2 % (11.5-14.5); RDW Standard Deviation 41.7 fL (36.4-46.3); Red Blood Count 3.52 M/uL (4.70-6.10); White Blood Count 3.96 K/ul (4.8-10.8)
[2024-04-26 02:43] LABS: ANTI-Xa, UFH(UnfractionatedHep 0.32 IU/ml (0.3-0.7)
[2024-04-26 02:58] LABS: BUN Creatinine Ratio 10.2 (10-20); Bilirubin Direct 0.2 mg/dl (0-0.2); Bilirubin,Total 0.6 mg/dl (0.2-1.0); Calcium 8.3 mg/dl (8.6-10.3); Creatinine Clr Calc Pharmacy 47.5 ml/min; Magnesium 1.5 mg/dl (1.7-2.4); Phosphorus 3.6 mg/dl (2.5-4.9); Potassium 3.6 mmol/L (3.5-5.1); Total Protein 5.4 gm/dl (6.0-8.3)
[2024-04-26] MEDS: MAGNESIUM SULFATE / D5W 1 GM/100 ML BAG IV ONE (07:57)
[2024-04-26 08:00] LABS: ANTI-Xa, UFH(UnfractionatedHep 0.26 IU/ml (0.3-0.7)
[2024-04-26] MEDS: TAMSULOSIN HCL 0.4 MG CAP PO SCH (08:52)
[2024-04-26] MEDS: FINASTERIDE 5 MG TAB PO SCH (08:52)
--- NOTE | 2024-04-26 12:38 | Gastrointestinal Consultation ---
Date of Consultation April 26, 2024 Assessment & Plan (1) Acute pancreatitis: Suspect related to pancreatic duct disruption. Management ERCP and pancreatic duct stent. Transfer requested and accepted at [facility]. Awaiting bed. (2) Pancreatic mass: Probable primary pancreatic cancer. Have not seen biopsy results History of Present Illness Reason for Consultation: Pancreatitis Attending Physician: Kandy Hsieh MD History of Present Illness History of a pancreatic mass. About 2 weeks ago he had an endoscopic ultrasound and biopsy. He states he has had pain and discomfort since that time worsen with eating. Came in because of the ill symptoms. Found to have an elevated lipase. CT scan shows a fluid collection and abrupt cut off of the pancreatic duct. This is consistent with pancreatic duct disruption. Management will be an ERCP and pancreatic duct stent. Patient for transfer to [facility] once bed available. Patient inquiring whether the mass would be pancreatic cancer or lung cancer. Based on numbers most probable a pancreatic cancer. Allergies Allergy/AdvReac Type Severity Reaction Status Date / Time bee venom protein (honey bee) Allergy Severe HIVES Verified 06/25/20 13:11 Aminoglycosides Allergy Unknown Verified 06/25/20 13:11 gentamicin Allergy Unknown HIVES Verified 06/25/20 13:11 metronidazole Allergy Unknown Verified 06/25/20 13:11 tramadol Allergy Unknown INSOMNIA/SO Verified 06/25/20 13:11 B Home Medications Medication Instructions Recorded Confirmed Type atenolol 25 mg tablet 37.5 mg PO BID 06/25/20 04/25/24 History cetirizine 10 mg tablet (Zyrtec) 10 mg PO HS 06/25/20 04/25/24 History multivitamin,tx-minerals 1 tab PO QAM 06/25/20 04/25/24 History omeprazole magnesium 20 mg 20 mg PO QAM 06/25/20 04/25/24 History tablet,delayed release (Prilosec OTC) rivaroxaban 20 mg tablet (Xarelto) 20 mg PO QAM 06/25/20 04/25/24 History alfuzosin 10 mg tablet,extended 10 mg PO DAILY 04/25/24 04/25/24 History release 24 hr finasteride 5 mg tablet 5 mg PO DAILY 04/25/24 04/25/24 History oxycodone 10 mg tablet 10 mg PO DIRECTED PRN Pain 04/25/24 04/25/24 History Patient History Medical History Lung cancer COPD (chronic obstructive pulmonary disease) Surgical History History of ileostomy History of lobectomy of lung History of cholecystectomy History of appendectomy Social History Smoking Status: Former smoker Tobacco Type: Smokeless Tobacco (Dip or Chew) Second Hand Exposure: Yes; Do You Dip or Chew Tobacco: Yes; Tobacco Cessation Education Requested by Patient: No Hx Alcohol Use: No Hx Substance Use: No Preferred Language: Telugu Communication Ability: Effective Rockboard Lather Required: No Beliefs That Will Affect Care: None Current Living Situation: Spouse Other Information That Helps Us Care for You: No Feels Safe at Home: Yes Safety Concerns: Feels Safe At This Time Assistive Devices: None Review of Systems Review of Systems: Less pain today. Denies fevers chills night sweats chest pain shortness of breath increased cough GI as noted Abdomen actually is benign Physical Exam Physical Exam: Patient sleeping arouses to voice. Orientated x 3 Abdomen benign colostomy in the left lower quadrant Results & Data Vital Signs (Past 12 Hours) Vital Signs Temp Pulse Pulse Resp BP BP Pulse Ox 04/26/24 11:32 36.8 C 65 20 111/68 97 04/26/24 08:35 36.8 C 70 20 108/71 98 04/26/24 07:25 60 04/26/24 03:31 36.7 C 94 H 20 101/56 L 94 O2 Del Method 04/26/24 11:32 Room Air 04/26/24 08:35 Room Air 04/26/24 07:25 04/26/24 03:31 Room Air PG Care Time/CCT Total # of Minutes Spent Total Time Spent with Patient: Total time spent is greater than 50% in coordination of care (as documented) at patient's floor/unit and/or counseling patient: Coding Level of Care Code 53583 INT INP/OBS CARE 1/40MIN Diagnoses Acute pancreatitis K85.90 Pancreatic mass K86.89
--- NOTE | 2024-04-26 14:05 | Discharge Summary ---
Date of Service April 26, 2024 Admission HPI Per Admitting Provider Patient is a 78 year old male with PMH of Pancreatic mass (s/p recent EUS biopsy 04/15 - likely adenocarcinoma), recent recurrence of prior Lung cancer s/p radiation, Colostomy status, CKD3b, Factor V Leiden, DVT/PE on Xarelto, GERD, BPH, DLD Presenting with recurrence of abdominal pain. Patient Under EUS with biopsy of newly found pancreatic lesion on 04/15/24. The next day, patient developed abdominal pain and was found to have acute pancreatitis. He was admitted to [facility] for a few days and received conservative management including IV fluids, pain control and bowel rest. His symptoms improved and was discharged Since that time, patient had intermittent abdominal pain mostly central, right sided associated with some nausea. Today the pain got worse prompting consult to [facility] emergency room. Lipase found to be 517. CT abdomen and pelvis: 1. Moderate wall thickening of the distal stomach with adjacent inflammation. The findings suggest gastritis. The findings may be postprocedural however no extraluminal gas is present. 2. Inflammation adjacent to the pancreatic head which may be secondary to gastritis or represent pancreatitis. This could be correlated with serum lipase level. 3. 1.8 x 1.8 cm hypodense lesion within the uncinate process of the pancreas with abrupt cutoff of the pancreatic duct in mild pancreatic ductal dilatation. This is suspicious for pancreatic neoplasm. 4. 3.5 x 3.2 cm multiloculated hypodense lesion between the second portion the duodenum and pancreatic head. This is nonspecific and may represent a lesion or an inflammatory process given mild adjacent stranding. Sequela of previous pancreatitis is within the differential. Emergency room [place] [facility] discussed the case with on-call locomotive firer/fireman Dr. Villatoro who advised transfer to [facility] accepted the patient, however bed is not available at this time. Hospitalist consulted for admission of the patient, until bed has become available at [facility] for transfer. Admission Exam Per Admitting Provider General- oriented x 3, not in distress, speaks in sentences with no effort or accessory muscle use Head- atraumatic Eyes- PERRL, EOMI, anicteric ENT- oropharynx clear Neck- supple, no JVD, no adenopathy, no thyromegaly; carotids +2/2, no bruits appreciated Lungs- clear to auscultation bilaterally, no rales/wheezes Heart- normal rate, regular rhythm; no murmur, no gallop, no rub appreciated Abdomen- normal bowel sounds, Mild right-sided abdominal tenderness, soft, no masses or hepatosplenomegaly Extremities- no pretibial edema, no calf tenderness; peripheral pulses intact Neuro- alert, oriented x 3; CN 2-12 grossly intact; motor 5/5 bilater ally;sensation 100% on all extremities; no other gross focal neurologic deficits Skin- warm & dry Principal Diagnosis Recurrent pancreatitis in the setting of pancreatic lesion Possible pancreatic duct obstruction Discharge Exam Constitutional + well hydrated; no acute distress Eyes PERRL, conjunctivae normal, anicteric sclerae ENMT external ear and nose normal, oropharynx normal Respiratory normal respiratory effort, lungs clear to auscultation Cardiovascular Rate/Rhythm: regular rate and regular rhythm Gastrointestinal (Abdomen) normal bowel sounds, soft, nontender, no hepatosplenomegaly Ostomy bag in situ Musculoskeletal no cyanosis or clubbing, extremities motor strength 5/5 Neurologic PERRL, EOMI, accommodation nl, no face palsy, no dysarthria Psychiatric A+Ox3, euthymic affect Discharge Data Allergies Allergy/AdvReac Type Severity Reaction Status Date / Time bee venom protein (honey bee) Allergy Severe HIVES Verified 06/25/20 13:11 Aminoglycosides Allergy Unknown Verified 06/25/20 13:11 gentamicin Allergy Unknown HIVES Verified 06/25/20 13:11 metronidazole Allergy Unknown Verified 06/25/20 13:11 tramadol Allergy Unknown INSOMNIA/SO Verified 06/25/20 13:11 B Consultations 04/25/24 13:37 ED Decision to Admit Stat 04/25/24 17:17 Consult Gastroenterology Routine Ordered Studies 04/25/24 07:13 CT abd pelvis IV con only Stat 1. Moderate wall thickening of the distal stomach with adjacent inflammation. The findings suggest gastritis. The findings may be postprocedural however no extraluminal gas is present. 2. Inflammation adjacent to the pancreatic head which may be secondary to gastritis or represent pancreatitis. This could be correlated with serum lipase level. 3. 1.8 x 1.8 cm hypodense lesion within the uncinate process of the pancreas with abrupt cutoff of the pancreatic duct in mild pancreatic ductal dilatation. This is suspicious for pancreatic neoplasm. 4. 3.5 x 3.2 cm multiloculated hypodense lesion between the second portion the duodenum and pancreatic head. This is nonspecific and may represent a lesion or an inflammatory process given mild adjacent stranding. Sequela of previous pancreatitis is within the differential. Hospital Course (1) Acute pancreatitis: (2) Pancreatic mass: 78 year old male with PMH of Pancreatic mass (s/p recent EUS biopsy 04/15 - possible adenocarcinoma), recent recurrence of prior Lung cancer s/p radiation, Colostomy status, CKD3b, Factor V Leiden, DVT/PE on Xarelto, GERD, BPH, DLD Presenting with recurrence of abdominal pain. Recurrent pancreatitis In the setting of pancreatic mass/lesion Possible pancreatic duct obstruction Was admitted to [facility] earlier this month for an acute pancreatitis episode after a biopsy of pancreatic mass, newly found Presents to the hospital at [facility] on 04/25/24 for abdominal pain, lipase 500s, CT abdomen and pelvis suggest acute pancreatitis, 3.5 cm lesion between the second portion of the duodenum and pancreatic head-lesion versus inflammatory process with mild adjacent stress concerning for pancreatic duct obstruction Patient was accepted for transfer to [facility] for GI procedure I spoke with Dr Enrique at [facility] who will performed procedure and he confirmed he reviewed patient and accepted him for procedure History of PE and DVT, factor V Leyden deficiency Patient's home xarelto on hold Currently on low dose heparin drip Total Time Total Time Spent Total Time Spent (In Minutes): 50 Total Time Includes: Examination of the Patient, Discharge Planning, Medication Reconciliation and Communication With Other Providers Discharge Plan Discharge Items Patient Disposition: Transfer Acute Care Hospital Reason For Visit: ACUTE PANCREATITIS Discharge Diagnosis: Recurrent pancreatitis in the setting of pancreatic lesion Possible pancreatic duct obstruction Activity: Resume your previous activity Non-emergency contact: Primary Care Provider and Keel Press Operator Call non-emergency contact if: you have any medication questions and your symptoms worsen Follow-up/Referrals: Eliud Orta MD [Primary Care Provider] - Diet: Nothing by Mouth Addtl Attending Provider Instructions: Mr Alexander You presented to the hospital complaining of abdominal pain and evaluation revealed the above listed diagnoses. You are being transfered to [facility] for a procedure called ERCP and further management. Please hold off taking your blood thinner, xarelto till then. They can continue heparin drip over there until procedure is planned. It was a pleasure taking care of you. Pending Studies at Discharge: No Stand-Alone Forms: My [facility] Skilled Items Patient informed of condition?: Yes DNR: No Discharge Level of Care: Other Communicable Disease: No Discharge Prognosis: Stable Lines: Peripheral IV Urinary Catheter: No Medications and DC Order Prescriptions: Continued cetirizine [Zyrtec] 10 mg Tablet 10 mg PO HS Rx Instructions: otc unable to verify atenolol 25 mg tablet 37.5 mg PO BID Rx Instructions: filled 03/30 100 day supply multivitamin,tx-minerals Tablet 1 tab PO QAM Rx Instructions: otc unable to verify omeprazole magnesium [Prilosec OTC] 20 mg Tablet,Delayed Release (Dr/Ec) 20 mg PO QAM Rx Instructions: OTC unable to verify alfuzosin 10 mg tablet extended release 24 hr 10 mg PO DAILY Rx Instructions: filled 03/31 100 day supply oxycodone 10 mg tablet 10 mg PO DIRECTED PRN (Reason: Pain) Rx Instructions: filled 04/22 5 day supply finasteride 5 mg tablet 5 mg PO DAILY Rx Instructions: filled 03/30 90 day supply Held Xarelto 20 mg tablet 20 mg PO QAM Hold Instructions: Resume on 04/28/24. Hold until after procedure at receiving hospital. Can continue heparin drip in the interim Rx Instructions: filled 03/23 90 day supply Discharge Orders: Discharge Order (Routine); Ordered 04/26/24 Ordered By: Kandy Hsieh Admission Data Admit Date/Time: 04/25/24 14:14 Attending Provider: Kandy Hsieh I. Admit Provider: Wild Pittman Primary Care Provider: Eliud Orta Other Providers: Fantasma Villatoro Robin A. Other Interventions: Discharge Summary Assessment (RN) Last Done: 04/26/24 16:48
[2024-04-26 15:28] LABS: ANTI-Xa, UFH(UnfractionatedHep 0.24 IU/ml (0.3-0.7)
[2024-04-26 16:22] VITALS: PULSE 72; TEMP 98.8; O2SAT 96
[2024-04-26 16:50] VITALS: BP 101/56
== END 2024-04-26 16:53 | disposition short-term general hospital (02) | DRG 439 ==
LOC: ED 06:47 → 2N 14:14 → SUATTDRO 14:14 → 2N 16:58

== ENCOUNTER 2024-10-16 23:05 | Inpatient (IN) ==
--- NOTE | 2024-10-16 23:37 | Emergency Department Note ---
Impression & Plan GI (gastrointestinal bleed) admit to the [facility] ED Provider Note NAME: SARAN THORNTON AGE: 79 SEX: Male INFORMANT: Patient ED PROVIDER(S): Brynn Kinney DO CHIEF COMPLAINT: Abdominal pain and GI bleeding PLAN: Disposition: admit to the [facility] MEDICAL DECISION MAKING: This is an 79-year-old male patient with a history of ulcerative colitis( Ileostomy) and a history of pancreatic cancer who underwent ERCP today at [facility]. Patient became concerned this evening when he had increased production of blood within his iliostomy bag. he also describes having Diffuse abdominal pain but this is not unusual for the patient since his diagnosis of pancreatic cancer. EMS was called and he was transported here. He received IV fentanyl enroute with significant relief to his discomfort. Laboratory studies here in the emergency department revealed no significant leukocytosis. Hemoglobin was 11.0. Hemoglobin from 3 days ago was 11. Platelet count 113 which is stable. INR was 1. LFTs were elevated. Glucose was 104. Patient's systolic blood pressure ranged between 90 and 110. He was not tachycardic. Patient explains that his baseline systolic blood pressures are around 100-110. Patient's abdominal exam was benign. He did develop some discomfort and was given a dose of IV Protonix. There was a small amount of melena noted within his ostomy bag. Throughout his stay here in the emergency department he did not produce any more melena in the ostomy bag. Dr. Oliveros from [facility] gastroenterology contacted me to discuss the patient's case. He felt comfortable with the patient staying here [facility] him here over the next 24-48 hours to make sure he did not have more excessive GI bleeding. I discussed the case with Dr. Bravo who requested I discussed the case with the on-call process control technician here at [facility]. I reviewed the case with Dr. Pereyra. He felt comfortable with the patient remaining at [facility] patient was treated with IV Protonix. Care/management discussed with: Dr. Oliveros-[facility] gastroenterology;Dr. [id number] gastroenterology; [facility] Nursing notes: reviewed and agree with them. Vital Signs: reviewed and remarkable for mild hypotension Additional History obtained from: Dr. Oliveros Chronic Medical/Social Conditions affecting care: Pancreatic cancer; ulcerative colitis with ileostomy Prior/ Outside/ External records reviewed: I obtain records out of the [facility] system from his recent ERCP and other GI records Differential Diagnosis: Slight GI bleeding from the ERCP procedure from earlier today; more sinister upper GI bleeding secondary to patient's Xarelto use; DIC HPI: 79 year old Male arrives for evaluation of blood in his ostomy bag. Patient has a history of pancreatic cancer and ulcerative colitis with an ileostomy bag. He underwent a procedure earlier today at [facility] to have a stent placed in his liver. He noticed increased amount of blood this evening in his ostomy bag and became concerned. The patient does complain of abdominal pain but states this is not out of the ordinary for him after the diagnosis of the pancreatic cancer. EMS was called and he was transported here. PAST MEDICAL HISTORY: See Below, PAST SURGICAL HISTORY: See Below, SOCIAL HISTORY: See Below, HOME MEDICATIONS: See list ALLERGIES: See list VITALS: See Below PHYSICAL EXAMINATION: HEENT: Head - normocephalic and atraumatic. Pupils are equal, round, and reactive to light. Extraocular eye muscles are intact, and sclera are mildly icteric. nose - moist nasal mucosa without discharge. Mouth - moist buccal mucosa. Oropharynx is nonerythematous and there is no tonsillar exudate or edema noted. Neck: Supple; no cervical adenopathy or JVD. Heart: Regular rate and rhythm. There is a normal S1 and S2 with no murmurs, clicks, or gallops appreciated. Lungs: Clear to auscultation bilaterally with no wheezes, rales, or rhonchi. Abdomen: Soft, mild diffuse tenderness. The abdomen is nondistended, with good bowel sounds. There are no palpable pulsatile masses or hepatosplenomegaly. There is no guarding, rigidity, or rebound noted. The ileostomy bag has a small amount of output consistent with melena within it. Extremities: No evidence of cyanosis, clubbing, or edema. There are easily palpable peripheral pulses. Skin: warm and dry with good turgor and mild jaundice Emergency Department treatment: IV normal saline, IV Protonix Emergency Department course: Patient was evaluated in room A-9. A complete history and physical was performed. Laboratory studies were drawn as above. The patient was bolused with 250 cc of saline. Records from the [facility] system were reviewed. I discussed the case with the [facility] process control technician from [place]. The patient was given a dose of IV Protonix. I discussed the case with the [facility] Hospitalist. I discussed the case with the on-call process control technician. I kept the patient and his family abreast of the situation. Patient was reassessed multiple times and had no further production of melena in the ileostomy And remained hemodynamically stable. Past Med/Surg History Problem List GI (gastrointestinal bleed) (Acute) Pancreatic mass Acute pancreatitis Pulmonary embolism (Acute) Hematoma of right lower extremity (Acute) DVT (deep venous thrombosis) (Acute) Chest pain (Acute) Hyperlipidemia (Acute) Hypertension (Chronic) Medical History Lung cancer COPD (chronic obstructive pulmonary disease) Surgical History History of ileostomy History of lobectomy of lung History of cholecystectomy History of appendectomy Social History Smoking Status: Former smoker Tobacco Type: Cigarettes and Cigars Second Hand Exposure: Yes; Do You Dip or Chew Tobacco: Yes; Hx Alcohol Use: No Hx Substance Use: No Preferred Language: Albanian Communication Ability: Effective Energy Projects Lead Required: No Beliefs That Will Affect Care: None Current Living Situation: Spouse Other Information That Helps Us Care for You: No Feels Safe at Home: Yes Safety Concerns: Feels Safe At This Time Assistive Devices: None Allergies Allergies Allergy/AdvReac Type Severity Reaction Status Date / Time bee venom protein (honey bee) Allergy Severe HIVES Verified 10/16/24 23:37 tramadol Allergy Severe INSOMNIA/SO Verified 10/16/24 23:37 B gentamicin Allergy Intermediate HIVES Verified 10/16/24 23:37 Aminoglycosides Allergy Unknown Unknown Verified 10/16/24 23:37 metronidazole Allergy Unknown Unknown Verified 10/16/24 23:37 Home Meds Home Medications Medication Instructions Recorded Confirmed atenolol 25 mg tablet 37.5 mg PO BID 06/25/20 10/17/24 cetirizine 10 mg tablet (Zyrtec) 10 mg PO HS 06/25/20 10/17/24 omeprazole magnesium 20 mg 20 mg PO QAM 06/25/20 10/17/24 tablet,delayed release (Prilosec OTC) rivaroxaban 20 mg tablet (Xarelto) 20 mg PO QAM 06/25/20 10/17/24 alfuzosin 10 mg tablet,extended 10 mg PO DAILY 04/25/24 10/17/24 release 24 hr finasteride 5 mg tablet 5 mg PO DAILY 04/25/24 10/17/24 acetaminophen 500 mg tablet 500 mg PO Q8H PRN Pain 10/17/24 10/17/24 (Tylenol Extra Strength) albuterol sulfate 2.5 mg/3 mL 2.5 mg inhalation Q4H PRN 10/17/24 10/17/24 (0.083 %) solution for nebulization Shortness Of Breath cholestyramine (with sugar) 4 gram 1 ea PO BID 10/17/24 10/17/24 powder for susp in a packet hydromorphone 2 mg tablet 2 mg PO Q6H PRN Pain 10/17/24 10/17/24 midodrine 2.5 mg tablet 2.5 mg PO BID 10/17/24 10/17/24 thatrmazvozp-poefyaae-qxkfjv tablet 1 tab PO DAILY 10/17/24 10/17/24 polyethylene glycol 3350 17 17 g PO DAILY 10/17/24 10/17/24 gram/dose oral powder (Miralax) triamcinolone acetonide 0.1 % 1 applic topical BID PRN NEEDED 10/17/24 10/17/24 topical cream Results & Data (ED) Vital Signs Vital Signs - 24 hr 10/16/24 23:13 10/16/24 23:33 10/16/24 23:42 Temperature 36.9 C Temperature Source Oral Pulse Rate 85 83 Pulse Rate [Right Finger] 79 Respiratory Rate 20 21 Respiratory Effort / Characteristics Non-Labored Spontaneous Accessory Muscle Use Respiratory Depth Normal Respiratory Pattern Regular Blood Pressure 113/53 L Blood Pressure [Right Arm] 111/57 L Blood Pressure Mean 73 Blood Pressure Mean [Right Arm] 75 Pulse Oximetry 98 98 Oxygen Delivery Method Room Air Room Air Sepsis Recent Fever Within 48 Hours No Sepsis New/Unexplained Change in Mental Status N/A Sepsis Action Taken by Nursing No Action Required 10/17/24 00:00 10/17/24 01:01 10/17/24 01:13 Temperature 37.1 C Temperature Source Oral Pulse Rate 83 84 Pulse Rate [Right Finger] Respiratory Rate 16 16 Respiratory Effort / Characteristics Respiratory Depth Respiratory Pattern Blood Pressure 102/53 L 95/46 L Blood Pressure [Right Arm] Blood Pressure Mean 64 55 Blood Pressure Mean [Right Arm] Pulse Oximetry 97 97 Oxygen Delivery Method Room Air Room Air Sepsis Recent Fever Within 48 Hours Sepsis New/Unexplained Change in Mental Status Sepsis Action Taken by Nursing Laboratory Data 10/17/24 12:47 10/17/24 04:53 Lab Results 10/16/24 10/17/24 Range/Units 23:27 00:07 WBC 5.79 (4.8-10.8) K/ul RBC 3.76 L (4.70-6.10) M/uL Hgb 11.0 L (14.0-18.0) g/dl Hct 32.7 L (42.0-52.0) % MCV 87.0 (80.0-100.0) fL MCH 29.3 (25.0-34.0) pg MCHC 33.6 (32.0-36.0) g/dL RDW Std Deviation 49.7 H (36.4-46.3) fL RDW Coeff of Lexii 15.6 H (11.5-14.5) % Plt Count 113 L (130-400) K/uL MPV 11.2 (9.4-12.4) fL Immature Gran % (Auto) 0.2 % Neut % (Auto) 87.0 % Lymph % (Auto) 5.0 % [place] % (Auto) 7.6 % Eos % (Auto) 0.0 % Baso % (Auto) 0.2 % Neut # (Auto) 5.04 (1.40-6.50) K/uL Lymph # (Auto) 0.29 L (1.20-3.40) K/uL Norton # (Auto) 0.44 (0.11-0.59) K/uL Eos # (Auto) 0.00 (0.00-0.50) K/uL Baso # (Auto) 0.01 (0.00-0.20) K/uL Immature Gran # (Auto) 0.01 (0.01-0.20) K/uL PT 11.2 (9.0-12.0) Seconds INR 1.0 (0.9-1.1) Sodium 133 L (136-145) mmol/L Potassium 4.4 (3.5-5.1) mmol/L Chloride 103 (98-107) mmol/L Carbon Dioxide 19 L (21-32) mmol/L Anion Gap 11 (3-11) BUN 21 (6-23) mg/dl Creatinine 1.38 (0.6-1.4) mg/dl Est Cr Clr Drug Dosing 43.2 ml/min eGFR 51.69 BUN/Creatinine Ratio 15.2 (10-20) Glucose 104 H (70-99(Fasting)) mg/dl Calcium 9.4 (8.6-10.3) mg/dl Total Bilirubin 8.6 H (0.2-1.0) mg/dl AST 133 H (13-39) U/L ALT 262 H (7-52) U/L Alkaline Phosphatase 363 H (34-104) U/L Total Protein 6.3 (6.0-8.3) gm/dl Albumin 3.9 (3.4-5.0) gm/dl Globulin 2.4 L (2.5-4.0) gm/dl Albumin/Globulin Ratio 1.6 (0.9-2) Lipase 39 (11-82) U/L Urine Color Dark Yellow Urine Appearance Clear (Clear) Urine pH 5.0 (4.5-7.5) Ur Specific [place] 1.010 (1.000-1.030) Urine Protein Negative (Negative) Urine Glucose (UA) Negative (Negative) Urine Ketones 1+ H (Negative) Urine Blood Negative (Negative) Urine Nitrite Negative (Negative) Urine Bilirubin 1+ H (Negative) Urine Urobilinogen Negative (Negative) Ur Leukocyte Esterase Negative (Negative) Urine Comment Administered Medications Cholestyramine Resin (Cholestyramine Light 4 Gm Pkt) 4 gm PO BID@1000,2200 [facility] Stop: 11/16/24 09:59 Last Admin: 10/17/24 09:38 Dose: Not Given Documented By: CEF Finasteride (Finasteride 5 Mg Tab) 5 mg PO DAILY [facility] Stop: 11/16/24 08:59 Last Admin: 10/17/24 09:37 Dose: 5 mg Documented By: CEF Hydromorphone HCl (Hydromorphone Hcl 2 Mg Tab) 2 mg PO Q6H PRN PRN Reason: Pain not relieved by APAP Stop: 10/31/24 02:20 Last Admin: 10/17/24 11:34 Dose: 2 mg Documented By: CEF Pantoprazole Sodium (Protonix) 40 mg in 10 mls @ 5 mls/min IV BID ANNABELLE Stop: 11/16/24 08:59 Last Admin: 10/17/24 09:37 Dose: 5 mls/min Documented By: CEF Midodrine (Midodrine Hcl 2.5 Mg Tab) 2.5 mg PO BID17 ANNABELLE Stop: 11/16/24 08:59 Last Admin: 10/17/24 09:37 Dose: 2.5 mg Documented By: CEF Multivitamins/Minerals (Cerovite Adv Formula Tab) 1 tab PO DAILY ANNABELLE Stop: 11/16/24 08:59 Last Admin: 10/17/24 09:37 Dose: 1 tab Documented By: CEF Polyethylene Glycol (Polyethylene (Miralax) 17 Gm Pack) 17 gm PO DAILY ANNABELLE Stop: 11/16/24 08:59 Last Admin: 10/17/24 09:37 Dose: Not Given Documented By: CEF Tamsulosin HCl (Tamsulosin Hcl 0.4 Mg Cap) 0.4 mg PO DAILY ANNABELLE Stop: 11/16/24 08:59 Last Admin: 10/17/24 09:37 Dose: 0.4 mg Documented By: CEF Discontinued Medications Sodium Chloride (Nss) 250 mls @ 999 mls/hr IV .Q16M ONE Stop: 10/16/24 23:47 Last Infusion: 10/16/24 23:57 Dose: Infused Documented By: Admin: 10/16/24 23:41 Dose: 999 mls/hr Documented By: RUPERTW Pantoprazole Sodium (Protonix) 40 mg in 10 mls @ 5 mls/min IV NOW ONE Stop: 10/17/24 01:01 Last Admin: 10/17/24 01:07 Dose: 5 mls/min Documented By: NGOZI Lactated Ringer's (Lr) 1,000 mls @ 100 mls/hr IV .Q10H STA Stop: 10/17/24 11:51 Last Admin: 10/17/24 03:10 Dose: 100 mls/hr Documented By: LISA Midodrine (Midodrine Hcl 2.5 Mg Tab) 2.5 mg PO NOW STA Stop: 10/17/24 01:17 Last Admin: 10/17/24 01:29 Dose: 2.5 mg Documented By: NGOZI Discharge Plan Visit Data Chief Complaint: Abdominal Pain Stated Complaint: Abdominal Pain, Stent Complications ED Provider: Brynn Kinney Discharge Problem: GI (gastrointestinal bleed) Condition: Fair Discharge Instructions Interventions: ED Discharge Assessment Last Done: 10/17/24 02:38
[2024-10-16] MEDS: SODIUM CHLORIDE 0.9% 250 ML IV ONE (23:41)
[2024-10-16 23:52] LABS: Hematocrit (blood only) 32.7 % (42.0-52.0); Hemoglobin 11.0 g/dl (14.0-18.0); Immature Granulocytes # (auto) 0.01 K/uL (0.01-0.20); Immature Granulocytes % (auto) 0.2 %; Mean Corpuscular Hemoglobin 29.3 pg (25.0-34.0); Mean Corpuscular Volume 87.0 fL (80.0-100.0); Platelet Count 113 K/uL (130-400); RDW Standard Deviation 49.7 fL (36.4-46.3); Red Blood Count 3.76 M/uL (4.70-6.10); White Blood Count 5.79 K/ul (4.8-10.8)
[2024-10-17 00:16] LABS: Appearance Urine Clear (Clear); Glucose Urine UA Negative (Negative)
[2024-10-17 00:17] LABS: Alanine Aminotransferase 262.0 U/L (7-52); Albumin Globulin Ratio 1.6 (0.9-2); Alkaline Phosphatase 363.0 U/L (34-104); Anion Gap 11.0 (3-11); Bilirubin,Total 8.6 mg/dl (0.2-1.0); Blood Urea Nitrogen 21.0 mg/dl (6-23); Calcium 9.4 mg/dl (8.6-10.3); Carbon Dioxide 19.0 mmol/L (21-32); Chloride 103.0 mmol/L (98-107); Creatinine Clr Calc Pharmacy 43.2 ml/min; Globulin 2.4 gm/dl (2.5-4.0); Glucose 104.0 mg/dl (70-99(Fasting)); Lipase 39.0 U/L (11-82); Potassium 4.4 mmol/L (3.5-5.1); Sodium 133.0 mmol/L (136-145); Total Protein 6.3 gm/dl (6.0-8.3)
[2024-10-17 00:20] LABS: INR 1.0 (0.9-1.1); Prothrombin Time 11.2 Seconds (9.0-12.0)
[2024-10-17] MEDS: PANTOprazole 40 MG/10 ML SYR IV ONE (01:07)
[2024-10-17] MEDS: MIDODRINE HCL 2.5 MG TAB PO STA (01:29)
--- NOTE | 2024-10-17 02:08 | History & Physical Report ---
Date of Service October 17, 2024 Assessment & Plan (1) GI (gastrointestinal bleed): Plan: Assessment and plan below following discussion of case with ED provider and reviewing patient history/pertinent normal/abnormal diagnostic test results. GI bleed History of GERD Recent palliative ERCP for obstructive jaundice secondary to pancreatic malignancy valvular heart disease (mild MR TR, TTE 2020) PAF/PSVT, patient NSR PVD, history of carotid disease as per records hypertension, BP on the lower side, patient on midodrine for hypotension at home hypercoagulable state (history of PE plus factor V Leiden deficiency/APC resistance, Xarelto on hold for next 4 days following recent ERCP as per endoscopist's recommendations COPD, lung status at baseline ulcerative colitis status post surgery recurrent lung cancer status post surgery with brain mets status post chemoradiation chronic anemia, hemoglobin at baseline prediabetes, hemoglobin A1c of 6 from 2021 past tobacco/alcohol abuse OBS Admit to med/tele IV PPI for possible UGIB Follow H&H, transfuse PRBC to attain hemoglobin of at least 8 GI consult re: UGIB (ED provider already in touch with Dr. Pereyra who is agreeable to keeping patient at [facility] N.p.o. in anticipation of endoscopy IVF, facilitate midodrine given borderline BP, hold home atenolol for now Update hemoglobin A1c DVT prophylaxis. SCDs re: GI bleed DNR Patient son requesting updates providers. Mr. Jason AlexanderJr., contact numbers [phone]. Text document was generated using [employer] voice recognition software. It may contain grammatical or spelling errors. Kindly contact undersigned for clarification of any documentation item in question. History of Present Illness Chief Complaint: GI bleed Primary Care Provider: Eliud Orta MD History obtained from patient, family, and records. Medical history significant for valvular heart disease (mild MR TR, TTE 2020), PAF/PSVT, PVD, hypertension, hypotension on midodrine, hypercoagulable state (history of PE plus factor V Leiden deficiency/APC resistance currently off Xarelto due to recent ERCP, COPD, GERD, ulcerative colitis status post surgery, metastatic pancreatic cancer, recurrent lung cancer status post surgery with brain mets status post chemoradiation, chronic anemia (baseline hemoglobin 10- 11), prediabetes, BPH, past tobacco/alcohol abuse. Last confinement April 2024 for recurrent pancreatitis in the setting of pancreatic mass later found to be adenocarcinoma. Disease deemed to be unresectable. Radiation contraindicated as per oncology note. Patient deemed to to have incurable disease. Palliative care recommended by [facility] oncologist. Patient underwent outpatient palliative ERCP at [facility] yesterday for obstructive jaundice in the setting of pancreatic cancer.. Abnormal outpatient LFTs noted prior to procedure. Patient instructed to hold home Xarelto prior to procedure. Xarelto to be resumed 5 days after ERCP. 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 Biliary sphincterotomy performed with subsequent placement of metal biliary stent in the CBD. Patient noted bloody ostomy output at home last night. Chronic abdominal pain. No hematemesis or coffee-ground emesis. Denies OTC NSAID intake. IV PPI administered at the ER. 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 Allergies Allergy/AdvReac Type Severity Reaction Status Date / Time bee venom protein (honey bee) Allergy Severe HIVES Verified 10/16/24 23:37 tramadol Allergy Severe INSOMNIA/SO Verified 10/16/24 23:37 B gentamicin Allergy Intermediate HIVES Verified 10/16/24 23:37 Aminoglycosides Allergy Unknown Unknown Verified 10/16/24 23:37 metronidazole Allergy Unknown Unknown Verified 10/16/24 23:37 Home Medications Medication Instructions Recorded Confirmed Type atenolol 25 mg tablet 37.5 mg PO BID 06/25/20 10/17/24 History cetirizine 10 mg tablet (Zyrtec) 10 mg PO HS 06/25/20 10/17/24 History omeprazole magnesium 20 mg 20 mg PO QAM 06/25/20 10/17/24 History tablet,delayed release (Prilosec OTC) rivaroxaban 20 mg tablet (Xarelto) 20 mg PO QAM 06/25/20 10/17/24 History alfuzosin 10 mg tablet,extended 10 mg PO DAILY 04/25/24 10/17/24 History release 24 hr finasteride 5 mg tablet 5 mg PO DAILY 04/25/24 10/17/24 History acetaminophen 500 mg tablet 500 mg PO Q8H PRN Pain 10/17/24 10/17/24 History (Tylenol Extra Strength) albuterol sulfate 2.5 mg/3 mL 2.5 mg inhalation Q4H PRN 10/17/24 10/17/24 History (0.083 %) solution for nebulization Shortness Of Breath cholestyramine (with sugar) 4 gram 1 ea PO BID 10/17/24 10/17/24 History powder for susp in a packet hydromorphone 2 mg tablet 2 mg PO Q6H PRN Pain 10/17/24 10/17/24 History midodrine 2.5 mg tablet 2.5 mg PO BID 10/17/24 10/17/24 History ujzvthdcjjzv-sxgqalqb-ijsiqs tablet 1 tab PO DAILY 10/17/24 10/17/24 History polyethylene glycol 3350 17 17 g PO DAILY 10/17/24 10/17/24 History gram/dose oral powder (Miralax) triamcinolone acetonide 0.1 % 1 applic topical BID PRN NEEDED 10/17/24 10/17/24 History topical cream Past Med/Surg History Problem List (Updated 10/17/24 @ 01:26 by Brynn Kinney DO) GI (gastrointestinal bleed) (Acute) Pancreatic mass Acute pancreatitis Pulmonary embolism (Acute) Hematoma of right lower extremity (Acute) DVT (deep venous thrombosis) (Acute) Chest pain (Acute) Hyperlipidemia (Acute) Hypertension (Chronic) Medical History Lung cancer COPD (chronic obstructive pulmonary disease) Surgical History History of ileostomy History of lobectomy of lung History of cholecystectomy History of appendectomy Social History Smoking Status: Former smoker Tobacco Type: Cigarettes and Cigars Second Hand Exposure: Yes; Do You Dip or Chew Tobacco: Yes; Hx Alcohol Use: No Hx Substance Use: No Preferred Language: Vietnamese Communication Ability: Effective Head Swamper Required: No Beliefs That Will Affect Care: None Current Living Situation: Spouse Other Information That Helps Us Care for You: No Feels Safe at Home: Yes Safety Concerns: Feels Safe At This Time Assistive Devices: None Review of Systems Review of Systems: As per HPI, all other systems reviewed and negative Physical Exam Physical Exam: GENERAL: Slightly uncomfortable, no respiratory distress SKIN: Jaundiced, warm HEENT: Pale palpebral conjunctivae, no ptosis, dry buccal mucosa NECK : Supple, no tenderness CHEST : CTA, no tenderness HEART : RRR, no obvious murmurs ABDOMEN: Some distention, chronic epigastric tenderness, ostomy bag in place noted to be filled with dark blood. EXTREMITIES : No LE swelling/tenderness, palpable pulses, no other conspicuous d eformities noted NEUROLOGIC : Coherent, no facial asymmetry, slightly hard of hearing, no other gross focality Results & Data Results & Data Vital Signs (Past 12 Hours) Vital Signs Temp Pulse Pulse Resp BP BP Pulse Ox 10/17/24 01:13 37.1 C 10/17/24 01:01 84 16 95/46 L 97 10/17/24 00:00 83 16 102/53 L 97 10/16/24 23:42 79 21 111/57 L 98 10/16/24 23:33 83 10/16/24 23:13 36.9 C 85 20 113/53 L 98 O2 Del Method 10/17/24 01:13 10/17/24 01:01 Room Air 10/17/24 00:00 Room Air 10/16/24 23:42 Room Air 10/16/24 23:33 10/16/24 23:13 Room Air Laboratory Results Laboratory Results WBC 5.79 K/ul (4.8-10.8) 10/16/24 23:27 RBC 3.76 M/uL (4.70-6.10) L 10/16/24 23:27 Hgb 11.0 g/dl (14.0-18.0) L 10/16/24 23:27 Hct 32.7 % (42.0-52.0) L 10/16/24 23:27 MCV 87.0 fL (80.0-100.0) 10/16/24 23:27 MCH 29.3 pg (25.0-34.0) 10/16/24 23:27 MCHC 33.6 g/dL (32.0-36.0) 10/16/24 23:27 RDW Std Deviation 49.7 fL (36.4-46.3) H 10/16/24: RDW Coeff of Lexii 15.6 % (11.5-14.5) H 10/16/24: Plt Count 113 K/uL (130-400) L 10/16/24: MPV 11.2 fL (9.4-12.4) 10/16/24: Immature Gran % (Auto) 0.2 % 10/16/24: Neut % (Auto) 87.0 % 10/16/24: Lymph % (Auto) 5.0 % 10/16/24: [place]pp % (Auto) 7.6 % 10/16/24: Eos % (Auto) 0.0 % 10/16/24: Baso % (Auto) 0.2 % 10/16/24: Neut # (Auto) 5.04 K/uL (1.40-6.50) 10/16/24: Lymph # (Auto) 0.29 K/uL (1.20-3.40) L 10/16/24: Tripp # (Auto) 0.44 K/uL (0.11-0.59) 10/16/24: Eos # (Auto) 0.00 K/uL (0.00-0.50) 10/16/24: Baso # (Auto) 0.01 K/uL (0.00-0.20) 10/16/24: Immature Gran # (Auto) 0.01 K/uL (0.01-0.20) 10/16/24: PT 11.2 Seconds (9.0-12.0) 10/16/24: INR 1.0 (0.9-1.1) 10/16/24: Sodium 133 mmol/L (136-145) L 10/16/24: Potassium 4.4 mmol/L (3.5-5.1) 10/16/24: Chloride 103 mmol/L (98-107) 10/16/24: Carbon Dioxide 19 mmol/L (21-32) L 10/16/24:27 Anion Gap 11 (3-11) 10/16/24 23:27 BUN 21 mg/dl (6-23) 10/16/24 23:27 Creatinine 1.38 mg/dl (0.6-1.4) 10/16/24 23:27 Est Cr Clr Drug Dosing 43.2 ml/min 10/16/24 23:27 eGFR 51.69 10/16/24 23:27 BUN/Creatinine Ratio 15.2 (10-20) 10/16/24 23:27 Glucose 104 mg/dl (70-99(Fasting)) H 10/16/24 23:27 Calcium 9.4 mg/dl (8.6-10.3) 10/16/24 23:27 Total Bilirubin 8.6 mg/dl (0.2-1.0) H 10/16/24 23:27 AST 133 U/L (13-39) H 10/16/24 23:27 ALT 262 U/L (7-52) H 10/16/24 23:27 Alkaline Phosphatase 363 U/L (34-104) H 10/16/24 23:27 Total Protein 6.3 gm/dl (6.0-8.3) 10/16/24 23:27 Albumin 3.9 gm/dl (3.4-5.0) 10/16/24 23:27 Globulin 2.4 gm/dl (2.5-4.0) L 10/16/24 23:27 Albumin/Globulin Ratio 1.6 (0.9-2) 10/16/24 23:27 Lipase 39 U/L (11-82) 10/16/24 23:27 Urine Color Dark Yellow 10/17/24 00:07 Urine Appearance Clear (Clear) 10/17/24 00:07 Urine pH 5.0 (4.5-7.5) 10/17/24 00:07 Ur Specific [place] 1.010 (1.000-1.030) 10/17/24 00:07 Urine Protein Negative (Negative) 10/17/24 00:07 Urine Glucose (UA) Negative (Negative) 10/17/24 00:07 Urine Ketones 1+ (Negative) H 10/17/24 00:07 Urine Blood Negative (Negative) 10/17/24 00:07 Urine Nitrite Negative (Negative) 10/17/24 00:07 Urine Bilirubin 1+ (Negative) H 10/17/24 00:07 Urine Urobilinogen Negative (Negative) 10/17/24 00:07 Ur Leukocyte Esterase Negative (Negative) 10/17/24 00:07 Urine Comment 10/17/24 00:07
[2024-10-17] MEDS ORDERED: ACETAMINOPHEN 500 MG TAB PO PRN (02:22)
[2024-10-17] MEDS ORDERED: PROMETHAZINE 6.25 MG/50.25 ML BAG IV PRN (02:23)
[2024-10-17] MEDS: LACTATED RINGER'S 1,000 ML IV STA (03:10)
[2024-10-17 05:37] LABS: Base Excess VBG -7.4 mEq/L; HCO3 VBG 18 mmol/L; Oxygen Saturation VBG 82.1 %; PCO2 VBG 36 mmHg (38-50); PO2 VBG 50 mmHg; pH VBG 7.31 (7.36-7.41)
[2024-10-17 05:46] LABS: Hematocrit (blood only) 30.1 % (42.0-52.0); Hemoglobin 10.2 g/dl (14.0-18.0); Immature Granulocytes # (auto) 0.01 K/uL (0.01-0.20); Immature Granulocytes % (auto) 0.2 %; Mean Corpuscular Hemoglobin 29.3 pg (25.0-34.0); Mean Corpuscular Volume 86.5 fL (80.0-100.0); Platelet Count 102 K/uL (130-400); RDW Standard Deviation 49.6 fL (36.4-46.3); Red Blood Count 3.48 M/uL (4.70-6.10); White Blood Count 4.90 K/ul (4.8-10.8)
[2024-10-17 06:30] LABS: Alanine Aminotransferase 229.0 U/L (7-52); Alkaline Phosphatase 315.0 U/L (34-104); Anion Gap 10.0 (3-11); Bilirubin,Total 5.4 mg/dl (0.2-1.0); Blood Urea Nitrogen 20.0 mg/dl (6-23); Calcium 8.9 mg/dl (8.6-10.3); Carbon Dioxide 18.0 mmol/L (21-32); Chloride 106.0 mmol/L (98-107); Creatinine Clr Calc Pharmacy 51.8 ml/min; Glucose 112.0 mg/dl (70-99(Fasting)); Magnesium 1.7 mg/dl (1.7-2.4); Potassium 4.1 mmol/L (3.5-5.1); Sodium 134.0 mmol/L (136-145); Total Protein 5.7 gm/dl (6.0-8.3)
[2024-10-17 09:10] LABS: Hemoglobin A1C 6.0 % (4.5-5.6)
[2024-10-17] MEDS: CEROVITE ADV FORMULA TAB PO SCH (09:37)
[2024-10-17] MEDS: MIDODRINE HCL 2.5 MG TAB PO SCH (09:37)
[2024-10-17] MEDS: FINASTERIDE 5 MG TAB PO SCH (09:37)
[2024-10-17] MEDS: TAMSULOSIN HCL 0.4 MG CAP PO SCH (09:37)
[2024-10-17] MEDS: POLYETHYLENE (MIRALAX) 17 GM PACK PO SCH (09:37)
[2024-10-17] MEDS: PANTOprazole 40 MG/10 ML SYR IV SCH (09:37)
[2024-10-17] MEDS: CHOLESTYRAMINE LIGHT 4 GM PKT PO SCH (09:38)
--- NOTE | 2024-10-17 10:23 | Gastrointestinal Consultation ---
Date of Consultation October 17, 2024 Assessment & Plan (1) GI (gastrointestinal bleed): I suspect he is having postprocedural GI bleeding. He was only off his xarelto for 36 hours or so so that may have contributed a little. He is not passing a significant amount of stool/blood and his hemoglobin is in the range it has been over the years. I would maintain him off xarelto for now and observe. If his hemoglobin remains stable or even rises then he could probably go home in the next 24 hours or so. If he were to "break loose" and need intervention then Dr. Oliveros has asked that he be transfered to [place]. I will follow while here. History of Present Illness Reason for Consultation: GI bleed Attending Physician: Wild Pittman MD History of Present Illness 79 year old man with recent diagnosis of pancreatic cancer who underwent placement of what sounds like an expandable stent yesterday. He went home and saw dark red blood in his ileostomy bag--he has had a total proctocolectomy for UC in the past. He tells me he emptied his bag then and it was "2-3 ounces". He just emptied for the next time shortly before my visit and it was less than that amount. In the bag is dark green liquid with some dark red tinge. All of this started earlier in the year when he had a biopsy for pancreatic mass and had pancreatitis subsequent to that from what was felt to be disrupted pancreatic duct. He had a pancreatic stent placed then to heal the pancreatitis but says he has had pain ever since. He tells me he is still having pain but it is no worse and no better than what he has had before. He does take xarelto but his last dose he took was on 10/15. Allergies Allergy/AdvReac Type Severity Reaction Status Date / Time bee venom protein (honey bee) Allergy Severe HIVES Verified 10/16/24 23:37 tramadol Allergy Severe INSOMNIA/SO Verified 10/16/24 23:37 B gentamicin Allergy Intermediate HIVES Verified 10/16/24 23:37 Aminoglycosides Allergy Unknown Unknown Verified 10/16/24 23:37 metronidazole Allergy Unknown Unknown Verified 10/16/24 23:37 Home Medications Medication Instructions Recorded Confirmed Type atenolol 25 mg tablet 37.5 mg PO BID 06/25/20 10/17/24 History cetirizine 10 mg tablet (Zyrtec) 10 mg PO HS 06/25/20 10/17/24 History omeprazole magnesium 20 mg 20 mg PO QAM 06/25/20 10/17/24 History tablet,delayed release (Prilosec OTC) rivaroxaban 20 mg tablet (Xarelto) 20 mg PO QAM 06/25/20 10/17/24 History alfuzosin 10 mg tablet,extended 10 mg PO DAILY 04/25/24 10/17/24 History release 24 hr finasteride 5 mg tablet 5 mg PO DAILY 04/25/24 10/17/24 History acetaminophen 500 mg tablet 500 mg PO Q8H PRN Pain 10/17/24 10/17/24 History (Tylenol Extra Strength) albuterol sulfate 2.5 mg/3 mL 2.5 mg inhalation Q4H PRN 10/17/24 10/17/24 History (0.083 %) solution for nebulization Shortness Of Breath cholestyramine (with sugar) 4 gram 1 ea PO BID 10/17/24 10/17/24 History powder for susp in a packet hydromorphone 2 mg tablet 2 mg PO Q6H PRN Pain 10/17/24 10/17/24 History midodrine 2.5 mg tablet 2.5 mg PO BID 10/17/24 10/17/24 History agenfyygvqka-wnnjpjyx-tpvbjz tablet 1 tab PO DAILY 10/17/24 10/17/24 History polyethylene glycol 3350 17 17 g PO DAILY 10/17/24 10/17/24 History gram/dose oral powder (Miralax) triamcinolone acetonide 0.1 % 1 applic topical BID PRN NEEDED 10/17/24 10/17/24 History topical cream Patient History Medical History Lung cancer COPD (chronic obstructive pulmonary disease) Surgical History History of ileostomy History of lobectomy of lung History of cholecystectomy History of appendectomy Social History Smoking Status: Former smoker Tobacco Type: Cigarettes and Cigars Second Hand Exposure: Yes; Do You Dip or Chew Tobacco: Yes; Hx Alcohol Use: No Hx Substance Use: No Preferred Language: Indonesian Communication Ability: Effective [employer] Business Intelligence Developer Required: No Beliefs That Will Affect Care: None Current Living Situation: Spouse Other Information That Helps Us Care for You: No Feels Safe at Home: Yes Safety Concerns: Feels Safe At This Time Assistive Devices: None Review of Systems Review of Systems: All systems reviewed & are unremarkable except as noted in HPI & below Physical Exam Physical Exam: Pleasant man in no distress Constitutional: WD/WN, vitals as above Neck: trachea midline, no thyromegaly Respiratory: normal respiratory effort, lungs clear to auscultation Cardiovascular: RRR, no murmur, no edema Gastrointestinal (Abdomen): Inspection/Auscultation: abdomen normal to inspection Percussion/Palpation: + abdomen tender and abdomen soft Results & Data Vital Signs (Past 12 Hours) Vital Signs Temp Pulse Pulse Resp BP BP Pulse Ox 10/17/24 08:40 80 10/17/24 04:00 61 16 111/57 L 96 10/17/24 03:04 36.7 C 78 15 110/56 L 97 10/17/24 03:00 68 16 110/56 L 96 10/17/24 03:00 10/17/24 02:30 69 20 148/94 H 93 10/17/24 01:13 37.1 C 10/17/24 01:01 84 16 95/46 L 97 10/17/24 00:00 83 16 102/53 L 97 10/16/24 23:42 79 21 111/57 L 98 10/16/24 23:33 83 10/16/24 23:13 36.9 C 85 20 113/53 L 98 Pulse Ox O2 Del Method O2 Del Method 10/17/24 08:40 10/17/24 04:00 Room Air 10/17/24 03:04 Room Air 10/17/24 03:00 Room Air 10/17/24 03:00 96 Room Air 10/17/24 02:30 Room Air 10/17/24 01:13 10/17/24 01:01 Room Air 10/17/24 00:00 Room Air 10/16/24 23:42 Room Air 10/16/24 23:33 10/16/24 23:13 Room Air Laboratory Results 10/17/24 10/17/24 10/16/24 Range/Units 04:53 00:07 23:27 WBC 4.90 5.79 (4.8-10.8) K/ul RBC 3.48 L 3.76 L (4.70-6.10) M/uL Hgb 10.2 L 11.0 L (14.0-18.0) g/dl Hct 30.1 L 32.7 L (42.0-52.0) % MCV 86.5 87.0 (80.0-100.0) fL MCH 29.3 29.3 (25.0-34.0) pg MCHC 33.9 33.6 (32.0-36.0) g/dL RDW Std Deviation 49.6 H 49.7 H (36.4-46.3) fL RDW Coeff of Lexii 15.7 H 15.6 H (11.5-14.5) % Plt Count 102 L 113 L (130-400) K/uL MPV 11.5 11.2 (9.4-12.4) fL Immature Gran % (Auto) 0.2 0.2 % Neut % (Auto) 83.9 87.0 % Lymph % (Auto) 8.6 5.0 % [place] % (Auto) 7.1 7.6 % Eos % (Auto) 0.0 0.0 % Baso % (Auto) 0.2 0.2 % Neut # (Auto) 4.11 5.04 (1.40-6.50) K/uL Lymph # (Auto) 0.42 L 0.29 L (1.20-3.40) K/uL [place] # (Auto) 0.35 0.44 (0.11-0.59) K/uL Eos # (Auto) 0.00 0.00 (0.00-0.50) K/uL Baso # (Auto) 0.01 0.01 (0.00-0.20) K/uL Immature Gran # (Auto) 0.01 0.01 (0.01-0.20) K/uL PT 11.2 (9.0-12.0) Seconds INR 1.0 (0.9-1.1) VBG pH 7.31 L (7.36-7.41) VBG pCO2 36 L (38-50) mmHg VBG pO2 50 mmHg VBG HCO3 18 mmol/L VBG O2 Saturation 82.1 % VBG Base Excess -7.4 mEq/L Sodium 134 L 133 L (136-145) mmol/L Potassium 4.1 4.4 (3.5-5.1) mmol/L Chloride 106 103 (98-107) mmol/L Carbon Dioxide 18 L 19 L (21-32) mmol/L Anion Gap 10 11 (3-11) BUN 20 21 (6-23) mg/dl Creatinine 1.15 1.38 (0.6-1.4) mg/dl Est Cr Clr Drug Dosing 51.8 43.2 ml/min eGFR 64.34 51.69 BUN/Creatinine Ratio 17.4 15.2 (10-20) Glucose 112 H 104 H (70-99(Fasting)) mg/dl Estimat Average Glucose 126 mg/dl Hemoglobin A1c 6.0 H (4.5-5.6) % Lactate 1.0 (0.4-2.0) mmol/L Calcium 8.9 9.4 (8.6-10.3) mg/dl Magnesium 1.7 (1.7-2.4) mg/dl Total Bilirubin 5.4 H 8.6 H (0.2-1.0) mg/dl Direct Bilirubin 2.9 H (0-0.2) mg/dl AST 108 H 133 H (13-39) U/L ALT 229 H 262 H (7-52) U/L Alkaline Phosphatase 315 H 363 H (34-104) U/L Total Protein 5.7 L 6.3 (6.0-8.3) gm/dl Albumin 3.5 3.9 (3.4-5.0) gm/dl Globulin 2.4 L (2.5-4.0) gm/dl Albumin/Globulin Ratio 1.6 (0.9-2) Lipase 39 (11-82) U/L Urine Color Dark Yellow Urine Appearance Clear (Clear) Urine pH 5.0 (4.5-7.5) Ur Specific [place] 1.010 (1.000-1.030) Urine Protein Negative (Negative) Urine Glucose (UA) Negative (Negative) Urine Ketones 1+ H (Negative) Urine Blood Negative (Negative) Urine Nitrite Negative (Negative) Urine Bilirubin 1+ H (Negative) Urine Urobilinogen Negative (Negative) Ur Leukocyte Esterase Negative (Negative) Urine Comment Blood Type AB Positive Antibody Screen NEGATIVE
[2024-10-17 13:07] LABS: Hematocrit (blood only) 29.9 % (42.0-52.0); Hemoglobin 10.3 g/dl (14.0-18.0)
[2024-10-17] MEDS: CETIRIZINE HCL 10 MG TABLET PO SCH (20:01)
[2024-10-17 21:23] LABS: Hematocrit (blood only) 29.7 % (42.0-52.0); Hemoglobin 10.0 g/dl (14.0-18.0)
[2024-10-18 06:23] LABS: Hematocrit (blood only) 29.9 % (42.0-52.0); Hemoglobin 10.1 g/dl (14.0-18.0); Immature Granulocytes # (auto) 0.01 K/uL (0.01-0.20); Immature Granulocytes % (auto) 0.3 %; Mean Corpuscular Hemoglobin 29.2 pg (25.0-34.0); Mean Corpuscular Volume 86.4 fL (80.0-100.0); Platelet Count 116 K/uL (130-400); RDW Standard Deviation 49.1 fL (36.4-46.3); Red Blood Count 3.46 M/uL (4.70-6.10); White Blood Count 3.86 K/ul (4.8-10.8)
[2024-10-18 06:40] LABS: Anion Gap 5.0 (3-11); Blood Urea Nitrogen 16.0 mg/dl (6-23); Calcium 9.0 mg/dl (8.6-10.3); Carbon Dioxide 26.0 mmol/L (21-32); Chloride 106.0 mmol/L (98-107); Creatinine Clr Calc Pharmacy 64.8 ml/min; Glucose 121.0 mg/dl (70-99(Fasting)); Potassium 3.7 mmol/L (3.5-5.1); Sodium 137.0 mmol/L (136-145)
[2024-10-18 07:57] VITALS: RESP 16
[2024-10-18 08:50] LABS: Alanine Aminotransferase 188.0 U/L (7-52); Alkaline Phosphatase 265.0 U/L (34-104); Bilirubin,Total 3.5 mg/dl (0.2-1.0); Total Protein 5.5 gm/dl (6.0-8.3)
--- NOTE | 2024-10-18 10:33 | Gastroenterology Progress Note ---
Date of Service October 18, 2024 Assessment & Plan (1) GI (gastrointestinal bleed): Plan: Bleeding seems to have stopped. Will advance diet. Okay with me to go home today Admission and Anticipated Discharge Date Admission Date: October 17, 2024 Subjective Feels good. No blood in ostomy bag. H/H are stable Physical Exam Physical Exam: He looks well Constitutional: WD/WN, vitals as above Results & Data Vital Signs (Past 12 Hours) Vital Signs Temp Pulse Pulse Resp BP Pulse Ox O2 Del Method 10/18/24 07:56 36.8 C 70 16 97/53 L 96 Room Air 10/18/24 05:17 64 10/18/24 04:00 36.6 C 66 18 102/58 L 96 Room Air 10/17/24 23:53 71 10/17/24 22:55 36.6 C 72 18 103/58 L 98 Room Air
--- NOTE | 2024-10-18 11:04 | Discharge Summary ---
Discharge Summary Date of Service October 18, 2024 Principal Dx & Hospital Course #1 = Principal Diagnosis (1) GI (gastrointestinal bleed): Assessment and plan below following discussion of case with ED provider and reviewing patient history/pertinent normal/abnormal diagnostic test results. GI bleed History of GERD Recent palliative ERCP for obstructive jaundice secondary to pancreatic malignancy -- No recurrence of bleeding from colostomy output -- Hg remained stable at [address] evaluated [address] GI service Dr[address] Pereyra Cleared for discharge resume Xarelto on October 21, 5 days after procedure as per instructions of Dr. Marvin Isaac who performed the ERCP on October 16 -- repeat CBC on follow-up with PCP this week valvular heart disease (mild MR TR, TTE 2020) PAF/PSVT, patient NSR PVD, history of carotid disease as per records hypertension, BP on the lower side, patient on midodrine for hypotension at home --> hold atenolol, reevaluate upon follow-up with PCP this week hypercoagulable state (history of PE plus factor V Leiden deficiency/APC resistance, Xarelto on hold for next 3 days following recent ERCP as per endoscopist's recommendations COPD, lung status at baseline ulcerative colitis status post surgery recurrent lung cancer status post surgery with brain mets status post chemoradiation chronic anemia, hemoglobin at baseline prediabetes, hemoglobin A1c of 6 from 2021 past tobacco/alcohol abuse DVT prophylaxis. SCDs re: GI bleed DNR plan of care discussed with patient in detail and at length all questions answered he is understanding, agreeable, comfortable with the plan of care Notes For Next Care Provider Medication Changes From Visit Holding Xarelto after ERCP, resume on October 21, 2024 Holding atenolol in light of low blood pressure Admission HPI Per Admitting Provider History obtained from patient, family, and records. Medical history significant for valvular heart disease (mild MR TR, TTE 2020), PAF/PSVT, PVD, hypertension, hypotension on midodrine, hypercoagulable state (history of PE plus factor V Leiden deficiency/APC resistance currently off Xarelto due to recent ERCP, COPD, GERD, ulcerative colitis status post surgery, metastatic pancreatic cancer, recurrent lung cancer status post surgery with brain mets status post chemoradiation, chronic anemia (baseline hemoglobin 10- 11), prediabetes, BPH, past tobacco/alcohol abuse. Last confinement April 2024 for recurrent pancreatitis in the setting of pancreatic mass later found to be adenocarcinoma. Disease deemed to be unresectable. Radiation contraindicated as per oncology note. Patient deemed to to have incurable disease. Palliative care recommended by [facility] oncologist. Patient underwent outpatient palliative ERCP at [facility] yesterday for obstructive jaundice in the setting of pancreatic cancer.. Abnormal outpatient LFTs noted prior to procedure. Patient instructed to hold home Xarelto prior to procedure. Xarelto to be resumed 5 days after ERCP. 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 Biliary sphincterotomy performed with subsequent placement of metal biliary stent in the CBD. Patient noted bloody ostomy output at home last night. Chronic abdominal pain. No hematemesis or coffee-ground emesis. Denies OTC NSAID intake. IV PPI administered at the ER. 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 EXTREMITIES : No LE swelling/tenderness, palpable pulses, no other conspicuous deformities noted NEUROLOGIC : Coherent, no facial asymmetry, slightly hard of hearing, no other gross focality Discharge Exam General- oriented x 3, not in distress, speaks in sentences with no effort or accessory muscle use Eyes- anicteric Neck- no JVD Lungs- clear breath sounds bilaterally, no rales/wheezes Heart- normal rate, regular rhythm; no murmurs Abdomen- normal bowel sounds, nondistended, soft, nontender Colostomy: Soft stools, brown, no blood Extremities- no pretibial edema, no calf tenderness Neuro- alert, oriented x 3; no gross focal neurologic deficits Skin- warm & dry Updated Medication List Medication Instructions Recorded Confirmed Type atenolol 25 mg tablet 37.5 mg PO BID 06/25/20 10/17/24 History cetirizine 10 mg tablet (Zyrtec) 10 mg PO HS 06/25/20 10/17/24 History omeprazole magnesium 20 mg 20 mg PO QAM 06/25/20 10/17/24 History tablet,delayed release (Prilosec OTC) rivaroxaban 20 mg tablet (Xarelto) 20 mg PO QAM 06/25/20 10/17/24 History alfuzosin 10 mg tablet,extended 10 mg PO DAILY 04/25/24 10/17/24 History release 24 hr finasteride 5 mg tablet 5 mg PO DAILY 04/25/24 10/17/24 History acetaminophen 500 mg tablet 500 mg PO Q8H PRN Pain 10/17/24 10/17/24 History (Tylenol Extra Strength) albuterol sulfate 2.5 mg/3 mL 2.5 mg inhalation Q4H PRN 10/17/24 10/17/24 History (0.083 %) solution for nebulization Shortness Of Breath cholestyramine (with sugar) 4 gram 1 ea PO BID 10/17/24 10/17/24 History powder for susp in a packet hydromorphone 2 mg tablet 2 mg PO Q6H PRN Pain 10/17/24 10/17/24 History midodrine 2.5 mg tablet 2.5 mg PO BID 10/17/24 10/17/24 History hiyfwooizpyi-efoovuyg-lmcymi tablet 1 tab PO DAILY 10/17/24 10/17/24 History polyethylene glycol 3350 17 17 g PO DAILY 10/17/24 10/17/24 History gram/dose oral powder (Miralax) triamcinolone acetonide 0.1 % 1 applic topical BID PRN NEEDED 10/17/24 10/17/24 History topical cream Hospital Stay Data Consultations 10/17/24 01:02 ED Decision to Admit Stat 10/17/24 02:37 Consult Gastroenterology Routine Pending Results Patient Have Any Pending Studies at Discharge: No Discharge Instructions Given to Patient (Per Discharging Provider) If no signs of bleeding, please resume your Xarelto on October 21, 2024. Please stop taking atenolol to prevent low blood pressure. Your primary care physician will give you advice once you see him on your follow-up visit. PLEASE CALL YOUR PRIMARY CARE PHYSICIAN OR RETURN TO THE ER IF WITH WORSENING OF SYMPTOMS, INCLUDING Abdominal pain, bleeding from colostomy, nausea or vomiting, fevers or chills, weakness, dizziness, etc. FOLLOW UP WITH PRIMARY CARE PHYSICIAN in 1 week. Follow-up with your auxiliary powerplant operator as scheduled. Total Time Total Time Spent Total Time Spent (In Minutes): 45 minutes
[2024-10-18 11:47] VITALS: BP 109/62; PULSE 65; TEMP 97.7; O2SAT 100
== END 2024-10-18 12:43 | disposition home or self-care (01) | DRG 920 ==
LOC: ED 23:05 → EDINP 10-17 02:08 → 2N 10-17 02:38